=== PATIENT | female | born 1965 | race Caucasian/White ===

== ENCOUNTER 2017-06-01 04:39 | Inpatient (IN) | payer MEDICAID ==
[2017-06-01] MEDS ORDERED: XOPENEX 1.25 MG/3 ML NEBULE NEB ONE ×2 (04:50→04:53)
[2017-06-01 05:24] LABS: BASOPHILS % (AUTO) 0.4 % (0.2-1.0); EOSINOPHILS # (AUTO) 0.1 x10^3/uL (0.0-0.2); EOSINOPHILS % (AUTO) 0.6 % (0.9-2.9); HEMATOCRIT 38.7 % (36.0-47.0); LYMPHOCYTES # (AUTO) 1.4 X10^3/uL (1.3-2.9); LYMPHOCYTES % (AUTO) 13.6 % (21.0-51.0); MEAN CORPUSCULAR HEMOGLOBIN 28.6 pg (27.0-34.0); MEAN CORPUSCULAR HGB CONC 33.5 g/dL (33.0-35.0); MEAN CORPUSCULAR VOLUME 85.4 fL (80.0-100.0); MEAN PLATELET VOLUME 8.6 fL (7.4-11.0); MONOCYTES # (AUTO) 0.4 x10^3/uL (0.3-0.8); MONOCYTES % (AUTO) 4.1 % (0.0-13.0); NEUTROPHILS # (AUTO) 8.5 x10^3/uL (2.2-4.8); NEUTROPHILS % (AUTO) 81.3 % (42.0-75.0); PLATELET COUNT 68 X10^3/uL (150.0-450.0); RED BLOOD COUNT 4.53 X10^6/uL (3.5-5.4); RED CELL DISTRIBUTION WIDTH 19.7 % (11.6-16.5); WHITE BLOOD COUNT 10.5 X10^3/uL (3.6-10.0)
[2017-06-01 05:27] LABS: ABG ALLEN TEST POS; ABG HCO3 34.7 mmol/L (22-26); FRACTIONATED INSPIRED OXYGEN 28
--- NOTE | 2017-06-01 05:31 | DR.GENAD ---
HPI - PCP Primary Care Physician: nfd - Complaint/Symptoms Chief Complaint Doctors Comments: Patient admits to chest pain for a couple of years. She states that she was hospitalized one week ago in [place] for chest pain and COPD. She had a stress test, she reports that she past the test. She was put on cardiazem drip for three days due to heart rate of 200. She was discharged on Diltiazem 240 daily and Eliquis. Patient states that she has had chest pain for a couple of years. She states that she has been hospitalized for pneumonia seven times the past year. [facility] live with a friend so that she will not be alone. Patient states that she felt weak while walking; admits to chest pain on last night that got worse this morning she therefore called EMS. She admits to smoking four cigarettes per day. She is on oxygen daily at 3L for the past year. Chief Complaint:: pt c/o sob and chest pain for 2 days pt states" i just got out of the [facility] thursday was a week ago. I stay in the hospital more than i'm out. I think something is wrong with my kidneys they done test but it didn't show nothing cause they never said anything" - Source History Provided: Patient - Mode of Arrival Mode of Arrival: EMS - Timing Onset of Chief Complaint: 05/30/17 PMH - PMH Past Medical History: Yes Past Medical History: Angina, Asthma, COPD, Diabetes Past Medical History Comment: A-FIB Past Surgical History: Yes Surgical History: Cholecystectomy, Hysterectomy - Family History History of Family Medical Conditions: Yes Family Medical History: Diabetes Mellitus, Cancer, [place], Coronary Artery Disease, Heart Failure, Hypertension - Social History Does patient currently use any type of tobacco product: Yes Have you used tobacco products in the last 12 months: Yes Type of Tobacco Use: Cigarettes Does any household member use tobacco: Yes Alcohol Use: None Do you use any recreational Drugs:: No Lives With: Family Lives Where: Home - infectious screening In the last 2 months have you had wt loss of >10#?: NO Have you had fever, night sweats or hemotysis?: No Have you traveled outside the country in the last 6 months?: No Isolation: Standard ROS - Review of Systems Constitutional: See HPI Eyes: No Symptoms Reported ENTM: No Symptoms Reported Respiratoy: Hacking Cough, Short of Breath, Wheezing Cardiovascular: No Symptoms Reported Gastrointestinal/Abdominal: No Symptoms Reported Genitourinary: No Symptoms Reported Neurological: No Symptoms Reported Musculoskeletal: No Symptoms Reported Integumentary: No Symptoms Reported Hematologic/Lymphatic: No Symptoms Reported Endocrine: No Symptoms Reported Psychiatric: No Symptoms Reported All Other Systems: Reviewed and Negative PE - Vital Signs Vitals: Temperature 98.2 F Pulse Rate 97 Respiratory Rate 20 Blood Pressure 125/72 O2 Sat by Pulse Oximetry 93 - General Limitations: No Limitations General Appearance: Alert, In Distress - Head Head Exam: Normal Inspection, Atraumatic - Eyes Eye exam: Normal Appearance, PERRL, EOMI - ENT ENT Exam: Normal Exam External Ear Exam: Normal External Inspection TM/Canal Exam: Bilateral Normal Nose Exam: Normal Nose Exam Mouth Exam: Normal Inspection Throat Exam: Normal Inspection - Neck Neck Exam: Normal Inspection, Full ROM - Chest Chest Inspection: Normal Inspection, Tenderness (to palpation) - Respiratory Respiratory Exam: Chest Wall Tenderness Respiratory Exam: Bilateral Wheezing (decreased s/p neb) - Cardiovascular Cardiovascular Exam: Irregular Rhythm (fluctuating) - Abdominal Exam Abdominal Exam: Normal Inspection - Extremities Extremities Exam: Normal Inspection. negative: Edema - Back Back Exam: Normal Inspection - Neurologic Neurological Exam: Alert, Oriented X3, CN II-XII Intact - Psychiatric Psychiatric Exam: Normal Affect - Skin Skin Exam: Warm, Dry, Intact Course - Consultation Called: 06:05 (Dr Fairbanks agreed to admit for further treatment and evaluation) - Education/Counseling Educated On: Diagnosis, Prognosis ROR - Labs Reviewed Result Diagrams: 06/01/17 05:19 06/01/17 05:19 Laboratory: WBC 10.5 X10^3/uL (3.6-10.0) H 06/01/17 05:19 RBC 4.53 X10^6/uL (3.5-5.4) 06/01/17 05:19 Hgb 13.0 g/dL (12.0-16.0) 06/01/17 05:19 Hct 38.7 % (36.0-47.0) 06/01/17 05:19 MCV 85.4 fL (80.0-100.0) 06/01/17 05:19 MCH 28.6 pg (27.0-34.0) 06/01/17 05:19 MCHC 33.5 g/dL (33.0-35.0) 06/01/17 05:19 RDW 19.7 % (11.6-16.5) H 06/01/17 05:19 Plt Count 68 X10^3/uL (150.0-450.0) L 06/01/17 05:19 MPV 8.6 fL (7.4-11.0) 06/01/17 05:19 Neut % 81.3 % (42.0-75.0) H 06/01/17 05:19 Lymph % 13.6 % (21.0-51.0) L 06/01/17 05:19 [place] % 4.1 % (0.0-13.0) 06/01/17 05:19 Eos % 0.6 % (0.9-2.9) L 06/01/17 05:19 Baso % 0.4 % (0.2-1.0) 06/01/17 05:19 Neut # 8.5 x10^3/uL (2.2-4.8) H 06/01/17 05:19 Lymph # 1.4 X10^3/uL (1.3-2.9) 06/01/17 05:19 [place] # 0.4 x10^3/uL (0.3-0.8) 06/01/17 05:19 Eos # 0.1 x10^3/uL (0.0-0.2) 06/01/17 05:19 Baso # 0.0 X10^3/uL (0.0-0.1) 06/01/17 05:19 Absolute Nucleated RBC 0.0 /100WBC 06/01/17 05:19 INR Target Range - 06/01/17 05:19 INR 1.12 (0.8-1.3) 06/01/17 05:19 PTT 26.6 SECONDS (22.9-36.5) 06/01/17 05:19 PTT Comment - 06/01/17 05:19 Sample Site Rr 06/01/17 05:21 ABG pH 7.580 (7.35-7.45) H* 06/01/17 05:21 ABG pCO2 37.0 mmHg (35.0-45.0) 06/01/17 05:21 ABG pO2 81.0 mmHg (80.0-100.0) 06/01/17 05:21 ABG HCO3 34.7 mmol/L (22-26) H* 06/01/17 05:21 ABG O2 Saturation 97.0 % (90-100) 06/01/17 05:21 ABG Base Excess 12.0 mmol/L (-2.0-2.0) H 06/01/17 05:21 Josemanuel Test Pos 06/01/17 05:21 A-a Gradient 72.0 mmHg 06/01/17 05:21 FiO2 28 06/01/17 05:21 Blood Gas Comments Gerald well ae 06/01/17 05:21 Sodium 136 mmol/L (136-145) 06/01/17 05:19 Corrected Sodium 141 mmol/L (136-145) 06/01/17 05:19 Potassium 2.8 mmol/L (3.5-5.1) L* 06/01/17 05:19 Chloride 98 mmol/L (98-107) 06/01/17 05:19 Carbon Dioxide 30.0 mmol/L (21-32) 06/01/17 05:19 BUN 17 mg/dL (7-18) 06/01/17 05:19 Creatinine 0.63 mg/dL (0.55-1.02) 06/01/17 05:19 Est GFR (MDRD) Af Amer > 60 (>60) 06/01/17 05:19 Est GFR (MDRD) Non-Af > 60 (>60) 06/01/17 05:19 Glucose 309 mg/dL (65-99) H 06/01/17 05:19 Calcium 8.6 mg/dL (8.5-10.1) 06/01/17 05:19 Corrected Calcium 9.8 mg/dL (8.5-10.1) 06/01/17 05:19 Magnesium 1.5 mg/dL (1.7-2.9) L 06/01/17 05:19 Total Bilirubin 1.30 mg/dL (0.2-1.0) H 06/01/17 05:19 AST 57 Units/L (15-37) H 06/01/17 05:19 ALT 121 Units/L (12-78) H 06/01/17 05:19 Alkaline Phosphatase 262 Units/L (46-116) H 06/01/17 05:19 Total Protein 5.9 g/dL (6.4-8.2) L 06/01/17 05:19 Albumin 2.5 g/dL (3.4-5.0) L 06/01/17 05:19 Globulin 3.4 g/dL (2.5-4.5) 06/01/17 05:19 Albumin/Globulin Ratio 0.7 Ratio (1.1-2.1) L 06/01/17 05:19 Triglycerides 120 mg/dL (0-150) 06/01/17 05:19 Cholesterol 126 mg/dL (0-200) 06/01/17 05:19 LDL Cholesterol, Calc 77 mg/dL (0-100) 06/01/17 05:19 HDL Cholesterol 25 mg/dL (40-60) L 06/01/17 05:19 Cholesterol/HDL Ratio 5.0 (0.0-5.0) 06/01/17 05:19 - XRAY XRAY Interpreted by: Radiologist (Chest: ...Increased reticlar opacity within the left lower lobe suspicious for develolping infiltrate/pneumonia.) - Diagnosis Discharge Problem: Metabolic acidosis, Hypokalemia Pneumonia Qualifiers: Pneumonia type: due to unspecified organism Laterality: right Lung location: lower lobe of lung Qualified Code(s): J18.1 - Lobar pneumonia, unspecified organism A-fib Qualifiers: Atrial fibrillation type: unspecified Qualified Code(s): I48.91 - Unspecified atrial fibrillation Chest pain Qualifiers: Chest pain type: unspecified Qualified Code(s): R07.9 - Chest pain, unspecified COPD (chronic obstructive pulmonary disease) Qualifiers: COPD type: COPD with acute exacerbation Qualified Code(s): J44.1 - Chronic obstructive pulmonary disease with (acute) exacerbation - Discharge Plan Condition: Stable - Follow ups/Referrals Follow ups/Referrals: NFD,None [Primary Care Provider] - 3 days - Instructions
[2017-06-01 05:32] LABS: BLOOD UREA NITROGEN 17 mg/dL (7-18); CALCIUM 8.6 mg/dL (8.5-10.1); CHLORIDE 98 mmol/L (98-107); COR NA(FOR HYPERGLY) 141 mmol/L (136-145); CREATININE 0.63 mg/dL (0.55-1.02); SODIUM 136 mmol/L (136-145); eGFR BLACK RACES > 60 (>60); eGFR NON BLACK RACES > 60 (>60)
[2017-06-01 05:37] LABS: ALANINE AMINOTRANSFERASE 121 Units/L (12-78); ALBUMIN 2.5 g/dL (3.4-5.0); ALKALINE PHOSPHATASE 262 Units/L (46-116); ASPARTATE AMINO TRANSFERASE 57 Units/L (15-37); CHOLESTEROL 126 mg/dL (0-200); COR CA(FOR HYPOALB) 9.8 mg/dL (8.5-10.1); HDL CHOLESTEROL 25 mg/dL (40-60); MAGNESIUM 1.5 mg/dL (1.7-2.9); TOTAL PROTEIN 5.9 g/dL (6.4-8.2); TRIGLYCERIDES 120 mg/dL (0-150)
[2017-06-01] MEDS ORDERED: K-LYTE EFFERVESCENT ONE (05:41)
[2017-06-01] MEDS ORDERED: K-LYTE EFFERVESCENT PO ONE (05:43)
[2017-06-01] MEDS ORDERED: TYLENOL 325 MG TAB PO ONE ×2 (05:45→05:46)
--- NOTE | 2017-06-01 05:46 | RAD ---
Macro it AP chest Indication: Chest pain with shortness of breath Findings: The trachea is midline. Heart size is normal. Increased reticular opacity within the left l ower lobe suspicious for developing infiltrate/pneumonia. Right lung is clear. No pleural effusion or pneumothorax. No acute osseous abnormality. Impression: Reticular opacities within left lower lobe suspicious for developing infiltrate/pneumonia . Reported By:
[2017-06-01] MEDS ORDERED: SALINE 3% 15 ML NEB TX ONE (05:53)
[2017-06-01 05:54] LABS: CKMB % 6.7 % (<4); CREATINE KINASE 15 Units/L (26-192); CREATINE KINASE MB < 1.0 ng/mL (0-4.0); TROPONIN I 0.04 ng/mL (0-1.5)
[2017-06-01] MEDS ORDERED: SALINE 3% 15 ML NEB TX NEB ONE (05:59)
[2017-06-01] MEDS ORDERED: NS + KCL 20 MEQ/L 1,000 ML IV ONE (06:08)
[2017-06-01] MEDS: NS 1000 ML 1,000 ML with POTASSIUM CHLORIDE INJ 20 MEQ VIAL 20 MEQ IV SCH ×4 (06:12→15:54)
[2017-06-01] MEDS ORDERED: ROCEPHIN 1 GM IV PREMIX 1 GM/50 ML IV.SOLN. IV ONE (06:57)
[2017-06-01] MEDS ORDERED: NS 1/2 1000 ML IV 1,000 ML with POTASSIUM CHLORIDE INJ 20 MEQ VIAL 20 MEQ IV SCH ×2 (07:00)
[2017-06-01] MEDS ORDERED: NS + KCL 20 MEQ/L 1,000 ML IV SCH (08:00)
[2017-06-01 08:13] VITALS: BMI 24.2
[2017-06-01] MEDS ORDERED: FLUVIRIN IM ONE (08:13)
[2017-06-01] MEDS: XOPENEX 1.25 MG/3 ML NEBULE NEB SCH ×5 (08:53→20:57)
[2017-06-01] MEDS ORDERED: ROCEPHIN VIAL 1 GM 1 GM in NS 50 ML IV + SPIKE MINIBAG* 50 ML IV SCH (09:00)
[2017-06-01] MEDS ORDERED: DUONEB 0.5 MG/3 MG NEB SCH (09:00)
[2017-06-01] MEDS ORDERED: DILTIAZEM HCL 240 MG PO SCH (09:00)
[2017-06-01] MEDS: ELIQUIS PO SCH ×2 (09:40→20:35)
[2017-06-01] MEDS: CARDIZEM CD 240 MG PO SCH (09:40)
[2017-06-01] MEDS: ROCEPHIN VIAL 1 GM 1 GM in NS 50 ML IV 50 ML IV SCH ×2 (09:41→09:53)
[2017-06-01] MEDS: ROBITUSSIN DM PO SCH ×4 (09:41→20:34)
[2017-06-01] MEDS: HumuLIN R SUBCUT PRN ×4 (09:42→20:37)
[2017-06-01] MEDS ORDERED: REFLEX: PROVENTIL NEB & PulmiCORT NEB~ NEB SCH (09:45)
[2017-06-01] MEDS ORDERED: PULMICORT NEB TX 0.5 MG NEB NR (09:45)
[2017-06-01] MEDS ORDERED: PROVENTIL NEB TX 0.083% 2.5MG/ 3ML NEB NR (09:45)
[2017-06-01] MEDS: ZOFRAN INJ 4 MG VIAL IVP PRN (10:30)
[2017-06-01] MEDS: MOBIC TAB 15 MG PO SCH (11:02)
[2017-06-01] MEDS: VIBRAMYCIN IV SCH ×3 (11:02→20:36)
[2017-06-01] MEDS: ACTOS PO SCH (11:02)
[2017-06-01] MEDS: NS IV SCH ×3 (11:02→20:36)
[2017-06-01] MEDS: CELEXA PO SCH (11:02)
[2017-06-01] MEDS: ULTRAM PO PRN ×2 (11:53→20:34)
[2017-06-01 12:50] LABS: CKMB % 3.7 % (<4); CREATINE KINASE MB 0.7 ng/mL (0-4.0); TROPONIN I 0.03 ng/mL (0-1.5)
[2017-06-01] MEDS ORDERED: K-RIDER 10 MEQ/NS 100 ML 10 MEQ/100 ML BAG IV PRN (13:05)
[2017-06-01] MEDS ORDERED: K-LYTE EFFERVESCENT PO PRN (13:05)
[2017-06-01] MEDS ORDERED: MAG-OX TAB PO PRN (13:05)
[2017-06-01] MEDS: TUSSIONEX PENNKINETIC SUSP PO PRN ×2 (13:11→23:39)
[2017-06-01] MEDS ORDERED: K-DUR TAB 20 MEQ PO ONE (13:37)
[2017-06-01] MEDS: NS + KCL 20 MEQ/L 1,000 ML IV SCH ×2 (15:54→20:36)
[2017-06-01] MEDS: GLUCOPHAGE XR PO SCH ×2 (16:49→20:36)
[2017-06-01 17:27] LABS: CKMB % 3.2 % (<4); CREATINE KINASE MB 0.7 ng/mL (0-4.0); TROPONIN I 0.02 ng/mL (0-1.5)
[2017-06-01] MEDS: SNACK - Diabetic Appropriate PO SCH ×2 (20:33→20:34)
[2017-06-01] MEDS: AMBIEN PO SCH (20:35)
[2017-06-01] MEDS: PULMICORT NEB TX 0.5 MG NEB SCH (20:57)
[2017-06-01] MEDS: ATIVAN TAB 0.5 MG PO PRN (22:59)
[2017-06-02] MEDS: NS 1000 ML 1,000 ML with POTASSIUM CHLORIDE INJ 20 MEQ VIAL 20 MEQ IV SCH ×4 (00:29→07:39)
[2017-06-02] MEDS: ULTRAM PO PRN ×4 (02:35→21:53)
[2017-06-02] MEDS: NS + KCL 20 MEQ/L 1,000 ML IV SCH ×3 (03:04→15:52)
[2017-06-02] MEDS: ZOFRAN INJ 4 MG VIAL IVP PRN ×2 (03:56→22:31)
[2017-06-02 05:19] LABS: BASOPHILS % (AUTO) 0.4 % (0.2-1.0); EOSINOPHILS # (AUTO) 0.1 x10^3/uL (0.0-0.2); EOSINOPHILS % (AUTO) 1.2 % (0.9-2.9); HEMATOCRIT 33.9 % (36.0-47.0); HEMOGLOBIN 11.3 g/dL (12.0-16.0); LYMPHOCYTES # (AUTO) 1.2 X10^3/uL (1.3-2.9); LYMPHOCYTES % (AUTO) 19.9 % (21.0-51.0); MEAN CORPUSCULAR HEMOGLOBIN 29.3 pg (27.0-34.0); MEAN CORPUSCULAR HGB CONC 33.4 g/dL (33.0-35.0); MEAN CORPUSCULAR VOLUME 87.6 fL (80.0-100.0); MONOCYTES # (AUTO) 0.3 x10^3/uL (0.3-0.8); MONOCYTES % (AUTO) 4.3 % (0.0-13.0); NEUTROPHILS # (AUTO) 4.6 x10^3/uL (2.2-4.8); NEUTROPHILS % (AUTO) 74.2 % (42.0-75.0); PLATELET COUNT 51 X10^3/uL (150.0-450.0); RED BLOOD COUNT 3.86 X10^6/uL (3.5-5.4); RED CELL DISTRIBUTION WIDTH 19.6 % (11.6-16.5); WHITE BLOOD COUNT 6.2 X10^3/uL (3.6-10.0)
[2017-06-02 05:50] LABS: ALANINE AMINOTRANSFERASE 104 Units/L (12-78); ALBUMIN 2.2 g/dL (3.4-5.0); ALKALINE PHOSPHATASE 218 Units/L (46-116); ASPARTATE AMINO TRANSFERASE 51 Units/L (15-37); BLOOD UREA NITROGEN 16 mg/dL (7-18); CALCIUM 7.8 mg/dL (8.5-10.1); CARBON DIOXIDE 28.5 mmol/L (21-32); COR CA(FOR HYPOALB) 9.2 mg/dL (8.5-10.1); CREATININE 0.61 mg/dL (0.55-1.02); TOTAL PROTEIN 4.9 g/dL (6.4-8.2); eGFR BLACK RACES > 60 (>60); eGFR NON BLACK RACES > 60 (>60)
[2017-06-02 05:54] LABS: CHLORIDE 100 mmol/L (98-107); COR NA(FOR HYPERGLY) 136 mmol/L (136-145); SODIUM 135 mmol/L (136-145)
--- NOTE | 2017-06-02 06:38 | RAD ---
HISTORY: Chest pain, shortness of breath Study: Chest AP portable Comparison: 06/01/2017 Findings: The heart is within normal limits in size. The loren[place] are normal. The lungs are mildly hyperinflated bu t free of acute alveolar infiltrates. No pleural effusions are identified. The bony thorax is unremar kable. There is minimal perihilar subsegmental atelectasis on the right. IMPRESSION: No definite acute infiltrates Hyperinflation Reported By:
[2017-06-02] MEDS: PULMICORT NEB TX 0.5 MG NEB SCH ×2 (08:24→20:35)
[2017-06-02] MEDS: XOPENEX 1.25 MG/3 ML NEBULE NEB SCH ×4 (08:24→20:35)
[2017-06-02] MEDS: ACTOS PO SCH (08:46)
[2017-06-02] MEDS: MOBIC TAB 15 MG PO SCH (08:47)
[2017-06-02] MEDS: ELIQUIS PO SCH ×2 (08:47→20:20)
[2017-06-02] MEDS: CARDIZEM CD 240 MG PO SCH (08:47)
[2017-06-02] MEDS: GLUCOPHAGE XR PO SCH ×2 (08:47→20:17)
[2017-06-02] MEDS: CELEXA PO SCH (08:47)
[2017-06-02] MEDS: PREDNISONE TAB 10 MG PO SCH (08:47)
[2017-06-02] MEDS: ROCEPHIN VIAL 1 GM 1 GM in NS 50 ML IV 50 ML IV SCH (08:48)
[2017-06-02] MEDS: ROBITUSSIN DM PO SCH ×4 (08:48→20:17)
[2017-06-02] MEDS: NS IV SCH ×2 (08:50→20:17)
[2017-06-02] MEDS: VIBRAMYCIN IV SCH ×2 (08:50→20:17)
[2017-06-02] MEDS: MAGNESIUM SULFATE 1 GM/100 mL PREMIX 1 GM/100 ML BAG IV PRN ×4 (09:20→15:50)
[2017-06-02] MEDS: HumuLIN R SUBCUT PRN ×3 (10:58→20:17)
[2017-06-02] MEDS: TUSSIONEX PENNKINETIC SUSP PO PRN (12:27)
[2017-06-02] MEDS: ATIVAN TAB 0.5 MG PO PRN (20:17)
[2017-06-02] MEDS: AMBIEN PO SCH (20:17)
[2017-06-02] MEDS: SNACK - Diabetic Appropriate PO SCH ×2 (20:20)
[2017-06-03] MEDS: TUSSIONEX PENNKINETIC SUSP PO PRN ×2 (01:30→14:06)
[2017-06-03] MEDS: NS + KCL 20 MEQ/L 1,000 ML IV SCH ×2 (01:33→05:08)
[2017-06-03] MEDS: ULTRAM PO PRN ×2 (04:17→10:07)
[2017-06-03 05:30] LABS: BASOPHILS % (AUTO) 0.2 % (0.2-1.0); EOSINOPHILS # (AUTO) 0.1 x10^3/uL (0.0-0.2); EOSINOPHILS % (AUTO) 1.5 % (0.9-2.9); HEMATOCRIT 32.8 % (36.0-47.0); HEMOGLOBIN 10.8 g/dL (12.0-16.0); LYMPHOCYTES # (AUTO) 1.1 X10^3/uL (1.3-2.9); MEAN CORPUSCULAR VOLUME 87.9 fL (80.0-100.0); MEAN PLATELET VOLUME 8.6 fL (7.4-11.0); MONOCYTES # (AUTO) 0.3 x10^3/uL (0.3-0.8); MONOCYTES % (AUTO) 4.6 % (0.0-13.0); NEUTROPHILS # (AUTO) 4.1 x10^3/uL (2.2-4.8); NEUTROPHILS % (AUTO) 73.7 % (42.0-75.0); PLATELET COUNT 50 X10^3/uL (150.0-450.0); RED BLOOD COUNT 3.73 X10^6/uL (3.5-5.4); RED CELL DISTRIBUTION WIDTH 19.9 % (11.6-16.5); WHITE BLOOD COUNT 5.6 X10^3/uL (3.6-10.0)
[2017-06-03] MEDS: XOPENEX 1.25 MG/3 ML NEBULE NEB SCH ×2 (05:30→08:47)
[2017-06-03 05:35] LABS: ALANINE AMINOTRANSFERASE 79 Units/L (12-78); ALKALINE PHOSPHATASE 219 Units/L (46-116); ASPARTATE AMINO TRANSFERASE 34 Units/L (15-37); BLOOD UREA NITROGEN 9 mg/dL (7-18); CALCIUM 7.8 mg/dL (8.5-10.1); CHLORIDE 102 mmol/L (98-107); COR CA(FOR HYPOALB) 9.4 mg/dL (8.5-10.1); CREATININE 0.55 mg/dL (0.55-1.02); SODIUM 137 mmol/L (136-145); TOTAL PROTEIN 4.9 g/dL (6.4-8.2); eGFR BLACK RACES > 60 (>60); eGFR NON BLACK RACES > 60 (>60)
[2017-06-03 05:45] LABS: PLATELET MORPHOLOGY COMMENT NORMAL (NORMAL)
[2017-06-03] MEDS: ATIVAN TAB 0.5 MG PO PRN (08:20)
[2017-06-03] MEDS: CARDIZEM CD 240 MG PO SCH (08:21)
[2017-06-03] MEDS: ROBITUSSIN DM PO SCH ×2 (08:21→12:21)
[2017-06-03] MEDS: MOBIC TAB 15 MG PO SCH (08:21)
[2017-06-03] MEDS: CELEXA PO SCH (08:21)
[2017-06-03] MEDS: PREDNISONE TAB 10 MG PO SCH (08:21)
[2017-06-03] MEDS: ACTOS PO SCH (08:21)
[2017-06-03] MEDS: ELIQUIS PO SCH (08:21)
[2017-06-03] MEDS: GLUCOPHAGE XR PO SCH (08:21)
[2017-06-03] MEDS: NS IV SCH (08:22)
[2017-06-03] MEDS: VIBRAMYCIN IV SCH (08:22)
[2017-06-03] MEDS: ROCEPHIN VIAL 1 GM 1 GM in NS 50 ML IV 50 ML IV SCH (08:22)
[2017-06-03] MEDS: PULMICORT NEB TX 0.5 MG NEB SCH (08:47)
[2017-06-03 12:35] VITALS: BP 137/82
== END 2017-06-03 14:06 | disposition home or self-care (01) | DRG 194 ==
LOC: ER 04:39 → ICU 06:45
PROVIDERS: ADMIT Obstetrics & Gynecology Obstetrics; ATTEND Obstetrics & Gynecology Obstetrics
DX: J18.1 Lobar pneumonia, unspecified organism (principal); R07.89 Other chest pain; J44.1 Chronic obstructive pulmonary disease with (acute) exacerbation; E87.6 Hypokalemia; R06.02 Shortness of breath; I48.91 Unspecified atrial fibrillation; E87.2 Acidosis; R94.31 Abnormal electrocardiogram [ECG] [EKG]; I10 Essential (primary) hypertension; F41.8 Other specified anxiety disorders; E11.65 Type 2 diabetes mellitus with hyperglycemia
CPT/HCPCS: 36415; 36600; 71010; 80053; 80061; 82550; 82553; 82803; 83735; 84132; 84484; 85025; 85610; 85730; 87040; 87070; 87086; 87205; 90686; 93005; 93010; 94640; 94669; 96365; 96374; 99283; 99284; A4216; A4222; J0696; J1815; J2405; J3480; J3490; J7506; J7626

== ENCOUNTER 2017-06-15 07:51 | Inpatient (IN) | payer MEDICAID ==
--- NOTE | 2017-06-15 08:27 | DR.GENAD ---
HPI - PCP Primary Care Physician: SHAWANDA OSUNA - Complaint/Symptoms Chief Complaint Doctors Comments: Patient was discharged from the hospital s/p treatment for pneumonia on last week. She presents today with complaint spot of blood on toilet tissue this morning after she wiped. She is not sure if vaginally or rectally. Her last pap was three years ago . She is on eliquis. Patient also states that she has back pain for which she takes hydrocodone 10. Her room mate reports that patient had hematuria and rectal bleed. Chief Complaint:: EMS OUT TO PT WITH RECTAL BLEEDING AND UPON ARRIVAL PT C/O BACK PAIN AND BLOOD LIKE A PERIOD WHEN SHE VOIDED AND THAT IT WAS BRIGHT RED AND IT HAD CLOTS IN IT.. Self Treatment fo Chief Complaint: PT STATES SHE WAS JUST IN THE HOSPITAL LAST WEEK .. - Source History Provided: Patient - Mode of Arrival Mode of Arrival: EMS - Timing Onset of Chief Complaint: 06/15/17 PMH - PMH Past Medical History: Yes Past Medical History: Angina, Asthma, COPD, Diabetes Past Medical History Comment: AFIB Past Surgical History: Yes Surgical History: Cholecystectomy, Hysterectomy, Ortho Surgery - Family History History of Family Medical Conditions: Yes Family Medical History: Diabetes Mellitus - Social History Does patient currently use any type of tobacco product: No Have you used tobacco products in the last 12 months: No Type of Tobacco Use: None Does any household member use tobacco: No Alcohol Use: None Do you use any recreational Drugs:: No Lives With: Family Lives Where: Home - infectious screening In the last 2 months have you had wt loss of >10#?: NO Have you had fever, night sweats or hemotysis?: No Have you traveled outside the country in the last 6 months?: No Isolation: Standard ROS - Review of Systems Constitutional: negative: Chills Eyes: No Symptoms Reported ENTM: No Symptoms Reported Respiratoy: No Symptoms Reported Cardiovascular: No Symptoms Reported Gastrointestinal/Abdominal: No Symptoms Reported Genitourinary: No Symptoms Reported Neurological: No Symptoms Reported Musculoskeletal: No Symptoms Reported Integumentary: Change in Color Hematologic/Lymphatic: See HPI, Easy Bleeding Endocrine: No Symptoms Reported Psychiatric: No Symptoms Reported All Other Systems: Reviewed and Negative PE - Vital Signs Vitals: Temperature 99.0 F Pulse Rate 104 Respiratory Rate 22 Blood Pressure [Right Arm] 137/82 Blood Pressure 134/65 O2 Sat by Pulse Oximetry 100 - General Limitations: No Limitations General Appearance: Alert, In No Apparent Distress - Head Head Exam: Normal Inspection, Atraumatic - Eyes Eye exam: PERRL, EOMI, Conjunctival Injection (left medially) - ENT ENT Exam: Normal Exam External Ear Exam: Normal External Inspection TM/Canal Exam: Bilateral Normal Nose Exam: Normal Nose Exam Mouth Exam: Normal Inspection Throat Exam: Normal Inspection - Neck Neck Exam: Normal Inspection, Full ROM - Chest Chest Inspection: Normal Inspection, Symmetric Chest Wall Rise - Respiratory Respiratory Exam: Prolonged Expiratory Phase Respiratory Exam: Bilateral Rhonchi - Cardiovascular Cardiovascular Exam: Regular Rate, Normal Rhythm - Abdominal Exam Abdominal Exam: Normal Inspection Abdominal Tenderness: negative: RUQ, RLQ, LUQ, LLQ, Epigastrium, Suprapubic, Diffuse, Mild, Moderate, Severe, Other - Extremities Extremities Exam: Normal Inspection, Full ROM, Other (bruising left knee) - Back Back Exam: Normal Inspection, Full ROM, Other (ecchymosis of forearms) - Neurologic Neurological Exam: Alert, Oriented X3, CN II-XII Intact - Psychiatric Psychiatric Exam: Normal Affect, Normal Mood - Skin Skin Exam: Warm, Dry, Other (erythematous rash of left knee) Course - Consultation Called: 10:20 (Dr Mayberry agreed to admit for further treatment) ROR - Labs Reviewed Result Diagrams: 06/15/17 08:40 06/15/17 08:40 Laboratory: WBC 19.7 X10^3/uL (3.6-10.0) H 06/15/17 08:40 RBC 4.03 X10^6/uL (3.5-5.4) 06/15/17 08:40 Hgb 11.4 g/dL (12.0-16.0) L 06/15/17 08:40 Hct 33.8 % (36.0-47.0) L 06/15/17 08:40 MCV 83.8 fL (80.0-100.0) 06/15/17 08:40 MCH 28.2 pg (27.0-34.0) 06/15/17 08:40 MCHC 33.7 g/dL (33.0-35.0) 06/15/17 08:40 RDW 19.9 % (11.6-16.5) H 06/15/17 08:40 Plt Count 277 X10^3/uL (150.0-450.0) 06/15/17 08:40 Plt Count Comment Adequate (ADEQUATE) 06/15/17 08:40 MPV 8.2 fL (7.4-11.0) 06/15/17 08:40 Neut % 89.6 % (42.0-75.0) H 06/15/17 08:40 Lymph % 4.6 % (21.0-51.0) L 06/15/17 08:40 [place] % 5.4 % (0.0-13.0) 06/15/17 08:40 Eos % 0.1 % (0.9-2.9) L 06/15/17 08:40 Baso % 0.3 % (0.2-1.0) 06/15/17 08:40 Neut # 17.7 x10^3/uL (2.2-4.8) H 06/15/17 08:40 Lymph # 0.9 X10^3/uL (1.3-2.9) L 06/15/17 08:40 [place] # 1.1 x10^3/uL (0.3-0.8) H 06/15/17 08:40 Eos # 0.0 x10^3/uL (0.0-0.2) 06/15/17 08:40 Baso # 0.1 X10^3/uL (0.0-0.1) 06/15/17 08:40 Absolute Nucleated RBC 0.0 /100WBC 06/15/17 08:40 Total Counted 100 06/15/17 08:40 Neutrophils % (Manual) 87 % (39-76) H 06/15/17 08:40 Lymphocytes % (Manual) 7 % (13-43) L 06/15/17 08:40 Monocytes % (Manual) 6 % (4-9) 06/15/17 08:40 Plt Morphology Comment Normal (NORMAL) 06/15/17 08:40 RBC Morphology Normal (NORMAL) 06/15/17 08:40 INR Target Range - 06/15/17 08:40 INR 1.83 (0.8-1.3) H 06/15/17 08:40 PTT 35.9 SECONDS (22.9-36.5) 06/15/17 08:40 PTT Comment - 06/15/17 08:40 Sodium 130 mmol/L (136-145) L 06/15/17 08:40 Corrected Sodium 131 mmol/L (136-145) L 06/15/17 08:40 Potassium 3.2 mmol/L (3.5-5.1) L 06/15/17 08:40 Chloride 90 mmol/L (98-107) L 06/15/17 08:40 Carbon Dioxide 30.8 mmol/L (21-32) 06/15/17 08:40 BUN 18 mg/dL (7-18) 06/15/17 08:40 Creatinine 0.87 mg/dL (0.55-1.02) 06/15/17 08:40 Est GFR (MDRD) Af Amer > 60 (>60) 06/15/17 08:40 Est GFR (MDRD) Non-Af > 60 (>60) 06/15/17 08:40 Glucose 160 mg/dL (65-99) H 06/15/17 08:40 Calcium 8.8 mg/dL (8.5-10.1) 06/15/17 08:40 Corrected Calcium 10.1 mg/dL (8.5-10.1) 06/15/17 08:40 Total Bilirubin 1.80 mg/dL (0.2-1.0) H 06/15/17 08:40 AST 68 Units/L (15-37) H 06/15/17 08:40 ALT 65 Units/L (12-78) 06/15/17 08:40 Alkaline Phosphatase 503 Units/L (46-116) H 06/15/17 08:40 C-Reactive Protein 110.90 mg/L (0-3.0) H 06/15/17 08:40 Total Protein 5.8 g/dL (6.4-8.2) L 06/15/17 08:40 Albumin 2.4 g/dL (3.4-5.0) L 06/15/17 08:40 Globulin 3.4 g/dL (2.5-4.5) 06/15/17 08:40 Albumin/Globulin Ratio 0.7 Ratio (1.1-2.1) L 06/15/17 08:40 Specimen Type Clean catch urine 06/15/17 09:30 Urine Color Bloody (YELLOW) 06/15/17 09:30 Urine Appearance Hazy (CLEAR) 06/15/17 09:30 Urine pH 6.5 (5.0 - 8.0) 06/15/17 09:30 Ur Specific [place] 1.015 (1.000-1.030) 06/15/17 09:30 Urine Protein 3+ (NEGATIVE) 06/15/17 09:30 Urine Glucose (UA) Negative (NEGATIVE) 06/15/17 09:30 Urine Ketones 1+ (NEGATIVE) 06/15/17 09:30 Urine Occult Blood 5+ (NEGATIVE) 06/15/17 09:30 Urine Nitrite Negative (NEGATIVE) 06/15/17 09:30 Urine Bilirubin Negative (NEGATIVE) 06/15/17 09:30 Urine Urobilinogen 2+ (NORMAL) 06/15/17 09:30 Ur Leukocyte Esterase 3+ (NEGATIVE) 06/15/17 09:30 Urine RBC Tntc /HPF (NEGATIVE) 06/15/17 09:30 Urine WBC 0-3 /HPF (NEGATIVE) 06/15/17 09:30 Ur Squamous Epith Cells Few /HPF (NEGATIVE) 06/15/17 09:30 Urine Bacteria Trace /HPF (NEGATIVE) 06/15/17 09:30 Ur Culture Indicated? No/not indicated 06/15/17 09:30 Stool Description Fob tube 06/15/17 08:55 Stl Occult Blood (IFOB) Negative (NEGATIVE) 06/15/17 08:55 - Diagnosis Discharge Problem: Hyponatremia, Hypokalemia UTI (urinary tract infection) Qualifiers: Urinary tract infection type: acute cystitis Hematuria presence: with hematuria Qualified Code(s): N30.01 - Acute cystitis with hematuria - Discharge Plan Condition: Stable - Follow ups/Referrals Follow ups/Referrals: DUY MAYBERRY [Primary Care Provider] - 3 days - Instructions
[2017-06-15 08:49] LABS: BASOPHILS # (AUTO) 0.1 X10^3/uL (0.0-0.1); BASOPHILS % (AUTO) 0.3 % (0.2-1.0); EOSINOPHILS % (AUTO) 0.1 % (0.9-2.9); HEMATOCRIT 33.8 % (36.0-47.0); HEMOGLOBIN 11.4 g/dL (12.0-16.0); LYMPHOCYTES # (AUTO) 0.9 X10^3/uL (1.3-2.9); LYMPHOCYTES % (AUTO) 4.6 % (21.0-51.0); MEAN CORPUSCULAR HEMOGLOBIN 28.2 pg (27.0-34.0); MEAN CORPUSCULAR HGB CONC 33.7 g/dL (33.0-35.0); MEAN CORPUSCULAR VOLUME 83.8 fL (80.0-100.0); MEAN PLATELET VOLUME 8.2 fL (7.4-11.0); MONOCYTES # (AUTO) 1.1 x10^3/uL (0.3-0.8); MONOCYTES % (AUTO) 5.4 % (0.0-13.0); NEUTROPHILS # (AUTO) 17.7 x10^3/uL (2.2-4.8); NEUTROPHILS % (AUTO) 89.6 % (42.0-75.0); PLATELET COUNT 277 X10^3/uL (150.0-450.0); RED BLOOD COUNT 4.03 X10^6/uL (3.5-5.4); RED CELL DISTRIBUTION WIDTH 19.9 % (11.6-16.5); WHITE BLOOD COUNT 19.7 X10^3/uL (3.6-10.0)
[2017-06-15 09:03] LABS: ALANINE AMINOTRANSFERASE 65 Units/L (12-78); ALBUMIN 2.4 g/dL (3.4-5.0); ALKALINE PHOSPHATASE 503 Units/L (46-116); ASPARTATE AMINO TRANSFERASE 68 Units/L (15-37); BLOOD UREA NITROGEN 18 mg/dL (7-18); CALCIUM 8.8 mg/dL (8.5-10.1); CARBON DIOXIDE 30.8 mmol/L (21-32); CHLORIDE 90 mmol/L (98-107); COR CA(FOR HYPOALB) 10.1 mg/dL (8.5-10.1); COR NA(FOR HYPERGLY) 131 mmol/L (136-145); CREATININE 0.87 mg/dL (0.55-1.02); SODIUM 130 mmol/L (136-145); TOTAL PROTEIN 5.8 g/dL (6.4-8.2); eGFR BLACK RACES > 60 (>60); eGFR NON BLACK RACES > 60 (>60)
[2017-06-15 09:19] LABS: PLATELET MORPHOLOGY COMMENT NORMAL (NORMAL)
[2017-06-15] MEDS ORDERED: NS 1000 ML 1,000 ML IV ONE (09:25)
[2017-06-15] MEDS ORDERED: K-LYTE EFFERVESCENT PO ONE (09:26)
[2017-06-15] MEDS ORDERED: NS 1000 ML 1,000 ML ONE (09:35)
[2017-06-15 09:45] LABS: BILIRUBIN,URINE NEGATIVE (NEGATIVE); BLOOD/HEMOGLOBIN,URINE 5+ (NEGATIVE); GLUCOSE, URINE NEGATIVE (NEGATIVE); KETONES,URINE 1+ (NEGATIVE); LEUKOCYTE ESTERASE ,URINE 3+ (NEGATIVE); NITRITES,URINE NEGATIVE (NEGATIVE); PH,URINE 6.5 (5.0 - 8.0); PROTEIN,URINE 3+ (NEGATIVE); UROBILINOGEN,URINE 2+ (NORMAL)
[2017-06-15 09:58] LABS: APPEARANCE,URINE HAZY (CLEAR); BACTERIA,URINE TRACE /HPF (NEGATIVE); COLOR,URINE BLOODY (YELLOW); RBC,URINE TNTC /HPF (NEGATIVE); SQUAMOUS EPITHELIAL CELL,UR FEW /HPF (NEGATIVE)
[2017-06-15] MEDS ORDERED: LEVAQUIN PREMIX IV 750 MG 750 MG/150 ML BAG IV ONE ×2 (10:32→10:35)
[2017-06-15] MEDS ORDERED: NS + KCL 20 MEQ/L 1,000 ML IV ONE (10:35)
[2017-06-15] MEDS ORDERED: NS 1000 ML 1,000 ML with POTASSIUM CHLORIDE INJ 20 MEQ VIAL 20 MEQ IV SCH ×2 (11:00)
[2017-06-15] MEDS: NS + KCL 20 MEQ/L 1,000 ML IV SCH ×2 (11:35→19:45)
[2017-06-15] MEDS ORDERED: ZOFRAN INJ 4 MG VIAL IVP PRN (12:15)
[2017-06-15] MEDS ORDERED: PATIENT'S HOME MEDICATION (Albuterol Sulfate [Proventil Hfa Inhaler 6.7 Gm] 2 PUFF) INH PRN (14:16)
[2017-06-15] MEDS ORDERED: NORCO 5/325 MG TAB PO PRN (14:16)
[2017-06-15] MEDS ORDERED: ZOFRAN TAB 4 MG PO PRN (14:16)
[2017-06-15] MEDS: ATIVAN TAB 0.5 MG PO PRN (14:30)
[2017-06-15] MEDS: PROVENTIL NEB TX 0.083% 2.5MG/ 3ML NEB PRN ×3 (14:40→21:38)
[2017-06-15 16:53] VITALS: BMI 24.3
[2017-06-15] MEDS ORDERED: DIFLUCAN PO ONE (18:47)
[2017-06-15] MEDS ORDERED: TYGACIL 50 MG VIAL 100 MG in NS 100 ML IV 100 ML IV ONE (18:49)
[2017-06-15] MEDS: GLUCOPHAGE XR PO SCH (20:25)
[2017-06-15] MEDS: AMBIEN PO PRN (20:26)
[2017-06-15] MEDS: HumuLIN R SUBCUT PRN (20:54)
[2017-06-15] MEDS: NORCO 5/325 MG TAB PO PRN (20:55)
[2017-06-15] MEDS ORDERED: PATIENT'S HOME MEDICATION (Budesonide-Formoterol 2 PUFF) INH SCH (21:00)
[2017-06-15] MEDS: MILK OF MAGNESIA PO PRN (21:32)
[2017-06-15] MEDS: COLACE CAP 100 MG PO PRN (21:33)
[2017-06-15] MEDS: PULMICORT NEB TX 0.5 MG NEB SCH (21:36)
[2017-06-15] MEDS: ROBITUSSIN DM PO PRN (23:41)
[2017-06-16] MEDS: NORCO 5/325 MG TAB PO PRN ×4 (02:28→23:22)
[2017-06-16] MEDS: ATIVAN TAB 0.5 MG PO PRN ×2 (03:12→18:00)
[2017-06-16] MEDS: NS + KCL 20 MEQ/L 1,000 ML IV SCH ×2 (04:29→11:17)
[2017-06-16 06:25] LABS: BASOPHILS # (AUTO) 0.2 X10^3/uL (0.0-0.1); BASOPHILS % (AUTO) 0.7 % (0.2-1.0); HEMATOCRIT 32.5 % (36.0-47.0); HEMOGLOBIN 10.8 g/dL (12.0-16.0); LYMPHOCYTES # (AUTO) 1.9 X10^3/uL (1.3-2.9); MEAN CORPUSCULAR HGB CONC 33.3 g/dL (33.0-35.0); MEAN CORPUSCULAR VOLUME 84.1 fL (80.0-100.0); MEAN PLATELET VOLUME 8.5 fL (7.4-11.0); MONOCYTES # (AUTO) 1.5 x10^3/uL (0.3-0.8); MONOCYTES % (AUTO) 5.5 % (0.0-13.0); NEUTROPHILS # (AUTO) 23.9 x10^3/uL (2.2-4.8); NEUTROPHILS % (AUTO) 86.8 % (42.0-75.0); PLATELET COUNT 273 X10^3/uL (150.0-450.0); RED BLOOD COUNT 3.87 X10^6/uL (3.5-5.4); RED CELL DISTRIBUTION WIDTH 20.1 % (11.6-16.5); WHITE BLOOD COUNT 27.6 X10^3/uL (3.6-10.0)
[2017-06-16 06:32] LABS: ALANINE AMINOTRANSFERASE 62 Units/L (12-78); ALKALINE PHOSPHATASE 550 Units/L (46-116); ASPARTATE AMINO TRANSFERASE 78 Units/L (15-37); BLOOD UREA NITROGEN 17 mg/dL (7-18); CALCIUM 8.2 mg/dL (8.5-10.1); CARBON DIOXIDE 27.4 mmol/L (21-32); CHLORIDE 95 mmol/L (98-107); COR CA(FOR HYPOALB) 9.8 mg/dL (8.5-10.1); COR NA(FOR HYPERGLY) 131 mmol/L (136-145); CREATININE 0.93 mg/dL (0.55-1.02); SODIUM 130 mmol/L (136-145); TOTAL PROTEIN 5.5 g/dL (6.4-8.2); eGFR BLACK RACES > 60 (>60); eGFR NON BLACK RACES > 60 (>60)
[2017-06-16 06:50] LABS: ANISOCYTOSIS 1+; BAND NEUTROPHILS % 4 % (0-10); PLATELET MORPHOLOGY COMMENT NORMAL (NORMAL)
[2017-06-16] MEDS ORDERED: ZOLOFT PO ONE (08:31)
[2017-06-16] MEDS ORDERED: NS 100 ML IV + SPIKE MINIBAG* 100 ML IV ONE (08:36)
[2017-06-16] MEDS: TYGACIL 50 MG VIAL 50 MG in NS 100 ML IV 100 ML IV SCH ×2 (08:52→20:22)
[2017-06-16] MEDS: ROBITUSSIN DM PO PRN ×2 (08:52→20:22)
[2017-06-16] MEDS: GLUCOPHAGE XR PO SCH ×2 (08:52→20:22)
[2017-06-16] MEDS: PREDNISONE TAB 10 MG PO SCH (08:53)
[2017-06-16] MEDS: ACTOS PO SCH (08:53)
[2017-06-16] MEDS: MOBIC TAB 15 MG PO SCH (08:53)
[2017-06-16] MEDS: COLACE CAP 100 MG PO PRN ×2 (08:55→20:23)
[2017-06-16] MEDS: CARDIZEM CD 240 MG PO SCH (08:55)
[2017-06-16] MEDS: ZOLOFT PO SCH (08:56)
[2017-06-16] MEDS: MILK OF MAGNESIA PO PRN (08:57)
[2017-06-16] MEDS ORDERED: DILTIAZEM HCL 240 MG PO SCH (09:00)
[2017-06-16] MEDS: PROVENTIL NEB TX 0.083% 2.5MG/ 3ML NEB PRN ×2 (09:00→12:23)
[2017-06-16] MEDS ORDERED: ZOLOFT PO SCH (09:00)
[2017-06-16] MEDS ORDERED: LEVAQUIN PREMIX IV 500 MG 500 MG/100 ML BAG IV SCH (09:00)
[2017-06-16] MEDS: PULMICORT NEB TX 0.5 MG NEB SCH ×2 (09:00→21:04)
[2017-06-16] MEDS ORDERED: PHARMACY CONSULT - DOSE _____ XX SCH (10:00)
[2017-06-16] MEDS: FLORINEF PO SCH (10:47)
[2017-06-16] MEDS: REQUIP PO SCH ×2 (10:47→20:22)
[2017-06-16] MEDS: HumuLIN R SUBCUT PRN ×2 (10:57→20:35)
[2017-06-16] MEDS ORDERED: SODIUM CHL HYPERTONIC ** 3% ** 500 ML IV ONE (11:00)
[2017-06-16] MEDS ORDERED: ZOFRAN INJ 4 MG VIAL ONE (11:35)
[2017-06-16] MEDS: ZOFRAN INJ 4 MG VIAL IVP PRN ×2 (11:39→21:09)
--- NOTE | 2017-06-16 14:29 | RAD ---
Examination: PA chest History: Leukocytosis, COPD Comparison reference: Portable chest 06/02/2017 Findings: Continued normal heart size. There are now bilateral pulmonary infiltrates, primarily upper lobes but extending into the left lower lung as well. No mass or consolidation, pneumothorax or larg e pleural effusion is evident. Impression: Interval development of bilateral/asymmetric infiltrates compatible with multilobar pneum onia. Follow-up recommended. Reported By:
[2017-06-16] MEDS ORDERED: PROVENTIL NEB TX 0.083% 2.5MG/ 3ML ONE (15:35)
[2017-06-16] MEDS: PROVENTIL NEB TX 0.083% 2.5MG/ 3ML NEB SCH ×2 (16:23→21:04)
[2017-06-16] MEDS: SNACK - Diabetic Appropriate PO SCH (20:23)
[2017-06-16] MEDS: AMBIEN PO PRN (23:22)
[2017-06-17] MEDS: PROVENTIL NEB TX 0.083% 2.5MG/ 3ML NEB SCH ×6 (01:02→20:35)
[2017-06-17 02:55] LABS: BILIRUBIN,URINE NEGATIVE (NEGATIVE); BLOOD/HEMOGLOBIN,URINE 5+ (NEGATIVE); GLUCOSE, URINE NEGATIVE (NEGATIVE); KETONES,URINE NEGATIVE (NEGATIVE); LEUKOCYTE ESTERASE ,URINE 2+ (NEGATIVE); NITRITES,URINE NEGATIVE (NEGATIVE); PROTEIN,URINE 3+ (NEGATIVE); UROBILINOGEN,URINE NORMAL (NORMAL)
[2017-06-17 03:13] LABS: APPEARANCE,URINE SLIGHTLY HAZY (CLEAR); BACTERIA,URINE TRACE /HPF (NEGATIVE); COLOR,URINE BLOODY (YELLOW); RBC,URINE TNTC /HPF (NEGATIVE); SQUAMOUS EPITHELIAL CELL,UR RARE /HPF (NEGATIVE)
[2017-06-17 06:02] LABS: MAGNESIUM 1.6 mg/dL (1.7-2.9)
[2017-06-17 06:04] LABS: ALANINE AMINOTRANSFERASE 53 Units/L (12-78); ALBUMIN 1.9 g/dL (3.4-5.0); ALKALINE PHOSPHATASE 495 Units/L (46-116); ASPARTATE AMINO TRANSFERASE 65 Units/L (15-37); BLOOD UREA NITROGEN 20 mg/dL (7-18); CALCIUM 8.5 mg/dL (8.5-10.1); CARBON DIOXIDE 29.1 mmol/L (21-32); CHLORIDE 102 mmol/L (98-107); COR CA(FOR HYPOALB) 10.2 mg/dL (8.5-10.1); CREATININE 0.78 mg/dL (0.55-1.02); SODIUM 137 mmol/L (136-145); TOTAL PROTEIN 5.3 g/dL (6.4-8.2); eGFR BLACK RACES > 60 (>60); eGFR NON BLACK RACES > 60 (>60)
[2017-06-17 06:29] LABS: LACTIC ACID 1.3 mmol/L (0.4-2.0)
[2017-06-17 06:30] LABS: ABG BASE EXCESS 8.4 mmol/L (-2.0-2.0)
[2017-06-17 06:46] LABS: BASOPHILS % (AUTO) 0.1 % (0.2-1.0); HEMATOCRIT 30.3 % (36.0-47.0); HEMOGLOBIN 9.8 g/dL (12.0-16.0); LYMPHOCYTES # (AUTO) 1.7 X10^3/uL (1.3-2.9); LYMPHOCYTES % (AUTO) 6.3 % (21.0-51.0); MEAN CORPUSCULAR HEMOGLOBIN 27.9 pg (27.0-34.0); MEAN CORPUSCULAR HGB CONC 32.5 g/dL (33.0-35.0); MEAN PLATELET VOLUME 8.7 fL (7.4-11.0); MONOCYTES # (AUTO) 1.2 x10^3/uL (0.3-0.8); MONOCYTES % (AUTO) 4.5 % (0.0-13.0); NEUTROPHILS # (AUTO) 23.6 x10^3/uL (2.2-4.8); NEUTROPHILS % (AUTO) 89.1 % (42.0-75.0); PLATELET COUNT 210 X10^3/uL (150.0-450.0); RED BLOOD COUNT 3.52 X10^6/uL (3.5-5.4); RED CELL DISTRIBUTION WIDTH 19.5 % (11.6-16.5); WHITE BLOOD COUNT 26.5 X10^3/uL (3.6-10.0)
--- NOTE | 2017-06-17 07:07 | RAD ---
HISTORY: Follow-up lung infiltrates Study: Chest AP portable Comparison: 06/16/2017 Findings: The heart is within normal limits in size. The lorenza are normal. The lungs are mildly hyperinflated. A lveolar infiltrates are present in the upper lobes and left lower lobe unchanged from the prior exami nation. No definite pleural effusions are identified. The bony thorax is unremarkable. IMPRESSION: No change bilateral infiltrates when compared with the prior examination Reported By:
[2017-06-17 07:15] LABS: BAND NEUTROPHILS % 5 % (0-10); PLATELET MORPHOLOGY COMMENT NORMAL (NORMAL)
[2017-06-17] MEDS ORDERED: ZOLOFT PO ONE (08:08)
[2017-06-17] MEDS: ZOFRAN INJ 4 MG VIAL IVP PRN (08:43)
[2017-06-17] MEDS: MOBIC TAB 15 MG PO SCH (08:43)
[2017-06-17] MEDS: GLUCOPHAGE XR PO SCH ×2 (08:43→20:20)
[2017-06-17] MEDS: FLORINEF PO SCH (08:44)
[2017-06-17] MEDS: ZOLOFT PO SCH (08:44)
[2017-06-17] MEDS: COLACE CAP 100 MG PO PRN (08:44)
[2017-06-17] MEDS: MAG-OX TAB PO PRN (08:44)
[2017-06-17] MEDS: ACTOS PO SCH (08:44)
[2017-06-17] MEDS: REQUIP PO SCH ×2 (08:44→20:19)
[2017-06-17] MEDS: PREDNISONE TAB 10 MG PO SCH (08:44)
[2017-06-17] MEDS: CARDIZEM CD 240 MG PO SCH (08:45)
[2017-06-17] MEDS ORDERED: LOPRESSOR INJ 5 MG AMP IVP ONE (09:20)
[2017-06-17] MEDS: PULMICORT NEB TX 0.5 MG NEB SCH ×2 (09:29→20:35)
[2017-06-17] MEDS ORDERED: MERREM VIAL 500 MG in NS 100 ML IV + SPIKE MINIBAG* 100 ML IV SCH (10:00)
[2017-06-17] MEDS: TYGACIL 50 MG VIAL 50 MG in NS 100 ML IV 100 ML IV SCH ×2 (10:28→20:19)
[2017-06-17] MEDS: NORCO 5/325 MG TAB PO PRN ×2 (10:30→17:27)
[2017-06-17] MEDS ORDERED: NS 500 ML IV 500 ML IV ONE (11:15)
[2017-06-17] MEDS: MERREM PREMIX IV 500 MG 500 MG/50 ML BAG IV SCH ×3 (11:23→22:36)
[2017-06-17] MEDS: NS 500 ML IV 500 ML IV SCH (12:02)
[2017-06-17] MEDS ORDERED: NS 1000 ML 1,000 ML IV PRN (17:10)
[2017-06-17] MEDS: ATIVAN TAB 0.5 MG PO PRN (17:27)
[2017-06-17] MEDS: SNACK - Diabetic Appropriate PO SCH (20:20)
[2017-06-17] MEDS: AMBIEN PO PRN (20:20)
[2017-06-17] MEDS: ROBITUSSIN DM PO PRN (20:20)
[2017-06-17] MEDS: HumuLIN R SUBCUT PRN (20:21)
[2017-06-18] MEDS: PROVENTIL NEB TX 0.083% 2.5MG/ 3ML NEB SCH ×6 (00:46→20:25)
[2017-06-18] MEDS: MERREM PREMIX IV 500 MG 500 MG/50 ML BAG IV SCH ×3 (05:23→21:05)
[2017-06-18] MEDS: NORCO 5/325 MG TAB PO PRN ×4 (05:39→20:59)
[2017-06-18] MEDS: ATIVAN TAB 0.5 MG PO PRN ×3 (05:40→21:07)
[2017-06-18 05:58] LABS: ALANINE AMINOTRANSFERASE 48 Units/L (12-78); ALBUMIN 1.9 g/dL (3.4-5.0); ALKALINE PHOSPHATASE 496 Units/L (46-116); ASPARTATE AMINO TRANSFERASE 53 Units/L (15-37); BLOOD UREA NITROGEN 22 mg/dL (7-18); CALCIUM 8.2 mg/dL (8.5-10.1); CARBON DIOXIDE 27.8 mmol/L (21-32); CHLORIDE 103 mmol/L (98-107); COR CA(FOR HYPOALB) 9.9 mg/dL (8.5-10.1); COR NA(FOR HYPERGLY) 141 mmol/L (136-145); CREATININE 0.82 mg/dL (0.55-1.02); MAGNESIUM 1.6 mg/dL (1.7-2.9); SODIUM 140 mmol/L (136-145); TOTAL PROTEIN 5.5 g/dL (6.4-8.2); eGFR BLACK RACES > 60 (>60); eGFR NON BLACK RACES > 60 (>60)
[2017-06-18 06:07] LABS: BASOPHILS # (AUTO) 0.1 X10^3/uL (0.0-0.1); BASOPHILS % (AUTO) 0.2 % (0.2-1.0); HEMOGLOBIN 10.3 g/dL (12.0-16.0); RED BLOOD COUNT 3.72 X10^6/uL (3.5-5.4)
[2017-06-18 06:26] LABS: HEMATOCRIT 31.8 % (36.0-47.0); LYMPHOCYTES # (AUTO) 2.4 X10^3/uL (1.3-2.9); LYMPHOCYTES % (AUTO) 6.2 % (21.0-51.0); MEAN CORPUSCULAR HEMOGLOBIN 27.7 pg (27.0-34.0); MEAN CORPUSCULAR HGB CONC 32.4 g/dL (33.0-35.0); MEAN CORPUSCULAR VOLUME 85.6 fL (80.0-100.0); MEAN PLATELET VOLUME 9.1 fL (7.4-11.0); MONOCYTES # (AUTO) 1.6 x10^3/uL (0.3-0.8); NEUTROPHILS # (AUTO) 34.9 x10^3/uL (2.2-4.8); NEUTROPHILS % (AUTO) 89.6 % (42.0-75.0); PLATELET COUNT 222 X10^3/uL (150.0-450.0); RED CELL DISTRIBUTION WIDTH 20.1 % (11.6-16.5)
[2017-06-18 06:28] LABS: WHITE BLOOD COUNT 38.9 X10^3/uL (3.6-10.0)
[2017-06-18 06:57] LABS: ANISOCYTOSIS 1+; BAND NEUTROPHILS % 6 % (0-10); METAMYELOCYTES % 3; PLATELET MORPHOLOGY COMMENT NORMAL (NORMAL)
[2017-06-18] MEDS: ZOFRAN INJ 4 MG VIAL IVP PRN ×3 (07:45→19:17)
[2017-06-18] MEDS ORDERED: ZOLOFT PO ONE (09:06)
[2017-06-18] MEDS: CARDIZEM CD 240 MG PO SCH (09:21)
[2017-06-18] MEDS: ZOLOFT PO SCH (09:21)
[2017-06-18] MEDS: TYGACIL 50 MG VIAL 50 MG in NS 100 ML IV 100 ML IV SCH ×2 (09:21→21:03)
[2017-06-18] MEDS: PROTONIX INJ 40 MG VIAL IVP SCH ×2 (09:21→21:02)
[2017-06-18] MEDS: PREDNISONE TAB 10 MG PO SCH (09:21)
[2017-06-18] MEDS: MOBIC TAB 15 MG PO SCH (09:22)
[2017-06-18] MEDS: REQUIP PO SCH ×2 (09:22→21:02)
[2017-06-18] MEDS: ACTOS PO SCH (09:22)
[2017-06-18] MEDS: FLORINEF PO SCH (09:22)
[2017-06-18] MEDS: MAG-OX TAB PO PRN (09:22)
[2017-06-18] MEDS: GLUCOPHAGE XR PO SCH ×2 (09:22→21:01)
[2017-06-18] MEDS: PULMICORT NEB TX 0.5 MG NEB SCH ×2 (09:41→20:25)
[2017-06-18] MEDS: ZYVOX 600MG IV 600 MG/300 ML BAG IV SCH ×2 (10:20→21:04)
[2017-06-18] MEDS: NS 500 ML IV 500 ML IV SCH (12:09)
[2017-06-18] MEDS ORDERED: NS 250 ML IV 250 ML IV ONE (16:07)
--- NOTE | 2017-06-18 17:42 | CT ---
CT OF THE ABDOMEN AND PELVIS WITH CONTRAST HISTORY: Jaundice and elevated enzymes. Comparison: None Technique: Multiple axial images of the abdomen and pelvis were obtained from the lung bases to the pubic symphy sis follow the administration of IV contrast as well as oral contrast. Dose reduction techniques inc luding Automated Exposure Control (AEC) and adjustment of mA and kV were utlized. Findings: The heart is normal in size. There is no pericardial effusion. Small bilateral pleural effusions and ground-glass opacities involving the left lung base. Liver and spleen are normal in size, enhancement characteristics and contour. No focal lesions. The p ortal vein is patent. Common bile duct measures 1.5 cm. No obvious soft tissue mass or intraluminal f illing defect. Gallbladder appears to be absent. The pancreas is unremarkable. Adrenal glands are nor mal. Kidneys enhance symmetrically without hydronephrosis or nephrolithiasis. There is wall thickening and inflammation of the colon involving primarily the right colon and hepati c flexure. There is diffuse mesenteric edema and small volume ascites. No abnormal appearing mesenter ic or retroperitoneal lymph nodes. No free fluid or fluid collections. Infrarenal abdominal aortic an eurysm measuring 3.6 cm. The bladder is normal in appearance. Uterus appears to be absent. Free fluid can be seen in the pelvi s. No aggressive osseous lesions. Near complete compression deformity of T12. IMPRESSION: 1. Findings consistent with left lower lobe pneumonia and trace bilateral pleural effusions. 2. Dilated common bile duct which may be normal in a postcholecystectomy patient however in the setti ng of jaundice and elevated liver enzymes and obstructing lesion or mass cannot be excluded. Recommen d ERCP. 3. Findings consistent colitis involving the right and proximal transverse colon. Correlate with symp toms. 4. Infrarenal abdominal aortic aneurysm as above. Reported By:
[2017-06-18] MEDS: SNACK - Diabetic Appropriate PO SCH (21:00)
[2017-06-18] MEDS: AMBIEN PO PRN (21:06)
[2017-06-18] MEDS: HumuLIN R SUBCUT PRN (21:06)
[2017-06-19] MEDS: PROVENTIL NEB TX 0.083% 2.5MG/ 3ML NEB SCH ×6 (00:39→20:34)
[2017-06-19] MEDS: NORCO 5/325 MG TAB PO PRN ×3 (04:00→21:41)
[2017-06-19] MEDS: MERREM PREMIX IV 500 MG 500 MG/50 ML BAG IV SCH ×3 (05:52→21:39)
[2017-06-19 06:11] LABS: BASOPHILS % (AUTO) 0.1 % (0.2-1.0); EOSINOPHILS % (AUTO) 0.1 % (0.9-2.9); HEMATOCRIT 29.6 % (36.0-47.0); HEMOGLOBIN 9.8 g/dL (12.0-16.0); LYMPHOCYTES # (AUTO) 2.4 X10^3/uL (1.3-2.9); LYMPHOCYTES % (AUTO) 7.8 % (21.0-51.0); MEAN CORPUSCULAR HEMOGLOBIN 28.2 pg (27.0-34.0); MEAN CORPUSCULAR HGB CONC 33.2 g/dL (33.0-35.0); MEAN CORPUSCULAR VOLUME 84.9 fL (80.0-100.0); MEAN PLATELET VOLUME 8.8 fL (7.4-11.0); MONOCYTES # (AUTO) 1.1 x10^3/uL (0.3-0.8); MONOCYTES % (AUTO) 3.7 % (0.0-13.0); NEUTROPHILS # (AUTO) 27.4 x10^3/uL (2.2-4.8); NEUTROPHILS % (AUTO) 88.3 % (42.0-75.0); PLATELET COUNT 157 X10^3/uL (150.0-450.0); RED BLOOD COUNT 3.48 X10^6/uL (3.5-5.4); RED CELL DISTRIBUTION WIDTH 19.9 % (11.6-16.5)
[2017-06-19 06:43] LABS: ALANINE AMINOTRANSFERASE 40 Units/L (12-78); ALBUMIN 1.8 g/dL (3.4-5.0); ALKALINE PHOSPHATASE 434 Units/L (46-116); ASPARTATE AMINO TRANSFERASE 43 Units/L (15-37); BLOOD UREA NITROGEN 20 mg/dL (7-18); CALCIUM 8.1 mg/dL (8.5-10.1); CARBON DIOXIDE 27.8 mmol/L (21-32); CHLORIDE 102 mmol/L (98-107); COR CA(FOR HYPOALB) 9.9 mg/dL (8.5-10.1); CREATININE 0.84 mg/dL (0.55-1.02); MAGNESIUM 1.7 mg/dL (1.7-2.9); SODIUM 138 mmol/L (136-145); TOTAL PROTEIN 5.2 g/dL (6.4-8.2); eGFR BLACK RACES > 60 (>60); eGFR NON BLACK RACES > 60 (>60)
--- NOTE | 2017-06-19 06:46 | RAD ---
History: Pneumonia Study: Portable AP chest Comparison: June 17 Findings: There is diffuse airspace disease in the left lung and airspace disease in the right upper lobe, overall worse than on the prior exam. The heart size is normal. There is no pleural effusion ev ident. Impression: Left lung and right upper lobe pneumonia, progressive since prior exam Reported By:
[2017-06-19 06:59] LABS: BAND NEUTROPHILS % 1 % (0-10); PLATELET MORPHOLOGY COMMENT NORMAL (NORMAL)
[2017-06-19] MEDS ORDERED: ZOLOFT PO ONE (08:37)
[2017-06-19] MEDS: ZOLOFT PO SCH (08:40)
[2017-06-19] MEDS: CARDIZEM CD 240 MG PO SCH (08:40)
[2017-06-19] MEDS: REQUIP PO SCH ×2 (08:40→21:41)
[2017-06-19] MEDS: MOBIC TAB 15 MG PO SCH (08:40)
[2017-06-19] MEDS: PREDNISONE TAB 10 MG PO SCH (08:41)
[2017-06-19] MEDS: ZYVOX 600MG IV 600 MG/300 ML BAG IV SCH ×2 (08:42→21:39)
[2017-06-19] MEDS: GLUCOPHAGE XR PO SCH ×2 (08:42→21:40)
[2017-06-19] MEDS: ACTOS PO SCH (08:42)
[2017-06-19] MEDS: TYGACIL 50 MG VIAL 50 MG in NS 100 ML IV 100 ML IV SCH (08:42)
[2017-06-19] MEDS: PROTONIX INJ 40 MG VIAL IVP SCH ×2 (08:42→21:40)
[2017-06-19] MEDS: FLORINEF PO SCH (08:51)
[2017-06-19] MEDS: PULMICORT NEB TX 0.5 MG NEB SCH ×2 (09:00→20:34)
[2017-06-19] MEDS: LASIX IVP SCH ×2 (09:20→21:41)
[2017-06-19] MEDS: SOLU-Cortef INJ IVP SCH ×3 (10:12→21:42)
[2017-06-19] MEDS: LR 1000 ML IV 1,000 ML IV SCH ×2 (10:12→21:56)
[2017-06-19] MEDS: ATIVAN TAB 0.5 MG PO PRN (11:00)
[2017-06-19] MEDS ORDERED: TUSSIONEX PENNKINETIC SUSP ONE (16:19)
[2017-06-19] MEDS: ZOFRAN INJ 4 MG VIAL IVP PRN (16:22)
[2017-06-19] MEDS: LOPRESSOR INJ 5 MG AMP IVP PRN (16:23)
[2017-06-19] MEDS: TUSSIONEX PENNKINETIC SUSP PO PRN ×2 (16:24→21:40)
--- NOTE | 2017-06-19 17:29 | DR.CONSULT ---
Consult - Consultation for Day of: Date: 06/19/17 - Chief Complaint Chief Complaint: Patient referred for abnormal abdominal ct, patient with complaints of dysphagia, dyspepsia, nausea, vomiting, RUQ and lower abdominal pain, hematochezia. - Allergies Allergies/Adverse Reactions: Allergies Allergy/AdvReac Type Severity Reaction Status Date / Time No Known Drug Allergies Allergy Verified 06/15/17 07:59 - History of Present Illness History of Present Illness: Patient is a 52 yo female who was referred for abnormal abdominal ct, patient with complaints of dysphagia, dyspepsia, nausea, vomiting, RUQ and lower abdominal pain, hematochezia, and diarrhea. Patient denies constipation and melena. She states she has never had a colonoscopy or EGD. Abdomen pelvis CT shows dilation of the common bile duct and findings consistent with colitis including the right and transverse colon. Patient bilirubin initally elevated at 1.8 has cam down to 0.9, AST initially 78 down to 43, Alkaline phosphatase initially 550 down to 434. - Past Medical History Past Medical History: Angina, Asthma, COPD, Diabetes - Past Surgical History Surgical History: Appendectomy, Cholecystectomy, Hysterectomy, Ortho Surgery - Family History Family Medical History: Diabetes Mellitus, Cancer, [place], Sudden Cardiac , Hypertension - Social History Does patient currently use any type of tobacco product: No Have you used tobacco products in the last 12 months: No Type of Tobacco Use: Cigarettes How many years tobacco product used: 30 Does any household member use tobacco: No Alcohol Use: None Drug Use: None - Medications Home Medications: Albuterol Neb 2.5MG/ 3Ml [ALBUTEROL NEB 2.5MG/ 3ML *] 1 inh INH Q4H PRN [History Confirmed 06/15/17] Albuterol Sulfate [Proventil HFA Inhaler 6.7 gm] 2 puff INH QID PRN 06/15/17 [ History Confirmed 06/15/17] Budesonide-Formoterol [SYMBICORT INH 160-4.5 mcg (10.2 g) *] 2 puff INH BID [History Confirmed 06/15/17] Diltiazem HCl [Diltiazem ER] 240 mg PO DAILY 06/15/17 [History Confirmed ] Hydrocodone/Acetaminophen [Hydrocodon-Acetaminophen 5-325] 1 tab PO BID PRN [History Confirmed 06/15/17] Lorazepam [ATIVAN 0.5 MG TAB *] 0.5 mg PO BID PRN 06/15/17 [History Confirmed ] Meloxicam [MOBIC 15 MG *] 15 mg PO DAILY 06/15/17 [History Confirmed 06/15/17] Metformin-ER (Ext Rel) [GLUCOPHAGE XR 500 MG (24hr Ext Rel) *] 2 tabs PO BID [History Confirmed 06/15/17] Ondansetron HCl [ZOFRAN TAB 4 MG *] 4 mg PO Q8H PRN 06/15/17 [History Confirmed 06/15/17] Pioglitazone HCl [ACTOS 45 MG *] 45 mg PO DAILY 06/15/17 [History Confirmed ] Prednisone [PREDNISONE TAB 10 MG *] 10 mg PO DAILY 06/15/17 [History Confirmed 06/15/17] Sertraline HCl [ZOLOFT 100 MG *] 100 mg PO DAILY 06/15/17 [History Confirmed ] Zolpidem Tartrate [AMBIEN 10 MG *] 10 mg PO HS PRN 06/15/17 [History Confirmed 06/15/17] - Review of Systems Constitutional: No Symptoms Reported Eyes: No Symptoms Reported ENT: No Symptoms Reported Respiratory: Cough, Shortness of Breath Cardiovascular: No Symptoms Reported Gastrointestinal: Nausea, Vomiting, Abdominal Pain (RUQ and lower), Diarrhea, Hematochezia Genitourinary: No Symptoms Reported Musculoskeletal: No Symptoms Reported Skin: No Symptoms Reported Neurological: No Symptoms Reported - Physical Exam Vital Signs: Temperature 98.4 F Pulse Rate [Left Brachial] 106 Pulse Rate 120 Respiratory Rate 34 Blood Pressure [Left Arm] 135/68 Blood Pressure [Right Arm] 127/80 Blood Pressure 121/69 O2 Sat by Pulse Oximetry 90 Oriented: Normal Eyes: Normal Ear: Normal Nose: Normal Throat: Normal Cardiovascular: Normal Auscultation: Bowel Sounds: Normal Palpation: Normal, Other (no distention). negative: Spleen Enlarged, Liver Enlarged, Mass Pulsatile Tenderness: RUQ, RLQ, LLQ Skin: Normal Musculoskeletal: Normal Psychiatric: Normal Mood Description: Anxious Affect: Normal Speech Pattern: Clear - Plan Plan: Assessment. 1. Abnormal CT Colitis r/o infectious etiology. 2. Abnormal CT with CBD dilation, elevated LFTs r/o choledocholithiasis could be related to medication reaction or sepsis. Plan. 1. Cont IV antibiotics, stool studies, cont protonix IV. 2. Hepatitis profile, abnormal LFT panel, Liver US and MRCP. Plan reviewed with Dr. Becker
[2017-06-19 19:53] LABS: BILIRUBIN,DIRECT 0.6 mg/dL (0-0.2)
[2017-06-19 20:26] LABS: IRON 24 ug/dL (50-175); TRANSFERRIN 121 mg/dL (202-364)
[2017-06-19] MEDS: AMBIEN PO PRN (21:56)
[2017-06-20] MEDS: PROVENTIL NEB TX 0.083% 2.5MG/ 3ML NEB SCH ×6 (00:34→20:14)
[2017-06-20 03:34] LABS: ABG BASE EXCESS 9.9 mmol/L (-2.0-2.0)
[2017-06-20 03:35] LABS: ABG ALLEN TEST POS; ABG HCO3 36.3 mmol/L (22-26)
--- NOTE | 2017-06-20 04:33 | US ---
Limited abdominal ultrasound Indication: Dilated common duct. Abnormal liver enzymes Comparison: CT abdomen and pelvis 06/18/2017 Technique: Sonographic images of the abdomen were obtained per protocol. Findings: Game Programmer noted technical difficulty with the examination. The gallbladder is absent. No significant biliary dilation was observed; the common duct measured 6 mm in diameter. Small amount of perihepatic ascites was noted, similar to the CT. The right kidney was unremarkable. Impression: No significant biliary dilation was observed, although the examination was technically difficult. Non etheless, ERCP or MRCP is still recommended given the common ductal dilatation noted on recent CT. Small volume perihepatic ascites Reported By:
[2017-06-20] MEDS: MERREM PREMIX IV 500 MG 500 MG/50 ML BAG IV SCH (06:08)
[2017-06-20] MEDS: SOLU-Cortef INJ IVP SCH ×3 (06:08→21:30)
[2017-06-20 06:34] LABS: BASOPHILS % (AUTO) 0.2 % (0.2-1.0); HEMATOCRIT 29.4 % (36.0-47.0); HEMOGLOBIN 9.7 g/dL (12.0-16.0); LYMPHOCYTES # (AUTO) 1.5 X10^3/uL (1.3-2.9); MEAN CORPUSCULAR HEMOGLOBIN 28.1 pg (27.0-34.0); MEAN CORPUSCULAR HGB CONC 33.1 g/dL (33.0-35.0); MEAN CORPUSCULAR VOLUME 84.9 fL (80.0-100.0); MEAN PLATELET VOLUME 8.9 fL (7.4-11.0); MONOCYTES # (AUTO) 0.6 x10^3/uL (0.3-0.8); MONOCYTES % (AUTO) 2.8 % (0.0-13.0); NEUTROPHILS # (AUTO) 19.3 x10^3/uL (2.2-4.8); PLATELET COUNT 126 X10^3/uL (150.0-450.0); RED BLOOD COUNT 3.46 X10^6/uL (3.5-5.4); RED CELL DISTRIBUTION WIDTH 19.5 % (11.6-16.5); WHITE BLOOD COUNT 21.5 X10^3/uL (3.6-10.0)
[2017-06-20 07:06] LABS: PLATELET MORPHOLOGY COMMENT NORMAL (NORMAL)
[2017-06-20 07:12] LABS: ALANINE AMINOTRANSFERASE 40 Units/L (12-78); ALBUMIN 1.8 g/dL (3.4-5.0); ALKALINE PHOSPHATASE 414 Units/L (46-116); ASPARTATE AMINO TRANSFERASE 44 Units/L (15-37); BLOOD UREA NITROGEN 20 mg/dL (7-18); CALCIUM 7.9 mg/dL (8.5-10.1); CHLORIDE 100 mmol/L (98-107); COR CA(FOR HYPOALB) 9.7 mg/dL (8.5-10.1); COR NA(FOR HYPERGLY) 139 mmol/L (136-145); CREATININE 0.79 mg/dL (0.55-1.02); SODIUM 138 mmol/L (136-145); TOTAL PROTEIN 5.2 g/dL (6.4-8.2); eGFR BLACK RACES > 60 (>60); eGFR NON BLACK RACES > 60 (>60)
[2017-06-20] MEDS ORDERED: ZOLOFT PO ONE (08:13)
[2017-06-20] MEDS: ZYVOX 600MG IV 600 MG/300 ML BAG IV SCH ×2 (08:38→20:15)
[2017-06-20] MEDS: ZOLOFT PO SCH (08:38)
[2017-06-20] MEDS: FLORINEF PO SCH (08:39)
[2017-06-20] MEDS: GLUCOPHAGE XR PO SCH ×2 (08:39→21:18)
[2017-06-20] MEDS: REQUIP PO SCH ×2 (08:39→21:16)
[2017-06-20] MEDS: CARDIZEM CD 240 MG PO SCH (08:39)
[2017-06-20] MEDS: LASIX IVP SCH ×2 (08:39→21:18)
[2017-06-20] MEDS: ACTOS PO SCH (08:39)
[2017-06-20] MEDS: PROTONIX INJ 40 MG VIAL IVP SCH ×2 (08:39→21:17)
[2017-06-20] MEDS: PULMICORT NEB TX 0.5 MG NEB SCH ×2 (09:09→20:14)
[2017-06-20] MEDS: NORCO 5/325 MG TAB PO PRN ×3 (09:49→21:17)
[2017-06-20] MEDS: LOPRESSOR INJ 5 MG AMP IVP PRN ×2 (09:50→20:14)
[2017-06-20] MEDS: ATIVAN TAB 0.5 MG PO PRN ×2 (09:52→21:16)
[2017-06-20] MEDS: HumuLIN R SUBCUT PRN (11:31)
[2017-06-20] MEDS: MERREM VIAL 500 MG in D5W 100 ML IV 100 ML IV SCH ×2 (14:05→21:16)
[2017-06-20] MEDS: LR 1000 ML IV 1,000 ML IV SCH ×2 (20:02→20:03)
[2017-06-20] MEDS: AMBIEN PO PRN (21:17)
[2017-06-20] MEDS: TUSSIONEX PENNKINETIC SUSP PO PRN (21:31)
[2017-06-21] MEDS: LR 1000 ML IV 1,000 ML IV SCH ×2 (00:32→13:00)
[2017-06-21] MEDS: PROVENTIL NEB TX 0.083% 2.5MG/ 3ML NEB SCH ×6 (01:01→20:48)
[2017-06-21 05:40] LABS: BASOPHILS # (AUTO) 0.1 X10^3/uL (0.0-0.1); BASOPHILS % (AUTO) 0.1 % (0.2-1.0); HEMOGLOBIN 9.5 g/dL (12.0-16.0); LYMPHOCYTES # (AUTO) 0.9 X10^3/uL (1.3-2.9); LYMPHOCYTES % (AUTO) 2.4 % (21.0-51.0); MEAN CORPUSCULAR HEMOGLOBIN 27.9 pg (27.0-34.0); MEAN CORPUSCULAR HGB CONC 32.8 g/dL (33.0-35.0); MEAN PLATELET VOLUME 8.8 fL (7.4-11.0); MONOCYTES # (AUTO) 1.1 x10^3/uL (0.3-0.8); MONOCYTES % (AUTO) 2.9 % (0.0-13.0); NEUTROPHILS # (AUTO) 36.1 x10^3/uL (2.2-4.8); NEUTROPHILS % (AUTO) 94.6 % (42.0-75.0); PLATELET COUNT 109 X10^3/uL (150.0-450.0); RED BLOOD COUNT 3.41 X10^6/uL (3.5-5.4); RED CELL DISTRIBUTION WIDTH 19.7 % (11.6-16.5)
[2017-06-21] MEDS: MERREM VIAL 500 MG in D5W 100 ML IV 100 ML IV SCH ×3 (05:40→21:51)
[2017-06-21] MEDS: SOLU-Cortef INJ IVP SCH ×3 (05:41→21:51)
[2017-06-21 05:58] LABS: WHITE BLOOD COUNT 38.2 X10^3/uL (3.6-10.0)
[2017-06-21 06:30] LABS: PLATELET MORPHOLOGY COMMENT NORMAL (NORMAL)
[2017-06-21 06:44] LABS: ALANINE AMINOTRANSFERASE 32 Units/L (12-78); ALBUMIN 1.6 g/dL (3.4-5.0); ALKALINE PHOSPHATASE 345 Units/L (46-116); ASPARTATE AMINO TRANSFERASE 36 Units/L (15-37); BLOOD UREA NITROGEN 20 mg/dL (7-18); CALCIUM 7.6 mg/dL (8.5-10.1); CARBON DIOXIDE 33.2 mmol/L (21-32); CHLORIDE 100 mmol/L (98-107); COR CA(FOR HYPOALB) 9.5 mg/dL (8.5-10.1); COR NA(FOR HYPERGLY) 140 mmol/L (136-145); CREATININE 0.78 mg/dL (0.55-1.02); SODIUM 139 mmol/L (136-145); TOTAL PROTEIN 4.9 g/dL (6.4-8.2); eGFR BLACK RACES > 60 (>60); eGFR NON BLACK RACES > 60 (>60)
[2017-06-21] MEDS ORDERED: ZOLOFT PO ONE (07:57)
[2017-06-21] MEDS: ZYVOX 600MG IV 600 MG/300 ML BAG IV SCH ×2 (08:00→21:50)
[2017-06-21] MEDS: PULMICORT NEB TX 0.5 MG NEB SCH ×2 (08:06→20:49)
[2017-06-21] MEDS: ZOLOFT PO SCH (09:00)
[2017-06-21] MEDS: PROTONIX INJ 40 MG VIAL IVP SCH ×2 (09:00→21:49)
[2017-06-21] MEDS: LASIX IVP SCH ×3 (09:00→21:50)
[2017-06-21] MEDS: CARDIZEM CD 240 MG PO SCH (09:00)
[2017-06-21] MEDS: REQUIP PO SCH ×2 (09:00→21:49)
[2017-06-21] MEDS: FLORINEF PO SCH (09:00)
[2017-06-21] MEDS: TUSSIONEX PENNKINETIC SUSP PO PRN (10:07)
[2017-06-21] MEDS: LEVAQUIN PREMIX IV 750 MG 750 MG/150 ML BAG IV SCH (10:09)
[2017-06-21] MEDS: GLUCOPHAGE XR PO SCH ×2 (10:11→21:48)
[2017-06-21] MEDS: ACTOS PO SCH (10:12)
--- NOTE | 2017-06-21 10:12 | RAD ---
HISTORY: 52-year-old female with pneumonia. Study: Frontal view of the chest. Comparison: Chest radiograph 06/19/2017 Findings: The trachea is midline. The cardiac silhouette is stable. Mild improvement better variation within the left lung with continued patchy reticulated airspace opacities in the right upper lobe and throug hout the left lung with trace left effusion. No pneumothorax. Soft tissues are unremarkable. Osseous structures are unremarkable. IMPRESSION: 1. Mild improvement pattern of aeration within the left lung with persistent airspace opacities othe rwise. Reported By:
[2017-06-21] MEDS: LOPRESSOR INJ 5 MG AMP IVP PRN ×2 (11:00→15:22)
[2017-06-21] MEDS ORDERED: CARDIZEM INJ 50 MG VIAL ONE (12:13)
[2017-06-21] MEDS ORDERED: ATIVAN INJ 2 MG VIAL IVP ONE (12:19)
[2017-06-21] MEDS ORDERED: ATIVAN INJ 2 MG VIAL ONE (12:26)
[2017-06-21] MEDS: CARDIZEM INJ 50 MG VIAL IVP PRN (12:31)
--- NOTE | 2017-06-21 12:54 | OR.GENERIC ---
Post-Op Note Generic - Post-Op Note Operative Report: Procedure Note June 21, 2017 Pre-Operative Diagnosis: Phlebosclerosis. Post-Operative Diagnosis: Phlebosclerosis. Procedure: Placement of right internal jugular central venous line (ultrasound guided). Surgeon: Anjel Harry MD. Diplomatic Officer: None. Specimens: None. Estimated blood loss: Minimal. Complications: None. Summary: The patient is a 52 year old female admitted to the ICU who developed phlebosclerosis. Surgery was consulted for central venous line placement. The risk and benefits of the procedure including difficulty with anesthesia, bleeding, infection, cava thrombosis, DVT, PE, as well as pneumothorax were discussed with the paient. The patient understood these risks and requested the procedure. On June 21, 2017, the patients right neck was prepped with Chloraprep and draped in the usual sterile fashion. The skin and subcutaneous tissue overlying the right internal jugular vein was anesthetized using local anesthetic. The right internal jugular vein was then cannulated under ultrasound guidance. A wire was placed into the superior vena cava. A skin nelson was made at the cannulation site. The subcutaneous tissue was dilated using the Seldinger technique. Next, a central venous catheter was advanced into the right internal jugular vein using the Seldinger technique. All ports ellen and flushed easily. The catheter was sewn to the skin with 2-0 Silk suture. A sterile dressing was placed. The patient tolerated the procedure well. There were no complications.
--- NOTE | 2017-06-21 13:20 | RAD ---
HISTORY: Line placement. Study: Single view of the chest. Comparison: 06/21/2017 at 6:51 a.m. Findings: Cardiomegaly and pulmonary edema which has worsened since prior . Bilateral patchy airspace consolida tions . Right A SVC central catheter terminates over the expected area of the . IMPRESSION: 1. Worsening of edema and patchy bilateral airspace opacities. 2. A right central catheter terminating over the expected area of the SVC . Reported By:
[2017-06-21] MEDS ORDERED: LASIX ONE (14:16)
[2017-06-21] MEDS ORDERED: LASIX IVP SCH ×2 (14:21→22:00)
[2017-06-21] MEDS ORDERED: NS 500 ML IV 500 ML IV ONE (14:42)
[2017-06-21] MEDS: VSL#3 PO SCH (15:30)
[2017-06-21] MEDS: NORCO 5/325 MG TAB PO PRN ×2 (15:40→21:00)
[2017-06-21 16:29] LABS: ABG BASE EXCESS 15.7 mmol/L (-2.0-2.0)
[2017-06-21 16:30] LABS: ABG ALLEN TEST POS; ABG HCO3 41.3 mmol/L (22-26)
[2017-06-21] MEDS ORDERED: MAGNESIUM SULFATE 1 GM/100 mL PREMIX 1 GM/100 ML BAG IV PRN (18:26)
[2017-06-21] MEDS ORDERED: POTASSIUM CHLORIDE LIQ 20 MEQ UDC PO PRN (18:26)
[2017-06-21] MEDS ORDERED: K-LYTE EFFERVESCENT PO PRN (18:26)
[2017-06-21] MEDS ORDERED: MAG-OX TAB PO PRN (18:26)
[2017-06-21] MEDS: K-RIDER 10 MEQ/NS 100 ML 10 MEQ/100 ML BAG IV PRN ×4 (18:32→20:50)
[2017-06-21] MEDS: MAG-OX TAB PO PRN (21:49)
[2017-06-21] MEDS: AMBIEN PO PRN (21:49)
[2017-06-22] MEDS: PROVENTIL NEB TX 0.083% 2.5MG/ 3ML NEB SCH ×6 (01:00→21:18)
[2017-06-22] MEDS: LASIX IVP SCH ×3 (05:38→21:00)
[2017-06-22] MEDS: MERREM VIAL 500 MG in D5W 100 ML IV 100 ML IV SCH ×3 (05:38→21:00)
[2017-06-22] MEDS: SOLU-Cortef INJ IVP SCH ×3 (05:39→21:00)
[2017-06-22 05:59] LABS: BASOPHILS % (AUTO) 0.1 % (0.2-1.0); HEMATOCRIT 26.2 % (36.0-47.0); HEMOGLOBIN 8.6 g/dL (12.0-16.0); LYMPHOCYTES # (AUTO) 0.7 X10^3/uL (1.3-2.9); LYMPHOCYTES % (AUTO) 2.8 % (21.0-51.0); MEAN CORPUSCULAR HEMOGLOBIN 28.4 pg (27.0-34.0); MEAN CORPUSCULAR HGB CONC 32.8 g/dL (33.0-35.0); MEAN CORPUSCULAR VOLUME 86.6 fL (80.0-100.0); MONOCYTES # (AUTO) 0.4 x10^3/uL (0.3-0.8); MONOCYTES % (AUTO) 1.6 % (0.0-13.0); NEUTROPHILS # (AUTO) 24.8 x10^3/uL (2.2-4.8); NEUTROPHILS % (AUTO) 95.5 % (42.0-75.0); PLATELET COUNT 79 X10^3/uL (150.0-450.0); RED BLOOD COUNT 3.02 X10^6/uL (3.5-5.4); RED CELL DISTRIBUTION WIDTH 19.3 % (11.6-16.5); WHITE BLOOD COUNT 25.9 X10^3/uL (3.6-10.0)
[2017-06-22] MEDS: LR 1000 ML IV 1,000 ML IV SCH ×2 (06:10→23:01)
[2017-06-22 06:34] LABS: PLATELET MORPHOLOGY COMMENT NORMAL (NORMAL)
[2017-06-22 06:58] LABS: ALANINE AMINOTRANSFERASE 20 Units/L (12-78); ALBUMIN 1.3 g/dL (3.4-5.0); ALKALINE PHOSPHATASE 250 Units/L (46-116); ASPARTATE AMINO TRANSFERASE 31 Units/L (15-37); BLOOD UREA NITROGEN 20 mg/dL (7-18); CALCIUM 7.5 mg/dL (8.5-10.1); CHLORIDE 103 mmol/L (98-107); COR CA(FOR HYPOALB) 9.7 mg/dL (8.5-10.1); COR NA(FOR HYPERGLY) 145 mmol/L (136-145); CREATININE 0.76 mg/dL (0.55-1.02); SODIUM 143 mmol/L (136-145); TOTAL PROTEIN 4.4 g/dL (6.4-8.2); eGFR BLACK RACES > 60 (>60); eGFR NON BLACK RACES > 60 (>60)
[2017-06-22 07:27] LABS: ABG BASE EXCESS 15.9 mmol/L (-2.0-2.0)
[2017-06-22 07:28] LABS: ABG HCO3 42.2 mmol/L (22-26)
--- NOTE | 2017-06-22 07:28 | RAD ---
Examination: Portable AP chest History: SOB, cough and pneumonia Comparison reference 06/21/2017 Findings: Continued normal heart size. Stable position of right jugular line. Persistent bilateral ai rspace disease with minimal improvement in aeration. The process involves the left lung to a slightly greater degree. No large pleural effusion or pneumothorax seen. Impression: Persistent bilateral pneumonia or pulmonary edema with minimal improvement. Reported By:
[2017-06-22] MEDS: SNACK - Diabetic Appropriate PO SCH ×2 (08:30→21:14)
[2017-06-22] MEDS ORDERED: ZOLOFT PO ONE (08:35)
[2017-06-22] MEDS ORDERED: NS 1000 ML 1,000 ML ONE (08:37)
[2017-06-22] MEDS: PULMICORT NEB TX 0.5 MG NEB SCH ×2 (08:37→21:18)
[2017-06-22] MEDS ORDERED: CARDIZEM CD 240 MG PO SCH (08:52)
[2017-06-22] MEDS ORDERED: LASIX IVP SCH (08:52)
[2017-06-22] MEDS ORDERED: CARDIZEM SR 120 MG PO ONE ×2 (08:54→09:16)
[2017-06-22] MEDS ORDERED: ALBUMIN HUMAN 25%- 100ML 100 ML IV ONE (08:55)
[2017-06-22] MEDS ORDERED: PROCRIT or EPOGEN SC ONE (09:00)
[2017-06-22] MEDS ORDERED: ALBUMIN HUMAN 25%- 100ML 100 ML IV SCH (09:00)
[2017-06-22] MEDS: POTASSIUM CHL 40 MEQ/NS 0.45% 500 ML IV PRN (09:10)
[2017-06-22] MEDS: ALBUMIN HUMAN 25%- 100ML 100 ML IV SCH ×2 (09:14→21:00)
[2017-06-22] MEDS: NORCO 5/325 MG TAB PO PRN ×2 (09:15→21:00)
[2017-06-22] MEDS: MAGNESIUM SULFATE 1 GM/100 mL PREMIX 1 GM/100 ML BAG IV PRN ×2 (09:15→10:10)
[2017-06-22] MEDS: ZOLOFT PO SCH (09:17)
[2017-06-22] MEDS: FLORINEF PO SCH (09:18)
[2017-06-22] MEDS: CARDIZEM CD 240 MG PO SCH (09:18)
[2017-06-22] MEDS: REQUIP PO SCH ×2 (09:18→21:00)
[2017-06-22] MEDS: ZYVOX 600MG IV 600 MG/300 ML BAG IV SCH ×2 (09:18→21:00)
[2017-06-22] MEDS: PROTONIX INJ 40 MG VIAL IVP SCH ×2 (09:18→21:00)
[2017-06-22] MEDS: MAG-OX TAB PO PRN (09:19)
[2017-06-22] MEDS: GLUCOPHAGE XR PO SCH ×2 (09:19→22:58)
[2017-06-22] MEDS: ACTOS PO SCH (09:19)
[2017-06-22] MEDS: LEVAQUIN PREMIX IV 750 MG 750 MG/150 ML BAG IV SCH (09:19)
[2017-06-22] MEDS: VSL#3 PO SCH (09:37)
[2017-06-22] MEDS: HumuLIN R SUBCUT PRN (12:22)
[2017-06-22] MEDS: CARDIZEM CD 360 MG PO SCH (14:54)
[2017-06-22] MEDS: ATIVAN INJ 2 MG VIAL IVP PRN (15:16)
[2017-06-22 18:20] LABS: BLOOD UREA NITROGEN 16 mg/dL (7-18); CALCIUM 7.5 mg/dL (8.5-10.1); CARBON DIOXIDE 38.6 mmol/L (21-32); CHLORIDE 102 mmol/L (98-107); COR NA(FOR HYPERGLY) 144 mmol/L (136-145); CREATININE 0.75 mg/dL (0.55-1.02); MAGNESIUM 1.7 mg/dL (1.7-2.9); SODIUM 143 mmol/L (136-145); eGFR BLACK RACES > 60 (>60); eGFR NON BLACK RACES > 60 (>60)
[2017-06-22] MEDS: POTASSIUM CHL 60 MEQ/NS 0.45% 500 ML IV PRN (18:39)
[2017-06-22] MEDS: AMBIEN PO PRN (23:02)
[2017-06-23] MEDS: POTASSIUM CHL 40 MEQ/NS 0.45% 500 ML IV PRN (00:25)
[2017-06-23] MEDS: PROVENTIL NEB TX 0.083% 2.5MG/ 3ML NEB SCH ×6 (00:38→20:50)
[2017-06-23] MEDS: LR 1000 ML IV 1,000 ML IV SCH ×2 (05:41→06:20)
[2017-06-23] MEDS ORDERED: MERREM VIAL ONE (06:09)
[2017-06-23] MEDS: MERREM VIAL 500 MG in D5W 100 ML IV 100 ML IV SCH ×2 (06:19→14:21)
[2017-06-23] MEDS: SOLU-Cortef INJ IVP SCH ×3 (06:19→22:42)
[2017-06-23] MEDS: HumuLIN R SUBCUT PRN ×2 (06:20→11:59)
[2017-06-23] MEDS: ATIVAN INJ 2 MG VIAL IVP PRN (06:22)
[2017-06-23] MEDS ORDERED: D5W 250 ML IV 250 ML IV ONE (06:31)
[2017-06-23 07:58] LABS: BASOPHILS # (AUTO) 0.1 X10^3/uL (0.0-0.1); BASOPHILS % (AUTO) 0.3 % (0.2-1.0); HEMATOCRIT 23.4 % (36.0-47.0); HEMOGLOBIN 7.7 g/dL (12.0-16.0); LYMPHOCYTES # (AUTO) 0.6 X10^3/uL (1.3-2.9); LYMPHOCYTES % (AUTO) 2.8 % (21.0-51.0); MEAN CORPUSCULAR HEMOGLOBIN 28.3 pg (27.0-34.0); MEAN CORPUSCULAR VOLUME 85.9 fL (80.0-100.0); MEAN PLATELET VOLUME 9.1 fL (7.4-11.0); MONOCYTES # (AUTO) 0.2 x10^3/uL (0.3-0.8); MONOCYTES % (AUTO) 1.1 % (0.0-13.0); NEUTROPHILS # (AUTO) 20.8 x10^3/uL (2.2-4.8); NEUTROPHILS % (AUTO) 95.8 % (42.0-75.0); PLATELET COUNT 70 X10^3/uL (150.0-450.0); RED BLOOD COUNT 2.72 X10^6/uL (3.5-5.4); RED CELL DISTRIBUTION WIDTH 19.7 % (11.6-16.5); WHITE BLOOD COUNT 21.7 X10^3/uL (3.6-10.0)
[2017-06-23 08:06] LABS: ALANINE AMINOTRANSFERASE 23 Units/L (12-78); ALBUMIN 2.1 g/dL (3.4-5.0); ALKALINE PHOSPHATASE 236 Units/L (46-116); ASPARTATE AMINO TRANSFERASE 34 Units/L (15-37); BLOOD UREA NITROGEN 14 mg/dL (7-18); CALCIUM 7.7 mg/dL (8.5-10.1); CARBON DIOXIDE 37.6 mmol/L (21-32); CHLORIDE 102 mmol/L (98-107); COR CA(FOR HYPOALB) 9.2 mg/dL (8.5-10.1); COR NA(FOR HYPERGLY) 145 mmol/L (136-145); CREATININE 0.65 mg/dL (0.55-1.02); MAGNESIUM 1.6 mg/dL (1.7-2.9); SODIUM 143 mmol/L (136-145); TOTAL PROTEIN 4.9 g/dL (6.4-8.2); eGFR BLACK RACES > 60 (>60); eGFR NON BLACK RACES > 60 (>60)
[2017-06-23 08:27] LABS: PLATELET MORPHOLOGY COMMENT NORMAL (NORMAL)
[2017-06-23 08:28] LABS: HYPOCHROMASIA 1+
[2017-06-23] MEDS: PULMICORT NEB TX 0.5 MG NEB SCH ×2 (08:37→20:50)
[2017-06-23] MEDS ORDERED: ZOLOFT PO ONE (08:44)
[2017-06-23] MEDS: CARDIZEM CD 360 MG PO SCH (08:51)
[2017-06-23] MEDS: GLUCOPHAGE XR PO SCH ×2 (08:51→22:40)
[2017-06-23] MEDS: ALBUMIN HUMAN 25%- 100ML 100 ML IV SCH ×2 (08:51→21:00)
[2017-06-23] MEDS: ZOLOFT PO SCH (08:52)
[2017-06-23] MEDS: ACTOS PO SCH (08:52)
[2017-06-23] MEDS: ZYVOX 600MG IV 600 MG/300 ML BAG IV SCH (08:52)
[2017-06-23] MEDS: REQUIP PO SCH ×2 (08:52→22:40)
[2017-06-23] MEDS: VSL#3 PO SCH (08:52)
[2017-06-23] MEDS: FLORINEF PO SCH (08:53)
[2017-06-23] MEDS: LASIX IVP SCH ×2 (08:53→21:41)
[2017-06-23] MEDS: PROTONIX INJ 40 MG VIAL IVP SCH ×2 (08:53→21:00)
[2017-06-23] MEDS: LEVAQUIN PREMIX IV 750 MG 750 MG/150 ML BAG IV SCH (08:53)
[2017-06-23] MEDS: NORCO 5/325 MG TAB PO PRN ×2 (08:54→21:00)
[2017-06-23] MEDS: ATIVAN TAB 0.5 MG PO PRN (08:57)
[2017-06-23] MEDS ORDERED: PROCRIT or EPOGEN SC ONE (09:21)
[2017-06-23] MEDS: LR 1000 ML IV 1,000 ML with POTASSIUM CHLORIDE INJ 20 MEQ VIAL 20 MEQ IV SCH ×2 (13:28)
[2017-06-23] MEDS: AMBIEN PO PRN (21:00)
[2017-06-23] MEDS: K-DUR TAB 20 MEQ PO SCH ×2 (22:20→22:30)
[2017-06-23] MEDS: SNACK - Diabetic Appropriate PO SCH (22:21)
[2017-06-23] MEDS: LOPRESSOR INJ 5 MG AMP IVP PRN (22:30)
[2017-06-24 00:33] LABS: HEPATITIS A ANTIBODY IGM Negative (Negative)
[2017-06-24] MEDS: PROVENTIL NEB TX 0.083% 2.5MG/ 3ML NEB SCH ×6 (00:58→20:33)
[2017-06-24] MEDS: LR 1000 ML IV 1,000 ML with POTASSIUM CHLORIDE INJ 20 MEQ VIAL 20 MEQ IV SCH ×6 (04:57→23:28)
[2017-06-24] MEDS: NORCO 5/325 MG TAB PO PRN ×3 (04:58→18:00)
[2017-06-24] MEDS: ATIVAN TAB 0.5 MG PO PRN (04:58)
[2017-06-24 05:31] LABS: ALANINE AMINOTRANSFERASE 26 Units/L (12-78); ALBUMIN 2.6 g/dL (3.4-5.0); ALKALINE PHOSPHATASE 266 Units/L (46-116); ASPARTATE AMINO TRANSFERASE 36 Units/L (15-37); BLOOD UREA NITROGEN 14 mg/dL (7-18); CALCIUM 7.9 mg/dL (8.5-10.1); CARBON DIOXIDE 39.8 mmol/L (21-32); CHLORIDE 101 mmol/L (98-107); COR NA(FOR HYPERGLY) 151 mmol/L (136-145); CREATININE 0.64 mg/dL (0.55-1.02); SODIUM 149 mmol/L (136-145); TOTAL PROTEIN 5.2 g/dL (6.4-8.2); eGFR BLACK RACES > 60 (>60); eGFR NON BLACK RACES > 60 (>60)
[2017-06-24 05:36] LABS: BASOPHILS % (AUTO) 0 % (0.2-1.0); HEMATOCRIT 22.1 % (36.0-47.0); HEMOGLOBIN 7.3 g/dL (12.0-16.0); LYMPHOCYTES # (AUTO) 0.6 X10^3/uL (1.3-2.9); MEAN CORPUSCULAR HEMOGLOBIN 28.5 pg (27.0-34.0); MEAN CORPUSCULAR VOLUME 86.2 fL (80.0-100.0); MEAN PLATELET VOLUME 9.1 fL (7.4-11.0); MONOCYTES # (AUTO) 0.3 x10^3/uL (0.3-0.8); MONOCYTES % (AUTO) 1.4 % (0.0-13.0); NEUTROPHILS # (AUTO) 18.5 x10^3/uL (2.2-4.8); NEUTROPHILS % (AUTO) 95.6 % (42.0-75.0); PLATELET COUNT 69 X10^3/uL (150.0-450.0); RED BLOOD COUNT 2.57 X10^6/uL (3.5-5.4); RED CELL DISTRIBUTION WIDTH 19.6 % (11.6-16.5); WHITE BLOOD COUNT 19.4 X10^3/uL (3.6-10.0)
[2017-06-24] MEDS: SOLU-Cortef INJ IVP SCH ×3 (05:52→23:27)
--- NOTE | 2017-06-24 05:59 | RAD ---
Chest, AP portable Indication: Pneumonia Comparison: 06/22/2017 Findings: There is stable positioning of the right jugular CVL. Stable cardiac size. Diffuse intersti tial and airspace opacities are not significantly changed. No evidence for significant pleural effusi on or pneumothorax. Impression: No significant change from prior. Reported By:
[2017-06-24] MEDS: MAG-OX TAB PO PRN ×2 (06:22→11:43)
[2017-06-24] MEDS: POTASSIUM CHL 60 MEQ/NS 0.45% 500 ML IV PRN (06:25)
[2017-06-24 06:33] LABS: HEPATITIS B CORE IGM Negative (Negative); HEPATITIS B SURFACE ANTIGEN Negative (Negative)
[2017-06-24 06:59] LABS: BAND NEUTROPHILS % 2 % (0-10); HYPOCHROMASIA 2+; PLATELET MORPHOLOGY COMMENT NORMAL (NORMAL)
[2017-06-24 07:00] LABS: ANISOCYTOSIS 2+; POIKILOCYTOSIS 1+
[2017-06-24] MEDS ORDERED: NS 1000 ML 1,000 ML IV SCH (09:00)
[2017-06-24] MEDS ORDERED: PHARMACY CONSULT - DOSE _____ XX SCH (09:00)
[2017-06-24] MEDS ORDERED: ZOLOFT PO ONE (09:11)
[2017-06-24] MEDS: ACTOS PO SCH ×2 (09:19→09:21)
[2017-06-24] MEDS: ALBUMIN HUMAN 25%- 100ML 100 ML IV SCH ×2 (09:22→20:11)
[2017-06-24] MEDS: CARDIZEM CD 360 MG PO SCH (09:23)
[2017-06-24] MEDS: GLUCOPHAGE XR PO SCH ×2 (09:24→20:10)
[2017-06-24] MEDS: FLORINEF PO SCH (09:24)
[2017-06-24] MEDS: LEVAQUIN PREMIX IV 750 MG 750 MG/150 ML BAG IV SCH (09:25)
[2017-06-24] MEDS: REQUIP PO SCH ×2 (09:25→20:10)
[2017-06-24] MEDS: LASIX IVP SCH ×2 (09:25→20:09)
[2017-06-24] MEDS: PROTONIX INJ 40 MG VIAL IVP SCH ×2 (09:25→20:09)
[2017-06-24] MEDS: VSL#3 PO SCH (09:26)
[2017-06-24] MEDS: ZOLOFT PO SCH (09:26)
[2017-06-24 09:52] LABS: ANTI-NUCLEAR ANTIBODY TEST None Detected (None Detected)
[2017-06-24] MEDS: PULMICORT NEB TX 0.5 MG NEB SCH ×2 (10:06→20:34)
[2017-06-24] MEDS: HumuLIN R SUBCUT PRN ×2 (11:26→21:13)
[2017-06-24] MEDS: ZOFRAN INJ 4 MG VIAL IVP PRN (11:28)
[2017-06-24] MEDS: K-DUR TAB 20 MEQ PO SCH ×2 (15:27→21:16)
[2017-06-24] MEDS: MAGNESIUM SULFATE 1 GM/100 mL PREMIX 2 GM/200 ML BAG IV SCH ×2 (15:28→16:26)
[2017-06-24] MEDS: ATIVAN INJ 2 MG VIAL IVP PRN ×2 (15:30→21:16)
[2017-06-24] MEDS: SNACK - Diabetic Appropriate PO SCH (20:11)
[2017-06-24] MEDS: LOPRESSOR INJ 5 MG AMP IVP PRN (21:15)
[2017-06-25] MEDS: PROVENTIL NEB TX 0.083% 2.5MG/ 3ML NEB SCH ×6 (01:25→21:06)
[2017-06-25] MEDS: NORCO 5/325 MG TAB PO PRN ×3 (01:35→16:37)
[2017-06-25] MEDS: ATIVAN TAB 0.5 MG PO PRN ×2 (01:35→20:54)
[2017-06-25] MEDS: ATIVAN INJ 2 MG VIAL IVP PRN ×2 (03:46→16:36)
[2017-06-25 05:23] LABS: BASOPHILS % (AUTO) 0 % (0.2-1.0); HEMATOCRIT 20.7 % (36.0-47.0); LYMPHOCYTES # (AUTO) 0.4 X10^3/uL (1.3-2.9); LYMPHOCYTES % (AUTO) 2.5 % (21.0-51.0); MEAN CORPUSCULAR HEMOGLOBIN 28.4 pg (27.0-34.0); MEAN CORPUSCULAR HGB CONC 32.2 g/dL (33.0-35.0); MEAN CORPUSCULAR VOLUME 88.2 fL (80.0-100.0); MEAN PLATELET VOLUME 9.1 fL (7.4-11.0); MONOCYTES # (AUTO) 0.2 x10^3/uL (0.3-0.8); MONOCYTES % (AUTO) 1.4 % (0.0-13.0); NEUTROPHILS # (AUTO) 16.1 x10^3/uL (2.2-4.8); NEUTROPHILS % (AUTO) 96.1 % (42.0-75.0); PLATELET COUNT 61 X10^3/uL (150.0-450.0); RED BLOOD COUNT 2.35 X10^6/uL (3.5-5.4); RED CELL DISTRIBUTION WIDTH 19.4 % (11.6-16.5); WHITE BLOOD COUNT 16.8 X10^3/uL (3.6-10.0)
[2017-06-25 05:37] LABS: ALANINE AMINOTRANSFERASE 22 Units/L (12-78); ALKALINE PHOSPHATASE 201 Units/L (46-116); ASPARTATE AMINO TRANSFERASE 24 Units/L (15-37); BLOOD UREA NITROGEN 16 mg/dL (7-18); CHLORIDE 103 mmol/L (98-107); COR CA(FOR HYPOALB) 8.8 mg/dL (8.5-10.1); COR NA(FOR HYPERGLY) 151 mmol/L (136-145); CREATININE 0.61 mg/dL (0.55-1.02); TOTAL PROTEIN 5.1 g/dL (6.4-8.2); eGFR BLACK RACES > 60 (>60); eGFR NON BLACK RACES > 60 (>60)
[2017-06-25 05:41] LABS: CARBON DIOXIDE 41.7 mmol/L (21-32); SODIUM 150 mmol/L (136-145)
[2017-06-25 05:42] LABS: HEMOGLOBIN 6.7 g/dL (12.0-16.0)
[2017-06-25] MEDS: SOLU-Cortef INJ IVP SCH ×3 (05:47→21:32)
[2017-06-25] MEDS: K-DUR TAB 20 MEQ PO SCH ×3 (05:47→21:32)
[2017-06-25 06:46] LABS: BAND NEUTROPHILS % 2 % (0-10); PLATELET MORPHOLOGY COMMENT NORMAL (NORMAL)
[2017-06-25] MEDS ORDERED: ZOLOFT PO ONE (09:01)
[2017-06-25] MEDS: PULMICORT NEB TX 0.5 MG NEB SCH ×2 (09:05→21:06)
[2017-06-25] MEDS: ACTOS PO SCH (09:13)
[2017-06-25] MEDS: ALBUMIN HUMAN 25%- 100ML 100 ML IV SCH ×2 (09:14→20:52)
[2017-06-25] MEDS: FLORINEF PO SCH (09:15)
[2017-06-25] MEDS: CARDIZEM CD 360 MG PO SCH (09:15)
[2017-06-25] MEDS: LASIX IVP SCH ×2 (09:16→20:53)
[2017-06-25] MEDS: GLUCOPHAGE XR PO SCH ×2 (09:16→21:30)
[2017-06-25] MEDS: REQUIP PO SCH ×2 (09:18→20:54)
[2017-06-25] MEDS: LEVAQUIN PREMIX IV 750 MG 750 MG/150 ML BAG IV SCH (09:18)
[2017-06-25] MEDS: PROTONIX INJ 40 MG VIAL IVP SCH ×2 (09:18→20:53)
[2017-06-25] MEDS: VSL#3 PO SCH (09:19)
[2017-06-25] MEDS: ZOLOFT PO SCH (09:19)
[2017-06-25] MEDS ORDERED: NS 500 ML IV 500 ML IV ONE (10:15)
[2017-06-25] MEDS ORDERED: K-DUR TAB 20 MEQ PO ONE ×2 (10:40→15:05)
[2017-06-25 11:00] LABS: COPPER LEVEL 63 ug/dL (80-155)
[2017-06-25] MEDS: MAGNESIUM SULFATE 1 GM/100 mL PREMIX 1 GM/100 ML BAG IV PRN ×2 (11:26→12:53)
[2017-06-25] MEDS: LR 1000 ML IV 1,000 ML with POTASSIUM CHLORIDE INJ 20 MEQ VIAL 20 MEQ IV SCH ×2 (11:39)
[2017-06-25] MEDS: HumuLIN R SUBCUT PRN (16:55)
[2017-06-25 19:44] LABS: HEMATOCRIT 28.2 % (36.0-47.0); HEMOGLOBIN 9.6 g/dL (12.0-16.0)
[2017-06-25] MEDS: SNACK - Diabetic Appropriate PO SCH (20:55)
[2017-06-26] MEDS: ATIVAN INJ 2 MG VIAL IVP PRN ×2 (00:27→20:59)
[2017-06-26] MEDS: PROVENTIL NEB TX 0.083% 2.5MG/ 3ML NEB SCH ×6 (00:52→21:20)
[2017-06-26] MEDS: LR 1000 ML IV 1,000 ML with POTASSIUM CHLORIDE INJ 20 MEQ VIAL 20 MEQ IV SCH ×4 (01:54→16:21)
[2017-06-26] MEDS: ATIVAN TAB 0.5 MG PO PRN ×3 (02:43→23:51)
[2017-06-26] MEDS: NORCO 5/325 MG TAB PO PRN ×4 (02:43→21:01)
[2017-06-26 05:18] LABS: ALANINE AMINOTRANSFERASE 22 Units/L (12-78); ALBUMIN 3.4 g/dL (3.4-5.0); ALKALINE PHOSPHATASE 226 Units/L (46-116); ASPARTATE AMINO TRANSFERASE 28 Units/L (15-37); BLOOD UREA NITROGEN 13 mg/dL (7-18); CALCIUM 8.1 mg/dL (8.5-10.1); CHLORIDE 105 mmol/L (98-107); COR NA(FOR HYPERGLY) 152 mmol/L (136-145); CREATININE 0.69 mg/dL (0.55-1.02); MAGNESIUM 1.8 mg/dL (1.7-2.9); SODIUM 149 mmol/L (136-145); TOTAL PROTEIN 5.3 g/dL (6.4-8.2); eGFR BLACK RACES > 60 (>60); eGFR NON BLACK RACES > 60 (>60)
[2017-06-26 05:21] LABS: BASOPHILS % (AUTO) 0.2 % (0.2-1.0); HEMATOCRIT 27.9 % (36.0-47.0); HEMOGLOBIN 9.5 g/dL (12.0-16.0); LYMPHOCYTES # (AUTO) 0.6 X10^3/uL (1.3-2.9); LYMPHOCYTES % (AUTO) 2.8 % (21.0-51.0); MEAN CORPUSCULAR VOLUME 85.3 fL (80.0-100.0); MEAN PLATELET VOLUME 9.4 fL (7.4-11.0); MONOCYTES # (AUTO) 0.4 x10^3/uL (0.3-0.8); MONOCYTES % (AUTO) 2.1 % (0.0-13.0); NEUTROPHILS # (AUTO) 18.5 x10^3/uL (2.2-4.8); NEUTROPHILS % (AUTO) 94.9 % (42.0-75.0); PLATELET COUNT 53 X10^3/uL (150.0-450.0); RED BLOOD COUNT 3.28 X10^6/uL (3.5-5.4); RED CELL DISTRIBUTION WIDTH 17.4 % (11.6-16.5); WHITE BLOOD COUNT 19.6 X10^3/uL (3.6-10.0)
[2017-06-26 05:50] LABS: ANISOCYTOSIS 1+; HYPOCHROMASIA 1+; PLATELET MORPHOLOGY COMMENT NORMAL (NORMAL)
[2017-06-26 05:51] LABS: STOMATOCYTES PRESENT; TARGET CELLS PRESENT
--- NOTE | 2017-06-26 06:06 | RAD ---
Examination: Portable AP chest History: Pneumonia Comparison reference 06/24/2017 Findings: Persistent is normal heart size. Diffuse airspace infiltrates bilaterally, stable in the le ft lung and increasing on the right. No pneumothorax seen. Right jugular line in the superior vena ca va. Impression: Progression of right-sided infiltrates or pulmonary edema, no change otherwise. Reported By:
[2017-06-26] MEDS: SOLU-Cortef INJ IVP SCH ×3 (06:12→21:02)
[2017-06-26] MEDS: K-DUR TAB 20 MEQ PO SCH ×3 (06:18→21:01)
[2017-06-26] MEDS: HumuLIN R SUBCUT PRN ×2 (06:19→16:43)
[2017-06-26] MEDS ORDERED: ZOLOFT PO ONE (07:18)
[2017-06-26] MEDS: ALBUMIN HUMAN 25%- 100ML 100 ML IV SCH ×2 (07:27→20:58)
[2017-06-26] MEDS ORDERED: NS 500 ML IV 500 ML IV ONE (08:09)
[2017-06-26] MEDS: LOPRESSOR INJ 5 MG AMP IVP PRN ×3 (08:45→23:52)
[2017-06-26] MEDS: VSL#3 PO SCH (08:48)
[2017-06-26] MEDS: ACTOS PO SCH (08:48)
[2017-06-26] MEDS: CARDIZEM CD 360 MG PO SCH (08:48)
[2017-06-26] MEDS: GLUCOPHAGE XR PO SCH ×2 (08:48→21:00)
[2017-06-26] MEDS: LEVAQUIN PREMIX IV 750 MG 750 MG/150 ML BAG IV SCH (08:48)
[2017-06-26] MEDS: LASIX IVP SCH ×2 (08:48→21:00)
[2017-06-26] MEDS: REQUIP PO SCH ×2 (08:49→21:02)
[2017-06-26] MEDS: PROTONIX INJ 40 MG VIAL IVP SCH ×2 (08:49→21:00)
[2017-06-26] MEDS: PULMICORT NEB TX 0.5 MG NEB SCH ×2 (09:18→21:21)
[2017-06-26] MEDS ORDERED: LASIX IVP ONE (09:36)
[2017-06-26] MEDS: ZOLOFT PO SCH (11:34)
[2017-06-26] MEDS: ZOFRAN INJ 4 MG VIAL IVP PRN (14:46)
[2017-06-26] MEDS: TUSSIONEX PENNKINETIC SUSP PO PRN ×2 (16:12→21:02)
[2017-06-26] MEDS: SNACK - Diabetic Appropriate PO SCH (21:01)
[2017-06-27] MEDS: PROVENTIL NEB TX 0.083% 2.5MG/ 3ML NEB SCH ×6 (00:55→21:54)
[2017-06-27] MEDS: ATIVAN INJ 2 MG VIAL IVP PRN ×2 (03:59→15:26)
[2017-06-27] MEDS: LR 1000 ML IV 1,000 ML with POTASSIUM CHLORIDE INJ 20 MEQ VIAL 20 MEQ IV SCH ×4 (05:12→22:19)
[2017-06-27] MEDS: NORCO 5/325 MG TAB PO PRN ×4 (05:40→23:32)
[2017-06-27] MEDS: K-DUR TAB 20 MEQ PO SCH ×3 (05:40→21:14)
[2017-06-27] MEDS: LOPRESSOR INJ 5 MG AMP IVP PRN (05:41)
[2017-06-27] MEDS: SOLU-Cortef INJ IVP SCH ×3 (05:41→21:15)
[2017-06-27 05:56] LABS: ALANINE AMINOTRANSFERASE 21 Units/L (12-78); ALBUMIN 3.3 g/dL (3.4-5.0); ALKALINE PHOSPHATASE 209 Units/L (46-116); ASPARTATE AMINO TRANSFERASE 28 Units/L (15-37); BLOOD UREA NITROGEN 13 mg/dL (7-18); CALCIUM 7.9 mg/dL (8.5-10.1); CHLORIDE 100 mmol/L (98-107); COR CA(FOR HYPOALB) 8.5 mg/dL (8.5-10.1); COR NA(FOR HYPERGLY) 150 mmol/L (136-145); CREATININE 0.62 mg/dL (0.55-1.02); SODIUM 148 mmol/L (136-145); TOTAL PROTEIN 5.3 g/dL (6.4-8.2); eGFR BLACK RACES > 60 (>60); eGFR NON BLACK RACES > 60 (>60)
[2017-06-27 06:07] LABS: ABG BASE EXCESS 27.4 mmol/L (-2.0-2.0)
[2017-06-27 06:09] LABS: BASOPHILS % (AUTO) 0.1 % (0.2-1.0); EOSINOPHILS % (AUTO) 0.1 % (0.9-2.9); HEMATOCRIT 28.8 % (36.0-47.0); HEMOGLOBIN 9.8 g/dL (12.0-16.0); LYMPHOCYTES # (AUTO) 0.9 X10^3/uL (1.3-2.9); LYMPHOCYTES % (AUTO) 4.5 % (21.0-51.0); MEAN CORPUSCULAR HGB CONC 33.8 g/dL (33.0-35.0); MEAN CORPUSCULAR VOLUME 85.7 fL (80.0-100.0); MEAN PLATELET VOLUME 10.1 fL (7.4-11.0); MONOCYTES # (AUTO) 0.7 x10^3/uL (0.3-0.8); MONOCYTES % (AUTO) 3.6 % (0.0-13.0); NEUTROPHILS # (AUTO) 18.8 x10^3/uL (2.2-4.8); NEUTROPHILS % (AUTO) 91.7 % (42.0-75.0); PLATELET COUNT 53 X10^3/uL (150.0-450.0); RED BLOOD COUNT 3.37 X10^6/uL (3.5-5.4); RED CELL DISTRIBUTION WIDTH 16.9 % (11.6-16.5); WHITE BLOOD COUNT 20.5 X10^3/uL (3.6-10.0)
[2017-06-27 06:11] LABS: CARBON DIOXIDE > 45.0 mmol/L (21-32)
[2017-06-27 06:12] LABS: ABG ALLEN TEST pos; ABG HCO3 55.9 mmol/L (22-26)
[2017-06-27] MEDS ORDERED: K-DUR TAB 20 MEQ PO ONE (06:30)
[2017-06-27 07:02] LABS: BAND NEUTROPHILS % 6 % (0-10)
[2017-06-27 07:03] LABS: PLATELET MORPHOLOGY COMMENT NORMAL (NORMAL)
[2017-06-27] MEDS ORDERED: ZOLOFT PO ONE (08:38)
--- NOTE | 2017-06-27 08:40 | RAD ---
Examination: Portable AP chest History: CHF Comparison reference: 06/26/2017 Findings: Stable heart size with no change in the extensive bilateral pulmonary infiltrates/edema. No pneumothorax is seen. Right jugular line is unchanged in position. Impression: No change. Persistent bilateral pulmonary edema. Reported By:
[2017-06-27] MEDS: ACTOS PO SCH (09:02)
[2017-06-27] MEDS: GLUCOPHAGE XR PO SCH ×2 (09:03→20:41)
[2017-06-27] MEDS: LEVAQUIN PREMIX IV 750 MG 750 MG/150 ML BAG IV SCH (09:03)
[2017-06-27] MEDS: VSL#3 PO SCH (09:03)
[2017-06-27] MEDS: CARDIZEM CD 360 MG PO SCH (09:03)
[2017-06-27] MEDS: LASIX IVP SCH ×2 (09:03→20:42)
[2017-06-27] MEDS: ALBUMIN HUMAN 25%- 100ML 100 ML IV SCH ×2 (09:03→20:40)
[2017-06-27] MEDS: PROTONIX INJ 40 MG VIAL IVP SCH ×2 (09:03→20:42)
[2017-06-27] MEDS: REQUIP PO SCH ×2 (09:03→20:40)
[2017-06-27] MEDS: ZOLOFT PO SCH (09:03)
[2017-06-27] MEDS: ATIVAN TAB 0.5 MG PO PRN ×2 (09:04→23:32)
[2017-06-27] MEDS: PULMICORT NEB TX 0.5 MG NEB SCH ×2 (09:13→21:54)
[2017-06-27 14:36] LABS: HEMATOCRIT 31.9 % (36.0-47.0); HEMOGLOBIN 10.6 g/dL (12.0-16.0)
[2017-06-27 18:34] LABS: HEMATOCRIT 29.8 % (36.0-47.0); HEMOGLOBIN 9.8 g/dL (12.0-16.0)
[2017-06-27] MEDS: SNACK - Diabetic Appropriate PO SCH (20:42)
[2017-06-27] MEDS: ROBITUSSIN DM PO PRN (20:45)
--- NOTE | 2017-06-27 23:05 | PCM.PROG ---
Progress Note - Progress Note for Day of Date: 06/27/17 - Subjective Subjective: WAS ADMITTED FOR HYPONATREMIA, HYPOKALEMIA, AND UTI. TODAY, SHE WAS ALERT AND ORIENTED, LYING IN BED ON MORNING ROUNDS. TODAY, SHE IS NOTED WITH COMPLAINTS OF GENERALIZED WEAKNESS AND SHORNTESS OF BREATH, BUT REPORTS IMPROVEMENT SINCE YESTERDAY. SHE IS NOTED TO BE UTILIZING HER TRILOGY. ON EXAMINATION, HEARTRATE IS NOTED TO BE SLIGHTLY TACHYCARDIAC. SINUS TACHYCARDIA NOTED ON POPPED CORN OVEN ATTENDANT. LUNG SOUNDS ARE DIMINISHED THROUGHOUT. SHE IS NOTED TO BE UTILIZING OXYGEN THAT IS BEING DELIVERED VIA TRILOGY. ABDOMEN IS ROUND, SOFT, AND NON-TENDER WITH NORMAL BOWEL SOUNDS NOTED IN ALL QUADRANTS. HER VITAL SIGNS THIS MORNING ARE 98.7-108-18-92%-141/73. WBC IS ELEVATED THIS MORNING AT 20.5 COMPARED TO 19.6 YESTERDAY. HGB IS HOLDING AT 9.8. AN ABG WAS OBTAINED THIS MORNING AND REPORTED PH 7.480, PC02 75, P02 71, HC03 55.9, BASE EXCESS 27.4. SODIUM 148, POTASSIUM 2.2, CARBON DIOXIDE >45, GLUCOSE 186, CALCIUM 7.9, TOTAL BILI 1.20, ALK PHOS 2.9, TOTAL PROTEIN 5.3, ALBUMIN 3.3, MAGNESIUM 1.2. A CHEST XRAY WAS OBTAINED THIS MORNING AND REPORTS PERSISTENT BILATERAL PULMONARY EDEMA. HER SPUTUM CULTURE REPORTS GROWTH OF STENOTROPHOMONAS MALTOPHILIA. IT IS SENSITIVE TO THE LEVAQUIN THAT SHE IS PRESENTLY ON. TODAY, WE WILL OBTAIN H&H EVERY 6 HOURS AND REPLEAT MAGNESIUM AND POTASSIUM. OTHERWISE, WE WILL CONTINUE WITH CURRENT PLAN OF CARE TODAY. WE PLAN TO FOLLOW UP WITH AM LABS AND CONTINUE TO MONITOR PATIENT. - Past Medical Family Social History Past Med/Fam/Surg Hx: No changes since H&P Allergies: Allergies No Known Drug Allergies Allergy (Verified 06/15/17 07:59) - Review of Systems ROS: No change since H&P - Vital Signs and I&O's Vital Signs: Temperature 98.6 F Pulse Rate [Left Brachial] 105 Pulse Rate 128 Respiratory Rate 22 Blood Pressure [Left Arm] 127/72 Blood Pressure [Right Arm] 122/80 Blood Pressure 134/74 O2 Sat by Pulse Oximetry 90 Intake and Output: Intake & Output 06/25/17 06/26/17 06/27/17 06/28/17 11:59 11:59 11:59 11:59 Intake Total 9145 8392 5116 650 Output Total 8340 2656 7560 7322 Balance -555 890 -3743 -100 - Physical Exam Oriented: Normal Eyes: Normal Ear: Normal Nose: Normal Throat: Normal Respiratory: Generalized, Diminished Cardiovascular: Tachycardia Auscultation: Bowel Sounds: Normal Palpation: Normal Tenderness: RUQ, RLQ, LLQ Skin: Normal Musculoskeletal: Normal Psychiatric: Normal Mood Description: Anxious Affect: Normal Speech Pattern: Clear, Appropriate - Laboratory and Diagnostics Result Diagrams: 06/27/17 18:20 06/27/17 18:20 Labs: 06/20/17 06:19 Stool Stool Culture - Final 06/20/17 06:19 Stool - Final 06/16/17 21:11 Sputum - Expectorated Sputum Sputum Culture - Final Stenotrophomonas Maltophilia 06/16/17 21:11 Sputum - Expectorated Sputum - Final 06/17/17 02:33 Urine,Catheterized Urine Culture - Final 06/15/17 09:30 Urine,Clean Catch Urine Culture - Final Laboratory WBC 20.5 X10^3/uL (3.6-10.0) H 06/27/17 04:50 RBC 3.37 X10^6/uL (3.5-5.4) L 06/27/17 04:50 Hgb 9.8 g/dL (12.0-16.0) L 06/27/17 18:20 Hct 29.8 % (36.0-47.0) L 06/27/17 18:20 MCV 85.7 fL (80.0-100.0) 06/27/17 04:50 MCH 29.0 pg (27.0-34.0) 06/27/17 04:50 MCHC 33.8 g/dL (33.0-35.0) 06/27/17 04:50 RDW 16.9 % (11.6-16.5) H 06/27/17 04:50 Plt Count 53 X10^3/uL (150.0-450.0) L 06/27/17 04:50 Plt Count Comment Decreased (ADEQUATE) A 06/27/17 04:50 MPV 10.1 fL (7.4-11.0) 06/27/17 04:50 Neut % 91.7 % (42.0-75.0) H 06/27/17 04:50 Lymph % 4.5 % (21.0-51.0) L 06/27/17 04:50 [place] % 3.6 % (0.0-13.0) 06/27/17 04:50 Eos % 0.1 % (0.9-2.9) L 06/27/17 04:50 Baso % 0.1 % (0.2-1.0) L 06/27/17 04:50 Neut # 18.8 x10^3/uL (2.2-4.8) H 06/27/17 04:50 Lymph # 0.9 X10^3/uL (1.3-2.9) L 06/27/17 04:50 [place] # 0.7 x10^3/uL (0.3-0.8) 06/27/17 04:50 Eos # 0.0 x10^3/uL (0.0-0.2) 06/27/17 04:50 Baso # 0.0 X10^3/uL (0.0-0.1) 06/27/17 04:50 Absolute Nucleated RBC 0.1 /100WBC 06/27/17 04:50 Total Counted 100 06/27/17 04:50 Neutrophils % (Manual) 86 % (39-76) H 06/27/17 04:50 Band Neutrophils % 6 % (0-10) 06/27/17 04:50 Lymphocytes % (Manual) 5 % (13-43) L 06/27/17 04:50 Monocytes % (Manual) 3 % (4-9) L 06/27/17 04:50 Metamyelocytes % 3 06/18/17 05:25 Plt Morphology Comment Normal (NORMAL) 06/27/17 04:50 RBC Morphology Normal (NORMAL) 06/27/17 04:50 Hypochromasia 1+ A 06/26/17 04:45 Poikilocytosis 1+ A 06/24/17 04:50 Anisocytosis 1+ A 06/26/17 04:45 Target Cells Present 06/26/17 04:45 Stomatocytes Present 06/26/17 04:45 INR Target Range - 06/15/17 08:40 INR 1.83 (0.8-1.3) H 06/15/17 08:40 PTT 35.9 SECONDS (22.9-36.5) 06/15/17 08:40 PTT Comment - 06/15/17 08:40 Sample Site right radial 06/27/17 05:53 ABG pH 7.480 (7.35-7.45) H 06/27/17 05:53 ABG pCO2 75.0 mmHg (35.0-45.0) H* 06/27/17 05:53 ABG pO2 71.0 mmHg (80.0-100.0) L 06/27/17 05:53 ABG HCO3 55.9 mmol/L (22-26) H* 06/27/17 05:53 ABG O2 Saturation 95.0 % (90-100) 06/27/17 05:53 ABG Base Excess 27.4 mmol/L (-2.0-2.0) H 06/27/17 05:53 Josemanuel Test pos 06/27/17 05:53 A-a Gradient 548.0 mmHg 06/27/17 05:53 FiO2 100.000 06/27/17 05:53 Blood Gas Comments osiel well jts 06/27/17 05:53 Sodium 148 mmol/L (136-145) H 06/27/17 04:50 Corrected Sodium 150 mmol/L (136-145) H 06/27/17 04:50 Potassium 3.3 mmol/L (3.5-5.1) L 06/27/17 18:20 Chloride 100 mmol/L (98-107) 06/27/17 04:50 Carbon Dioxide > 45.0 mmol/L (21-32) H* 06/27/17 04:50 BUN 13 mg/dL (7-18) 06/27/17 04:50 Creatinine 0.62 mg/dL (0.55-1.02) 06/27/17 04:50 Est GFR (MDRD) Af Amer > 60 (>60) 06/27/17 04:50 Est GFR (MDRD) Non-Af > 60 (>60) 06/27/17 04:50 Glucose 186 mg/dL (65-99) H 06/27/17 04:50 POC Glucose (mg/dL) 161 mg/dL (65-99) H 06/27/17 20:56 Lactic Acid 1.3 mmol/L (0.4-2.0) 06/17/17 05:30 Calcium 7.9 mg/dL (8.5-10.1) L 06/27/17 04:50 Corrected Calcium 8.5 mg/dL (8.5-10.1) 06/27/17 04:50 Magnesium 1.2 mg/dL (1.7-2.9) L 06/27/17 14:05 Iron 24 ug/dL (50-175) L 06/19/17 19:25 Transferrin 121 mg/dL (202-364) L 06/19/17 19:25 Ferritin 444 ng/mL (8-252) H 06/19/17 19:25 Total Bilirubin 1.20 mg/dL (0.2-1.0) H 06/27/17 04:50 Direct Bilirubin 0.60 mg/dL (0-0.2) H 06/19/17 19:25 Indirect Bilirubin 0.20 mg/dL (0.2-0.8) 06/19/17 19:25 AST 28 Units/L (15-37) 06/27/17 04:50 ALT 21 Units/L (12-78) 06/27/17 04:50 Alkaline Phosphatase 209 Units/L (46-116) H 06/27/17 04:50 Ammonia < 10 umol/L (11-32) L 06/22/17 09:10 C-Reactive Protein 110.90 mg/L (0-3.0) H 06/15/17 08:40 Total Protein 5.3 g/dL (6.4-8.2) L 06/27/17 04:50 Albumin 3.3 g/dL (3.4-5.0) L 06/27/17 04:50 Globulin 2.0 g/dL (2.5-4.5) L 06/27/17 04:50 Albumin/Globulin Ratio 1.7 Ratio (1.1-2.1) 06/27/17 04:50 Tdnux-3-Xzwizwjljrx 235 mg/dL (90-200) H 06/19/17 19:25 Ceruloplasmin 18 mg/dL (17-54) 06/19/17 19:25 Specimen Type Catherized urine 06/17/17 02:33 Urine Color Bloody (YELLOW) 06/17/17 02:33 Urine Appearance Slightly hazy (CLEAR) 06/17/17 02:33 Urine pH 5.0 (5.0 - 8.0) 06/17/17 02:33 Ur Specific [place] 1.010 (1.000-1.030) 06/17/17 02:33 Urine Protein 3+ (NEGATIVE) 06/17/17 02:33 Urine Glucose (UA) Negative (NEGATIVE) 06/17/17 02:33 Urine Ketones Negative (NEGATIVE) 06/17/17 02:33 Urine Occult Blood 5+ (NEGATIVE) 06/17/17 02:33 Urine Nitrite Negative (NEGATIVE) 06/17/17 02:33 Urine Bilirubin Negative (NEGATIVE) 06/17/17 02:33 Urine Urobilinogen Normal (NORMAL) 06/17/17 02:33 Ur Leukocyte Esterase 2+ (NEGATIVE) 06/17/17 02:33 Urine RBC Tntc /HPF (NEGATIVE) 06/17/17 02:33 Urine WBC 4-10 /HPF (NEGATIVE) 06/17/17 02:33 Ur Squamous Epith Cells Rare /HPF (NEGATIVE) 06/17/17 02:33 Urine Bacteria Trace /HPF (NEGATIVE) 06/17/17 02:33 Ur Culture Indicated? Yes/culture set up 06/17/17 02:33 Stool Description 30g dk brown unform 06/18/17 06:14 Stl Occult Blood (IFOB) Positive (NEGATIVE) A 06/18/17 06:14 Stl C. diff Tox B Gene Negative (NEGATIVE) 06/20/17 06:19 Stl C. diff [id number] Negative (NEGATIVE) 06/20/17 06:19 Copper 63 ug/dL (80-155) L 06/19/17 19:25 CA Screen None detected (None Detected) 06/19/17 19:25 CA Titer TNP 06/19/17 19:25 CA Pattern TNP 06/19/17 19:25 Anti-Mitochondrial Ab 13.0 Units (0.0-20.0) 06/19/17 19:25 Hepatitis A IgM Ab Negative (Negative) 06/19/17 19:25 Hep Bs Antigen Negative (Negative) 06/19/17 19:25 Hep Bs Ag Confirmation TNP 06/19/17 19:25 Hep B Core IgM Ab Negative (Negative) 06/19/17 19:25 Hepatitis C Ab Index >11.00 IV 06/19/17 19:25 Hepatitis C Interp High pos (Negative) H 06/19/17 19:25 Hepatitis Interpret See note 06/19/17 19:25 Blood Type AB POSITIVE 06/25/17 10:40 Antibody Screen Negative 06/25/17 10:40 Crossmatch See Detail 06/25/17 10:40 - Plan (1) Hypokalemia Status: Acute Plan: POTASSIUM PROTOCOL, CONTINUE TO MONITOR (2) Hypomagnesemia Status: Acute Plan: MAGNESIUM PROTOCOL, CONTINUE TO MONITOR
[2017-06-28] MEDS: ZOFRAN INJ 4 MG VIAL IVP PRN (00:52)
[2017-06-28] MEDS: PROVENTIL NEB TX 0.083% 2.5MG/ 3ML NEB SCH ×6 (01:41→20:42)
[2017-06-28] MEDS: LOPRESSOR INJ 5 MG AMP IVP PRN ×3 (02:34→23:25)
[2017-06-28] MEDS: LR 1000 ML IV 1,000 ML with POTASSIUM CHLORIDE INJ 20 MEQ VIAL 20 MEQ IV SCH ×4 (05:09→20:45)
[2017-06-28] MEDS: SOLU-Cortef INJ IVP SCH (05:10)
[2017-06-28] MEDS: K-DUR TAB 20 MEQ PO SCH ×3 (05:23→20:59)
[2017-06-28 06:10] LABS: BASOPHILS % (AUTO) 0.2 % (0.2-1.0); EOSINOPHILS # (AUTO) 0.2 x10^3/uL (0.0-0.2); EOSINOPHILS % (AUTO) 0.9 % (0.9-2.9); HEMATOCRIT 30.8 % (36.0-47.0); HEMOGLOBIN 10.3 g/dL (12.0-16.0); LYMPHOCYTES # (AUTO) 1.1 X10^3/uL (1.3-2.9); LYMPHOCYTES % (AUTO) 6.1 % (21.0-51.0); MEAN CORPUSCULAR HEMOGLOBIN 28.9 pg (27.0-34.0); MEAN CORPUSCULAR HGB CONC 33.6 g/dL (33.0-35.0); MEAN CORPUSCULAR VOLUME 86.1 fL (80.0-100.0); MEAN PLATELET VOLUME 10.5 fL (7.4-11.0); MONOCYTES # (AUTO) 0.7 x10^3/uL (0.3-0.8); MONOCYTES % (AUTO) 3.6 % (0.0-13.0); NEUTROPHILS % (AUTO) 89.2 % (42.0-75.0); PLATELET COUNT 53 X10^3/uL (150.0-450.0); RED BLOOD COUNT 3.58 X10^6/uL (3.5-5.4); RED CELL DISTRIBUTION WIDTH 17.4 % (11.6-16.5)
[2017-06-28 06:19] LABS: ALANINE AMINOTRANSFERASE 24 Units/L (12-78); ALBUMIN 3.6 g/dL (3.4-5.0); ALKALINE PHOSPHATASE 229 Units/L (46-116); ASPARTATE AMINO TRANSFERASE 37 Units/L (15-37); BLOOD UREA NITROGEN 12 mg/dL (7-18); CALCIUM 8.4 mg/dL (8.5-10.1); CHLORIDE 99 mmol/L (98-107); COR NA(FOR HYPERGLY) 147 mmol/L (136-145); CREATININE 0.67 mg/dL (0.55-1.02); SODIUM 145 mmol/L (136-145); TOTAL PROTEIN 5.5 g/dL (6.4-8.2); eGFR BLACK RACES > 60 (>60); eGFR NON BLACK RACES > 60 (>60)
[2017-06-28 06:21] LABS: CARBON DIOXIDE 43.8 mmol/L (21-32)
[2017-06-28] MEDS: ATIVAN INJ 2 MG VIAL IVP PRN (07:08)
[2017-06-28 08:02] LABS: PLATELET MORPHOLOGY COMMENT NORMAL (NORMAL)
[2017-06-28 08:03] LABS: ANISOCYTOSIS SLIGHT
[2017-06-28] MEDS: PULMICORT NEB TX 0.5 MG NEB SCH ×2 (08:15→20:42)
[2017-06-28] MEDS ORDERED: ZOLOFT PO ONE (08:28)
[2017-06-28] MEDS: GLUCOPHAGE XR PO SCH ×2 (08:58→20:44)
[2017-06-28] MEDS: CARDIZEM CD 360 MG PO SCH (08:58)
[2017-06-28] MEDS: ALBUMIN HUMAN 25%- 100ML 100 ML IV SCH ×2 (08:58→20:45)
[2017-06-28] MEDS: ACTOS PO SCH (08:58)
[2017-06-28] MEDS: PROTONIX INJ 40 MG VIAL IVP SCH ×2 (08:59→20:44)
[2017-06-28] MEDS: LASIX IVP SCH ×2 (08:59→20:44)
[2017-06-28] MEDS: ZOLOFT PO SCH (08:59)
[2017-06-28] MEDS: ATIVAN TAB 0.5 MG PO PRN (08:59)
[2017-06-28] MEDS: LEVAQUIN PREMIX IV 750 MG 750 MG/150 ML BAG IV SCH (08:59)
[2017-06-28] MEDS: REQUIP PO SCH ×2 (08:59→20:45)
[2017-06-28] MEDS: NORCO 5/325 MG TAB PO PRN ×3 (09:00→23:25)
[2017-06-28] MEDS: MORPHINE SULFATE INJ 2 MG INJ IVP PRN ×2 (11:15→20:51)
[2017-06-28] MEDS: VSL#3 PO SCH (11:21)
[2017-06-28] MEDS: SOLU-Medrol 40 MG VIAL IVP SCH ×2 (13:57→21:00)
[2017-06-28] MEDS ORDERED: MORPHINE SULFATE INJ 4 MG ONE (14:40)
[2017-06-28] MEDS: SNACK - Diabetic Appropriate PO SCH (20:46)
[2017-06-29] MEDS ORDERED: MORPHINE SULFATE INJ 4 MG ONE (01:20)
[2017-06-29] MEDS: MORPHINE SULFATE INJ 2 MG INJ IVP PRN (01:24)
[2017-06-29] MEDS: PROVENTIL NEB TX 0.083% 2.5MG/ 3ML NEB SCH ×6 (01:26→20:35)
[2017-06-29] MEDS: K-DUR TAB 20 MEQ PO SCH ×3 (05:37→21:01)
[2017-06-29] MEDS: SOLU-Medrol 40 MG VIAL IVP SCH ×3 (05:38→21:02)
[2017-06-29] MEDS: HumuLIN R SUBCUT PRN ×4 (06:07→21:01)
[2017-06-29 06:09] LABS: BASOPHILS % (AUTO) 0.1 % (0.2-1.0); HEMATOCRIT 28.8 % (36.0-47.0); HEMOGLOBIN 9.6 g/dL (12.0-16.0); LYMPHOCYTES # (AUTO) 0.4 X10^3/uL (1.3-2.9); MEAN CORPUSCULAR HEMOGLOBIN 29.1 pg (27.0-34.0); MEAN CORPUSCULAR HGB CONC 33.5 g/dL (33.0-35.0); MEAN CORPUSCULAR VOLUME 86.8 fL (80.0-100.0); MEAN PLATELET VOLUME 10.1 fL (7.4-11.0); MONOCYTES # (AUTO) 0.2 x10^3/uL (0.3-0.8); MONOCYTES % (AUTO) 1.4 % (0.0-13.0); NEUTROPHILS # (AUTO) 11.4 x10^3/uL (2.2-4.8); NEUTROPHILS % (AUTO) 95.5 % (42.0-75.0); PLATELET COUNT 50 X10^3/uL (150.0-450.0); RED BLOOD COUNT 3.31 X10^6/uL (3.5-5.4); RED CELL DISTRIBUTION WIDTH 17.4 % (11.6-16.5)
[2017-06-29 06:29] LABS: ALANINE AMINOTRANSFERASE 22 Units/L (12-78); ALKALINE PHOSPHATASE 209 Units/L (46-116); ASPARTATE AMINO TRANSFERASE 28 Units/L (15-37); BLOOD UREA NITROGEN 11 mg/dL (7-18); CALCIUM 8.6 mg/dL (8.5-10.1); CHLORIDE 96 mmol/L (98-107); COR NA(FOR HYPERGLY) 149 mmol/L (136-145); CREATININE 0.64 mg/dL (0.55-1.02); SODIUM 144 mmol/L (136-145); TOTAL PROTEIN 5.9 g/dL (6.4-8.2); eGFR BLACK RACES > 60 (>60); eGFR NON BLACK RACES > 60 (>60)
[2017-06-29 06:47] LABS: CARBON DIOXIDE 44.4 mmol/L (21-32)
[2017-06-29 06:50] LABS: BAND NEUTROPHILS % 2 % (0-10); PLATELET MORPHOLOGY COMMENT NORMAL (NORMAL)
[2017-06-29] MEDS: MORPHINE SULFATE INJ 4 MG IVP PRN ×4 (07:00→23:22)
--- NOTE | 2017-06-29 07:20 | RAD ---
Examination: Portable AP chest History: SOB Comparison reference 06/27/2017 Findings: Stable cardiac size and contour. Diffuse confluent airspace disease is essentially unchange d bilaterally. Stable position of right IJ catheter in the superior vena cava. No evidence for compli cating pneumothorax. Impression: Persistent pulmonary edema, no change. Reported By:
[2017-06-29 07:39] LABS: HCV VIRAL LOG 7.1 log IU
[2017-06-29] MEDS: PULMICORT NEB TX 0.5 MG NEB SCH ×2 (08:59→20:35)
[2017-06-29] MEDS ORDERED: ZOLOFT PO ONE (09:10)
[2017-06-29] MEDS ORDERED: ACTOS PO ONE ×2 (09:22→09:23)
[2017-06-29] MEDS: PROTONIX INJ 40 MG VIAL IVP SCH ×2 (09:30→21:00)
[2017-06-29] MEDS: REQUIP PO SCH ×2 (09:31→21:03)
[2017-06-29] MEDS: CARDIZEM CD 360 MG PO SCH (09:31)
[2017-06-29] MEDS: LASIX IVP SCH ×2 (09:31→21:03)
[2017-06-29] MEDS: GLUCOPHAGE XR PO SCH ×2 (09:31→21:02)
[2017-06-29] MEDS: ACTOS PO SCH (09:31)
[2017-06-29] MEDS: ZOLOFT PO SCH (09:32)
[2017-06-29] MEDS: NORCO 5/325 MG TAB PO PRN ×3 (09:33→19:36)
[2017-06-29] MEDS: ALBUMIN HUMAN 25%- 100ML 100 ML IV SCH (09:34)
[2017-06-29] MEDS: LR 1000 ML IV 1,000 ML with POTASSIUM CHLORIDE INJ 20 MEQ VIAL 20 MEQ IV SCH ×2 (09:37)
[2017-06-29] MEDS: LEVAQUIN PREMIX IV 750 MG 750 MG/150 ML BAG IV SCH (09:41)
[2017-06-29] MEDS: VSL#3 PO SCH (10:30)
[2017-06-29] MEDS: LOPRESSOR INJ 5 MG AMP IVP PRN ×2 (10:37→16:21)
[2017-06-29] MEDS: CARDIZEM INJ 50 MG VIAL IVP PRN ×2 (13:10→21:59)
[2017-06-29] MEDS: ATIVAN TAB 0.5 MG PO PRN (13:55)
[2017-06-29] MEDS: PROCALAMINE 3 % 1,000 ML IV SCH (15:44)
[2017-06-29] MEDS: ZOFRAN INJ 4 MG VIAL IVP PRN (16:21)
--- NOTE | 2017-06-29 19:42 | PCM.PROG ---
Progress Note - Progress Note for Day of Date: 06/28/17 - Subjective Subjective: WAS ADMITTED FOR HYPONATREMIA, HYPOKALEMIA, AND UTI. TODAY, SHE WAS ALERT AND ORIENTED, LYING IN BED ON MORNING ROUNDS. TODAY, SHE REPORTS INCREASED SHORTNESS OF BREATH SINCE YESTERDAY AND GENERALIZED ACHING. SHE IS NOTED TO BE UTILIZING HER TRILOGY. ON EXAMINATION, HEARTRATE IS NOTED TO BE SLIGHTLY TACHYCARDIAC. SINUS TACHYCARDIA NOTED ON PROGRAM REP. LUNG SOUNDS ARE NOTED WITH SCATTERED WHEEZING THROUGHOUT. SHE IS NOTED TO BE UTILIZING OXYGEN THAT IS BEING DELIVERED VIA TRILOGY. ABDOMEN IS ROUND, SOFT, AND NON- TENDER WITH NORMAL BOWEL SOUNDS NOTED IN ALL QUADRANTS. HER VITAL SIGNS THIS MORNING ARE 97.8-114-27-92%-152/89. WBC HAS DECRASED TO 18.0 THIS MORNING FROM 20.5 YESTERDAY. HGB INCREASED TO 10.3. POTASSIUM 3.2, CARBON DIOXIDE 43.8, GLUCOSE 177, CALCIUM 8.4, TOTAL BILI 1.50, ALK PHOS 229, TOTAL PROTEIN 5.5, MAGNESIUM 1.1. TODAY, WE WILL REPLEAT HER POTASSIUM AND MAGNESIUM. WE WILL ORDER MORPHINE 2MG IV Q4H PRN FOR PAIN. OTHERWISE, WE WILL CONTINUE WITH CURRENT PLAN OF CARE TODAY. WE PLAN TO FOLLOW UP WITH AM LAB[facility] AND CONTINUE TO MONITOR PATIENT. - Past Medical Family Social History Past Med/Fam/Surg Hx: No changes since H&P Allergies: Allergies No Known Drug Allergies Allergy (Verified 06/15/17 07:59) - Review of Systems ROS: No change since H&P - Vital Signs and I&O's Vital Signs: Temperature 97.4 F Pulse Rate [Left Brachial] 84 Pulse Rate 96 Respiratory Rate 24 Blood Pressure [Left Arm] 116/68 Blood Pressure [Right Arm] 122/80 Blood Pressure 119/70 O2 Sat by Pulse Oximetry 98 Intake and Output: Intake & Output 06/27/17 06/28/17 06/29/17 06/30/17 11:59 11:59 11:59 11:59 Intake Total 3542 2100 2325 1318 Output Total 5044 2800 2325 1500 Balance -1502 -700 0 -182 - Physical Exam Oriented: Normal Eyes: Normal Ear: Normal Nose: Normal Throat: Normal Respiratory: Right, Left, Generalized, Wheezes Cardiovascular: Tachycardia Auscultation: Bowel Sounds: Normal Palpation: Normal Tenderness: RUQ, RLQ, LLQ Skin: Normal Musculoskeletal: Normal Psychiatric: Normal Mood Description: Anxious Affect: Normal Speech Pattern: Clear, Appropriate - Laboratory and Diagnostics Result Diagrams: 06/29/17 04:35 06/29/17 04:35 Labs: 06/20/17 06:19 Stool Stool Culture - Final 06/20/17 06:19 Stool - Final 06/16/17 21:11 Sputum - Expectorated Sputum Sputum Culture - Final Stenotrophomonas Maltophilia 06/16/17 21:11 Sputum - Expectorated Sputum - Final 06/17/17 02:33 Urine,Catheterized Urine Culture - Final 06/15/17 09:30 Urine,Clean Catch Urine Culture - Final Laboratory WBC 12.0 X10^3/uL (3.6-10.0) H 06/29/17 04:35 RBC 3.31 X10^6/uL (3.5-5.4) L 06/29/17 04:35 Hgb 9.6 g/dL (12.0-16.0) L 06/29/17 04:35 Hct 28.8 % (36.0-47.0) L 06/29/17 04:35 MCV 86.8 fL (80.0-100.0) 06/29/17 04:35 MCH 29.1 pg (27.0-34.0) 06/29/17 04:35 MCHC 33.5 g/dL (33.0-35.0) 06/29/17 04:35 RDW 17.4 % (11.6-16.5) H 06/29/17 04:35 Plt Count 50 X10^3/uL (150.0-450.0) L 06/29/17 04:35 Plt Count Comment Adequate (ADEQUATE) 06/29/17 04:35 MPV 10.1 fL (7.4-11.0) 06/29/17 04:35 Neut % 95.5 % (42.0-75.0) H 06/29/17 04:35 Lymph % 3.0 % (21.0-51.0) L 06/29/17 04:35 [place] % 1.4 % (0.0-13.0) 06/29/17 04:35 Eos % 0.0 % (0.9-2.9) L 06/29/17 04:35 Baso % 0.1 % (0.2-1.0) L 06/29/17 04:35 Neut # 11.4 x10^3/uL (2.2-4.8) H 06/29/17 04:35 Lymph # 0.4 X10^3/uL (1.3-2.9) L 06/29/17 04:35 [place] # 0.2 x10^3/uL (0.3-0.8) L 06/29/17 04:35 Eos # 0.0 x10^3/uL (0.0-0.2) 06/29/17 04:35 Baso # 0.0 X10^3/uL (0.0-0.1) 06/29/17 04:35 Absolute Nucleated RBC 0.1 /100WBC 06/29/17 04:35 Total Counted 100 06/29/17 04:35 Neutrophils % (Manual) 96 % (39-76) H 06/29/17 04:35 Band Neutrophils % 2 % (0-10) 06/29/17 04:35 Lymphocytes % (Manual) 1 % (13-43) L 06/29/17 04:35 Monocytes % (Manual) 1 % (4-9) L 06/29/17 04:35 Metamyelocytes % 3 06/18/17 05:25 Plt Morphology Comment Normal (NORMAL) 06/29/17 04:35 RBC Morphology Normal (NORMAL) 06/29/17 04:35 Hypochromasia 1+ A 06/26/17 04:45 Poikilocytosis 1+ A 06/24/17 04:50 Anisocytosis Slight A 06/28/17 05:00 Target Cells Present 06/26/17 04:45 Stomatocytes Present 06/26/17 04:45 INR Target Range - 06/15/17 08:40 INR 1.83 (0.8-1.3) H 06/15/17 08:40 PTT 35.9 SECONDS (22.9-36.5) 06/15/17 08:40 PTT Comment - 06/15/17 08:40 Sample Site right radial 06/27/17 05:53 ABG pH 7.480 (7.35-7.45) H 06/27/17 05:53 ABG pCO2 75.0 mmHg (35.0-45.0) H* 06/27/17 05:53 ABG pO2 71.0 mmHg (80.0-100.0) L 06/27/17 05:53 ABG HCO3 55.9 mmol/L (22-26) H* 06/27/17 05:53 ABG O2 Saturation 95.0 % (90-100) 06/27/17 05:53 ABG Base Excess 27.4 mmol/L (-2.0-2.0) H 06/27/17 05:53 Josemanuel Test pos 06/27/17 05:53 A-a Gradient 548.0 mmHg 06/27/17 05:53 FiO2 100.000 06/27/17 05:53 Blood Gas Comments osiel well jts 06/27/17 05:53 Sodium 144 mmol/L (136-145) 06/29/17 04:35 Corrected Sodium 149 mmol/L (136-145) H 06/29/17 04:35 Potassium 3.8 mmol/L (3.5-5.1) 06/29/17 04:35 Chloride 96 mmol/L (98-107) L 06/29/17 04:35 Carbon Dioxide 44.4 mmol/L (21-32) H* 06/29/17 04:35 BUN 11 mg/dL (7-18) 06/29/17 04:35 Creatinine 0.64 mg/dL (0.55-1.02) 06/29/17 04:35 Est GFR (MDRD) Af Amer > 60 (>60) 06/29/17 04:35 Est GFR (MDRD) Non-Af > 60 (>60) 06/29/17 04:35 Glucose 288 mg/dL (65-99) H 06/29/17 04:35 POC Glucose (mg/dL) 210 mg/dL (65-99) H 06/29/17 15:51 Lactic Acid 1.3 mmol/L (0.4-2.0) 06/17/17 05:30 Calcium 8.6 mg/dL (8.5-10.1) 06/29/17 04:35 Corrected Calcium TNP 06/29/17 04:35 Magnesium 1.1 mg/dL (1.7-2.9) L 06/28/17 05:00 Iron 24 ug/dL (50-175) L 06/19/17 19:25 Transferrin 121 mg/dL (202-364) L 06/19/17 19:25 Ferritin 444 ng/mL (8-252) H 06/19/17 19:25 Total Bilirubin 1.30 mg/dL (0.2-1.0) H 06/29/17 04:35 Direct Bilirubin 0.60 mg/dL (0-0.2) H 06/19/17 19:25 Indirect Bilirubin 0.20 mg/dL (0.2-0.8) 06/19/17 19:25 AST 28 Units/L (15-37) 06/29/17 04:35 ALT 22 Units/L (12-78) 06/29/17 04:35 Alkaline Phosphatase 209 Units/L (46-116) H 06/29/17 04:35 Ammonia < 10 umol/L (11-32) L 06/22/17 09:10 C-Reactive Protein 110.90 mg/L (0-3.0) H 06/15/17 08:40 Total Protein 5.9 g/dL (6.4-8.2) L 06/29/17 04:35 Albumin 4.0 g/dL (3.4-5.0) 06/29/17 04:35 Globulin 1.9 g/dL (2.5-4.5) L 06/29/17 04:35 Albumin/Globulin Ratio 2.1 Ratio (1.1-2.1) 06/29/17 04:35 [id number] 235 mg/dL (90-200) H 06/19/17 19:25 Ceruloplasmin 18 mg/dL (17-54) 06/19/17 19:25 Specimen Type Catherized urine 06/17/17 02:33 Urine Color Bloody (YELLOW) 06/17/17 02:33 Urine Appearance Slightly hazy (CLEAR) 06/17/17 02:33 Urine pH 5.0 (5.0 - 8.0) 06/17/17 02:33 Ur Specific [place] 1.010 (1.000-1.030) 06/17/17 02:33 Urine Protein 3+ (NEGATIVE) 06/17/17 02:33 Urine Glucose (UA) Negative (NEGATIVE) 06/17/17 02:33 Urine Ketones Negative (NEGATIVE) 06/17/17 02:33 Urine Occult Blood 5+ (NEGATIVE) 06/17/17 02:33 Urine Nitrite Negative (NEGATIVE) 06/17/17 02:33 Urine Bilirubin Negative (NEGATIVE) 06/17/17 02:33 Urine Urobilinogen Normal (NORMAL) 06/17/17 02:33 Ur Leukocyte Esterase 2+ (NEGATIVE) 06/17/17 02:33 Urine RBC Tntc /HPF (NEGATIVE) 06/17/17 02:33 Urine WBC 4-10 /HPF (NEGATIVE) 06/17/17 02:33 Ur Squamous Epith Cells Rare /HPF (NEGATIVE) 06/17/17 02:33 Urine Bacteria Trace /HPF (NEGATIVE) 06/17/17 02:33 Ur Culture Indicated? Yes/culture set up 06/17/17 02:33 Stool Description 30g dk brown unform 06/18/17 06:14 Stl Occult Blood (IFOB) Positive (NEGATIVE) A 06/18/17 06:14 Stl C. diff Tox B Gene Negative (NEGATIVE) 06/20/17 06:19 Stl C. diff [id number] Negative (NEGATIVE) 06/20/17 06:19 Copper 63 ug/dL (80-155) L 06/19/17 19:25 CA Screen None detected (None Detected) 06/19/17 19:25 CA Titer TNP 06/19/17 19:25 CA Pattern TNP 06/19/17 19:25 Sm ([place]) Antibody 0 06/19/17 19:25 Anti-Mitochondrial Ab 13.0 Units (0.0-20.0) 06/19/17 19:25 Hepatitis A IgM Ab Negative (Negative) 06/19/17 19:25 Hep Bs Antigen Negative (Negative) 06/19/17 19:25 Hep Bs Ag Confirmation TNP 06/19/17 19:25 Hep B Core IgM Ab Negative (Negative) 06/19/17 19:25 Hepatitis C Ab Index >11.00 IV 06/19/17 19:25 HCV RNA (DNA PCR) 13,000,000 IU/mL 06/24/17 04:50 HCV RNA PCR log buffer copper/ml 7.1 log/IU 06/24/17 04:50 HCV RNA (PCR) EER See note 06/24/17 04:50 Hepatitis C RNA Interp Detected (Not Detected) H 06/24/17 04:50 Hepatitis C Interp High pos (Negative) H 06/19/17 19:25 Hepatitis Interpret See note 06/19/17 19:25 Blood Type AB POSITIVE 06/25/17 10:40 Antibody Screen Negative 06/25/17 10:40 Crossmatch See Detail 06/25/17 10:40 - Plan (1) COPD with acute exacerbation Status: Acute Plan: CONTINUE RESPIRATORY TREATMENTS AND INHALERS, CONTINUE SOLU-MEDROL, CONTINUE SUPPLEMENTAL OXYGEN AND TRILOGY, CONTINUE TO MONITOR (2) Hypokalemia Status: Acute Plan: POTASSIUM PROTOCOL, CONTINUE TO MONITOR (3) Hypomagnesemia Status: Acute Plan: MAGNESIUM PROTOCOL, CONTINUE TO MONITOR
[2017-06-29] MEDS: SNACK - Diabetic Appropriate PO SCH (21:03)
[2017-06-29] MEDS: ATIVAN INJ 2 MG VIAL IVP PRN (21:06)
[2017-06-29] MEDS: AMBIEN PO PRN (23:24)
[2017-06-30] MEDS: PROVENTIL NEB TX 0.083% 2.5MG/ 3ML NEB SCH ×6 (01:14→22:09)
[2017-06-30] MEDS: ACTOS PO SCH ×2 (04:33→09:25)
[2017-06-30] MEDS: HumuLIN R SUBCUT PRN ×3 (04:57→15:56)
[2017-06-30 05:40] LABS: BASOPHILS % (AUTO) 0.1 % (0.2-1.0); HEMATOCRIT 26.1 % (36.0-47.0); HEMOGLOBIN 8.8 g/dL (12.0-16.0); LYMPHOCYTES # (AUTO) 0.3 X10^3/uL (1.3-2.9); LYMPHOCYTES % (AUTO) 2.7 % (21.0-51.0); MEAN CORPUSCULAR HEMOGLOBIN 29.1 pg (27.0-34.0); MEAN CORPUSCULAR HGB CONC 33.7 g/dL (33.0-35.0); MEAN CORPUSCULAR VOLUME 86.4 fL (80.0-100.0); MEAN PLATELET VOLUME 9.9 fL (7.4-11.0); MONOCYTES # (AUTO) 0.5 x10^3/uL (0.3-0.8); MONOCYTES % (AUTO) 3.7 % (0.0-13.0); NEUTROPHILS # (AUTO) 11.3 x10^3/uL (2.2-4.8); NEUTROPHILS % (AUTO) 93.5 % (42.0-75.0); PLATELET COUNT 55 X10^3/uL (150.0-450.0); RED BLOOD COUNT 3.02 X10^6/uL (3.5-5.4); RED CELL DISTRIBUTION WIDTH 17.6 % (11.6-16.5); WHITE BLOOD COUNT 12.1 X10^3/uL (3.6-10.0)
[2017-06-30 05:51] LABS: ALANINE AMINOTRANSFERASE 21 Units/L (12-78); ALBUMIN 3.6 g/dL (3.4-5.0); ALKALINE PHOSPHATASE 170 Units/L (46-116); ASPARTATE AMINO TRANSFERASE 21 Units/L (15-37); CALCIUM 8.2 mg/dL (8.5-10.1); CHLORIDE 94 mmol/L (98-107); COR NA(FOR HYPERGLY) 146 mmol/L (136-145); CREATININE 0.65 mg/dL (0.55-1.02); SODIUM 142 mmol/L (136-145); TOTAL PROTEIN 5.7 g/dL (6.4-8.2); eGFR BLACK RACES > 60 (>60); eGFR NON BLACK RACES > 60 (>60)
[2017-06-30 06:09] LABS: BLOOD UREA NITROGEN 18 mg/dL (7-18)
[2017-06-30 06:23] LABS: BAND NEUTROPHILS % 1 % (0-10); CARBON DIOXIDE 44.7 mmol/L (21-32); PLATELET MORPHOLOGY COMMENT NORMAL (NORMAL)
[2017-06-30] MEDS: MAG-OX TAB PO PRN (06:39)
[2017-06-30] MEDS: MAGNESIUM SULFATE 1 GM/100 mL PREMIX 1 GM/100 ML BAG IV PRN ×3 (06:39→07:33)
[2017-06-30] MEDS: K-DUR TAB 20 MEQ PO SCH ×3 (06:40→21:06)
[2017-06-30] MEDS ORDERED: NS 500 ML IV 500 ML IV ONE (06:44)
[2017-06-30] MEDS ORDERED: NS 500 ML IV 500 ML IV PRN (06:51)
--- NOTE | 2017-06-30 07:07 | RAD ---
Examination: Portable AP chest History: SOB Comparison reference 06/29/2017 Findings: Continued normal heart size. Interval improvement in bilateral pulmonary edema. The lungs a re not yet clear, however. No evidence for complicating pneumothorax. Stable position of right carol line. Impression: Interval improvement in appearance of the lungs. Reported By:
[2017-06-30] MEDS: PULMICORT NEB TX 0.5 MG NEB SCH ×2 (08:39→22:09)
[2017-06-30] MEDS ORDERED: ZOLOFT PO ONE (09:00)
[2017-06-30] MEDS: PROTONIX INJ 40 MG VIAL IVP SCH ×2 (09:23→21:06)
[2017-06-30] MEDS: GLUCOPHAGE XR PO SCH ×2 (09:24→21:05)
[2017-06-30] MEDS: VSL#3 PO SCH (09:24)
[2017-06-30] MEDS: CARDIZEM CD 360 MG PO SCH (09:25)
[2017-06-30] MEDS: ZOLOFT PO SCH (09:25)
[2017-06-30] MEDS: REQUIP PO SCH ×2 (09:25→21:06)
[2017-06-30] MEDS: LASIX IVP SCH ×2 (09:26→21:06)
[2017-06-30] MEDS: MORPHINE SULFATE INJ 4 MG IVP PRN ×3 (09:36→21:07)
[2017-06-30] MEDS: PROCALAMINE 3 % 1,000 ML IV SCH ×2 (09:36→12:11)
[2017-06-30] MEDS: PREDNISONE TAB 20 MG PO SCH (09:36)
[2017-06-30] MEDS: LOPRESSOR INJ 5 MG AMP IVP PRN (09:38)
[2017-06-30] MEDS: NORCO 5/325 MG TAB PO PRN ×2 (12:13→18:16)
[2017-06-30] MEDS: ATIVAN TAB 0.5 MG PO PRN (12:13)
[2017-06-30] MEDS: TUSSIONEX PENNKINETIC SUSP PO PRN (13:56)
[2017-06-30] MEDS: SNACK - Diabetic Appropriate PO SCH (20:00)
[2017-06-30] MEDS: AMBIEN PO PRN (21:05)
[2017-07-01] MEDS: NORCO 5/325 MG TAB PO PRN ×4 (00:09→20:54)
[2017-07-01] MEDS: PROVENTIL NEB TX 0.083% 2.5MG/ 3ML NEB SCH ×6 (01:22→22:00)
[2017-07-01] MEDS: MORPHINE SULFATE INJ 4 MG IVP PRN ×5 (04:41→22:34)
[2017-07-01 04:49] LABS: BASOPHILS % (AUTO) 0.2 % (0.2-1.0); HEMATOCRIT 26.4 % (36.0-47.0); HEMOGLOBIN 8.9 g/dL (12.0-16.0); LYMPHOCYTES # (AUTO) 0.5 X10^3/uL (1.3-2.9); LYMPHOCYTES % (AUTO) 4.5 % (21.0-51.0); MEAN CORPUSCULAR HEMOGLOBIN 28.9 pg (27.0-34.0); MEAN CORPUSCULAR HGB CONC 33.7 g/dL (33.0-35.0); MEAN CORPUSCULAR VOLUME 85.8 fL (80.0-100.0); MEAN PLATELET VOLUME 9.5 fL (7.4-11.0); MONOCYTES # (AUTO) 0.7 x10^3/uL (0.3-0.8); MONOCYTES % (AUTO) 5.7 % (0.0-13.0); NEUTROPHILS % (AUTO) 89.6 % (42.0-75.0); PLATELET COUNT 68 X10^3/uL (150.0-450.0); RED BLOOD COUNT 3.08 X10^6/uL (3.5-5.4); WHITE BLOOD COUNT 12.2 X10^3/uL (3.6-10.0)
[2017-07-01 05:00] LABS: ALANINE AMINOTRANSFERASE 28 Units/L (12-78); ALBUMIN 3.4 g/dL (3.4-5.0); ALKALINE PHOSPHATASE 206 Units/L (46-116); ASPARTATE AMINO TRANSFERASE 35 Units/L (15-37); BLOOD UREA NITROGEN 24 mg/dL (7-18); CALCIUM 8.4 mg/dL (8.5-10.1); CHLORIDE 94 mmol/L (98-107); COR NA(FOR HYPERGLY) 141 mmol/L (136-145); CREATININE 0.74 mg/dL (0.55-1.02); MAGNESIUM 1.8 mg/dL (1.7-2.9); SODIUM 138 mmol/L (136-145); TOTAL PROTEIN 5.6 g/dL (6.4-8.2); eGFR BLACK RACES > 60 (>60); eGFR NON BLACK RACES > 60 (>60)
[2017-07-01 05:09] LABS: CARBON DIOXIDE 42.7 mmol/L (21-32)
[2017-07-01] MEDS: K-DUR TAB 20 MEQ PO SCH ×3 (06:04→21:40)
[2017-07-01] MEDS: MAG-OX TAB PO PRN (06:04)
[2017-07-01] MEDS: HumuLIN R SUBCUT PRN ×3 (06:30→20:32)
[2017-07-01] MEDS: ATIVAN TAB 0.5 MG PO PRN ×2 (06:32→20:32)
[2017-07-01] MEDS: PROCALAMINE 3 % 1,000 ML IV SCH (07:30)
[2017-07-01] MEDS ORDERED: ZOLOFT PO ONE (08:12)
[2017-07-01] MEDS: PULMICORT NEB TX 0.5 MG NEB SCH ×2 (09:08→22:00)
[2017-07-01] MEDS: ACTOS PO SCH (09:15)
[2017-07-01] MEDS: PROTONIX INJ 40 MG VIAL IVP SCH ×2 (09:15→20:32)
[2017-07-01] MEDS: REQUIP PO SCH ×2 (09:15→20:39)
[2017-07-01] MEDS: GLUCOPHAGE XR PO SCH ×2 (09:16→20:31)
[2017-07-01] MEDS: ZOLOFT PO SCH (09:17)
[2017-07-01] MEDS: CARDIZEM CD 360 MG PO SCH (09:17)
[2017-07-01] MEDS: VSL#3 PO SCH (09:19)
[2017-07-01] MEDS: PREDNISONE TAB 20 MG PO SCH (09:26)
[2017-07-01] MEDS: LASIX IVP SCH ×2 (09:26→20:32)
[2017-07-01] MEDS: ATIVAN INJ 2 MG VIAL IVP PRN (14:12)
[2017-07-01] MEDS: SNACK - Diabetic Appropriate PO SCH (20:31)
[2017-07-01] MEDS: AMBIEN PO PRN (20:32)
[2017-07-01] MEDS: TUSSIONEX PENNKINETIC SUSP PO PRN (20:53)
[2017-07-01] MEDS ORDERED: BUTT CREAM (COMPOUND) ONE (21:27)
[2017-07-01] MEDS: BUTT CREAM (COMPOUND) TOP PRN (21:43)
[2017-07-02] MEDS: PROVENTIL NEB TX 0.083% 2.5MG/ 3ML NEB SCH ×6 (01:29→20:34)
[2017-07-02] MEDS: MORPHINE SULFATE INJ 4 MG IVP PRN ×4 (02:37→19:01)
[2017-07-02] MEDS: PROCALAMINE 3 % 1,000 ML IV SCH ×2 (03:40→23:11)
[2017-07-02 05:00] LABS: BASOPHILS % (AUTO) 0.1 % (0.2-1.0); EOSINOPHILS % (AUTO) 0.3 % (0.9-2.9); HEMATOCRIT 28.1 % (36.0-47.0); HEMOGLOBIN 9.5 g/dL (12.0-16.0); LYMPHOCYTES # (AUTO) 0.5 X10^3/uL (1.3-2.9); LYMPHOCYTES % (AUTO) 4.7 % (21.0-51.0); MEAN CORPUSCULAR HEMOGLOBIN 28.9 pg (27.0-34.0); MEAN CORPUSCULAR HGB CONC 33.7 g/dL (33.0-35.0); MEAN CORPUSCULAR VOLUME 85.7 fL (80.0-100.0); MEAN PLATELET VOLUME 9.7 fL (7.4-11.0); MONOCYTES # (AUTO) 0.5 x10^3/uL (0.3-0.8); MONOCYTES % (AUTO) 4.8 % (0.0-13.0); NEUTROPHILS # (AUTO) 10.3 x10^3/uL (2.2-4.8); NEUTROPHILS % (AUTO) 90.1 % (42.0-75.0); PLATELET COUNT 70 X10^3/uL (150.0-450.0); RED BLOOD COUNT 3.28 X10^6/uL (3.5-5.4); RED CELL DISTRIBUTION WIDTH 17.6 % (11.6-16.5); WHITE BLOOD COUNT 11.5 X10^3/uL (3.6-10.0)
[2017-07-02 05:14] LABS: ALANINE AMINOTRANSFERASE 38 Units/L (12-78); ALBUMIN 3.4 g/dL (3.4-5.0); ALKALINE PHOSPHATASE 268 Units/L (46-116); ASPARTATE AMINO TRANSFERASE 50 Units/L (15-37); BLOOD UREA NITROGEN 20 mg/dL (7-18); CALCIUM 8.6 mg/dL (8.5-10.1); CARBON DIOXIDE 39.2 mmol/L (21-32); CHLORIDE 95 mmol/L (98-107); COR NA(FOR HYPERGLY) 139 mmol/L (136-145); CREATININE 0.56 mg/dL (0.55-1.02); MAGNESIUM 1.6 mg/dL (1.7-2.9); SODIUM 137 mmol/L (136-145); TOTAL PROTEIN 5.7 g/dL (6.4-8.2); eGFR BLACK RACES > 60 (>60); eGFR NON BLACK RACES > 60 (>60)
[2017-07-02] MEDS: NORCO 5/325 MG TAB PO PRN ×3 (05:22→22:14)
[2017-07-02] MEDS: K-DUR TAB 20 MEQ PO SCH ×3 (05:22→21:38)
[2017-07-02 06:20] LABS: HYPOCHROMASIA SLIGHT; PLATELET MORPHOLOGY COMMENT NORMAL (NORMAL)
[2017-07-02] MEDS: MAG-OX TAB PO PRN (06:39)
[2017-07-02] MEDS ORDERED: ZOLOFT PO ONE (08:04)
[2017-07-02] MEDS: GLUCOPHAGE XR PO SCH ×2 (08:20→21:35)
[2017-07-02] MEDS: REQUIP PO SCH ×2 (08:20→21:38)
[2017-07-02] MEDS: ZOLOFT PO SCH (08:20)
[2017-07-02] MEDS: VSL#3 PO SCH (08:21)
[2017-07-02] MEDS: LASIX IVP SCH ×2 (08:21→10:26)
[2017-07-02] MEDS: CARDIZEM CD 360 MG PO SCH (08:21)
[2017-07-02] MEDS: PREDNISONE TAB 20 MG PO SCH (08:21)
[2017-07-02] MEDS: ACTOS PO SCH (08:21)
[2017-07-02] MEDS: PROTONIX INJ 40 MG VIAL IVP SCH ×2 (08:22→21:36)
[2017-07-02] MEDS: PULMICORT NEB TX 0.5 MG NEB SCH ×2 (09:00→20:34)
[2017-07-02] MEDS: HumuLIN R SUBCUT PRN ×3 (11:40→22:15)
[2017-07-02] MEDS: AMBIEN PO PRN (20:11)
[2017-07-02] MEDS: ATIVAN TAB 0.5 MG PO PRN (20:11)
[2017-07-02] MEDS: SNACK - Diabetic Appropriate PO SCH (20:13)
[2017-07-03] MEDS: PROVENTIL NEB TX 0.083% 2.5MG/ 3ML NEB SCH ×5 (00:30→21:17)
[2017-07-03] MEDS: MORPHINE SULFATE INJ 4 MG IVP PRN ×5 (00:50→19:44)
[2017-07-03] MEDS: TUSSIONEX PENNKINETIC SUSP PO PRN (03:26)
[2017-07-03] MEDS: ATIVAN INJ 2 MG VIAL IVP PRN ×2 (03:56→12:12)
[2017-07-03] MEDS: NORCO 5/325 MG TAB PO PRN ×3 (04:35→17:11)
[2017-07-03] MEDS: LOPRESSOR INJ 5 MG AMP IVP PRN (05:11)
[2017-07-03 05:23] LABS: BASOPHILS % (AUTO) 0.2 % (0.2-1.0); EOSINOPHILS # (AUTO) 0.1 x10^3/uL (0.0-0.2); EOSINOPHILS % (AUTO) 0.5 % (0.9-2.9); HEMATOCRIT 30.7 % (36.0-47.0); HEMOGLOBIN 10.1 g/dL (12.0-16.0); LYMPHOCYTES % (AUTO) 6.5 % (21.0-51.0); MEAN CORPUSCULAR HEMOGLOBIN 28.3 pg (27.0-34.0); MEAN CORPUSCULAR HGB CONC 32.9 g/dL (33.0-35.0); MEAN CORPUSCULAR VOLUME 86.2 fL (80.0-100.0); MEAN PLATELET VOLUME 9.5 fL (7.4-11.0); MONOCYTES # (AUTO) 0.8 x10^3/uL (0.3-0.8); MONOCYTES % (AUTO) 5.1 % (0.0-13.0); NEUTROPHILS # (AUTO) 13.7 x10^3/uL (2.2-4.8); NEUTROPHILS % (AUTO) 87.7 % (42.0-75.0); PLATELET COUNT 78 X10^3/uL (150.0-450.0); RED BLOOD COUNT 3.56 X10^6/uL (3.5-5.4); RED CELL DISTRIBUTION WIDTH 17.9 % (11.6-16.5); WHITE BLOOD COUNT 15.6 X10^3/uL (3.6-10.0)
[2017-07-03 05:37] LABS: ALANINE AMINOTRANSFERASE 34 Units/L (12-78); ALBUMIN 3.5 g/dL (3.4-5.0); ALKALINE PHOSPHATASE 293 Units/L (46-116); ASPARTATE AMINO TRANSFERASE 31 Units/L (15-37); BLOOD UREA NITROGEN 16 mg/dL (7-18); CALCIUM 8.8 mg/dL (8.5-10.1); CARBON DIOXIDE 32.3 mmol/L (21-32); CHLORIDE 94 mmol/L (98-107); COR NA(FOR HYPERGLY) 133 mmol/L (136-145); MAGNESIUM 1.6 mg/dL (1.7-2.9); SODIUM 133 mmol/L (136-145); TOTAL PROTEIN 6.1 g/dL (6.4-8.2); eGFR BLACK RACES > 60 (>60); eGFR NON BLACK RACES > 60 (>60)
[2017-07-03] MEDS: K-DUR TAB 20 MEQ PO SCH ×3 (05:59→20:59)
--- NOTE | 2017-07-03 07:11 | RAD ---
History: Shortness of breath Study: Portable AP chest Comparison: June 30, 2017 Findings: The heart size is normal. There is a right jugular catheter in the upper SVC. There is a fo radhika infiltrate at the right lung base slightly more prominent than June 30. There is improved v ascular congestion. There is no obvious effusion. Impression: 1. Subsegmental right lower lobe pneumonia that appears worse than on June 30 2. Persistent but slightly improved vascular congestion Reported By:
[2017-07-03] MEDS: ATIVAN TAB 0.5 MG PO PRN ×2 (07:43→21:00)
[2017-07-03] MEDS: ZOFRAN INJ 4 MG VIAL IVP PRN (08:38)
[2017-07-03] MEDS ORDERED: ZOLOFT PO ONE (09:28)
[2017-07-03] MEDS: GLUCOPHAGE XR PO SCH ×2 (09:39→21:21)
[2017-07-03] MEDS: CARDIZEM CD 360 MG PO SCH (09:39)
[2017-07-03] MEDS: PROTONIX INJ 40 MG VIAL IVP SCH ×2 (09:39→20:58)
[2017-07-03] MEDS: REQUIP PO SCH ×2 (09:40→20:58)
[2017-07-03] MEDS: LASIX IVP SCH (09:40)
[2017-07-03] MEDS: PREDNISONE TAB 20 MG PO SCH (09:40)
[2017-07-03] MEDS: ACTOS PO SCH (09:40)
[2017-07-03] MEDS: VSL#3 PO SCH (09:41)
[2017-07-03] MEDS: ZOLOFT PO SCH (09:41)
[2017-07-03] MEDS: FLORINEF PO SCH ×2 (10:26→20:58)
[2017-07-03] MEDS: PULMICORT NEB TX 0.5 MG NEB SCH ×2 (10:58→21:18)
[2017-07-03] MEDS: HumuLIN R SUBCUT PRN ×2 (11:58→17:12)
[2017-07-03] MEDS: SNACK - Diabetic Appropriate PO SCH (20:15)
[2017-07-03] MEDS: PROCALAMINE 3 % 1,000 ML IV SCH (20:57)
[2017-07-03] MEDS: AMBIEN PO PRN (20:59)
[2017-07-04] MEDS: PROVENTIL NEB TX 0.083% 2.5MG/ 3ML NEB SCH ×6 (01:07→21:12)
[2017-07-04] MEDS: MORPHINE SULFATE INJ 4 MG IVP PRN ×5 (04:43→21:45)
[2017-07-04 05:23] LABS: BASOPHILS % (AUTO) 0.2 % (0.2-1.0); EOSINOPHILS # (AUTO) 0.1 x10^3/uL (0.0-0.2); EOSINOPHILS % (AUTO) 0.7 % (0.9-2.9); HEMATOCRIT 30.4 % (36.0-47.0); LYMPHOCYTES # (AUTO) 1.1 X10^3/uL (1.3-2.9); LYMPHOCYTES % (AUTO) 6.5 % (21.0-51.0); MEAN CORPUSCULAR HGB CONC 32.9 g/dL (33.0-35.0); MEAN CORPUSCULAR VOLUME 85.2 fL (80.0-100.0); MEAN PLATELET VOLUME 9.5 fL (7.4-11.0); MONOCYTES # (AUTO) 0.8 x10^3/uL (0.3-0.8); MONOCYTES % (AUTO) 4.9 % (0.0-13.0); NEUTROPHILS # (AUTO) 14.5 x10^3/uL (2.2-4.8); NEUTROPHILS % (AUTO) 87.7 % (42.0-75.0); PLATELET COUNT 93 X10^3/uL (150.0-450.0); RED BLOOD COUNT 3.57 X10^6/uL (3.5-5.4); RED CELL DISTRIBUTION WIDTH 17.9 % (11.6-16.5); WHITE BLOOD COUNT 16.5 X10^3/uL (3.6-10.0)
[2017-07-04 05:30] LABS: ALANINE AMINOTRANSFERASE 31 Units/L (12-78); ALBUMIN 3.2 g/dL (3.4-5.0); ALKALINE PHOSPHATASE 313 Units/L (46-116); ASPARTATE AMINO TRANSFERASE 26 Units/L (15-37); BLOOD UREA NITROGEN 18 mg/dL (7-18); CALCIUM 8.8 mg/dL (8.5-10.1); CARBON DIOXIDE 33.8 mmol/L (21-32); CHLORIDE 96 mmol/L (98-107); COR CA(FOR HYPOALB) 9.4 mg/dL (8.5-10.1); COR NA(FOR HYPERGLY) 137 mmol/L (136-145); CREATININE 0.53 mg/dL (0.55-1.02); SODIUM 136 mmol/L (136-145); TOTAL PROTEIN 6.1 g/dL (6.4-8.2); eGFR BLACK RACES > 60 (>60); eGFR NON BLACK RACES > 60 (>60)
[2017-07-04] MEDS: ATIVAN INJ 2 MG VIAL IVP PRN ×2 (06:00→11:39)
[2017-07-04] MEDS: LOPRESSOR INJ 5 MG AMP IVP PRN ×2 (06:03→12:03)
[2017-07-04] MEDS: K-DUR TAB 20 MEQ PO SCH ×3 (07:07→21:45)
[2017-07-04] MEDS: NORCO 5/325 MG TAB PO PRN ×3 (07:20→20:37)
[2017-07-04] MEDS: ROBITUSSIN DM PO PRN (07:41)
[2017-07-04] MEDS: LASIX IVP SCH (08:09)
[2017-07-04] MEDS ORDERED: ZOLOFT PO ONE (09:12)
[2017-07-04] MEDS: CARDIZEM CD 360 MG PO SCH (09:18)
[2017-07-04] MEDS: PROTONIX INJ 40 MG VIAL IVP SCH ×2 (09:19→20:34)
[2017-07-04] MEDS: GLUCOPHAGE XR PO SCH ×2 (09:19→20:35)
[2017-07-04] MEDS: ACTOS PO SCH (09:19)
[2017-07-04] MEDS: FLORINEF PO SCH ×2 (09:19→20:36)
[2017-07-04] MEDS: REQUIP PO SCH ×2 (09:19→20:36)
[2017-07-04] MEDS: ZOLOFT PO SCH (09:20)
[2017-07-04] MEDS: PREDNISONE TAB 20 MG PO SCH (09:20)
[2017-07-04] MEDS: VSL#3 PO SCH (09:30)
[2017-07-04] MEDS: PULMICORT NEB TX 0.5 MG NEB SCH ×2 (09:45→21:12)
[2017-07-04] MEDS: COREG TAB 12.5 MG PO SCH ×2 (10:27→20:36)
[2017-07-04] MEDS: ZOFRAN INJ 4 MG VIAL IVP PRN (10:32)
[2017-07-04] MEDS: MAG-OX TAB PO PRN (12:04)
[2017-07-04] MEDS: HumuLIN R SUBCUT PRN ×2 (12:55→17:03)
[2017-07-04] MEDS: PROCALAMINE 3 % 1,000 ML IV SCH (16:58)
[2017-07-04] MEDS: SNACK - Diabetic Appropriate PO SCH (20:00)
[2017-07-04] MEDS: TUSSIONEX PENNKINETIC SUSP PO PRN (20:35)
[2017-07-04] MEDS: AMBIEN PO PRN (20:36)
[2017-07-05] MEDS: PROVENTIL NEB TX 0.083% 2.5MG/ 3ML NEB SCH ×6 (00:48→22:21)
[2017-07-05] MEDS: MORPHINE SULFATE INJ 4 MG IVP PRN ×4 (02:56→17:43)
[2017-07-05] MEDS: ATIVAN TAB 0.5 MG PO PRN ×2 (03:09→21:54)
[2017-07-05] MEDS: NORCO 5/325 MG TAB PO PRN ×3 (05:08→19:06)
[2017-07-05] MEDS: K-DUR TAB 20 MEQ PO SCH ×3 (05:09→21:13)
[2017-07-05 06:01] LABS: BASOPHILS % (AUTO) 0.2 % (0.2-1.0); EOSINOPHILS # (AUTO) 0.2 x10^3/uL (0.0-0.2); EOSINOPHILS % (AUTO) 0.9 % (0.9-2.9); HEMATOCRIT 29.6 % (36.0-47.0); HEMOGLOBIN 9.9 g/dL (12.0-16.0); LYMPHOCYTES # (AUTO) 1.1 X10^3/uL (1.3-2.9); LYMPHOCYTES % (AUTO) 5.9 % (21.0-51.0); MEAN CORPUSCULAR HEMOGLOBIN 28.5 pg (27.0-34.0); MEAN CORPUSCULAR HGB CONC 33.3 g/dL (33.0-35.0); MEAN CORPUSCULAR VOLUME 85.6 fL (80.0-100.0); MEAN PLATELET VOLUME 10.4 fL (7.4-11.0); MONOCYTES # (AUTO) 0.8 x10^3/uL (0.3-0.8); MONOCYTES % (AUTO) 4.1 % (0.0-13.0); NEUTROPHILS # (AUTO) 16.6 x10^3/uL (2.2-4.8); NEUTROPHILS % (AUTO) 88.9 % (42.0-75.0); PLATELET COUNT 131 X10^3/uL (150.0-450.0); RED BLOOD COUNT 3.46 X10^6/uL (3.5-5.4); RED CELL DISTRIBUTION WIDTH 18.5 % (11.6-16.5); WHITE BLOOD COUNT 18.7 X10^3/uL (3.6-10.0)
[2017-07-05 06:14] LABS: ALANINE AMINOTRANSFERASE 32 Units/L (12-78); ALBUMIN 2.8 g/dL (3.4-5.0); ALKALINE PHOSPHATASE 288 Units/L (46-116); ASPARTATE AMINO TRANSFERASE 39 Units/L (15-37); BLOOD UREA NITROGEN 24 mg/dL (7-18); CALCIUM 8.7 mg/dL (8.5-10.1); CARBON DIOXIDE 33.1 mmol/L (21-32); CHLORIDE 96 mmol/L (98-107); COR CA(FOR HYPOALB) 9.7 mg/dL (8.5-10.1); MAGNESIUM 1.7 mg/dL (1.7-2.9); SODIUM 133 mmol/L (136-145); TOTAL PROTEIN 5.9 g/dL (6.4-8.2); eGFR BLACK RACES > 60 (>60); eGFR NON BLACK RACES > 60 (>60)
[2017-07-05] MEDS: ROBITUSSIN DM PO PRN (06:20)
[2017-07-05] MEDS: MAG-OX TAB PO PRN (06:33)
[2017-07-05 06:49] LABS: BILIRUBIN,URINE NEGATIVE (NEGATIVE); BLOOD/HEMOGLOBIN,URINE 4+ (NEGATIVE); GLUCOSE, URINE NEGATIVE (NEGATIVE); KETONES,URINE NEGATIVE (NEGATIVE); LEUKOCYTE ESTERASE ,URINE 2+ (NEGATIVE); NITRITES,URINE NEGATIVE (NEGATIVE); PH,URINE 6.5 (5.0 - 8.0); PROTEIN,URINE 2+ (NEGATIVE); UROBILINOGEN,URINE NORMAL (NORMAL)
[2017-07-05] MEDS ORDERED: LASIX ONE (07:01)
[2017-07-05 07:03] LABS: APPEARANCE,URINE SLIGHTLY HAZY (CLEAR); COLOR,URINE YELLOW (YELLOW)
[2017-07-05 07:13] LABS: AMORPHOUS SEDIMENT,UR 2+ /HPF (NEGATIVE); BACTERIA,URINE TRACE /HPF (NEGATIVE); SQUAMOUS EPITHELIAL CELL,UR FEW /HPF (NEGATIVE)
[2017-07-05 07:14] LABS: YEAST,URINE MODERATE /HPF (NEGATIVE)
[2017-07-05] MEDS: TUSSIONEX PENNKINETIC SUSP PO PRN ×2 (07:58→20:47)
[2017-07-05] MEDS: ATIVAN INJ 2 MG VIAL IVP PRN (08:06)
[2017-07-05] MEDS: PULMICORT NEB TX 0.5 MG NEB SCH ×2 (08:47→22:22)
[2017-07-05] MEDS ORDERED: ZOLOFT PO ONE (09:12)
[2017-07-05] MEDS: GLUCOPHAGE XR PO SCH ×2 (09:19→20:47)
[2017-07-05] MEDS: REQUIP PO SCH ×2 (09:20→20:47)
[2017-07-05] MEDS: ACTOS PO SCH (09:20)
[2017-07-05] MEDS: COREG TAB 12.5 MG PO SCH ×2 (09:20→20:47)
[2017-07-05] MEDS: PREDNISONE TAB 20 MG PO SCH (09:20)
[2017-07-05] MEDS: CARDIZEM CD 360 MG PO SCH (09:21)
[2017-07-05] MEDS: ZOLOFT PO SCH (09:21)
[2017-07-05] MEDS: FLORINEF PO SCH ×2 (09:22→20:47)
[2017-07-05] MEDS: LASIX PO SCH (09:22)
[2017-07-05] MEDS: PROTONIX INJ 40 MG VIAL IVP SCH ×2 (09:22→20:46)
--- NOTE | 2017-07-05 09:32 | RAD ---
Examination: Portable AP chest History: CHF, COPD Comparison reference 07/03/2017 Findings:Continued normal heart size with stable position of right IJ catheter. Diffuse vascular reggie estion and suspect perivascular edema. Interval improvement in aeration of the right lower lobe infil trate. No evidence for large pleural effusion or complicating pneumothorax. Impression: Persistent bilateral pneumonia/edema. Slight interval improvement in appearance of the ri ght lower lobe pneumonia. Reported By:
[2017-07-05] MEDS: MACROBID CAP 100 MG EXT REL PO SCH ×2 (11:07→20:47)
[2017-07-05] MEDS: PROCALAMINE 3 % 1,000 ML IV SCH (11:10)
[2017-07-05] MEDS: MILK OF MAGNESIA PO PRN (11:43)
[2017-07-05] MEDS: VSL#3 PO SCH (12:27)
[2017-07-05] MEDS: HumuLIN R SUBCUT PRN (17:01)
[2017-07-05] MEDS: SNACK - Diabetic Appropriate PO SCH (19:05)
[2017-07-05] MEDS: AMBIEN PO PRN (20:47)
[2017-07-06] MEDS: PROVENTIL NEB TX 0.083% 2.5MG/ 3ML NEB SCH ×6 (00:20→21:15)
[2017-07-06] MEDS: ROBITUSSIN DM PO PRN ×2 (00:29→08:08)
[2017-07-06] MEDS: NORCO 5/325 MG TAB PO PRN ×4 (00:29→20:44)
[2017-07-06] MEDS: K-DUR TAB 20 MEQ PO SCH ×3 (05:23→22:15)
[2017-07-06 06:19] LABS: BASOPHILS % (AUTO) 0.3 % (0.2-1.0); EOSINOPHILS # (AUTO) 0.1 x10^3/uL (0.0-0.2); EOSINOPHILS % (AUTO) 0.4 % (0.9-2.9); HEMATOCRIT 27.2 % (36.0-47.0); LYMPHOCYTES # (AUTO) 0.8 X10^3/uL (1.3-2.9); LYMPHOCYTES % (AUTO) 4.5 % (21.0-51.0); MEAN CORPUSCULAR HEMOGLOBIN 28.4 pg (27.0-34.0); MEAN PLATELET VOLUME 9.5 fL (7.4-11.0); MONOCYTES # (AUTO) 0.7 x10^3/uL (0.3-0.8); MONOCYTES % (AUTO) 4.2 % (0.0-13.0); NEUTROPHILS # (AUTO) 15.6 x10^3/uL (2.2-4.8); NEUTROPHILS % (AUTO) 90.6 % (42.0-75.0); PLATELET COUNT 117 X10^3/uL (150.0-450.0); RED BLOOD COUNT 3.16 X10^6/uL (3.5-5.4); RED CELL DISTRIBUTION WIDTH 18.7 % (11.6-16.5); WHITE BLOOD COUNT 17.2 X10^3/uL (3.6-10.0)
[2017-07-06 06:21] LABS: ALANINE AMINOTRANSFERASE 50 Units/L (12-78); ALBUMIN 2.6 g/dL (3.4-5.0); ALKALINE PHOSPHATASE 325 Units/L (46-116); ASPARTATE AMINO TRANSFERASE 87 Units/L (15-37); BLOOD UREA NITROGEN 23 mg/dL (7-18); CALCIUM 8.6 mg/dL (8.5-10.1); CARBON DIOXIDE 29.3 mmol/L (21-32); CHLORIDE 97 mmol/L (98-107); COR CA(FOR HYPOALB) 9.7 mg/dL (8.5-10.1); COR NA(FOR HYPERGLY) 134 mmol/L (136-145); CREATININE 0.48 mg/dL (0.55-1.02); MAGNESIUM 1.7 mg/dL (1.7-2.9); SODIUM 134 mmol/L (136-145); TOTAL PROTEIN 5.7 g/dL (6.4-8.2); eGFR BLACK RACES > 60 (>60); eGFR NON BLACK RACES > 60 (>60)
[2017-07-06 07:11] LABS: PLATELET MORPHOLOGY COMMENT NORMAL (NORMAL)
[2017-07-06] MEDS ORDERED: ZOLOFT PO ONE (07:53)
[2017-07-06] MEDS: PROCALAMINE 3 % 1,000 ML IV SCH (07:59)
[2017-07-06] MEDS: PROTONIX INJ 40 MG VIAL IVP SCH ×2 (08:00→20:42)
[2017-07-06] MEDS: VSL#3 PO SCH (08:00)
[2017-07-06] MEDS: ACTOS PO SCH (08:01)
[2017-07-06] MEDS: REQUIP PO SCH ×2 (08:02→20:42)
[2017-07-06] MEDS: ZOLOFT PO SCH (08:03)
[2017-07-06] MEDS: MACROBID CAP 100 MG EXT REL PO SCH ×2 (08:03→20:42)
[2017-07-06] MEDS: FLORINEF PO SCH ×2 (08:04→20:44)
[2017-07-06] MEDS: GLUCOPHAGE XR PO SCH ×2 (08:04→20:41)
[2017-07-06] MEDS: LASIX PO SCH (08:04)
[2017-07-06] MEDS: PREDNISONE TAB 20 MG PO SCH (08:05)
[2017-07-06] MEDS: ATIVAN TAB 0.5 MG PO PRN ×2 (08:09→15:09)
[2017-07-06] MEDS: COREG TAB 12.5 MG PO SCH ×2 (08:09→20:41)
[2017-07-06] MEDS: PULMICORT NEB TX 0.5 MG NEB SCH ×2 (09:00→21:15)
[2017-07-06] MEDS: CARDIZEM CD 360 MG PO SCH (10:05)
[2017-07-06] MEDS: ZOFRAN INJ 4 MG VIAL IVP PRN ×2 (11:48→20:42)
[2017-07-06] MEDS: SNACK - Diabetic Appropriate PO SCH (20:00)
[2017-07-06] MEDS: AMBIEN PO PRN (20:50)
[2017-07-06] MEDS: ATIVAN INJ 2 MG VIAL IVP PRN (20:50)
[2017-07-07] MEDS: PROVENTIL NEB TX 0.083% 2.5MG/ 3ML NEB SCH ×6 (01:01→21:19)
[2017-07-07] MEDS: ATIVAN INJ 2 MG VIAL IVP PRN (02:42)
[2017-07-07] MEDS: NORCO 5/325 MG TAB PO PRN ×4 (02:42→20:13)
[2017-07-07] MEDS: BUTT CREAM (COMPOUND) TOP PRN (05:50)
[2017-07-07] MEDS: PROCALAMINE 3 % 1,000 ML IV SCH (06:00)
[2017-07-07] MEDS: K-DUR TAB 20 MEQ PO SCH ×3 (06:00→22:12)
[2017-07-07] MEDS: ZOFRAN INJ 4 MG VIAL IVP PRN ×2 (06:10→11:06)
[2017-07-07 06:18] LABS: BASOPHILS % (AUTO) 0.2 % (0.2-1.0); EOSINOPHILS # (AUTO) 0.2 x10^3/uL (0.0-0.2); EOSINOPHILS % (AUTO) 1.3 % (0.9-2.9); HEMATOCRIT 29.1 % (36.0-47.0); HEMOGLOBIN 9.8 g/dL (12.0-16.0); LYMPHOCYTES # (AUTO) 1.1 X10^3/uL (1.3-2.9); LYMPHOCYTES % (AUTO) 7.2 % (21.0-51.0); MEAN CORPUSCULAR HEMOGLOBIN 28.5 pg (27.0-34.0); MEAN CORPUSCULAR HGB CONC 33.6 g/dL (33.0-35.0); MEAN CORPUSCULAR VOLUME 84.8 fL (80.0-100.0); MEAN PLATELET VOLUME 9.2 fL (7.4-11.0); MONOCYTES # (AUTO) 0.7 x10^3/uL (0.3-0.8); MONOCYTES % (AUTO) 4.7 % (0.0-13.0); NEUTROPHILS # (AUTO) 13.4 x10^3/uL (2.2-4.8); NEUTROPHILS % (AUTO) 86.6 % (42.0-75.0); PLATELET COUNT 125 X10^3/uL (150.0-450.0); RED BLOOD COUNT 3.43 X10^6/uL (3.5-5.4); RED CELL DISTRIBUTION WIDTH 17.9 % (11.6-16.5); WHITE BLOOD COUNT 15.5 X10^3/uL (3.6-10.0)
[2017-07-07 06:37] LABS: ALANINE AMINOTRANSFERASE 40 Units/L (12-78); ALBUMIN 2.6 g/dL (3.4-5.0); ALKALINE PHOSPHATASE 301 Units/L (46-116); ASPARTATE AMINO TRANSFERASE 33 Units/L (15-37); BLOOD UREA NITROGEN 19 mg/dL (7-18); CALCIUM 8.5 mg/dL (8.5-10.1); CARBON DIOXIDE 31.1 mmol/L (21-32); CHLORIDE 97 mmol/L (98-107); COR CA(FOR HYPOALB) 9.6 mg/dL (8.5-10.1); COR NA(FOR HYPERGLY) 136 mmol/L (136-145); CREATININE 0.54 mg/dL (0.55-1.02); SODIUM 135 mmol/L (136-145); TOTAL PROTEIN 5.7 g/dL (6.4-8.2); eGFR BLACK RACES > 60 (>60); eGFR NON BLACK RACES > 60 (>60)
[2017-07-07] MEDS ORDERED: ZOLOFT PO ONE (08:17)
[2017-07-07] MEDS: CARDIZEM CD 360 MG PO SCH (08:36)
[2017-07-07] MEDS: PREDNISONE TAB 20 MG PO SCH (08:36)
[2017-07-07] MEDS: MACROBID CAP 100 MG EXT REL PO SCH (08:37)
[2017-07-07] MEDS: LASIX PO SCH (08:38)
[2017-07-07] MEDS: ACTOS PO SCH (08:38)
[2017-07-07] MEDS: COREG TAB 12.5 MG PO SCH ×2 (08:38→20:13)
[2017-07-07] MEDS: REQUIP PO SCH ×2 (08:38→20:13)
[2017-07-07] MEDS: GLUCOPHAGE XR PO SCH ×2 (08:38→20:13)
[2017-07-07] MEDS: FLORINEF PO SCH ×2 (08:38→20:13)
[2017-07-07] MEDS: ZOLOFT PO SCH (08:39)
[2017-07-07] MEDS: PROTONIX INJ 40 MG VIAL IVP SCH (08:39)
[2017-07-07] MEDS: VSL#3 PO SCH (08:39)
[2017-07-07] MEDS: ATIVAN TAB 0.5 MG PO PRN ×2 (08:39→14:00)
[2017-07-07] MEDS: DIFLUCAN PO SCH (09:46)
[2017-07-07] MEDS: PULMICORT NEB TX 0.5 MG NEB SCH ×2 (09:50→21:19)
[2017-07-07] MEDS: TUSSIONEX PENNKINETIC SUSP PO PRN (16:33)
[2017-07-07] MEDS: HumuLIN R SUBCUT PRN (16:33)
[2017-07-07] MEDS: AMBIEN PO PRN (20:14)
[2017-07-07] MEDS: SNACK - Diabetic Appropriate PO SCH (20:14)
[2017-07-08] MEDS: PROVENTIL NEB TX 0.083% 2.5MG/ 3ML NEB SCH ×6 (01:13→20:13)
[2017-07-08] MEDS: PROCALAMINE 3 % 1,000 ML IV SCH (02:11)
[2017-07-08] MEDS: NORCO 5/325 MG TAB PO PRN ×3 (02:14→19:54)
[2017-07-08] MEDS: K-DUR TAB 20 MEQ PO SCH ×3 (06:40→21:14)
[2017-07-08] MEDS ORDERED: ZOLOFT PO ONE (07:49)
[2017-07-08] MEDS: ACTOS PO SCH (08:13)
[2017-07-08] MEDS: GLUCOPHAGE XR PO SCH ×2 (08:14→20:47)
[2017-07-08] MEDS: REQUIP PO SCH ×2 (08:14→20:46)
[2017-07-08] MEDS: COREG TAB 12.5 MG PO SCH ×2 (08:14→20:47)
[2017-07-08] MEDS: CARDIZEM CD 360 MG PO SCH (08:14)
[2017-07-08] MEDS: PREDNISONE TAB 20 MG PO SCH (08:14)
[2017-07-08] MEDS: DIFLUCAN PO SCH (08:14)
[2017-07-08] MEDS: LASIX PO SCH (08:14)
[2017-07-08] MEDS: FLORINEF PO SCH ×2 (08:14→20:47)
[2017-07-08] MEDS: ZOLOFT PO SCH (08:14)
[2017-07-08] MEDS: VSL#3 PO SCH (08:14)
[2017-07-08] MEDS: ATIVAN TAB 0.5 MG PO PRN (08:15)
[2017-07-08] MEDS: PULMICORT NEB TX 0.5 MG NEB SCH ×2 (08:42→20:13)
[2017-07-08] MEDS: ZOFRAN INJ 4 MG VIAL IVP PRN ×2 (09:42→13:51)
[2017-07-08] MEDS: HumuLIN R SUBCUT PRN (16:34)
[2017-07-08] MEDS: SNACK - Diabetic Appropriate PO SCH (20:00)
[2017-07-09] MEDS: PROCALAMINE 3 % 1,000 ML IV SCH ×3 (00:22→16:42)
[2017-07-09] MEDS: PROVENTIL NEB TX 0.083% 2.5MG/ 3ML NEB SCH ×6 (01:02→21:15)
[2017-07-09] MEDS: NORCO 5/325 MG TAB PO PRN (03:59)
[2017-07-09] MEDS: K-DUR TAB 20 MEQ PO SCH ×3 (05:46→22:05)
[2017-07-09 06:17] LABS: BASOPHILS % (AUTO) 0.2 % (0.2-1.0); EOSINOPHILS # (AUTO) 0.2 x10^3/uL (0.0-0.2); EOSINOPHILS % (AUTO) 1.1 % (0.9-2.9); HEMATOCRIT 26.8 % (36.0-47.0); LYMPHOCYTES # (AUTO) 1.1 X10^3/uL (1.3-2.9); LYMPHOCYTES % (AUTO) 7.3 % (21.0-51.0); MEAN CORPUSCULAR HEMOGLOBIN 28.5 pg (27.0-34.0); MEAN CORPUSCULAR HGB CONC 33.6 g/dL (33.0-35.0); MEAN CORPUSCULAR VOLUME 84.9 fL (80.0-100.0); MEAN PLATELET VOLUME 9.4 fL (7.4-11.0); MONOCYTES # (AUTO) 0.6 x10^3/uL (0.3-0.8); MONOCYTES % (AUTO) 4.1 % (0.0-13.0); NEUTROPHILS # (AUTO) 13.6 x10^3/uL (2.2-4.8); NEUTROPHILS % (AUTO) 87.3 % (42.0-75.0); PLATELET COUNT 137 X10^3/uL (150.0-450.0); RED BLOOD COUNT 3.15 X10^6/uL (3.5-5.4); RED CELL DISTRIBUTION WIDTH 18.6 % (11.6-16.5); WHITE BLOOD COUNT 15.6 X10^3/uL (3.6-10.0)
[2017-07-09 06:44] LABS: ALANINE AMINOTRANSFERASE 42 Units/L (12-78); ALBUMIN 2.4 g/dL (3.4-5.0); ALKALINE PHOSPHATASE 244 Units/L (46-116); ASPARTATE AMINO TRANSFERASE 49 Units/L (15-37); BLOOD UREA NITROGEN 19 mg/dL (7-18); CALCIUM 8.5 mg/dL (8.5-10.1); CARBON DIOXIDE 31.5 mmol/L (21-32); CHLORIDE 96 mmol/L (98-107); COR CA(FOR HYPOALB) 9.8 mg/dL (8.5-10.1); COR NA(FOR HYPERGLY) 136 mmol/L (136-145); CREATININE 0.57 mg/dL (0.55-1.02); SODIUM 135 mmol/L (136-145); TOTAL PROTEIN 5.5 g/dL (6.4-8.2); eGFR BLACK RACES > 60 (>60); eGFR NON BLACK RACES > 60 (>60)
--- NOTE | 2017-07-09 06:50 | RAD ---
Examination: Portable AP chest History: Follow-up CHF Comparison reference 07/05/2017 Findings: Continued normal heart size. Significant vascular congestion and patchy bilateral infiltrat es are stable. There is no change in position of the central line. No developing pleural effusion or pneumothorax is identified. Impression: No significant change. Pulmonary findings consistent with CHF/pneumonia. Reported By:
[2017-07-09 06:56] LABS: BAND NEUTROPHILS % 2 % (0-10); PLATELET MORPHOLOGY COMMENT NORMAL (NORMAL)
[2017-07-09 06:57] LABS: ANISOCYTOSIS SLIGHT
[2017-07-09] MEDS ORDERED: ZOLOFT PO ONE (08:21)
[2017-07-09] MEDS: GLUCOPHAGE XR PO SCH ×2 (08:33→20:08)
[2017-07-09] MEDS: VSL#3 PO SCH (08:33)
[2017-07-09] MEDS: DIFLUCAN PO SCH (08:33)
[2017-07-09] MEDS: FLORINEF PO SCH ×2 (08:34→20:08)
[2017-07-09] MEDS: LASIX PO SCH (08:34)
[2017-07-09] MEDS: ACTOS PO SCH (08:34)
[2017-07-09] MEDS: COREG TAB 12.5 MG PO SCH ×2 (08:34→20:08)
[2017-07-09] MEDS: ZOLOFT PO SCH (08:34)
[2017-07-09] MEDS: REQUIP PO SCH ×2 (08:34→20:08)
[2017-07-09] MEDS: PREDNISONE TAB 20 MG PO SCH (08:34)
[2017-07-09] MEDS: CARDIZEM CD 360 MG PO SCH (08:34)
[2017-07-09] MEDS: ATIVAN TAB 0.5 MG PO PRN ×2 (08:39→20:09)
[2017-07-09] MEDS: PULMICORT NEB TX 0.5 MG NEB SCH ×2 (08:52→21:15)
[2017-07-09] MEDS ORDERED: PREDNISONE TAB 20 MG PO SCH (09:34)
[2017-07-09] MEDS: PREDNISONE TAB 5 MG PO SCH (09:46)
[2017-07-09] MEDS: NORCO 7.5/325 MG TAB PO PRN ×2 (10:32→20:08)
[2017-07-09] MEDS: HumuLIN R SUBCUT PRN (16:04)
[2017-07-09] MEDS: ZOFRAN INJ 4 MG VIAL IVP PRN (16:42)
[2017-07-09] MEDS ORDERED: QUESTRAN PO PRN (19:05)
[2017-07-09] MEDS: AMBIEN PO PRN (20:08)
[2017-07-09] MEDS: SNACK - Diabetic Appropriate PO SCH (20:09)
[2017-07-09] MEDS: TUSSIONEX PENNKINETIC SUSP PO PRN (20:09)
[2017-07-09] MEDS: ROBITUSSIN DM PO PRN (20:09)
[2017-07-10] MEDS: PROVENTIL NEB TX 0.083% 2.5MG/ 3ML NEB SCH ×4 (00:55→12:21)
[2017-07-10] MEDS: NORCO 7.5/325 MG TAB PO PRN ×3 (03:07→14:58)
[2017-07-10] MEDS: K-DUR TAB 20 MEQ PO SCH ×2 (05:23→14:59)
[2017-07-10 06:13] LABS: BASOPHILS # (AUTO) 0.1 X10^3/uL (0.0-0.1); BASOPHILS % (AUTO) 0.4 % (0.2-1.0); EOSINOPHILS # (AUTO) 0.1 x10^3/uL (0.0-0.2); HEMATOCRIT 27.3 % (36.0-47.0); HEMOGLOBIN 9.1 g/dL (12.0-16.0); LYMPHOCYTES # (AUTO) 1.3 X10^3/uL (1.3-2.9); MEAN CORPUSCULAR HEMOGLOBIN 28.2 pg (27.0-34.0); MEAN CORPUSCULAR HGB CONC 33.4 g/dL (33.0-35.0); MEAN CORPUSCULAR VOLUME 84.6 fL (80.0-100.0); MEAN PLATELET VOLUME 8.8 fL (7.4-11.0); MONOCYTES # (AUTO) 0.6 x10^3/uL (0.3-0.8); NEUTROPHILS # (AUTO) 12.1 x10^3/uL (2.2-4.8); NEUTROPHILS % (AUTO) 85.6 % (42.0-75.0); PLATELET COUNT 140 X10^3/uL (150.0-450.0); RED BLOOD COUNT 3.23 X10^6/uL (3.5-5.4); RED CELL DISTRIBUTION WIDTH 18.5 % (11.6-16.5); WHITE BLOOD COUNT 14.1 X10^3/uL (3.6-10.0)
[2017-07-10 06:16] LABS: ALANINE AMINOTRANSFERASE 49 Units/L (12-78); ALBUMIN 2.4 g/dL (3.4-5.0); ALKALINE PHOSPHATASE 238 Units/L (46-116); ASPARTATE AMINO TRANSFERASE 53 Units/L (15-37); BLOOD UREA NITROGEN 18 mg/dL (7-18); CALCIUM 8.3 mg/dL (8.5-10.1); CARBON DIOXIDE 30.9 mmol/L (21-32); CHLORIDE 98 mmol/L (98-107); COR CA(FOR HYPOALB) 9.6 mg/dL (8.5-10.1); COR NA(FOR HYPERGLY) 137 mmol/L (136-145); CREATININE 0.49 mg/dL (0.55-1.02); MAGNESIUM 1.5 mg/dL (1.7-2.9); SODIUM 136 mmol/L (136-145); TOTAL PROTEIN 5.4 g/dL (6.4-8.2); eGFR BLACK RACES > 60 (>60); eGFR NON BLACK RACES > 60 (>60)
[2017-07-10 06:59] LABS: BAND NEUTROPHILS % 2 % (0-10); PLATELET MORPHOLOGY COMMENT NORMAL (NORMAL)
[2017-07-10] MEDS ORDERED: MAG-OX TAB ONE (07:13)
[2017-07-10] MEDS ORDERED: ZOLOFT PO ONE (07:16)
[2017-07-10] MEDS: POTASSIUM CHL 40 MEQ/NS 0.45% 500 ML IV PRN (07:26)
[2017-07-10] MEDS: TUSSIONEX PENNKINETIC SUSP PO PRN (08:27)
[2017-07-10] MEDS: ATIVAN TAB 0.5 MG PO PRN (08:28)
[2017-07-10] MEDS: VSL#3 PO SCH (08:28)
[2017-07-10] MEDS: GLUCOPHAGE XR PO SCH (08:28)
[2017-07-10] MEDS: DIFLUCAN PO SCH (08:29)
[2017-07-10] MEDS ORDERED: MAG-OX TAB PO PRN (08:29)
[2017-07-10] MEDS: ZOLOFT PO SCH (08:31)
[2017-07-10] MEDS: ACTOS PO SCH (08:31)
[2017-07-10] MEDS: LASIX PO SCH (08:31)
[2017-07-10] MEDS: FLORINEF PO SCH (08:31)
[2017-07-10] MEDS: PREDNISONE TAB 5 MG PO SCH (08:31)
[2017-07-10] MEDS: REQUIP PO SCH (08:31)
[2017-07-10] MEDS: COREG TAB 12.5 MG PO SCH (08:31)
[2017-07-10] MEDS: CARDIZEM CD 360 MG PO SCH (08:35)
[2017-07-10] MEDS: PULMICORT NEB TX 0.5 MG NEB SCH (09:40)
[2017-07-10] MEDS: PROCALAMINE 3 % 1,000 ML IV SCH (13:51)
[2017-07-10 15:31] VITALS: BP 96/68
== END 2017-07-10 15:30 | disposition home or self-care (01) | DRG 689 ==
LOC: ER 07:59 → ICU 10:45 → OBSVTOIN 06-16 08:30 → ICU 06-21 15:00
PROVIDERS: ADMIT Obstetrics & Gynecology Obstetrics; ATTEND Obstetrics & Gynecology Obstetrics
PROC: 05HM33Z Insertion of Infusion Device into Right Internal Jugular Vein, Percutaneous Approach (ICD-10-PCS; principal; 2017-06-21)
PROC: B543ZZA Ultrasonography of Right Jugular Veins, Guidance (ICD-10-PCS; 2017-06-21)
PROC: 30233N1 Transfusion of Nonautologous Red Blood Cells into Peripheral Vein, Percutaneous Approach (ICD-10-PCS; 2017-06-25)
PROC: 30233N1 Transfusion of Nonautologous Red Blood Cells into Peripheral Vein, Percutaneous Approach (ICD-10-PCS; 2017-06-25)
DX: N30.01 Acute cystitis with hematuria (principal); J16.8 Pneumonia due to other specified infectious organisms; E87.1 Hypo-osmolality and hyponatremia; E87.6 Hypokalemia; J44.1 Chronic obstructive pulmonary disease with (acute) exacerbation; I48.91 Unspecified atrial fibrillation; Z79.01 Long term (current) use of anticoagulants; R19.5 Other fecal abnormalities; E11.65 Type 2 diabetes mellitus with hyperglycemia; R93.2 Abnormal findings on diagnostic imaging of liver and biliary tract; I87.8 Other specified disorders of veins; R06.02 Shortness of breath; B96.5 Pseudomonas (aeruginosa) (mallei) (pseudomallei) as the cause of diseases classified elsewhere; B37.41 Candidal cystitis and urethritis; R26.89 Other abnormalities of gait and mobility; Z78.1 Physical restraint status
CPT/HCPCS: 36415; 36430; 36556; 36600; 71010; 74177; 76705; 80048; 80053; 80074; 81001; 82103; 82140; 82248; 82270; 82390; 82525; 82728; 82803; 83540; 83605; 83735; 84132; 84466; 85014; 85018; 85025; 85610; 85730; 86140; 86235; 86256; 86308; 86850; 86900; 86901; 86922; 87045; 87070; 87077; 87086; 87186; 87205; 87427; 87493; 87522; 87899; 87902; 93005; 93010; 94640; 94660; 94669; 96365; 96367; 96374; 97535; 99283; 99284; A4222; A4618; A7030; B5200; C9113; P9016; P9047; G0378; J0885; J1720; J1815; J1940; J1956; J2020; J2060; J2185; J2270; J2405; J2920; J3480; J3490; J7120; J7506; J7613; J7626

== ENCOUNTER 2017-07-13 19:06 | Inpatient (IN) | payer MEDICAID ==
--- NOTE | 2017-07-13 19:39 | DR.GENAD ---
HPI - PCP Primary Care Physician: mayberry - Complaint/Symptoms Chief Complaint:: pt c/o blood in urine and abd and back pain pt released from hospital on thursday - Source History Provided: Patient - Mode of Arrival Mode of Arrival: EMS - Timing Onset of Chief Complaint: 07/12/17 PMH - PMH Past Medical History: Yes Past Medical History: Angina, Asthma, COPD, Diabetes Past Surgical History: Yes Surgical History: Appendectomy, Cholecystectomy, Hysterectomy, Ortho Surgery - Family History History of Family Medical Conditions: Yes Family Medical History: Diabetes Mellitus, Cancer, [place], Sudden Cardiac , Hypertension - Social History Does any household member use tobacco: Yes Alcohol Use: None Do you use any recreational Drugs:: No Lives With: Family Lives Where: Home - infectious screening In the last 2 months have you had wt loss of >10#?: NO Have you had fever, night sweats or hemotysis?: No Have you traveled outside the country in the last 6 months?: No Isolation: Standard PE - Vital Signs Vitals: Temperature 97.2 F Pulse Rate [Apical] 170 Pulse Rate 167 Respiratory Rate 16 Blood Pressure [Left Arm] 109/74 Blood Pressure [Right Arm] 122/80 Blood Pressure 127/91 O2 Sat by Pulse Oximetry 81 ROR - Labs Reviewed Result Diagrams: 07/13/17 19:43 07/13/17 19:43 Laboratory: WBC 11.9 X10^3/uL (3.6-10.0) H 07/13/17 19:43 RBC 4.20 X10^6/uL (3.5-5.4) 07/13/17 19:43 Hgb 11.6 g/dL (12.0-16.0) L 07/13/17 19:43 Hct 35.6 % (36.0-47.0) L 07/13/17 19:43 MCV 84.7 fL (80.0-100.0) 07/13/17 19:43 MCH 27.7 pg (27.0-34.0) 07/13/17 19:43 MCHC 32.7 g/dL (33.0-35.0) L 07/13/17 19:43 RDW 18.9 % (11.6-16.5) H 07/13/17 19:43 Plt Count 125 X10^3/uL (150.0-450.0) L 07/13/17 19:43 MPV 8.3 fL (7.4-11.0) 07/13/17 19:43 Neut % 78.6 % (42.0-75.0) H 07/13/17 19:43 Lymph % 13.6 % (21.0-51.0) L 07/13/17 19:43 [place] % 4.6 % (0.0-13.0) 07/13/17 19:43 Eos % 1.8 % (0.9-2.9) 07/13/17 19:43 Baso % 1.4 % (0.2-1.0) H 07/13/17 19:43 Neut # 9.4 x10^3/uL (2.2-4.8) H 07/13/17 19:43 Lymph # 1.6 X10^3/uL (1.3-2.9) 07/13/17 19:43 [place] # 0.6 x10^3/uL (0.3-0.8) 07/13/17 19:43 Eos # 0.2 x10^3/uL (0.0-0.2) 07/13/17 19:43 Baso # 0.2 X10^3/uL (0.0-0.1) H 07/13/17 19:43 Absolute Nucleated RBC 0.3 /100WBC 07/13/17 19:43 INR Target Range - 07/13/17 19:43 INR 1.17 (0.8-1.3) 07/13/17 19:43 PTT 35.3 SECONDS (22.9-36.5) 07/13/17 19:43 PTT Comment - 07/13/17 19:43 Sodium 139 mmol/L (136-145) 07/13/17 19:43 Corrected Sodium 140 mmol/L (136-145) 07/13/17 19:43 Potassium 2.9 mmol/L (3.5-5.1) L* 07/13/17 19:43 Chloride 99 mmol/L (98-107) 07/13/17 19:43 Carbon Dioxide 32.7 mmol/L (21-32) H 07/13/17 19:43 BUN 6 mg/dL (7-18) L 07/13/17 19:43 Creatinine 0.50 mg/dL (0.55-1.02) L 07/13/17 19:43 Est GFR (MDRD) Af Amer > 60 (>60) 07/13/17 19:43 Est GFR (MDRD) Non-Af > 60 (>60) 07/13/17 19:43 Glucose 148 mg/dL (65-99) H 07/13/17 19:43 Calcium 8.8 mg/dL (8.5-10.1) 07/13/17 19:43 Corrected Calcium 10.0 mg/dL (8.5-10.1) 07/13/17 19:43 Magnesium 1.5 mg/dL (1.7-2.9) L 07/13/17 19:43 Total Bilirubin 1.60 mg/dL (0.2-1.0) H 07/13/17 19:43 AST 51 Units/L (15-37) H 07/13/17 19:43 ALT 57 Units/L (12-78) 07/13/17 19:43 Alkaline Phosphatase 347 Units/L (46-116) H 07/13/17 19:43 Creatine Kinase 11 Units/L (26-192) L 07/13/17 19:43 CK-MB (CK-2) 1.2 ng/mL (0-4.0) 07/13/17 19:43 CK/CKMB % Calc 10.9 % (<4) 07/13/17 19:43 Troponin I 0.07 ng/mL (0-1.5) 07/13/17 19:43 B-Natriuretic Peptide 243 pg/mL (0-79) H 07/13/17 19:43 Total Protein 6.1 g/dL (6.4-8.2) L 07/13/17 19:43 Albumin 2.5 g/dL (3.4-5.0) L 07/13/17 19:43 Globulin 3.6 g/dL (2.5-4.5) 07/13/17 19:43 Albumin/Globulin Ratio 0.7 Ratio (1.1-2.1) L 07/13/17 19:43 Specimen Type Clean catch urine 07/13/17 21:15 Urine Color Yellow (YELLOW) 07/13/17 21:15 Urine Appearance Clear (CLEAR) 07/13/17 21:15 Urine pH 7.0 (5.0 - 8.0) 07/13/17 21:15 Ur Specific [place] 1.010 (1.000-1.030) 07/13/17 21:15 Urine Protein 2+ (NEGATIVE) 07/13/17 21:15 Urine Glucose (UA) 1+ (NEGATIVE) 07/13/17 21:15 Urine Ketones Negative (NEGATIVE) 07/13/17 21:15 Urine Occult Blood 3+ (NEGATIVE) 07/13/17 21:15 Urine Nitrite Positive (NEGATIVE) 07/13/17 21:15 Urine Bilirubin Negative (NEGATIVE) 07/13/17 21:15 Urine Urobilinogen 1+ (NORMAL) 07/13/17 21:15 Ur Leukocyte Esterase 3+ (NEGATIVE) 07/13/17 21:15 Urine RBC 0-2 /HPF (NEGATIVE) 07/13/17 21:15 Urine WBC 5-10 /HPF (NEGATIVE) 07/13/17 21:15 Ur Squamous Epith Cells Rare /HPF (NEGATIVE) 07/13/17 21:15 Ur Renal Epithelial Cell Rare /HPF (NEGATIVE) 07/13/17 21:15 Urine Bacteria 2+ /HPF (NEGATIVE) 07/13/17 21:15 Ur Culture Indicated? Yes/culture set up 07/13/17 21:15 - Discharge Plan Condition: Stable - Follow ups/Referrals Follow ups/Referrals: DUY MAYBERRY [Primary Care Provider] - 3 days - Instructions
[2017-07-13 19:54] LABS: BASOPHILS # (AUTO) 0.2 X10^3/uL (0.0-0.1); BASOPHILS % (AUTO) 1.4 % (0.2-1.0); EOSINOPHILS # (AUTO) 0.2 x10^3/uL (0.0-0.2); EOSINOPHILS % (AUTO) 1.8 % (0.9-2.9); HEMATOCRIT 35.6 % (36.0-47.0); HEMOGLOBIN 11.6 g/dL (12.0-16.0); LYMPHOCYTES # (AUTO) 1.6 X10^3/uL (1.3-2.9); LYMPHOCYTES % (AUTO) 13.6 % (21.0-51.0); MEAN CORPUSCULAR HEMOGLOBIN 27.7 pg (27.0-34.0); MEAN CORPUSCULAR HGB CONC 32.7 g/dL (33.0-35.0); MEAN CORPUSCULAR VOLUME 84.7 fL (80.0-100.0); MEAN PLATELET VOLUME 8.3 fL (7.4-11.0); MONOCYTES # (AUTO) 0.6 x10^3/uL (0.3-0.8); MONOCYTES % (AUTO) 4.6 % (0.0-13.0); NEUTROPHILS # (AUTO) 9.4 x10^3/uL (2.2-4.8); NEUTROPHILS % (AUTO) 78.6 % (42.0-75.0); PLATELET COUNT 125 X10^3/uL (150.0-450.0); RED CELL DISTRIBUTION WIDTH 18.9 % (11.6-16.5); WHITE BLOOD COUNT 11.9 X10^3/uL (3.6-10.0)
[2017-07-13] MEDS ORDERED: NS 1000 ML 1,000 ML IV ONE (19:59)
[2017-07-13] MEDS ORDERED: ZOFRAN INJ 4 MG VIAL IVP ONE (20:00)
[2017-07-13] MEDS ORDERED: NS 1000 ML 1,000 ML ONE ×2 (20:01→23:06)
[2017-07-13] MEDS ORDERED: ZOFRAN INJ 4 MG VIAL ONE (20:01)
--- NOTE | 2017-07-13 20:02 | RAD ---
HISTORY: Tachycardia. Study: Portable chest. Comparison: Chest x-ray dated July 09, 2017. Findings: The trachea is midline. The cardiac silhouette is unchanged. Interval removal of a right IJ central venous catheter. Overall lung aeration appears unchanged. No obvious pneumothorax. The bony thorax i s unremarkable. IMPRESSION: No significant change. Reported By:
[2017-07-13 20:09] LABS: B-TYPE NATRIURETIC PEPTIDE 243 pg/mL (0-79)
[2017-07-13 20:13] LABS: ALANINE AMINOTRANSFERASE 57 Units/L (12-78); ALBUMIN 2.5 g/dL (3.4-5.0); ALKALINE PHOSPHATASE 347 Units/L (46-116); ASPARTATE AMINO TRANSFERASE 51 Units/L (15-37); BLOOD UREA NITROGEN 6 mg/dL (7-18); CALCIUM 8.8 mg/dL (8.5-10.1); CARBON DIOXIDE 32.7 mmol/L (21-32); CHLORIDE 99 mmol/L (98-107); CKMB % 10.9 % (<4); COR NA(FOR HYPERGLY) 140 mmol/L (136-145); CREATINE KINASE 11 Units/L (26-192); CREATINE KINASE MB 1.2 ng/mL (0-4.0); MAGNESIUM 1.5 mg/dL (1.7-2.9); SODIUM 139 mmol/L (136-145); TOTAL PROTEIN 6.1 g/dL (6.4-8.2); TROPONIN I 0.07 ng/mL (0-1.5); eGFR BLACK RACES > 60 (>60); eGFR NON BLACK RACES > 60 (>60)
[2017-07-13] MEDS ORDERED: CARDIZEM INJ 50 MG VIAL IVP ONE ×2 (20:57→22:01)
[2017-07-13] MEDS ORDERED: CARDIZEM INJ 125 MG VIAL 125 MG in NS 100 ML IV 100 ML IV PRN (20:57)
[2017-07-13] MEDS ORDERED: CARDIZEM INJ 50 MG VIAL ONE ×2 (21:00→22:05)
[2017-07-13] MEDS ORDERED: CARDIZEM INJ 125 MG VIAL ONE (21:00)
[2017-07-13] MEDS ORDERED: NS 100 ML IV 100 ML IV ONE (21:01)
[2017-07-13 21:23] LABS: BILIRUBIN,URINE NEGATIVE (NEGATIVE); BLOOD/HEMOGLOBIN,URINE 3+ (NEGATIVE); GLUCOSE, URINE 1+ (NEGATIVE); KETONES,URINE NEGATIVE (NEGATIVE); LEUKOCYTE ESTERASE ,URINE 3+ (NEGATIVE); NITRITES,URINE POSITIVE (NEGATIVE); PROTEIN,URINE 2+ (NEGATIVE); UROBILINOGEN,URINE 1+ (NORMAL)
[2017-07-13 21:31] LABS: APPEARANCE,URINE CLEAR (CLEAR); BACTERIA,URINE 2+ /HPF (NEGATIVE); COLOR,URINE YELLOW (YELLOW); RBC,URINE 0-2 /HPF (NEGATIVE); SQUAMOUS EPITHELIAL CELL,UR RARE /HPF (NEGATIVE)
[2017-07-13 21:32] LABS: RENAL EPITHELIAL CELLS,URINE RARE /HPF (NEGATIVE)
[2017-07-13] MEDS ORDERED: MORPHINE SULFATE INJ 4 MG IVP ONE (23:17)
[2017-07-13] MEDS ORDERED: MORPHINE SULFATE INJ 4 MG ONE (23:32)
[2017-07-14] MEDS: NS + KCL 20 MEQ/L 1,000 ML IV SCH ×3 (01:11→18:00)
[2017-07-14 03:20] VITALS: BMI 21.8
[2017-07-14] MEDS ORDERED: NS 100 ML IV 100 ML IV ONE (04:52)
[2017-07-14] MEDS ORDERED: CARDIZEM INJ 125 MG VIAL ONE (04:53)
[2017-07-14 06:04] LABS: BASOPHILS # (AUTO) 0.1 X10^3/uL (0.0-0.1); BASOPHILS % (AUTO) 1.1 % (0.2-1.0); EOSINOPHILS # (AUTO) 0.2 x10^3/uL (0.0-0.2); EOSINOPHILS % (AUTO) 2.2 % (0.9-2.9); HEMATOCRIT 33.1 % (36.0-47.0); HEMOGLOBIN 10.9 g/dL (12.0-16.0); LYMPHOCYTES # (AUTO) 1.5 X10^3/uL (1.3-2.9); MEAN PLATELET VOLUME 8.7 fL (7.4-11.0); MONOCYTES # (AUTO) 0.7 x10^3/uL (0.3-0.8); MONOCYTES % (AUTO) 6.8 % (0.0-13.0); NEUTROPHILS # (AUTO) 7.4 x10^3/uL (2.2-4.8); NEUTROPHILS % (AUTO) 74.9 % (42.0-75.0); PLATELET COUNT 123 X10^3/uL (150.0-450.0); RED BLOOD COUNT 3.89 X10^6/uL (3.5-5.4); RED CELL DISTRIBUTION WIDTH 19.2 % (11.6-16.5); WHITE BLOOD COUNT 9.9 X10^3/uL (3.6-10.0)
[2017-07-14 06:09] LABS: ALANINE AMINOTRANSFERASE 48 Units/L (12-78); ALBUMIN 2.4 g/dL (3.4-5.0); ALKALINE PHOSPHATASE 322 Units/L (46-116); ASPARTATE AMINO TRANSFERASE 45 Units/L (15-37); BLOOD UREA NITROGEN 6 mg/dL (7-18); CALCIUM 8.1 mg/dL (8.5-10.1); CHLORIDE 100 mmol/L (98-107); COR CA(FOR HYPOALB) 9.4 mg/dL (8.5-10.1); COR NA(FOR HYPERGLY) 142 mmol/L (136-145); CREATININE 0.55 mg/dL (0.55-1.02); MAGNESIUM 1.4 mg/dL (1.7-2.9); SODIUM 141 mmol/L (136-145); TOTAL PROTEIN 5.8 g/dL (6.4-8.2); eGFR BLACK RACES > 60 (>60); eGFR NON BLACK RACES > 60 (>60)
[2017-07-14 06:25] LABS: CKMB % 8.6 % (<4); CREATINE KINASE MB 1.2 ng/mL (0-4.0); TROPONIN I 0.06 ng/mL (0-1.5)
[2017-07-14] MEDS: PROVENTIL NEB TX 0.083% 2.5MG/ 3ML NEB SCH ×2 (08:33→22:05)
[2017-07-14] MEDS ORDERED: ZOLOFT PO ONE (08:58)
[2017-07-14] MEDS ORDERED: PATIENT'S HOME MEDICATION (Budesonide-Formoterol 2 PUFF) INH SCH (09:00)
[2017-07-14] MEDS ORDERED: DILTIAZEM HCL 240 MG PO SCH (09:00)
[2017-07-14] MEDS: GLUCOPHAGE XR PO SCH ×2 (09:31→20:48)
[2017-07-14] MEDS: ATIVAN TAB 0.5 MG PO PRN ×2 (09:32→18:41)
[2017-07-14] MEDS: ZOLOFT PO SCH (09:32)
[2017-07-14] MEDS: MOBIC TAB 15 MG PO SCH (09:32)
[2017-07-14] MEDS: PREDNISONE TAB 10 MG PO SCH (09:33)
[2017-07-14] MEDS: COREG TAB 12.5 MG PO SCH ×2 (09:33→20:47)
[2017-07-14] MEDS: ACTOS PO SCH (09:33)
[2017-07-14] MEDS ORDERED: SALINE 3% 15 ML NEB TX ONE (10:48)
[2017-07-14 11:18] LABS: CKMB % 9.1 % (<4); TROPONIN I 0.04 ng/mL (0-1.5)
[2017-07-14] MEDS ORDERED: LANTISEPTIC ONE (16:19)
[2017-07-14] MEDS ORDERED: BUTT CREAM (COMPOUND) TOP PRN (16:30)
[2017-07-14] MEDS: LANTISEPTIC TOP PRN (16:50)
[2017-07-14] MEDS: AMBIEN PO PRN (20:48)
[2017-07-14] MEDS: CARDIZEM TAB 30 MG PLAIN PO SCH (21:04)
[2017-07-14] MEDS: NORCO 5/325 MG TAB PO PRN (21:45)
[2017-07-14] MEDS: PULMICORT NEB TX 0.5 MG NEB SCH ×2 (22:05→22:15)
[2017-07-15] MEDS: NORCO 5/325 MG TAB PO PRN ×3 (04:15→17:44)
[2017-07-15] MEDS: NS + KCL 20 MEQ/L 1,000 ML IV SCH ×2 (05:07→09:15)
[2017-07-15 05:49] LABS: ALANINE AMINOTRANSFERASE 40 Units/L (12-78); ALKALINE PHOSPHATASE 262 Units/L (46-116); ASPARTATE AMINO TRANSFERASE 37 Units/L (15-37); BLOOD UREA NITROGEN 13 mg/dL (7-18); CALCIUM 8.1 mg/dL (8.5-10.1); CARBON DIOXIDE 28.2 mmol/L (21-32); CHLORIDE 104 mmol/L (98-107); COR CA(FOR HYPOALB) 9.7 mg/dL (8.5-10.1); COR NA(FOR HYPERGLY) 139 mmol/L (136-145); CREATININE 0.55 mg/dL (0.55-1.02); SODIUM 139 mmol/L (136-145); TOTAL PROTEIN 5.1 g/dL (6.4-8.2); eGFR BLACK RACES > 60 (>60); eGFR NON BLACK RACES > 60 (>60)
[2017-07-15 05:57] LABS: BASOPHILS % (AUTO) 0.6 % (0.2-1.0); EOSINOPHILS # (AUTO) 0.2 x10^3/uL (0.0-0.2); EOSINOPHILS % (AUTO) 2.2 % (0.9-2.9); HEMATOCRIT 27.7 % (36.0-47.0); LYMPHOCYTES # (AUTO) 1.1 X10^3/uL (1.3-2.9); LYMPHOCYTES % (AUTO) 13.9 % (21.0-51.0); MEAN CORPUSCULAR HGB CONC 32.6 g/dL (33.0-35.0); MEAN PLATELET VOLUME 9.2 fL (7.4-11.0); MONOCYTES # (AUTO) 0.6 x10^3/uL (0.3-0.8); MONOCYTES % (AUTO) 7.6 % (0.0-13.0); NEUTROPHILS # (AUTO) 6.2 x10^3/uL (2.2-4.8); NEUTROPHILS % (AUTO) 75.7 % (42.0-75.0); PLATELET COUNT 100 X10^3/uL (150.0-450.0); RED BLOOD COUNT 3.22 X10^6/uL (3.5-5.4); RED CELL DISTRIBUTION WIDTH 19.9 % (11.6-16.5); WHITE BLOOD COUNT 8.2 X10^3/uL (3.6-10.0)
[2017-07-15] MEDS: CARDIZEM TAB 30 MG PLAIN PO SCH ×3 (06:16→21:20)
[2017-07-15] MEDS: ATIVAN TAB 0.5 MG PO PRN (07:10)
[2017-07-15 07:28] LABS: BILIRUBIN,URINE NEGATIVE (NEGATIVE); BLOOD/HEMOGLOBIN,URINE 2+ (NEGATIVE); GLUCOSE, URINE NEGATIVE (NEGATIVE); KETONES,URINE NEGATIVE (NEGATIVE); LEUKOCYTE ESTERASE ,URINE 2+ (NEGATIVE); NITRITES,URINE NEGATIVE (NEGATIVE); PROTEIN,URINE 2+ (NEGATIVE); UROBILINOGEN,URINE 2+ (NORMAL)
[2017-07-15] MEDS ORDERED: ZOFRAN INJ 4 MG VIAL IVP PRN (07:44)
[2017-07-15 08:18] LABS: APPEARANCE,URINE HAZY (CLEAR); BACTERIA,URINE NEGATIVE /HPF (NEGATIVE); COLOR,URINE YELLOW (YELLOW); SQUAMOUS EPITHELIAL CELL,UR RARE /HPF (NEGATIVE)
[2017-07-15 08:19] LABS: AMORPHOUS SEDIMENT,UR 2+ /HPF (NEGATIVE); MUCUS,URINE FEW /HPF (NEGATIVE)
[2017-07-15] MEDS: PULMICORT NEB TX 0.5 MG NEB SCH ×2 (08:41→20:35)
[2017-07-15] MEDS: PROVENTIL NEB TX 0.083% 2.5MG/ 3ML NEB SCH ×2 (08:42→20:34)
[2017-07-15] MEDS ORDERED: ZOLOFT PO ONE (08:59)
[2017-07-15] MEDS: MOBIC TAB 15 MG PO SCH (09:16)
[2017-07-15] MEDS: ACTOS PO SCH (09:16)
[2017-07-15] MEDS: ZOLOFT PO SCH (09:16)
[2017-07-15] MEDS: COREG TAB 12.5 MG PO SCH ×2 (09:16→21:19)
[2017-07-15] MEDS: GLUCOPHAGE XR PO SCH ×2 (09:16→21:20)
[2017-07-15] MEDS: PREDNISONE TAB 10 MG PO SCH (09:16)
[2017-07-15] MEDS ORDERED: TUSSIONEX PENNKINETIC SUSP PO ONE (09:24)
[2017-07-15] MEDS: DIFLUCAN PO SCH (11:57)
[2017-07-15] MEDS: AMBIEN PO PRN (21:20)
[2017-07-16] MEDS: NORCO 5/325 MG TAB PO PRN ×4 (02:48→23:00)
[2017-07-16 05:31] LABS: BASOPHILS # (AUTO) 0.1 X10^3/uL (0.0-0.1); BASOPHILS % (AUTO) 1.1 % (0.2-1.0); EOSINOPHILS # (AUTO) 0.2 x10^3/uL (0.0-0.2); EOSINOPHILS % (AUTO) 2.1 % (0.9-2.9); HEMATOCRIT 26.8 % (36.0-47.0); HEMOGLOBIN 8.8 g/dL (12.0-16.0); LYMPHOCYTES # (AUTO) 1.1 X10^3/uL (1.3-2.9); LYMPHOCYTES % (AUTO) 13.9 % (21.0-51.0); MEAN CORPUSCULAR HEMOGLOBIN 28.2 pg (27.0-34.0); MEAN CORPUSCULAR HGB CONC 32.7 g/dL (33.0-35.0); MEAN CORPUSCULAR VOLUME 86.1 fL (80.0-100.0); MEAN PLATELET VOLUME 8.7 fL (7.4-11.0); MONOCYTES # (AUTO) 0.6 x10^3/uL (0.3-0.8); MONOCYTES % (AUTO) 8.1 % (0.0-13.0); NEUTROPHILS # (AUTO) 5.9 x10^3/uL (2.2-4.8); NEUTROPHILS % (AUTO) 74.8 % (42.0-75.0); PLATELET COUNT 102 X10^3/uL (150.0-450.0); RED BLOOD COUNT 3.12 X10^6/uL (3.5-5.4); RED CELL DISTRIBUTION WIDTH 19.2 % (11.6-16.5); WHITE BLOOD COUNT 7.9 X10^3/uL (3.6-10.0)
[2017-07-16 05:48] LABS: ALANINE AMINOTRANSFERASE 42 Units/L (12-78); ALKALINE PHOSPHATASE 268 Units/L (46-116); ASPARTATE AMINO TRANSFERASE 44 Units/L (15-37); BLOOD UREA NITROGEN 11 mg/dL (7-18); CALCIUM 8.3 mg/dL (8.5-10.1); CARBON DIOXIDE 28.8 mmol/L (21-32); CHLORIDE 104 mmol/L (98-107); COR CA(FOR HYPOALB) 9.9 mg/dL (8.5-10.1); CREATININE 0.45 mg/dL (0.55-1.02); SODIUM 138 mmol/L (136-145); eGFR BLACK RACES > 60 (>60); eGFR NON BLACK RACES > 60 (>60)
[2017-07-16] MEDS: CARDIZEM TAB 30 MG PLAIN PO SCH ×3 (06:50→21:12)
[2017-07-16] MEDS: ZOFRAN TAB 4 MG PO PRN ×2 (06:50→17:15)
[2017-07-16] MEDS: ATIVAN TAB 0.5 MG PO PRN ×2 (07:11→21:14)
--- NOTE | 2017-07-16 07:19 | RAD ---
HISTORY: Shortness of breath Study: Chest AP portable Comparison: 07/13/2017, 07/09/2017 Findings: The heart is enlarged. Pulmonary venous congestion is present. Diffuse bilateral interstitial and pat fred alveolar filling is identified. This could be on the basis of cardiogenic or noncardiogenic edema , bilateral pneumonia, or both. The findings are stable when compared with the prior examination. No pleural effusions are identified. The bony thorax is unremarkable. IMPRESSION: No change cardiomegaly with diffuse bilateral interstitial and patchy alveolar infiltrates which coul d be on the basis of cardiogenic or noncardiogenic edema or bilateral pneumonia. Reported By:
[2017-07-16] MEDS ORDERED: ZOLOFT PO ONE (08:54)
[2017-07-16] MEDS ORDERED: LASIX IVP ONE (09:02)
[2017-07-16] MEDS: COREG TAB 12.5 MG PO SCH ×2 (09:07→21:12)
[2017-07-16] MEDS: ZOLOFT PO SCH (09:07)
[2017-07-16] MEDS: ACTOS PO SCH (09:07)
[2017-07-16] MEDS: GLUCOPHAGE XR PO SCH ×2 (09:07→21:12)
[2017-07-16] MEDS: PREDNISONE TAB 10 MG PO SCH (09:07)
[2017-07-16] MEDS: DIFLUCAN PO SCH (09:07)
[2017-07-16] MEDS: LANTISEPTIC TOP PRN ×2 (09:08→21:15)
[2017-07-16] MEDS: MOBIC TAB 15 MG PO SCH (09:08)
[2017-07-16] MEDS: PULMICORT NEB TX 0.5 MG NEB SCH ×2 (10:03→21:38)
[2017-07-16] MEDS: PROVENTIL NEB TX 0.083% 2.5MG/ 3ML NEB SCH ×2 (10:04→21:38)
[2017-07-16 15:10] LABS: STOOL FOR WBC POSITIVE (NEGATIVE)
[2017-07-16 16:17] LABS: CRYPTOSPORIDIUM PARVUM ANTIGEN NEGATIVE (NEGATIVE)
[2017-07-16] MEDS ORDERED: NYSTATIN CREAM ONE (16:50)
[2017-07-16] MEDS ORDERED: NYSTATIN CREAM TOP PRN (16:50)
[2017-07-16] MEDS: AMBIEN PO PRN (21:13)
[2017-07-16] MEDS: IMODIUM CAP 2 MG PO PRN (21:14)
[2017-07-17] MEDS: NORCO 5/325 MG TAB PO PRN ×3 (05:15→17:33)
[2017-07-17] MEDS: CARDIZEM TAB 30 MG PLAIN PO SCH ×4 (06:15→21:09)
[2017-07-17 06:30] LABS: BASOPHILS # (AUTO) 0.1 X10^3/uL (0.0-0.1); BASOPHILS % (AUTO) 0.7 % (0.2-1.0); EOSINOPHILS # (AUTO) 0.2 x10^3/uL (0.0-0.2); EOSINOPHILS % (AUTO) 2.6 % (0.9-2.9); HEMATOCRIT 27.8 % (36.0-47.0); HEMOGLOBIN 9.2 g/dL (12.0-16.0); LYMPHOCYTES # (AUTO) 1.5 X10^3/uL (1.3-2.9); LYMPHOCYTES % (AUTO) 20.2 % (21.0-51.0); MEAN CORPUSCULAR HEMOGLOBIN 28.1 pg (27.0-34.0); MEAN CORPUSCULAR HGB CONC 33.2 g/dL (33.0-35.0); MEAN CORPUSCULAR VOLUME 84.6 fL (80.0-100.0); MEAN PLATELET VOLUME 9.1 fL (7.4-11.0); MONOCYTES # (AUTO) 0.7 x10^3/uL (0.3-0.8); MONOCYTES % (AUTO) 10.1 % (0.0-13.0); NEUTROPHILS # (AUTO) 4.8 x10^3/uL (2.2-4.8); NEUTROPHILS % (AUTO) 66.4 % (42.0-75.0); PLATELET COUNT 130 X10^3/uL (150.0-450.0); RED BLOOD COUNT 3.29 X10^6/uL (3.5-5.4); RED CELL DISTRIBUTION WIDTH 19.8 % (11.6-16.5); WHITE BLOOD COUNT 7.3 X10^3/uL (3.6-10.0)
[2017-07-17] MEDS: LANTISEPTIC TOP PRN (06:32)
[2017-07-17 06:38] LABS: ALANINE AMINOTRANSFERASE 38 Units/L (12-78); ALBUMIN 2.1 g/dL (3.4-5.0); ALKALINE PHOSPHATASE 265 Units/L (46-116); ASPARTATE AMINO TRANSFERASE 32 Units/L (15-37); BLOOD UREA NITROGEN 13 mg/dL (7-18); CALCIUM 8.4 mg/dL (8.5-10.1); CARBON DIOXIDE 32.7 mmol/L (21-32); CHLORIDE 100 mmol/L (98-107); COR CA(FOR HYPOALB) 9.9 mg/dL (8.5-10.1); CREATININE 0.58 mg/dL (0.55-1.02); SODIUM 138 mmol/L (136-145); TOTAL PROTEIN 5.3 g/dL (6.4-8.2); eGFR BLACK RACES > 60 (>60); eGFR NON BLACK RACES > 60 (>60)
--- NOTE | 2017-07-17 07:11 | RAD ---
Examination: Portable AP chest History: COPD Comparison reference 07/16/2017 Findings: Continued normal heart size with diffuse airspace disease bilaterally. No discrete mass, la rge pleural effusion or pneumothorax. Impression: Little change since prior study; persistent bilateral pulmonary infiltrates consistent wi th pneumonia and/or pulmonary edema. Reported By:
[2017-07-17] MEDS: ATIVAN TAB 0.5 MG PO PRN ×2 (07:34→21:09)
[2017-07-17] MEDS ORDERED: POTASSIUM CHL 60 MEQ/NS 0.45% 500 ML IV PRN (08:01)
[2017-07-17] MEDS ORDERED: POTASSIUM CHL 40 MEQ/NS 0.45% 500 ML IV PRN (08:01)
[2017-07-17] MEDS ORDERED: POTASSIUM CHLORIDE LIQ 20 MEQ UDC PO PRN (08:01)
[2017-07-17] MEDS ORDERED: ZOLOFT PO ONE (08:38)
[2017-07-17] MEDS ORDERED: NS 100 ML IV 100 ML IV ONE (08:38)
[2017-07-17] MEDS: MAGNESIUM SULFATE 1 GM/100 mL PREMIX 1 GM/100 ML BAG IV PRN ×6 (08:47→23:20)
[2017-07-17] MEDS: PREDNISONE TAB 10 MG PO SCH (08:48)
[2017-07-17] MEDS: ZOLOFT PO SCH (08:48)
[2017-07-17] MEDS: ACTOS PO SCH (08:48)
[2017-07-17] MEDS: K-LYTE EFFERVESCENT PO PRN (08:48)
[2017-07-17] MEDS: MOBIC TAB 15 MG PO SCH (08:49)
[2017-07-17] MEDS: COREG TAB 12.5 MG PO SCH ×2 (08:49→21:08)
[2017-07-17] MEDS: DIFLUCAN PO SCH (08:49)
[2017-07-17] MEDS: GLUCOPHAGE XR PO SCH ×2 (08:49→21:07)
[2017-07-17] MEDS: NS 100 ML IV 100 ML IV SCH ×2 (08:52→14:42)
[2017-07-17] MEDS: PROVENTIL NEB TX 0.083% 2.5MG/ 3ML NEB SCH ×2 (09:21→21:50)
[2017-07-17] MEDS: PROVENTIL NEB TX 0.083% 2.5MG/ 3ML NEB PRN (09:21)
[2017-07-17] MEDS: PULMICORT NEB TX 0.5 MG NEB SCH ×2 (09:22→21:50)
[2017-07-17] MEDS: FLAGYL IV PREMIX 500 MG BAG 500 MG/100 ML BAG IV SCH ×3 (10:39→21:05)
[2017-07-17] MEDS ORDERED: CIPRO IV 400 MG PREMIX* 400 MG/200 ML IV.SOLN. IV SCH (11:00)
[2017-07-17 11:09] LABS: GIARDIA LAMBLIA ANTIGEN POSITIVE (NEGATIVE)
[2017-07-17] MEDS: ROBITUSSIN DM PO PRN (11:33)
[2017-07-17] MEDS: MAXIPIME 2 GM in NS 100 ML IV 100 ML IV SCH ×2 (11:33→21:02)
[2017-07-17] MEDS: ZOFRAN TAB 4 MG PO PRN (14:24)
[2017-07-17] MEDS ORDERED: NS 100 ML IV 100 ML IV PRN (14:43)
[2017-07-17] MEDS ORDERED: NS 250 ML IV 250 ML IV ONE (20:55)
[2017-07-17] MEDS: AMBIEN PO PRN (21:09)
[2017-07-18] MEDS: K-RIDER 10 MEQ/NS 100 ML 10 MEQ/100 ML BAG IV PRN ×2 (00:20→01:25)
[2017-07-18] MEDS: FLAGYL IV PREMIX 500 MG BAG 500 MG/100 ML BAG IV SCH ×4 (03:20→21:26)
[2017-07-18] MEDS: NORCO 5/325 MG TAB PO PRN ×2 (04:10→09:29)
[2017-07-18] MEDS: CARDIZEM TAB 30 MG PLAIN PO SCH ×3 (05:49→21:27)
[2017-07-18] MEDS: LANTISEPTIC TOP PRN ×2 (06:01→15:10)
[2017-07-18 06:05] LABS: BASOPHILS % (AUTO) 0.7 % (0.2-1.0); EOSINOPHILS # (AUTO) 0.1 x10^3/uL (0.0-0.2); EOSINOPHILS % (AUTO) 1.9 % (0.9-2.9); HEMATOCRIT 27.2 % (36.0-47.0); HEMOGLOBIN 9.1 g/dL (12.0-16.0); LYMPHOCYTES # (AUTO) 1.3 X10^3/uL (1.3-2.9); LYMPHOCYTES % (AUTO) 20.5 % (21.0-51.0); MEAN CORPUSCULAR HEMOGLOBIN 28.3 pg (27.0-34.0); MEAN CORPUSCULAR HGB CONC 33.6 g/dL (33.0-35.0); MEAN CORPUSCULAR VOLUME 84.2 fL (80.0-100.0); MEAN PLATELET VOLUME 9.1 fL (7.4-11.0); MONOCYTES # (AUTO) 0.7 x10^3/uL (0.3-0.8); MONOCYTES % (AUTO) 10.6 % (0.0-13.0); NEUTROPHILS # (AUTO) 4.2 x10^3/uL (2.2-4.8); NEUTROPHILS % (AUTO) 66.3 % (42.0-75.0); PLATELET COUNT 137 X10^3/uL (150.0-450.0); RED BLOOD COUNT 3.23 X10^6/uL (3.5-5.4); RED CELL DISTRIBUTION WIDTH 19.6 % (11.6-16.5); WHITE BLOOD COUNT 6.3 X10^3/uL (3.6-10.0)
[2017-07-18 08:23] LABS: ALANINE AMINOTRANSFERASE 30 Units/L (12-78); ALBUMIN 2.4 g/dL (3.4-5.0); ALKALINE PHOSPHATASE 248 Units/L (46-116); BLOOD UREA NITROGEN 11 mg/dL (7-18); CALCIUM 8.1 mg/dL (8.5-10.1); CARBON DIOXIDE 26.3 mmol/L (21-32); CHLORIDE 99 mmol/L (98-107); COR CA(FOR HYPOALB) 9.4 mg/dL (8.5-10.1); CREATININE 0.54 mg/dL (0.55-1.02); SODIUM 135 mmol/L (136-145); TOTAL PROTEIN 5.3 g/dL (6.4-8.2); eGFR BLACK RACES > 60 (>60); eGFR NON BLACK RACES > 60 (>60)
[2017-07-18 08:26] LABS: ASPARTATE AMINO TRANSFERASE 31 Units/L (15-37)
[2017-07-18] MEDS: ATIVAN TAB 0.5 MG PO PRN ×2 (08:38→15:14)
[2017-07-18] MEDS: ZOFRAN TAB 4 MG PO PRN ×2 (08:40→21:35)
[2017-07-18] MEDS ORDERED: ZOLOFT PO ONE (09:16)
[2017-07-18] MEDS: DIFLUCAN PO SCH (09:28)
[2017-07-18] MEDS: ACTOS PO SCH (09:28)
[2017-07-18] MEDS: MOBIC TAB 15 MG PO SCH (09:28)
[2017-07-18] MEDS: ZOLOFT PO SCH (09:29)
[2017-07-18] MEDS: PREDNISONE TAB 10 MG PO SCH (09:30)
[2017-07-18] MEDS: COREG TAB 12.5 MG PO SCH ×2 (09:31→21:26)
[2017-07-18] MEDS: GLUCOPHAGE XR PO SCH ×2 (09:31→21:26)
[2017-07-18] MEDS: PROVENTIL NEB TX 0.083% 2.5MG/ 3ML NEB SCH ×2 (09:50→21:36)
[2017-07-18] MEDS: PULMICORT NEB TX 0.5 MG NEB SCH ×2 (09:50→21:36)
[2017-07-18] MEDS: MAXIPIME 2 GM in NS 100 ML IV 100 ML IV SCH ×2 (11:00→21:50)
--- NOTE | 2017-07-18 11:18 | RAD ---
Examination: Portable AP chest History: Chest pain, pneumonia Comparison reference 07/17/2017 Findings: Stable heart size. Increasing confluent airspace disease in left lung and right upper lobe. No evidence for developing large pleural effusion or pneumothorax. Impression: Increasing bilateral pulmonary densities consistent with progressive bilateral pneumonia and/or pulmonary edema. Reported By:
[2017-07-18] MEDS: NORCO 10/325 TAB PO PRN ×3 (12:04→23:00)
[2017-07-18] MEDS: ROBITUSSIN DM PO PRN (21:35)
[2017-07-18] MEDS: IMODIUM CAP 2 MG PO PRN (22:17)
[2017-07-19] MEDS: FLAGYL IV PREMIX 500 MG BAG 500 MG/100 ML BAG IV SCH ×4 (03:17→20:37)
[2017-07-19 06:06] LABS: BASOPHILS # (AUTO) 0.1 X10^3/uL (0.0-0.1); BASOPHILS % (AUTO) 0.8 % (0.2-1.0); EOSINOPHILS # (AUTO) 0.1 x10^3/uL (0.0-0.2); HEMATOCRIT 29.1 % (36.0-47.0); HEMOGLOBIN 9.5 g/dL (12.0-16.0); LYMPHOCYTES # (AUTO) 1.5 X10^3/uL (1.3-2.9); LYMPHOCYTES % (AUTO) 20.6 % (21.0-51.0); MEAN CORPUSCULAR HEMOGLOBIN 27.8 pg (27.0-34.0); MEAN CORPUSCULAR HGB CONC 32.6 g/dL (33.0-35.0); MEAN CORPUSCULAR VOLUME 85.3 fL (80.0-100.0); MEAN PLATELET VOLUME 8.3 fL (7.4-11.0); MONOCYTES # (AUTO) 0.7 x10^3/uL (0.3-0.8); MONOCYTES % (AUTO) 9.4 % (0.0-13.0); NEUTROPHILS # (AUTO) 4.8 x10^3/uL (2.2-4.8); NEUTROPHILS % (AUTO) 67.2 % (42.0-75.0); PLATELET COUNT 149 X10^3/uL (150.0-450.0); RED BLOOD COUNT 3.42 X10^6/uL (3.5-5.4); RED CELL DISTRIBUTION WIDTH 19.7 % (11.6-16.5); WHITE BLOOD COUNT 7.2 X10^3/uL (3.6-10.0)
[2017-07-19] MEDS: NORCO 10/325 TAB PO PRN ×4 (06:18→23:15)
[2017-07-19] MEDS: CARDIZEM TAB 30 MG PLAIN PO SCH ×3 (06:18→22:05)
[2017-07-19 06:24] LABS: ALANINE AMINOTRANSFERASE 30 Units/L (12-78); ALBUMIN 2.2 g/dL (3.4-5.0); ALKALINE PHOSPHATASE 242 Units/L (46-116); ASPARTATE AMINO TRANSFERASE 29 Units/L (15-37); BLOOD UREA NITROGEN 13 mg/dL (7-18); CALCIUM 8.3 mg/dL (8.5-10.1); CARBON DIOXIDE 30.8 mmol/L (21-32); CHLORIDE 100 mmol/L (98-107); COR CA(FOR HYPOALB) 9.7 mg/dL (8.5-10.1); CREATININE 0.55 mg/dL (0.55-1.02); SODIUM 138 mmol/L (136-145); TOTAL PROTEIN 5.6 g/dL (6.4-8.2); eGFR BLACK RACES > 60 (>60); eGFR NON BLACK RACES > 60 (>60)
--- NOTE | 2017-07-19 07:47 | RAD ---
Examination: Portable AP chest History: Follow-up, infiltrates and chest pain Comparison reference 07/18/2017 Findings: Stable cardiac size and position with no definite change in degree or distribution of exten sive bilateral confluent airspace disease. No complicating pneumothorax is seen. Impression: No significant interval change since 1 day earlier. Reported By:
[2017-07-19] MEDS ORDERED: ZOLOFT PO ONE (09:18)
[2017-07-19] MEDS: PROVENTIL NEB TX 0.083% 2.5MG/ 3ML NEB SCH ×2 (09:28→22:44)
[2017-07-19] MEDS: PULMICORT NEB TX 0.5 MG NEB SCH ×2 (09:28→22:45)
[2017-07-19] MEDS: DIFLUCAN PO SCH (09:38)
[2017-07-19] MEDS: MAXIPIME 2 GM in NS 100 ML IV 100 ML IV SCH ×2 (09:38→20:37)
[2017-07-19] MEDS: K-LYTE EFFERVESCENT PO PRN (09:41)
[2017-07-19] MEDS: PREDNISONE TAB 10 MG PO SCH (09:41)
[2017-07-19] MEDS: MOBIC TAB 15 MG PO SCH (09:41)
[2017-07-19] MEDS: ACTOS PO SCH (09:41)
[2017-07-19] MEDS: COREG TAB 12.5 MG PO SCH ×2 (09:42→20:38)
[2017-07-19] MEDS: GLUCOPHAGE XR PO SCH ×2 (09:42→20:38)
[2017-07-19] MEDS: ZOLOFT PO SCH (09:42)
[2017-07-19] MEDS ORDERED: NS 250 ML IV 250 ML IV ONE (09:45)
[2017-07-19] MEDS ORDERED: ATIVAN INJ 2 MG VIAL IVP ONE (11:10)
[2017-07-19] MEDS: IMODIUM CAP 2 MG PO PRN (12:28)
[2017-07-19] MEDS: ATIVAN TAB 0.5 MG PO PRN ×2 (13:53→17:57)
[2017-07-19] MEDS: PROVENTIL NEB TX 0.083% 2.5MG/ 3ML NEB PRN ×2 (14:05→18:24)
[2017-07-19] MEDS ORDERED: MAXIPIME VIAL 1 GM ONE (20:13)
[2017-07-19] MEDS: AMBIEN PO PRN (20:37)
[2017-07-20] MEDS: FLAGYL IV PREMIX 500 MG BAG 500 MG/100 ML BAG IV SCH ×4 (03:02→20:16)
[2017-07-20] MEDS: ATIVAN TAB 0.5 MG PO PRN ×3 (03:08→20:17)
[2017-07-20] MEDS: NORCO 10/325 TAB PO PRN ×4 (04:20→22:57)
[2017-07-20] MEDS: CARDIZEM TAB 30 MG PLAIN PO SCH ×3 (05:50→21:01)
[2017-07-20 06:26] LABS: BASOPHILS # (AUTO) 0.1 X10^3/uL (0.0-0.1); EOSINOPHILS # (AUTO) 0.2 x10^3/uL (0.0-0.2); EOSINOPHILS % (AUTO) 2.4 % (0.9-2.9); HEMATOCRIT 29.7 % (36.0-47.0); HEMOGLOBIN 9.7 g/dL (12.0-16.0); LYMPHOCYTES # (AUTO) 1.8 X10^3/uL (1.3-2.9); LYMPHOCYTES % (AUTO) 23.1 % (21.0-51.0); MEAN CORPUSCULAR HEMOGLOBIN 27.9 pg (27.0-34.0); MEAN CORPUSCULAR HGB CONC 32.6 g/dL (33.0-35.0); MEAN CORPUSCULAR VOLUME 85.5 fL (80.0-100.0); MEAN PLATELET VOLUME 8.5 fL (7.4-11.0); MONOCYTES # (AUTO) 0.7 x10^3/uL (0.3-0.8); MONOCYTES % (AUTO) 8.6 % (0.0-13.0); NEUTROPHILS # (AUTO) 5.1 x10^3/uL (2.2-4.8); NEUTROPHILS % (AUTO) 64.9 % (42.0-75.0); PLATELET COUNT 169 X10^3/uL (150.0-450.0); RED BLOOD COUNT 3.48 X10^6/uL (3.5-5.4); WHITE BLOOD COUNT 7.9 X10^3/uL (3.6-10.0)
[2017-07-20 06:50] LABS: ALANINE AMINOTRANSFERASE 33 Units/L (12-78); ALBUMIN 2.3 g/dL (3.4-5.0); ALKALINE PHOSPHATASE 299 Units/L (46-116); ASPARTATE AMINO TRANSFERASE 42 Units/L (15-37); BLOOD UREA NITROGEN 11 mg/dL (7-18); CALCIUM 8.5 mg/dL (8.5-10.1); CARBON DIOXIDE 31.6 mmol/L (21-32); CHLORIDE 100 mmol/L (98-107); COR CA(FOR HYPOALB) 9.9 mg/dL (8.5-10.1); CREATININE 0.62 mg/dL (0.55-1.02); SODIUM 137 mmol/L (136-145); TOTAL PROTEIN 5.7 g/dL (6.4-8.2); eGFR BLACK RACES > 60 (>60); eGFR NON BLACK RACES > 60 (>60)
--- NOTE | 2017-07-20 07:58 | RAD ---
Examination: Portable KUB History: Pain, cervical cancer Comparison reference: None Findings: The mobile images technically limited; the left abdomen and flank are not included. There i s moderate gaseous dilatation of small and large bowel. No evidence for ascites, pathologic calcifica tion or visceral enlargement. Impression: Nonobstructive intestinal distention. Incomplete visualization of the left lateral abdome n and left flank. Reported By:
[2017-07-20] MEDS ORDERED: ZOLOFT PO ONE (08:05)
[2017-07-20] MEDS: ROBITUSSIN DM PO PRN ×3 (08:18→20:16)
[2017-07-20] MEDS: MAG-OX TAB PO PRN ×2 (08:19→12:27)
[2017-07-20] MEDS: PREDNISONE TAB 10 MG PO SCH (08:19)
[2017-07-20] MEDS: GLUCOPHAGE XR PO SCH ×2 (08:19→20:16)
[2017-07-20] MEDS: COREG TAB 12.5 MG PO SCH ×2 (08:19→20:17)
[2017-07-20] MEDS: MOBIC TAB 15 MG PO SCH (08:19)
[2017-07-20] MEDS: ACTOS PO SCH (08:19)
[2017-07-20] MEDS: ZOLOFT PO SCH (08:19)
[2017-07-20] MEDS: PROVENTIL NEB TX 0.083% 2.5MG/ 3ML NEB SCH ×2 (09:10→22:25)
[2017-07-20] MEDS: PULMICORT NEB TX 0.5 MG NEB SCH ×2 (09:10→22:25)
[2017-07-20] MEDS: PROVENTIL NEB TX 0.083% 2.5MG/ 3ML NEB PRN (09:10)
[2017-07-20] MEDS: MAXIPIME 2 GM in NS 100 ML IV 100 ML IV SCH ×2 (09:11→21:01)
[2017-07-20] MEDS: K-RIDER 10 MEQ/NS 100 ML 10 MEQ/100 ML BAG IV PRN ×2 (10:52→12:00)
[2017-07-20] MEDS: ZOFRAN TAB 4 MG PO PRN (13:39)
[2017-07-20] MEDS: AMBIEN PO PRN (20:17)
[2017-07-21] MEDS: FLAGYL IV PREMIX 500 MG BAG 500 MG/100 ML BAG IV SCH ×2 (02:46→08:23)
[2017-07-21] MEDS: NORCO 10/325 TAB PO PRN ×2 (05:06→11:11)
[2017-07-21] MEDS: CARDIZEM TAB 30 MG PLAIN PO SCH ×2 (05:06→13:13)
[2017-07-21 06:57] LABS: ALANINE AMINOTRANSFERASE 29 Units/L (12-78); ALBUMIN 2.2 g/dL (3.4-5.0); ALKALINE PHOSPHATASE 280 Units/L (46-116); ASPARTATE AMINO TRANSFERASE 27 Units/L (15-37); BLOOD UREA NITROGEN 12 mg/dL (7-18); CALCIUM 8.9 mg/dL (8.5-10.1); CARBON DIOXIDE 33.2 mmol/L (21-32); CHLORIDE 100 mmol/L (98-107); COR CA(FOR HYPOALB) 10.3 mg/dL (8.5-10.1); COR NA(FOR HYPERGLY) 138 mmol/L (136-145); CREATININE 0.57 mg/dL (0.55-1.02); MAGNESIUM 1.5 mg/dL (1.7-2.9); SODIUM 137 mmol/L (136-145); TOTAL PROTEIN 5.5 g/dL (6.4-8.2); eGFR BLACK RACES > 60 (>60); eGFR NON BLACK RACES > 60 (>60)
[2017-07-21 06:58] LABS: BASOPHILS # (AUTO) 0.1 X10^3/uL (0.0-0.1); BASOPHILS % (AUTO) 1.2 % (0.2-1.0); EOSINOPHILS # (AUTO) 0.2 x10^3/uL (0.0-0.2); EOSINOPHILS % (AUTO) 2.8 % (0.9-2.9); HEMATOCRIT 29.3 % (36.0-47.0); HEMOGLOBIN 9.4 g/dL (12.0-16.0); LYMPHOCYTES # (AUTO) 1.8 X10^3/uL (1.3-2.9); LYMPHOCYTES % (AUTO) 29.9 % (21.0-51.0); MEAN CORPUSCULAR HEMOGLOBIN 27.7 pg (27.0-34.0); MEAN CORPUSCULAR VOLUME 86.5 fL (80.0-100.0); MEAN PLATELET VOLUME 8.6 fL (7.4-11.0); MONOCYTES # (AUTO) 0.6 x10^3/uL (0.3-0.8); NEUTROPHILS # (AUTO) 3.4 x10^3/uL (2.2-4.8); NEUTROPHILS % (AUTO) 56.1 % (42.0-75.0); PLATELET COUNT 164 X10^3/uL (150.0-450.0); RED BLOOD COUNT 3.38 X10^6/uL (3.5-5.4); RED CELL DISTRIBUTION WIDTH 20.1 % (11.6-16.5); WHITE BLOOD COUNT 6.1 X10^3/uL (3.6-10.0)
[2017-07-21 07:23] LABS: ANISOCYTOSIS 1+; PLATELET MORPHOLOGY COMMENT NORMAL (NORMAL)
[2017-07-21] MEDS ORDERED: ZOLOFT PO ONE (08:07)
[2017-07-21] MEDS: GLUCOPHAGE XR PO SCH (08:24)
[2017-07-21] MEDS: PREDNISONE TAB 10 MG PO SCH (08:24)
[2017-07-21] MEDS: ZOLOFT PO SCH (08:24)
[2017-07-21] MEDS: ACTOS PO SCH (08:25)
[2017-07-21] MEDS: MAG-OX TAB PO PRN (08:25)
[2017-07-21] MEDS: COREG TAB 12.5 MG PO SCH (08:25)
[2017-07-21] MEDS: MOBIC TAB 15 MG PO SCH (08:25)
[2017-07-21] MEDS: ATIVAN TAB 0.5 MG PO PRN (08:31)
[2017-07-21] MEDS: PROVENTIL NEB TX 0.083% 2.5MG/ 3ML NEB SCH (09:17)
[2017-07-21] MEDS: PULMICORT NEB TX 0.5 MG NEB SCH (09:18)
[2017-07-21] MEDS: MAXIPIME 2 GM in NS 100 ML IV 100 ML IV SCH (09:36)
[2017-07-21] MEDS ORDERED: NS 250 ML IV 250 ML IV SCH (10:00)
[2017-07-21] MEDS: ROBITUSSIN DM PO PRN (10:23)
[2017-07-21] MEDS: IMODIUM CAP 2 MG PO PRN (11:17)
[2017-07-21 13:06] VITALS: BP 104/64
[2017-07-21] MEDS ORDERED: AMBIEN ONE (22:45)
[2017-07-22] MEDS ORDERED: AMBIEN ONE (19:52)
== END 2017-07-21 14:00 | DRG 309 ==
LOC: ER 19:14 → ICU 07-14 01:01
PROVIDERS: ADMIT Internal Medicine; ATTEND Obstetrics & Gynecology Obstetrics
DX: I48.91 Unspecified atrial fibrillation (principal); E87.6 Hypokalemia; R07.89 Other chest pain; N39.0 Urinary tract infection, site not specified; R11.2 Nausea with vomiting, unspecified; J44.9 Chronic obstructive pulmonary disease, unspecified; R74.8 Abnormal levels of other serum enzymes; B96.89 Other specified bacterial agents as the cause of diseases classified elsewhere; B96.5 Pseudomonas (aeruginosa) (mallei) (pseudomallei) as the cause of diseases classified elsewhere; L89.151 Pressure ulcer of sacral region, stage 1; Z99.81 Dependence on supplemental oxygen
CPT/HCPCS: 36415; 71010; 74018; 80053; 81001; 82270; 82550; 82553; 83630; 83735; 83880; 84484; 85025; 85610; 85730; 87045; 87070; 87077; 87086; 87088; 87186; 87205; 87328; 87329; 87336; 87427; 87493; 87899; 93005; 93010; 93041; 94640; 96365; 96374; 96375; 99231; 99284; 99285; A4222; S0030; S0181; J0692; J1940; J2060; J2270; J2405; J3480; J3490; J7506; J7613; J7626

== ENCOUNTER → 2017-08-10 | Outpatient (CLI) | payer MEDICAID ==
[2017-07-21 13:06] VITALS: BP 104/64
--- NOTE | 2017-08-10 15:32 | RAD ---
Examination: Chest, PA and lateral views History: Cough and congestion Comparison 07/19/2017 Findings: The heart is enlarged. The pulmonary vascularity is distended and indistinct with a diffuse interstitial increase throughout both lungs. No consolidation, pneumothorax or pleural fluid identif ied. Impression: Cardiomegaly with pulmonary vascular and interstitial changes consistent with CHF. Reported By:
== END | disposition home or self-care (01) | DRG 204 ==
LOC: RAD 14:44
PROVIDERS: ATTEND Obstetrics & Gynecology Obstetrics
DX: R05 Cough (principal); R09.89 Other specified symptoms and signs involving the circulatory and respiratory systems; I51.7 Cardiomegaly
CPT/HCPCS: 71046

== ENCOUNTER → 2017-08-31 | Outpatient (CLI) | payer MEDICAID ==
--- NOTE | 2017-09-01 09:06 | RAD ---
History: Upper abdominal pain Study: Abdomen/KUB Findings: Supine view the abdomen is correlated with a previous study 07/20/[address] of the abdomen of 06/18/2017. Bowel gas pattern is unremarkable. Distal abdominal aortic aneurysm which on plain film measures about 4.3 cm has been demonstrated previously and by CT measured 3.6 cm. Exte nsive calcification of the common iliac artery's is demonstrated. No renal calculi are seen. Impression: Distal abdominal aortic aneurysm. Reported By:
== END | disposition home or self-care (01) | DRG 392 ==
LOC: RAD 20:27
PROVIDERS: ATTEND Internal Medicine
DX: R10.11 Right upper quadrant pain (principal); R10.12 Left upper quadrant pain; I71.4 Abdominal aortic aneurysm, without rupture
CPT/HCPCS: 74018

== ENCOUNTER → 2017-09-02 | Outpatient (CLI) | payer MEDICAID ==
--- NOTE | 2017-09-02 11:58 | CT ---
HISTORY: Epigastric pain, history abdominal aortic aneurysm Study: CT abdomen with contrast Comparison: 06/18/2017 Technique: Axial noncontrast images with coronal and sagittal reformats. Dose reduction procedures we re used with mA/kv adjusted for body size. Findings: The right lung base is clear. In the left lung base best visualized on series 4 axial image 8 there i s a 5 mm noncalcified pulmonary nodule. This area was obscured by infiltrate on the prior CT. Follow- up examination in 6 months is recommended to assess for stability. The liver, spleen, adrenal glands, and pancreas are within normal limits once again noted is dilatation of the common bile duct measuri ng 1.76 cm which is slightly more prominent than on the prior examination. This could be due to post cholecystectomy state. However evaluation for biliary obstruction is recommended in order to determin e if ERCP is indicated. The kidneys are unobstructed and without stones or masses. Calcific atheroscl erotic changes present in the abdominal aorta. There is a partially calcified, partially thrombosed i nfrarenal abdominal aortic aneurysm demonstrating a maximum diameter of 3.84 cm not significantly miki nged in size from the prior examination. It is saccular and extends to just above the bifurcation. No intraperitoneal or retroperitoneal lymphadenopathy is identified. Those portions of the large and sm all bowel visualized were within normal limits. There is a marked compression fracture of T12 unchang ed from the prior examination. IMPRESSION: No acute intra-abdominal abnormality No significant change in the size of the patient's saccular infrarenal abdominal aortic aneurysm when compared with the prior examination Slight increase in the size of the patient's dilated common bile duct which could be on the basis of post cholecystectomy state however clinical correlation is recommended to exclude an obstructive pict ure that would require ERCP T12 compression fracture, old Reported By:
== END ==
LOC: RAD 10:59
PROVIDERS: ATTEND Obstetrics & Gynecology Obstetrics
DX: R10.84 Generalized abdominal pain (principal); Z86.79 Personal history of other diseases of the circulatory system
CPT/HCPCS: 74160; A4222

== ENCOUNTER 2017-09-07 08:33 | Inpatient (IN) | payer MEDICAID ==
[2017-09-07 08:42] VITALS: BMI 21.9
--- NOTE | 2017-09-07 08:58 | ED.ABDFE ---
HPI - Time seen Time seen: 08:55 - PCP Primary Care Physician: NITA - Complaint Chief Complaint Doctors Comments: ABDOMINAL PAIN TIMES 4 DAYS. Chief Complaint:: TOCC STAFF STATES PT HAS BEEN COMPLAINING OF ABD PAIN FOR SEVERAL DAYS AND THEY HAVE GIVEN ALL OF THE MEDICATIONS THAT SHE CAN HAVE AT THIS TIME. PT HAD A ABD CT ON 09/02/17. - Nurses notes reviewed Nurses Notes Review: Yes - Source History Provided: Patient - Mode of arrival Mode of Arrival: Stretcher - Timing Onset of Chief Complaint: 09/03/17 Came on: Suddenly - Duration Duration: Constant Duration: Days - Location Location: RUQ, LUQ - Severity Severity: Moderate - Quality Quality: Sharp - Context Onset: Suddenly - Modifying Worsening Factors: Nothing Improving Factors: Nothing - Associated signs and symptoms Associated Signs and Symptoms: Nausea, Vomiting PMH - PMH Past Medical History: Yes Past Medical History: Angina, Asthma, COPD, Diabetes Past Surgical History: Yes Surgical History: Appendectomy, Cholecystectomy, Hysterectomy, Ortho Surgery - Family History History of Family Medical Conditions: Yes Family Medical History: Diabetes Mellitus, Cancer, [place], Sudden Cardiac , Hypertension - Social History Do you use any recreational Drugs:: No - infectious screening In the last 2 months have you had wt loss of >10#?: NO Have you had fever, night sweats or hemotysis?: No Have you traveled outside the country in the last 6 months?: No Isolation: Standard ROS - Review of Systems Constitutional: Weakness, Fatigue, Loss of Appetite. negative: Chills, Fever Eyes: No Symptoms Reported. negative: Eye Pain, Discharge ENTM: negative: Ear Pain, Nose Discharge, Nose Congestion, Throat Pain Respiratoy: Productive Cough (YELLOW SPUTUM.), Short of Breath. negative: Wheezing, Hemoptysis Cardiovascular: Chest Pain Gastrointestinal/Abdominal: Abdominal Pain, Nausea, Vomiting Genitourinary: No Symptoms Reported Neurological: Weakness Musculoskeletal: Back Pain Integumentary: No Symptoms Reported Hematologic/Lymphatic: Easy Bruising Endocrine: No Symptoms Reported All Other Systems: Reviewed and Negative PE - Vital Signs Vitals: Temperature 98.2 F Pulse Rate [Left Radial] 90 Pulse Rate 93 Respiratory Rate 20 Blood Pressure [Left Arm] 133/78 Blood Pressure [Right Arm] 122/80 Blood Pressure 140/82 O2 Sat by Pulse Oximetry 97 - General Limitations: No Limitations General Appearance: Alert - Head Head Exam: Normal Inspection - Eyes Eye exam: Normal Appearance - ENT ENT Exam: Normal External Ear Exam - Neck Neck Exam: Trachea Midline - Chest Chest Inspection: Symmetric Chest Wall Rise - Respiratory Respiratory Exam: Bilateral Rhonchi, Lower Rhonchi - Cardiovascular Cardiovascular Exam: Regular Rate, Normal Rhythm, Normal Heart Sounds - Abdominal Exam Abdominal Exam: Normal Bowel Sounds, Tenderness Abdominal Tenderness: Diffuse, Moderate - Rectal Rectal Exam: Deferred - Back Back Exam: Normal Inspection - Extremeties Extremities Exam: Normal Inspection - External Exam: Female: Deferred : Speculum Exam (Female): Deferred : Bimanual Exam (female): Deferred - Neurologic Neurological Exam: Alert, Oriented X3 - Psychiatric Psychiatric Exam: Anxious - Skin Skin Exam: Normal Color MDM - Differential Diagnosis Differential Diagnosis- Considerations may include:: Bowel Obstruction, Cholcystitis, Cholelethiasis, Diverticular disease, Esophagitis, Gastritus/PUD, Pancreatitis, Urinary tract infection, Urolithiasis Other differential diagnosis: MT Course - Treatment Treatment: SEE ORDERS. IN MED FOR NAUSEA AND PAIN IN ED. IV NS ALSO. - Reevaluation 1st: Improved - Education/Counseling Education/Counseling: Patient, Education Educated On: Diagnosis ROR - Labs Reviewed Laboratory Results Reviewed?: Yes Result Diagrams: 09/07/17 09:11 09/07/17 09:11 Laboratory: WBC 9.8 X10^3/uL (3.6-10.0) 09/07/17 09:11 RBC 3.51 X10^6/uL (3.5-5.4) 09/07/17 09:11 Hgb 9.6 g/dL (12.0-16.0) L 09/07/17 09:11 Hct 29.0 % (36.0-47.0) L 09/07/17 09:11 MCV 82.7 fL (80.0-100.0) 09/07/17 09:11 MCH 27.5 pg (27.0-34.0) 09/07/17 09:11 MCHC 33.2 g/dL (33.0-35.0) 09/07/17 09:11 RDW 18.0 % (11.6-16.5) H 09/07/17 09:11 Plt Count 290 X10^3/uL (150.0-450.0) 09/07/17 09:11 MPV 7.8 fL (7.4-11.0) 09/07/17 09:11 Neut % 76.5 % (42.0-75.0) H 09/07/17 09:11 Lymph % 13.1 % (21.0-51.0) L 09/07/17 09:11 [place] % 7.4 % (0.0-13.0) 09/07/17 09:11 Eos % 2.2 % (0.9-2.9) 09/07/17 09:11 Baso % 0.8 % (0.2-1.0) 09/07/17 09:11 Neut # 7.5 x10^3/uL (2.2-4.8) H 09/07/17 09:11 Lymph # 1.3 X10^3/uL (1.3-2.9) 09/07/17 09:11 [place] # 0.7 x10^3/uL (0.3-0.8) 09/07/17 09:11 Eos # 0.2 x10^3/uL (0.0-0.2) 09/07/17 09:11 Baso # 0.1 X10^3/uL (0.0-0.1) 09/07/17 09:11 Absolute Nucleated RBC 0.1 /100WBC 09/07/17 09:11 Sodium 137 mmol/L (136-145) 09/07/17 09:11 Corrected Sodium 138 mmol/L (136-145) 09/07/17 09:11 Potassium 3.5 mmol/L (3.5-5.1) 09/07/17 09:11 Chloride 97 mmol/L (98-107) L 09/07/17 09:11 Carbon Dioxide 35.0 mmol/L (21-32) H 09/07/17 09:11 BUN 9 mg/dL (7-18) 09/07/17 09:11 Creatinine 0.67 mg/dL (0.55-1.02) 09/07/17 09:11 Est GFR (MDRD) Af Amer > 60 (>60) 09/07/17 09:11 Est GFR (MDRD) Non-Af > 60 (>60) 09/07/17 09:11 Glucose 148 mg/dL (65-99) H 09/07/17 09:11 POC Glucose (mg/dL) 158 mg/dL (65-99) H 09/07/17 12:03 Calcium 9.1 mg/dL (8.5-10.1) 09/07/17 09:11 Corrected Calcium 10.3 mg/dL (8.5-10.1) H 09/07/17 09:11 Total Bilirubin 0.20 mg/dL (0.2-1.0) 09/07/17 09:11 AST 24 Units/L (15-37) 09/07/17 09:11 ALT 17 Units/L (12-78) 09/07/17 09:11 Alkaline Phosphatase 159 Units/L (46-116) H 09/07/17 09:11 Creatine Kinase 13 Units/L (26-192) L 09/07/17 09:11 CK-MB (CK-2) < 1.0 ng/mL (0-4.0) 09/07/17 09:11 CK/CKMB % Calc 7.7 % (<4) 09/07/17 09:11 Troponin I < 0.02 ng/mL (0-1.5) 09/07/17 09:11 Total Protein 7.7 g/dL (6.4-8.2) 09/07/17 09:11 Albumin 2.5 g/dL (3.4-5.0) L 09/07/17 09:11 Globulin 5.2 g/dL (2.5-4.5) H 09/07/17 09:11 Albumin/Globulin Ratio 0.5 Ratio (1.1-2.1) L 09/07/17 09:11 Amylase 46 Units/L (25-115) 09/07/17 09:11 Lipase 330 Units/L (73-393) 09/07/17 09:11 Specimen Type Clean catch urine 09/07/17 09:00 Urine Color Yellow (YELLOW) 09/07/17 09:00 Urine Appearance Clear (CLEAR) 09/07/17 09:00 Urine pH 6.5 (5.0 - 8.0) 09/07/17 09:00 Ur Specific [place] 1.010 (1.000-1.030) 09/07/17 09:00 Urine Protein Negative (NEGATIVE) 09/07/17 09:00 Urine Glucose (UA) Negative (NEGATIVE) 09/07/17 09:00 Urine Ketones Negative (NEGATIVE) 09/07/17 09:00 Urine Occult Blood 4+ (NEGATIVE) 09/07/17 09:00 Urine Nitrite Negative (NEGATIVE) 09/07/17 09:00 Urine Bilirubin Negative (NEGATIVE) 09/07/17 09:00 Urine Urobilinogen Normal (NORMAL) 09/07/17 09:00 Ur Leukocyte Esterase 1+ (NEGATIVE) 09/07/17 09:00 Urine RBC 10-15 /HPF (NEGATIVE) 09/07/17 09:00 Urine WBC 2-5 /HPF (NEGATIVE) 09/07/17 09:00 Ur Squamous Epith Cells Rare /HPF (NEGATIVE) 09/07/17 09:00 Urine Bacteria Negative /HPF (NEGATIVE) 09/07/17 09:00 Ur Culture Indicated? No/not indicated 09/07/17 09:00 - XRAY XRAY Interpreted by: Radiologist XRAY Findings: REPORT DISCUSS WITH PATIENT. - EKG Rhythm: NSR (EKG NOTED) - Diagnosis Discharge Problem: Abdominal pain Qualifiers: Abdominal location: upper abdomen, unspecified Qualified Code(s): R10.10 - Upper abdominal pain, unspecified Chest pain Qualifiers: Chest pain type: intercostal pain Qualified Code(s): R07.82 - Intercostal pain - Discharge Plan Disposition: ADMITTED INPATIENT Condition: Stable - Follow ups/Referrals - Instructions
[2017-09-07] MEDS ORDERED: ZOFRAN INJ 4 MG VIAL IVP ONE (08:59)
[2017-09-07] MEDS ORDERED: DEMEROL INJ IVP ONE ×2 (08:59→09:02)
[2017-09-07] MEDS ORDERED: ZOFRAN INJ 4 MG VIAL ONE (09:03)
[2017-09-07] MEDS ORDERED: DEMEROL INJ ONE (09:04)
[2017-09-07 09:24] LABS: BASOPHILS # (AUTO) 0.1 X10^3/uL (0.0-0.1); BASOPHILS % (AUTO) 0.8 % (0.2-1.0); EOSINOPHILS # (AUTO) 0.2 x10^3/uL (0.0-0.2); EOSINOPHILS % (AUTO) 2.2 % (0.9-2.9); HEMOGLOBIN 9.6 g/dL (12.0-16.0); LYMPHOCYTES # (AUTO) 1.3 X10^3/uL (1.3-2.9); LYMPHOCYTES % (AUTO) 13.1 % (21.0-51.0); MEAN CORPUSCULAR HEMOGLOBIN 27.5 pg (27.0-34.0); MEAN CORPUSCULAR HGB CONC 33.2 g/dL (33.0-35.0); MEAN CORPUSCULAR VOLUME 82.7 fL (80.0-100.0); MEAN PLATELET VOLUME 7.8 fL (7.4-11.0); MONOCYTES # (AUTO) 0.7 x10^3/uL (0.3-0.8); MONOCYTES % (AUTO) 7.4 % (0.0-13.0); NEUTROPHILS # (AUTO) 7.5 x10^3/uL (2.2-4.8); NEUTROPHILS % (AUTO) 76.5 % (42.0-75.0); PLATELET COUNT 290 X10^3/uL (150.0-450.0); RED BLOOD COUNT 3.51 X10^6/uL (3.5-5.4); WHITE BLOOD COUNT 9.8 X10^3/uL (3.6-10.0)
[2017-09-07 09:25] LABS: BILIRUBIN,URINE NEGATIVE (NEGATIVE); BLOOD/HEMOGLOBIN,URINE 4+ (NEGATIVE); GLUCOSE, URINE NEGATIVE (NEGATIVE); KETONES,URINE NEGATIVE (NEGATIVE); LEUKOCYTE ESTERASE ,URINE 1+ (NEGATIVE); NITRITES,URINE NEGATIVE (NEGATIVE); PH,URINE 6.5 (5.0 - 8.0); PROTEIN,URINE NEGATIVE (NEGATIVE); UROBILINOGEN,URINE NORMAL (NORMAL)
[2017-09-07] MEDS: NS 1000 ML 1,000 ML IV SCH ×2 (09:32→18:41)
[2017-09-07 09:37] LABS: ALANINE AMINOTRANSFERASE 17 Units/L (12-78); ALBUMIN 2.5 g/dL (3.4-5.0); ALKALINE PHOSPHATASE 159 Units/L (46-116); AMYLASE 46 Units/L (25-115); ASPARTATE AMINO TRANSFERASE 24 Units/L (15-37); BLOOD UREA NITROGEN 9 mg/dL (7-18); CALCIUM 9.1 mg/dL (8.5-10.1); CHLORIDE 97 mmol/L (98-107); COR CA(FOR HYPOALB) 10.3 mg/dL (8.5-10.1); COR NA(FOR HYPERGLY) 138 mmol/L (136-145); CREATININE 0.67 mg/dL (0.55-1.02); LIPASE 330 Units/L (73-393); SODIUM 137 mmol/L (136-145); TOTAL PROTEIN 7.7 g/dL (6.4-8.2); eGFR BLACK RACES > 60 (>60); eGFR NON BLACK RACES > 60 (>60)
[2017-09-07 09:59] LABS: APPEARANCE,URINE CLEAR (CLEAR); BACTERIA,URINE NEGATIVE /HPF (NEGATIVE); COLOR,URINE YELLOW (YELLOW); SQUAMOUS EPITHELIAL CELL,UR RARE /HPF (NEGATIVE)
--- NOTE | 2017-09-07 10:07 | RAD ---
History: Abdominal pain Study: Abdominal series Comparison: CT abdomen dated September 02 Findings: The lungs are grossly clear and the heart size is normal. There is no pleural effusion or p neumothorax. The bowel gas pattern is within normal limits. There is atherosclerotic calcification demonstrating a saccular aneurysm of the distal abdominal aorta which measures 4.24 cm transverse diameter. There is no free air. Impression: Unchanged distal abdominal aortic aneurysm. No acute disease is suggested. Reported By:
[2017-09-07 11:03] LABS: CKMB % 7.7 % (<4); CREATINE KINASE 13 Units/L (26-192); CREATINE KINASE MB < 1.0 ng/mL (0-4.0); TROPONIN I < 0.02 ng/mL (0-1.5)
[2017-09-07] MEDS ORDERED: ATIVAN TAB 1 MG ONE (11:36)
[2017-09-07] MEDS: PEPCID 20 MG IV PREMIX* 20 MG/50 ML BAG IV SCH ×2 (11:40→20:26)
[2017-09-07] MEDS: ATIVAN TAB 0.5 MG PO PRN ×2 (11:40→20:26)
[2017-09-07] MEDS: ROBITUSSIN (PLAIN) PO PRN ×3 (11:40→20:27)
[2017-09-07] MEDS: MORPHINE SULFATE INJ 2 MG INJ IVP PRN ×3 (11:51→23:38)
[2017-09-07] MEDS: DUONEB 0.5 MG/3 MG NEB SCH ×3 (12:00→20:24)
[2017-09-07 16:08] LABS: CKMB % 9.1 % (<4); CREATINE KINASE 11 Units/L (26-192); CREATINE KINASE MB < 1.0 ng/mL (0-4.0); TROPONIN I < 0.02 ng/mL (0-1.5)
[2017-09-07] MEDS: GLUCOPHAGE XR PO SCH (20:27)
[2017-09-07] MEDS: COREG TAB 12.5 MG PO SCH (20:27)
[2017-09-07] MEDS: AMBIEN PO PRN (20:27)
[2017-09-07] MEDS: ZOFRAN INJ 4 MG VIAL IVP PRN (21:27)
[2017-09-07] MEDS: NORCO 5/325 MG TAB PO PRN (22:22)
[2017-09-07 23:16] LABS: CKMB % 7.7 % (<4); CREATINE KINASE 13 Units/L (26-192); CREATINE KINASE MB < 1.0 ng/mL (0-4.0); TROPONIN I < 0.02 ng/mL (0-1.5)
[2017-09-08] MEDS: DUONEB 0.5 MG/3 MG NEB SCH ×6 (01:39→20:31)
[2017-09-08] MEDS: NS 1000 ML 1,000 ML IV SCH ×2 (01:50→17:36)
[2017-09-08] MEDS: ZOFRAN INJ 4 MG VIAL IVP PRN ×2 (01:58→10:03)
[2017-09-08] MEDS: ROBITUSSIN (PLAIN) PO PRN ×4 (03:21→20:08)
[2017-09-08] MEDS: NORCO 5/325 MG TAB PO PRN ×4 (04:13→21:52)
[2017-09-08] MEDS: MORPHINE SULFATE INJ 2 MG INJ IVP PRN ×3 (05:28→17:37)
[2017-09-08 05:29] LABS: BASOPHILS # (AUTO) 0.1 X10^3/uL (0.0-0.1); BASOPHILS % (AUTO) 0.7 % (0.2-1.0); EOSINOPHILS # (AUTO) 0.2 x10^3/uL (0.0-0.2); EOSINOPHILS % (AUTO) 1.6 % (0.9-2.9); HEMATOCRIT 27.8 % (36.0-47.0); HEMOGLOBIN 9.4 g/dL (12.0-16.0); LYMPHOCYTES % (AUTO) 18.1 % (21.0-51.0); MEAN CORPUSCULAR HEMOGLOBIN 27.8 pg (27.0-34.0); MEAN CORPUSCULAR HGB CONC 33.7 g/dL (33.0-35.0); MEAN CORPUSCULAR VOLUME 82.6 fL (80.0-100.0); MEAN PLATELET VOLUME 8.2 fL (7.4-11.0); MONOCYTES # (AUTO) 0.9 x10^3/uL (0.3-0.8); MONOCYTES % (AUTO) 8.6 % (0.0-13.0); NEUTROPHILS # (AUTO) 7.7 x10^3/uL (2.2-4.8); PLATELET COUNT 296 X10^3/uL (150.0-450.0); RED BLOOD COUNT 3.36 X10^6/uL (3.5-5.4); RED CELL DISTRIBUTION WIDTH 17.7 % (11.6-16.5); WHITE BLOOD COUNT 10.9 X10^3/uL (3.6-10.0)
[2017-09-08 05:52] LABS: ALANINE AMINOTRANSFERASE 19 Units/L (12-78); ALBUMIN 2.5 g/dL (3.4-5.0); ALKALINE PHOSPHATASE 157 Units/L (46-116); ASPARTATE AMINO TRANSFERASE 26 Units/L (15-37); BLOOD UREA NITROGEN 8 mg/dL (7-18); CALCIUM 9.1 mg/dL (8.5-10.1); CARBON DIOXIDE 33.1 mmol/L (21-32); CHLORIDE 96 mmol/L (98-107); COR CA(FOR HYPOALB) 10.3 mg/dL (8.5-10.1); COR NA(FOR HYPERGLY) 136 mmol/L (136-145); MAGNESIUM 1.4 mg/dL (1.7-2.9); SODIUM 135 mmol/L (136-145); TOTAL PROTEIN 7.5 g/dL (6.4-8.2); eGFR BLACK RACES > 60 (>60); eGFR NON BLACK RACES > 60 (>60)
[2017-09-08] MEDS ORDERED: K-DUR TAB 20 MEQ PO ONE (06:13)
[2017-09-08] MEDS ORDERED: MAG-OX TAB PO ONE (06:13)
[2017-09-08] MEDS ORDERED: POTASSIUM CHLORIDE LIQ 20 MEQ UDC PO PRN (07:07)
[2017-09-08] MEDS ORDERED: K-RIDER 10 MEQ/NS 100 ML 10 MEQ/100 ML BAG IV PRN (07:07)
[2017-09-08] MEDS ORDERED: POTASSIUM CHL 60 MEQ/NS 0.45% 500 ML IV PRN (07:07)
[2017-09-08] MEDS ORDERED: K-LYTE EFFERVESCENT PO PRN (07:07)
[2017-09-08] MEDS: PHENERGAN INJ 25 MG IV PRN ×2 (07:24→17:58)
[2017-09-08] MEDS ORDERED: ZOLOFT PO ONE (08:08)
--- NOTE | 2017-09-08 08:13 | DR.H&P ---
H&P - History & Physical for Day of: H&P Date: 09/07/17 - Chief Complaint Chief Complaint: ABDOMINAL PAIN - Allergies Allergies/Adverse Reactions: Allergies Allergy/AdvReac Type Severity Reaction Status Date / Time No Known Drug Allergies Allergy Verified 07/13/17 20:08 - History of Present Illness History of Present Illness: IS A 52 YEAR OLD PATIENT OF OURS WHO IS A RESIDENT OF [facility]. SHE REPORTED TO THE EMERGENCY ROOM WITH COMPLAINTS OF ABDOMINAL PAIN FOR THE PAST FOUR DAYS. PATIENT REPORTS THAT THE PAIN IS DIFFUSE, AND MODERATE IN SEVERITY. ASSOCIATED SYMPTOMS ARE WEAKNESS, FATIGUE, LOSS OF APPETITE, PRODUCTIVE COUGH, SHORTNESS OF BREATH, NAUSEA, AND VOMITING. ON EXAMINATION, HEART IS REGULAR IN RATE AND RHYTHM. BILATERAL LUNGS ARE NOTED WITH RHONCHI THROGHOUT. ABDOMEN IS ROUND, SOFT, AND NOTED WITH MODERATE, DIFFUSE ABDOMINAL PAIN ON PALPATION. BOWEL SOUNDS ARE NORMAL IN ALL QUADRANTS. THERE IS NORMAL RANGE OFMOTION NOTED TO ALL EXTREMTIES. ON ARRIVAL, HER VITAL SIGNS WERE 98.2-93-20-96%-140/82. LABS WERE OBTAINED. ABNORMAL LAB VALUES INCLUDE THE FOLLOWING: HGB 9.6, HCT 29.0, CHLORIDE 97, CARBON DIOXIDE 35.0, GLUCOSE 148, ALK PHOS 159, ALBUMIN 2.5, GLOBULIN 5.2. A URINALYSIS WAS OBTAINED AND REVEALED WBC 2-5, RBC 10-15, LEUKOCYTES 1+, OCCULT BLOOD 4+. AN ABDOMEN XRAY WAS OBTAINED AND REPORTED UNCHANGED DISTAL ABDOMINAL AORTIC ANEURYSM. NO ACUTE DISEASE SUGGESTED. ABDOMINAL CT WAS OBTAINED OUTPATIENT ON . IT REPORTED SLIGHT INCREASE IN THE SIZE OF THE PATIENTS DILATED COMMON BILE DUCT WHICH COULD BE ON THE BASIS OF POST CHOLECYSTECTOMY STATE HOWEVER CLINICAL CORRELATION IS RECOMMENDED TO EXCLUDE AN OBSTRUCTIVE PICTURE THAT WOULD REQUIRE ERCP. NO SIGNIFICANT CHANGE IN THE SIZE OF THE PATIENTS SACCULAR INFRARENAL ABDOMINAL AORTIC ANEURYSM WHEN COMPARED WITH THE PRIOR EXAMINATION. SHE WAS GIVEN ZOFRAN 4MG IV X 1 DOSE AND DEMEROL 12.5MG IV X 1 DOSE IN THE ER WITH ONLY MILD IMPROVEMENT IN SYMPTOMS. GAIL WAS ADMITTED TO THE HOSPITAL FOR FURTHER EVALUATION AND TREATMENT. SHE WAS STARTED ON NORMAL SALINE AT 125ML/ HR AND PEPCID 20MG IV Q12H. SHE WAS ALSO STARTED ON DUONEBS FOR SHORTNESS OF BREATH AND COUGH. WE PLAN TO FOLLOW UP WITH AM LABS AND CONTINUE TO MONITOR PATIENT. - Past Medical History Past Medical History: Anemia, Angina, Anxiety, Arthritis, Asthma, COPD, Diabetes , Sleep Apnea - Past Surgical History Surgical History: Appendectomy, Cholecystectomy, Hysterectomy, Ortho Surgery - Family History Family Medical History: Diabetes Mellitus, Cancer, [place], Sudden Cardiac , Hypertension - Social History Does patient currently use any type of tobacco product: No Have you used tobacco products in the last 12 months: No Type of Tobacco Use: Cigarettes How many years tobacco product used: 30 Alcohol Use: None Drug Use: None - Medications Home Medications: Albuterol Sulfate [Proventil HFA Inhaler 6.7 gm] 2 inh INH Q6H PRN 09/07/17 [ History Confirmed 09/07/17] Ascorbic Acid [Vitamin C] 1 tab PO BID 09/07/17 [History Confirmed 09/07/17] Guaifenesin [ROBITUSSIN (PLAIN) SYRUP *] 10 ml PO PRN PRN 09/07/17 [History Confirmed 09/07/17] Ibuprofen [MOTRIN TAB 400 MG *] 1 tab PO BID PRN 09/07/17 [History Confirmed ] Multivit with Calcium,Iron,Min [Multiple Vitamins For Women] 1 tab PO DAILY [History Confirmed 09/07/17] Ondansetron HCl [ZOFRAN TAB 4 MG *] 4 mg PO Q8H 09/07/17 [History Confirmed ] Potassium Chloride [K-DUR TAB 20 mEq *] 1 tab PO DAILY 09/07/17 [History Confirmed 09/07/17] Ranitidine HCl [ZANTAC TAB 150 MG *] 1 tab PO BID PRN 09/07/17 [History Confirmed 09/07/17] - Review of Systems Constitutional: Weakness, Malaise, Other (LOSS OF APPETITE) Eyes: No Symptoms Reported. denies: See HPI, Pain, Vision Change, Conjunctivae Inflammation, Eyelid Inflammation, Redness, Other ENT: No Symptoms Reported. denies: See HPI, Ear Pain, Ear Discharge, Nose Pain , Nose Discharge, Nose Congestion, Mouth Pain, Mouth Swelling, Throat Pain, Throat Swelling, Other Respiratory: Cough, Shortness of Breath, Sputum Cardiovascular: Chest Pain Gastrointestinal: Nausea, Vomiting, Abdominal Pain Genitourinary: No Symptoms Reported Musculoskeletal: No Symptoms Reported Skin: No Symptoms Reported Neurological: Weakness - Physical Exam Vital Signs: Temperature 97.3 F Pulse Rate [Left Radial] 89 Pulse Rate 79 Respiratory Rate 22 Blood Pressure [Left Arm] 143/78 Blood Pressure [Right Arm] 122/80 Blood Pressure 140/82 O2 Sat by Pulse Oximetry 92 Oriented: Normal Eyes: Normal. negative: Blurred Vision, Diplopia, Discharge, Pain, Redness, Photophobia, Other Ear: Normal. negative: Right, Left, Swelling, Ecchymosis, Hemotypanum, Abrasion , Laceration Nose: Normal. negative: Injected, Discharge, Blood, Other Throat: Normal. negative: Tonsillar Hypertrophy, Red, Exudate, Dry, Other Respiratory: Rhonchi Throughout Cardiovascular: Normal. negative: S3, S4, Murmur : Normal. negative: Dysuria, Hematuria, Frequency, Discharge, Testicular Pain , Bleeding, , Other Auscultation: Bowel Sounds: Normal. negative: Bruit, Absent, Increased, Decreased, High Pitched, Other Palpation: Normal Tenderness: Normal Skin: Normal Musculoskeletal: Normal Psychiatric: Normal Mood Description: Calm Affect: Normal Speech Pattern: Clear - Assessment/Plan (1) Abdominal pain Qualifiers: Abdominal location: upper abdomen, unspecified Qualified Code(s): R10.10 - Upper abdominal pain, unspecified Status: Acute Plan: ABDOMEN/PELVIS CT WITHOUT CONTRAST, NORMAL SALINE AT 125ML/HR, CONTINUE TO MONITOR (2) Hematuria Qualifiers: Hematuria type: unspecified type Qualified Code(s): R31.9 - Hematuria, unspecified Status: Acute Plan: ABDOMEN CT WITHOUT CONTRAST, NORMAL SALINE AT 125ML/HR, CONTINUE TO MONITOR
[2017-09-08] MEDS: ATIVAN TAB 0.5 MG PO PRN (08:17)
[2017-09-08] MEDS: ZOLOFT PO SCH (08:18)
[2017-09-08] MEDS: PEPCID 20 MG IV PREMIX* 20 MG/50 ML BAG IV SCH ×2 (08:18→20:05)
[2017-09-08] MEDS: COREG TAB 12.5 MG PO SCH ×2 (08:18→20:04)
[2017-09-08] MEDS: POTASSIUM CHL 40 MEQ/NS 0.45% 500 ML IV PRN (08:18)
[2017-09-08] MEDS: CARDIZEM CD 240 MG PO SCH (08:18)
[2017-09-08] MEDS: PREDNISONE TAB 10 MG PO SCH (08:18)
[2017-09-08] MEDS: LASIX PO SCH (08:18)
[2017-09-08] MEDS: ACTOS PO SCH (08:18)
[2017-09-08] MEDS: K-DUR TAB 20 MEQ PO SCH (08:18)
[2017-09-08] MEDS: MOBIC TAB 15 MG PO SCH (08:20)
[2017-09-08] MEDS: GLUCOPHAGE XR PO SCH ×2 (08:21→20:02)
[2017-09-08] MEDS ORDERED: DILTIAZEM HCL 240 MG PO SCH (09:00)
--- NOTE | 2017-09-08 09:18 | RAD ---
Examination: AP chest History: SOB Comparison 08/10/2017 Findings: Upper normal heart size, accentuated by significant pulmonary hypo inflation. Diffuse inter stitial process in the lower half of the left lung. No pneumothorax or large pleural effusion. Impression: Left lower lung infiltrate or asymmetric pulmonary edema, accentuated by pulmonary hypo i nflation. Reported By:
[2017-09-08] MEDS: MAGNESIUM SULFATE 1 GM/100 mL PREMIX 1 GM/100 ML BAG IV PRN ×2 (09:42→11:30)
[2017-09-08] MEDS: LEVSIN/MAALOX/LIDOC VISC PO SCH ×4 (10:07→20:03)
[2017-09-08] MEDS: FORTAZ or TAZICEF INJ 1 GM in NS 100 ML IV + SPIKE MINIBAG* 100 ML IV SCH ×3 (10:09→21:07)
[2017-09-08] MEDS: PROTONIX INJ 40 MG VIAL IVP SCH ×2 (10:09→20:04)
[2017-09-08] MEDS: LEVAQUIN PREMIX IV 750 MG 750 MG/150 ML BAG IV SCH (10:10)
[2017-09-08] MEDS: ATIVAN TAB 0.5 MG PO SCH ×2 (13:37→21:06)
--- NOTE | 2017-09-08 15:57 | CT ---
History: Bilateral flank pain Study: CT abdomen and pelvis without contrast. Sagittal and coronal reformations were provided. Comparison: September 02 2017 and June 18, 2017 Findings: The gallbladder surgically absent. The common hepatic duct is markedly dilated over 2 cm, u nchanged. No comm duct stone is demonstrated. The liver and pancreas and adrenal glands are unremark able. There is a tiny punctate calculus in the lower pole of the right kidney. There is no hydronephr osis. The spleen measures 15 cm sagittal length without focal mass. There is an unchanged abdominal aortic aneurysm measuring up to 3.9 cm maximum AP diameter. There is an old T12 burst fracture unchanged with posterior encroachment into the spinal canal. The uterus is absent and there is no adnexal mass. There is mild sigmoid diverticulosis. Impression: 1. No significant change and no acute disease. 2. Splenomegaly and punctate right renal lower pole calculi in stable abdominal aortic aneurysm. 3. Unchanged severe T12 burst fracture with posterior encroachment into the vertebral canal 4. Unchanged dilatation of the bile duct status post cholecystectomy that may be physiologic. Reported By:
[2017-09-08] MEDS: AMBIEN PO PRN (20:08)
[2017-09-09] MEDS: MORPHINE SULFATE INJ 2 MG INJ IVP PRN ×4 (00:40→18:37)
[2017-09-09] MEDS: DUONEB 0.5 MG/3 MG NEB SCH ×6 (01:16→20:43)
[2017-09-09] MEDS: NS 1000 ML 1,000 ML IV SCH ×3 (04:17→22:11)
[2017-09-09] MEDS: NORCO 5/325 MG TAB PO PRN ×4 (04:17→22:08)
[2017-09-09] MEDS: ROBITUSSIN (PLAIN) PO PRN ×3 (04:49→22:05)
[2017-09-09] MEDS: ATIVAN TAB 0.5 MG PO SCH ×3 (05:22→22:11)
[2017-09-09] MEDS: PHENERGAN INJ 25 MG IV PRN ×3 (05:22→18:37)
[2017-09-09] MEDS: FORTAZ or TAZICEF INJ 1 GM in NS 100 ML IV + SPIKE MINIBAG* 100 ML IV SCH ×3 (05:22→22:07)
[2017-09-09 05:41] LABS: ALANINE AMINOTRANSFERASE 19 Units/L (12-78); ALBUMIN 2.3 g/dL (3.4-5.0); ALKALINE PHOSPHATASE 156 Units/L (46-116); ASPARTATE AMINO TRANSFERASE 28 Units/L (15-37); BLOOD UREA NITROGEN 4 mg/dL (7-18); CARBON DIOXIDE 30.5 mmol/L (21-32); CHLORIDE 96 mmol/L (98-107); COR CA(FOR HYPOALB) 10.4 mg/dL (8.5-10.1); COR NA(FOR HYPERGLY) 134 mmol/L (136-145); CREATININE 0.63 mg/dL (0.55-1.02); MAGNESIUM 1.8 mg/dL (1.7-2.9); SODIUM 133 mmol/L (136-145); TOTAL PROTEIN 7.2 g/dL (6.4-8.2); eGFR BLACK RACES > 60 (>60); eGFR NON BLACK RACES > 60 (>60)
[2017-09-09] MEDS ORDERED: ZOLOFT PO ONE (08:06)
[2017-09-09 08:14] LABS: BASOPHILS # (AUTO) 0.1 X10^3/uL (0.0-0.1); BASOPHILS % (AUTO) 0.7 % (0.2-1.0); EOSINOPHILS % (AUTO) 0.2 % (0.9-2.9); HEMATOCRIT 28.3 % (36.0-47.0); HEMOGLOBIN 9.4 g/dL (12.0-16.0); LYMPHOCYTES # (AUTO) 1.7 X10^3/uL (1.3-2.9); LYMPHOCYTES % (AUTO) 8.6 % (21.0-51.0); MEAN CORPUSCULAR HEMOGLOBIN 27.4 pg (27.0-34.0); MEAN CORPUSCULAR HGB CONC 33.1 g/dL (33.0-35.0); MEAN CORPUSCULAR VOLUME 82.9 fL (80.0-100.0); MEAN PLATELET VOLUME 8.3 fL (7.4-11.0); MONOCYTES # (AUTO) 1.2 x10^3/uL (0.3-0.8); MONOCYTES % (AUTO) 6.4 % (0.0-13.0); NEUTROPHILS # (AUTO) 16.4 x10^3/uL (2.2-4.8); NEUTROPHILS % (AUTO) 84.1 % (42.0-75.0); PLATELET COUNT 299 X10^3/uL (150.0-450.0); RED BLOOD COUNT 3.42 X10^6/uL (3.5-5.4); RED CELL DISTRIBUTION WIDTH 18.2 % (11.6-16.5); WHITE BLOOD COUNT 19.5 X10^3/uL (3.6-10.0)
[2017-09-09] MEDS: ACTOS PO SCH (08:40)
[2017-09-09] MEDS: CARDIZEM CD 240 MG PO SCH (08:40)
[2017-09-09] MEDS: LASIX PO SCH (08:40)
[2017-09-09] MEDS: COREG TAB 12.5 MG PO SCH ×2 (08:40→22:08)
[2017-09-09] MEDS: PREDNISONE TAB 10 MG PO SCH (08:40)
[2017-09-09] MEDS: LEVAQUIN PREMIX IV 750 MG 750 MG/150 ML BAG IV SCH (08:41)
[2017-09-09] MEDS: PROTONIX INJ 40 MG VIAL IVP SCH ×2 (08:41→22:04)
[2017-09-09] MEDS: GLUCOPHAGE XR PO SCH ×2 (08:41→22:08)
[2017-09-09] MEDS: MAG-OX TAB PO PRN (08:41)
[2017-09-09] MEDS: K-DUR TAB 20 MEQ PO SCH (08:42)
[2017-09-09] MEDS: MOBIC TAB 15 MG PO SCH (08:42)
[2017-09-09] MEDS: PEPCID 20 MG IV PREMIX* 20 MG/50 ML BAG IV SCH ×2 (08:42→22:05)
[2017-09-09] MEDS: ZOLOFT PO SCH (08:42)
[2017-09-09] MEDS: LEVSIN/MAALOX/LIDOC VISC PO SCH ×4 (08:42→22:04)
--- NOTE | 2017-09-09 09:44 | RAD ---
HISTORY: Pain Study: Single-view of the chest Comparison: September 08, 2017 Findings: The patient is slightly rotated. The cardiac silhouette is enlarged with increased interstitial eyal ngs seen throughout both lungs left greater than right suggesting infiltrate and/or asymmetric edema. There is slightly improved aeration of the left lower lobe compared to prior exam recommend clinical correlation and continued follow-up is indicated for further evaluation. IMPRESSION: Cardiomegaly. Interstitial changes with slightly improved aeration of the left lower lobe since prior exam as noted above. Reported By:
[2017-09-09] MEDS: ZOFRAN INJ 4 MG VIAL IVP PRN ×3 (10:25→22:07)
--- NOTE | 2017-09-09 12:03 | PCM.PROG ---
Progress Note - Progress Note for Day of Date: 09/08/17 - Subjective Subjective: WAS ADMITTED FOR ABDOMINAL PAIN. TODAY, SHE IS ALERT AND ORIENTED, LYING IN BED ON MORNING ROUNDS. SHE IS NOTED WITH COMPLAINTS OF SEVERE ABDOMINAL PAIN, LOWER BACK PAIN, PRODUCTIVE COUGH, AND SHORTNESS OF BREATH. ON EXAMINATION, HEART IS REGULAR IN RATE AND RHYTHM. BILATERAL LUNGS ARE NOTED WITH WHEEZING AND RHONCHI THROUGHOUT. ABDOMEN IS ROUND, SOFT, AND NOTED WITH MODERATE TENDERNESS TO PALPATION. THERE ARE NORMAL BOWEL SOUNDS NOTED TO ALL QUADRANTS. TENDERNESS NOTED TO T12 AREA. THERE IS NORMAL RANGE OF MOTION NOTED TO ALL EXTREMITIES. HER VITALS THIS MORNING WERE 97.9-91-22-95%-160 /90. LABS WERE OBTAINED THIS MORNING. ABNORMAL LAB VALUES INCLUDE THE FOLLOWING : WBC 10.9, RBC 3.36, HGB 9.4, HCT 27.8, SODIUM 135, POTASSIUM 3.2, CHLORIDE 96 , CARBON DIOXIDE 33.1, GLUCOSE 124, MAGNESIUM 1.4, ALK PHOS 157, ALBUMIN 2.5, GLOBULIN 5.0. WE OBTAINED A CHEST XRAY THIS MORNING. IT REPORTED LEFT LOWER LUNG INFILTRATE OR ASYMMETRIC PULMONRY EDEMA, ACCENTUATED BY PULMONARY HYPOINFLATION. WE ALSO OBTAINED AN ABD/PELVIS CT WITHOUT CONTRAST. IT REPORTED NO SIGNIFICANT CHANGE AND NO ACUTE DISEASE. SPLENOMEGALY AND PUNCTATE RIGHT RENAL LOWER PLE CALCULI IN STABLE ABDOMINAL AORTIC ANEURYSM. UNCHANGED SEVERE T12 BURST FRACTURE WITH POSTERIOR ENCROACHMENT INTO THE VERTEBRAL CANAL. UNCHANGED DILATION OF THE BILE DUCT STATUS POST CHOLECYSTECTOMY THAT MAY BE PHYSIOLOGIC. WE WILL INCREASE HER ATIVAN TO 1MG PO TID FOR COMPALAINTS OF INCREASED ANXIETY RELATED TO PAIN AND BEING HOSPITALIZED. WE WILL ALSO START PROTONIX 40MG IV BID AND GI COCKTAIL 15ML PO QID. WE WILL START LEVAQUIN 750MG IV DAILY AND FORTAZ 1GM IV Q8H FOR LEFT LOWER LUNG INFILTRATE. WE PLAN TO CONTINUE WITH RESPIRATORY TREATMENTS WELL. WE WILL FOLLOW UP WITH AM LABS ND CHEST XRAY AND CONTINUE TO MONITOR PATIENT. - Past Medical Family Social History Past Med/Fam/Surg Hx: No changes since H&P Allergies: Allergies No Known Drug Allergies Allergy (Verified 07/13/17 20:08) - Review of Systems ROS: No change since H&P - Vital Signs and I&O's Vital Signs: Temperature 98.4 F Pulse Rate [Left Radial] 97 Pulse Rate 110 Respiratory Rate 20 Blood Pressure [Left Arm] 147/69 Blood Pressure [Right Arm] 122/80 Blood Pressure 140/82 O2 Sat by Pulse Oximetry 88 Intake and Output: Intake & Output 09/06/17 09/07/17 09/08/17 09/09/17 11:59 11:59 11:59 11:59 Intake Total 2551 3087 Balance 2551 3087 - Physical Exam Oriented: Normal Eyes: Normal. negative: Blurred Vision, Diplopia, Discharge, Pain, Redness, Photophobia, Other Ear: Normal. negative: Right, Left, Swelling, Ecchymosis, Hemotypanum, Abrasion , Laceration Nose: Normal. negative: Injected, Discharge, Blood, Other Throat: Normal. negative: Tonsillar Hypertrophy, Red, Exudate, Dry, Other Respiratory: Generalized, Wheezes, Rhonchi Cardiovascular: Normal. negative: S3, S4, Murmur : Normal. negative: Dysuria, Hematuria, Frequency, Discharge, Testicular Pain , Bleeding, , Other Auscultation: Bowel Sounds: Normal. negative: Bruit, Absent, Increased, Decreased, High Pitched, Other Palpation: Normal Tenderness: Normal Skin: Normal Musculoskeletal: Normal, Back:Thoracic, Back:Paraspinous Psychiatric: Normal Mood Description: Calm Affect: Normal Speech Pattern: Clear, Appropriate - Laboratory and Diagnostics Result Diagrams: 09/09/17 04:45 09/09/17 04:45 Labs: Laboratory WBC 19.5 X10^3/uL (3.6-10.0) H D 09/09/17 04:45 RBC 3.42 X10^6/uL (3.5-5.4) L 09/09/17 04:45 Hgb 9.4 g/dL (12.0-16.0) L 09/09/17 04:45 Hct 28.3 % (36.0-47.0) L 09/09/17 04:45 MCV 82.9 fL (80.0-100.0) 09/09/17 04:45 MCH 27.4 pg (27.0-34.0) 09/09/17 04:45 MCHC 33.1 g/dL (33.0-35.0) 09/09/17 04:45 RDW 18.2 % (11.6-16.5) H 09/09/17 04:45 Plt Count 299 X10^3/uL (150.0-450.0) 09/09/17 04:45 MPV 8.3 fL (7.4-11.0) 09/09/17 04:45 Neut % 84.1 % (42.0-75.0) H 09/09/17 04:45 Lymph % 8.6 % (21.0-51.0) L 09/09/17 04:45 [place] % 6.4 % (0.0-13.0) 09/09/17 04:45 Eos % 0.2 % (0.9-2.9) L 09/09/17 04:45 Baso % 0.7 % (0.2-1.0) 09/09/17 04:45 Neut # 16.4 x10^3/uL (2.2-4.8) H 09/09/17 04:45 Lymph # 1.7 X10^3/uL (1.3-2.9) 09/09/17 04:45 [place] # 1.2 x10^3/uL (0.3-0.8) H 09/09/17 04:45 Eos # 0.0 x10^3/uL (0.0-0.2) 09/09/17 04:45 Baso # 0.1 X10^3/uL (0.0-0.1) 09/09/17 04:45 Absolute Nucleated RBC 0.0 /100WBC 09/09/17 04:45 ESR 62 MM/HOUR (0-20) H 09/09/17 04:45 INR Target Range - 09/08/17 04:15 INR 1.02 (0.8-1.3) 09/08/17 04:15 PTT 33.1 SECONDS (22.9-36.5) 09/08/17 04:15 PTT Comment - 09/08/17 04:15 Sodium 133 mmol/L (136-145) L 09/09/17 04:45 Corrected Sodium 134 mmol/L (136-145) L 09/09/17 04:45 Potassium 3.6 mmol/L (3.5-5.1) 09/09/17 04:45 Chloride 96 mmol/L (98-107) L 09/09/17 04:45 Carbon Dioxide 30.5 mmol/L (21-32) 09/09/17 04:45 BUN 4 mg/dL (7-18) L 09/09/17 04:45 Creatinine 0.63 mg/dL (0.55-1.02) 09/09/17 04:45 Est GFR (MDRD) Af Amer > 60 (>60) 09/09/17 04:45 Est GFR (MDRD) Non-Af > 60 (>60) 09/09/17 04:45 Glucose 148 mg/dL (65-99) H 09/09/17 04:45 POC Glucose (mg/dL) 180 mg/dL (65-99) H 09/09/17 11:18 Calcium 9.0 mg/dL (8.5-10.1) 09/09/17 04:45 Corrected Calcium 10.4 mg/dL (8.5-10.1) H 09/09/17 04:45 Magnesium 1.8 mg/dL (1.7-2.9) 09/09/17 04:45 Total Bilirubin 0.30 mg/dL (0.2-1.0) 09/09/17 04:45 AST 28 Units/L (15-37) 09/09/17 04:45 ALT 19 Units/L (12-78) 09/09/17 04:45 Alkaline Phosphatase 156 Units/L (46-116) H 09/09/17 04:45 Creatine Kinase 13 Units/L (26-192) L 09/07/17 22:00 CK-MB (CK-2) < 1.0 ng/mL (0-4.0) 09/07/17 22:00 CK/CKMB % Calc 7.7 % (<4) 09/07/17 22:00 Troponin I < 0.02 ng/mL (0-1.5) 09/07/17 22:00 Total Protein 7.2 g/dL (6.4-8.2) 09/09/17 04:45 Albumin 2.3 g/dL (3.4-5.0) L 09/09/17 04:45 Globulin 4.9 g/dL (2.5-4.5) H 09/09/17 04:45 Albumin/Globulin Ratio 0.5 Ratio (1.1-2.1) L 09/09/17 04:45 Amylase 46 Units/L (25-115) 09/07/17 09:11 Lipase 330 Units/L (73-393) 09/07/17 09:11 Specimen Type Clean catch urine 09/07/17 09:00 Urine Color Yellow (YELLOW) 09/07/17 09:00 Urine Appearance Clear (CLEAR) 09/07/17 09:00 Urine pH 6.5 (5.0 - 8.0) 09/07/17 09:00 Ur Specific [place] 1.010 (1.000-1.030) 09/07/17 09:00 Urine Protein Negative (NEGATIVE) 09/07/17 09:00 Urine Glucose (UA) Negative (NEGATIVE) 09/07/17 09:00 Urine Ketones Negative (NEGATIVE) 09/07/17 09:00 Urine Occult Blood 4+ (NEGATIVE) 09/07/17 09:00 Urine Nitrite Negative (NEGATIVE) 09/07/17 09:00 Urine Bilirubin Negative (NEGATIVE) 09/07/17 09:00 Urine Urobilinogen Normal (NORMAL) 09/07/17 09:00 Ur Leukocyte Esterase 1+ (NEGATIVE) 09/07/17 09:00 Urine RBC 10-15 /HPF (NEGATIVE) 09/07/17 09:00 Urine WBC 2-5 /HPF (NEGATIVE) 09/07/17 09:00 Ur Squamous Epith Cells Rare /HPF (NEGATIVE) 09/07/17 09:00 Urine Bacteria Negative /HPF (NEGATIVE) 09/07/17 09:00 Ur Culture Indicated? No/not indicated 09/07/17 09:00 - Plan (1) Bronchopneumonia Status: Acute Plan: PNEUMONIA PROTOCOL, FORTAZ 1GM IV FQ8H, LEVAQUIN 750MG IV DAILY, RESPIRATORY TREATMENTS, CONTINUE TO MONITOR (2) Abdominal pain Status: Acute Qualifiers: Abdominal location: upper abdomen, unspecified Qualified Code(s): R10.10 - Upper abdominal pain, unspecified Plan: NORMAL SALINE AT 125ML/HR, CONTINUE TO MONITOR (3) Hematuria Status: Acute Qualifiers: Hematuria type: unspecified type Qualified Code(s): R31.9 - Hematuria, unspecified Plan: NORMAL SALINE AT 125ML/HR, CONTINUE TO MONITOR (4) T12 burst fracture Status: Acute Plan: PAIN MEDICATIONS, CONTINUE TO MONITOR
[2017-09-09] MEDS: TUSSIONEX PENNKINETIC SUSP PO PRN (13:52)
[2017-09-09] MEDS: TESSALON PERLES PO SCH ×2 (13:55→22:07)
[2017-09-09] MEDS: AMBIEN PO PRN (22:08)
[2017-09-10] MEDS: PHENERGAN INJ 25 MG IV PRN ×3 (00:48→23:00)
[2017-09-10] MEDS: MORPHINE SULFATE INJ 2 MG INJ IVP PRN ×4 (00:49→20:05)
[2017-09-10] MEDS: DUONEB 0.5 MG/3 MG NEB SCH ×6 (01:24→20:38)
[2017-09-10] MEDS: NS 1000 ML 1,000 ML IV SCH ×3 (02:52→17:29)
[2017-09-10] MEDS: TUSSIONEX PENNKINETIC SUSP PO PRN ×2 (02:53→18:06)
[2017-09-10] MEDS: NORCO 5/325 MG TAB PO PRN ×3 (04:25→18:02)
[2017-09-10] MEDS: ZOFRAN INJ 4 MG VIAL IVP PRN (04:25)
[2017-09-10 05:36] LABS: BASOPHILS % (AUTO) 0.4 % (0.2-1.0); EOSINOPHILS # (AUTO) 0.1 x10^3/uL (0.0-0.2); HEMATOCRIT 26.8 % (36.0-47.0); LYMPHOCYTES # (AUTO) 1.6 X10^3/uL (1.3-2.9); LYMPHOCYTES % (AUTO) 15.8 % (21.0-51.0); MEAN CORPUSCULAR HEMOGLOBIN 27.7 pg (27.0-34.0); MEAN CORPUSCULAR HGB CONC 33.6 g/dL (33.0-35.0); MEAN CORPUSCULAR VOLUME 82.4 fL (80.0-100.0); MEAN PLATELET VOLUME 7.9 fL (7.4-11.0); MONOCYTES # (AUTO) 0.9 x10^3/uL (0.3-0.8); MONOCYTES % (AUTO) 8.9 % (0.0-13.0); NEUTROPHILS # (AUTO) 7.7 x10^3/uL (2.2-4.8); NEUTROPHILS % (AUTO) 73.9 % (42.0-75.0); PLATELET COUNT 254 X10^3/uL (150.0-450.0); RED BLOOD COUNT 3.25 X10^6/uL (3.5-5.4); RED CELL DISTRIBUTION WIDTH 17.8 % (11.6-16.5); WHITE BLOOD COUNT 10.4 X10^3/uL (3.6-10.0)
[2017-09-10] MEDS: TESSALON PERLES PO SCH ×3 (05:51→22:21)
[2017-09-10] MEDS: FORTAZ or TAZICEF INJ 1 GM in NS 100 ML IV + SPIKE MINIBAG* 100 ML IV SCH ×3 (05:51→21:15)
[2017-09-10] MEDS: ATIVAN TAB 0.5 MG PO SCH ×3 (05:52→21:14)
[2017-09-10 05:55] LABS: ALANINE AMINOTRANSFERASE 22 Units/L (12-78); ALBUMIN 2.2 g/dL (3.4-5.0); ALKALINE PHOSPHATASE 145 Units/L (46-116); ASPARTATE AMINO TRANSFERASE 29 Units/L (15-37); BLOOD UREA NITROGEN 4 mg/dL (7-18); CALCIUM 9.3 mg/dL (8.5-10.1); CARBON DIOXIDE 32.3 mmol/L (21-32); CHLORIDE 97 mmol/L (98-107); COR CA(FOR HYPOALB) 10.7 mg/dL (8.5-10.1); COR NA(FOR HYPERGLY) 135 mmol/L (136-145); CREATININE 0.61 mg/dL (0.55-1.02); SODIUM 134 mmol/L (136-145); TOTAL PROTEIN 6.9 g/dL (6.4-8.2); eGFR BLACK RACES > 60 (>60); eGFR NON BLACK RACES > 60 (>60)
--- NOTE | 2017-09-10 06:27 | RAD ---
HISTORY: Abdominal pain Study: Chest AP portable Comparison: 09/09/2017 Findings: The heart is within normal limits in size. No congestive heart failure is noted. The lorenza are normal. The right lung is clear. There are some perihilar interstitial changes on the left not significantly different from the prior examination. No pleural effusions are identified. The bony thorax is unrema rkable. IMPRESSION: No change is left-sided perihilar interstitial lung changes Reported By:
[2017-09-10] MEDS: MAG-OX TAB PO PRN (07:22)
[2017-09-10] MEDS ORDERED: ZOLOFT PO ONE (08:44)
[2017-09-10] MEDS: LEVSIN/MAALOX/LIDOC VISC PO SCH ×4 (08:54→20:05)
[2017-09-10] MEDS: K-DUR TAB 20 MEQ PO SCH (08:55)
[2017-09-10] MEDS: COREG TAB 12.5 MG PO SCH ×2 (08:55→20:06)
[2017-09-10] MEDS: PREDNISONE TAB 10 MG PO SCH (08:55)
[2017-09-10] MEDS: GLUCOPHAGE XR PO SCH ×2 (08:55→20:06)
[2017-09-10] MEDS: LASIX PO SCH (08:56)
[2017-09-10] MEDS: ACTOS PO SCH (08:56)
[2017-09-10] MEDS: LEVAQUIN PREMIX IV 750 MG 750 MG/150 ML BAG IV SCH (08:57)
[2017-09-10] MEDS: ZOLOFT PO SCH (08:57)
[2017-09-10] MEDS: PEPCID 20 MG IV PREMIX* 20 MG/50 ML BAG IV SCH ×2 (08:57→20:05)
[2017-09-10] MEDS: MOBIC TAB 15 MG PO SCH (08:57)
[2017-09-10] MEDS: CARDIZEM CD 240 MG PO SCH (08:57)
[2017-09-10] MEDS: PROTONIX INJ 40 MG VIAL IVP SCH ×2 (09:00→20:07)
--- NOTE | 2017-09-10 09:46 | PCM.PROG ---
Progress Note - Progress Note for Day of Date: 09/09/17 - Subjective Subjective: WAS ADMITTED FOR ABDOMINAL PAIN. TODAY, SHE IS ALERT AND ORIENTED, LYING IN BED ON MORNING ROUNDS. SHE CONTINUES WITH COMPLAINTS OF SHORTNESS OF BREATH, COUGH, AND LOWER BACK PAIN. SHE REPORTS THAT ABDOMINAL PAIN HAS SLIGHTLY IMPROVED SINCE YESTERDAY. ON EXAMINATION, HEART IS REGULAR IN RATE AND RHYTHM. BILATERAL LUNGS ARE NOTED WITH WHEEZING AND RHONCHI THROUGHOUT. ABDOMEN IS ROUND, SOFT, AND NOTED WITH MILD, DIFFUSE TENDERNESS TO PALPATION. THERE ARE NORMAL BOWEL SOUNDS NOTED TO ALL QUADRANTS. TENDERNESS NOTED TO T12 AREA. THERE IS NORMAL RANGE OF MOTION NOTED TO ALL EXTREMITIES. HER VITALS THIS MORNING WERE 98.4-97-20-93%-147/69. LABS WERE OBTAINED THIS MORNING. ABNORMAL LAB VALUES INCLUDE THE FOLLOWING: WBC 19.5, RBC 3.42, HGB 9.4 , HCT 28.3, SODIUM 134, POTASSIUM 3.0, CHLORIDE 97, CARBON DIOXIDE 32.3, BUN 4, GLUCOSE 132, MAGNESIUM 1.6, ALK PHOS 145, ALBUMIN 2.2, GLOBULIN 4.7. WE OBTAINED A CHEST XRAY THIS MORNING. IT CARDIOMEGALY, INTERSTITIAL CHANGES WITH SLIGHTLY IMPROVED AERATION OF THE LEFT LOWER LOBE SINCE PRIOR EXAM. SHE CONTINUES ON IV ANTIBIOTICS AND NEB TX FOR INFILTRATE. WE WILL ALSO START TUSSIONEX AND TESSALON PERLES FOR COMPLAINTS OF COUGH. WE CONSULTED WITH AND HE RECOMMENDS TURTLE SHELL BRACE. WE WILL HAVE PHYSICAL THERAPY MEASURE AND ORDER. OTHERWISE, WE WILL CONTINUE WITH CURRENT PLAN OF CARE. WE WILL FOLLOW UP WITH AM LABS ND CHEST XRAY AND CONTINUE TO MONITOR PATIENT. - Past Medical Family Social History Past Med/Fam/Surg Hx: No changes since H&P Allergies: Allergies No Known Drug Allergies Allergy (Verified 07/13/17 20:08) - Review of Systems ROS: No change since H&P - Vital Signs and I&O's Vital Signs: Temperature 98.6 F Pulse Rate [Right Brachial] 87 Pulse Rate [Left Radial] 24 Pulse Rate 99 Respiratory Rate 24 Blood Pressure [Left Arm] 129/75 Blood Pressure [Right Arm] 122/80 Blood Pressure 140/82 O2 Sat by Pulse Oximetry 95 Intake and Output: Intake & Output 09/07/17 09/08/17 09/09/17 09/10/17 11:59 11:59 11:59 11:59 Intake Total 2551 3087 2461 Output Total 2400 Balance 2551 3087 61 - Physical Exam Oriented: Normal Eyes: Normal. negative: Blurred Vision, Diplopia, Discharge, Pain, Redness, Photophobia, Other Ear: Normal. negative: Right, Left, Swelling, Ecchymosis, Hemotypanum, Abrasion , Laceration Nose: Normal. negative: Injected, Discharge, Blood, Other Throat: Normal. negative: Tonsillar Hypertrophy, Red, Exudate, Dry, Other Respiratory: Generalized, Wheezes, Rhonchi Cardiovascular: Normal. negative: S3, S4, Murmur : Normal. negative: Dysuria, Hematuria, Frequency, Discharge, Testicular Pain , Bleeding, , Other Auscultation: Bowel Sounds: Normal. negative: Bruit, Absent, Increased, Decreased, High Pitched, Other Tenderness: Normal Skin: Normal Musculoskeletal: Normal, Back:Thoracic, Back:Paraspinous Psychiatric: Normal Mood Description: Calm Affect: Normal Speech Pattern: Clear, Appropriate - Laboratory and Diagnostics Result Diagrams: 09/10/17 05:05 09/10/17 05:05 Labs: Laboratory WBC 10.4 X10^3/uL (3.6-10.0) H D 09/10/17 05:05 RBC 3.25 X10^6/uL (3.5-5.4) L 09/10/17 05:05 Hgb 9.0 g/dL (12.0-16.0) L 09/10/17 05:05 Hct 26.8 % (36.0-47.0) L 09/10/17 05:05 MCV 82.4 fL (80.0-100.0) 09/10/17 05:05 MCH 27.7 pg (27.0-34.0) 09/10/17 05:05 MCHC 33.6 g/dL (33.0-35.0) 09/10/17 05:05 RDW 17.8 % (11.6-16.5) H 09/10/17 05:05 Plt Count 254 X10^3/uL (150.0-450.0) 09/10/17 05:05 MPV 7.9 fL (7.4-11.0) 09/10/17 05:05 Neut % 73.9 % (42.0-75.0) 09/10/17 05:05 Lymph % 15.8 % (21.0-51.0) L 09/10/17 05:05 [place] % 8.9 % (0.0-13.0) 09/10/17 05:05 Eos % 1.0 % (0.9-2.9) 09/10/17 05:05 Baso % 0.4 % (0.2-1.0) 09/10/17 05:05 Neut # 7.7 x10^3/uL (2.2-4.8) H 09/10/17 05:05 Lymph # 1.6 X10^3/uL (1.3-2.9) 09/10/17 05:05 [place] # 0.9 x10^3/uL (0.3-0.8) H 09/10/17 05:05 Eos # 0.1 x10^3/uL (0.0-0.2) 09/10/17 05:05 Baso # 0.0 X10^3/uL (0.0-0.1) 09/10/17 05:05 Absolute Nucleated RBC 0.1 /100WBC 09/10/17 05:05 ESR 62 MM/HOUR (0-20) H 09/09/17 04:45 INR Target Range - 09/08/17 04:15 INR 1.02 (0.8-1.3) 09/08/17 04:15 PTT 33.1 SECONDS (22.9-36.5) 09/08/17 04:15 PTT Comment - 09/08/17 04:15 Sodium 134 mmol/L (136-145) L 09/10/17 05:05 Corrected Sodium 135 mmol/L (136-145) L 09/10/17 05:05 Potassium 3.0 mmol/L (3.5-5.1) L* 09/10/17 05:05 Chloride 97 mmol/L (98-107) L 09/10/17 05:05 Carbon Dioxide 32.3 mmol/L (21-32) H 09/10/17 05:05 BUN 4 mg/dL (7-18) L 09/10/17 05:05 Creatinine 0.61 mg/dL (0.55-1.02) 09/10/17 05:05 Est GFR (MDRD) Af Amer > 60 (>60) 09/10/17 05:05 Est GFR (MDRD) Non-Af > 60 (>60) 09/10/17 05:05 Glucose 132 mg/dL (65-99) H 09/10/17 05:05 POC Glucose (mg/dL) 128 mg/dL (65-99) H 09/10/17 05:44 Calcium 9.3 mg/dL (8.5-10.1) 09/10/17 05:05 Corrected Calcium 10.7 mg/dL (8.5-10.1) H 09/10/17 05:05 Magnesium 1.6 mg/dL (1.7-2.9) L 09/10/17 05:05 Total Bilirubin 0.40 mg/dL (0.2-1.0) 09/10/17 05:05 AST 29 Units/L (15-37) 09/10/17 05:05 ALT 22 Units/L (12-78) 09/10/17 05:05 Alkaline Phosphatase 145 Units/L (46-116) H 09/10/17 05:05 Creatine Kinase 13 Units/L (26-192) L 09/07/17 22:00 CK-MB (CK-2) < 1.0 ng/mL (0-4.0) 09/07/17 22:00 CK/CKMB % Calc 7.7 % (<4) 09/07/17 22:00 Troponin I < 0.02 ng/mL (0-1.5) 09/07/17 22:00 Total Protein 6.9 g/dL (6.4-8.2) 09/10/17 05:05 Albumin 2.2 g/dL (3.4-5.0) L 09/10/17 05:05 Globulin 4.7 g/dL (2.5-4.5) H 09/10/17 05:05 Albumin/Globulin Ratio 0.5 Ratio (1.1-2.1) L 09/10/17 05:05 Amylase 46 Units/L (25-115) 09/07/17 09:11 Lipase 330 Units/L (73-393) 09/07/17 09:11 Specimen Type Clean catch urine 09/07/17 09:00 Urine Color Yellow (YELLOW) 09/07/17 09:00 Urine Appearance Clear (CLEAR) 09/07/17 09:00 Urine pH 6.5 (5.0 - 8.0) 09/07/17 09:00 Ur Specific [place] 1.010 (1.000-1.030) 09/07/17 09:00 Urine Protein Negative (NEGATIVE) 09/07/17 09:00 Urine Glucose (UA) Negative (NEGATIVE) 09/07/17 09:00 Urine Ketones Negative (NEGATIVE) 09/07/17 09:00 Urine Occult Blood 4+ (NEGATIVE) 09/07/17 09:00 Urine Nitrite Negative (NEGATIVE) 09/07/17 09:00 Urine Bilirubin Negative (NEGATIVE) 09/07/17 09:00 Urine Urobilinogen Normal (NORMAL) 09/07/17 09:00 Ur Leukocyte Esterase 1+ (NEGATIVE) 09/07/17 09:00 Urine RBC 10-15 /HPF (NEGATIVE) 09/07/17 09:00 Urine WBC 2-5 /HPF (NEGATIVE) 09/07/17 09:00 Ur Squamous Epith Cells Rare /HPF (NEGATIVE) 09/07/17 09:00 Urine Bacteria Negative /HPF (NEGATIVE) 09/07/17 09:00 Ur Culture Indicated? No/not indicated 09/07/17 09:00 - Plan (1) Bronchopneumonia Status: Acute Plan: PNEUMONIA PROTOCOL, FORTAZ 1GM IV FQ8H, LEVAQUIN 750MG IV DAILY, TUSSIONEX , TESSALON PERLES, RESPIRATORY TREATMENTS, CONTINUE TO MONITOR (2) Abdominal pain Status: Acute Qualifiers: Abdominal location: upper abdomen, unspecified Qualified Code(s): R10.10 - Upper abdominal pain, unspecified Plan: NORMAL SALINE AT 125ML/HR, CONTINUE TO MONITOR (3) Hematuria Status: Acute Qualifiers: Hematuria type: unspecified type Qualified Code(s): R31.9 - Hematuria, unspecified Plan: NORMAL SALINE AT 125ML/HR, CONTINUE TO MONITOR (4) T12 burst fracture Status: Acute Plan: ORDER BRACE, PAIN MEDICATIONS, CONTINUE TO MONITOR
[2017-09-10] MEDS ORDERED: BENTYL CAP 10 MG PO PRN (10:33)
[2017-09-10] MEDS ORDERED: PATIENT'S HOME MEDICATION (Albuterol Sulfate [Proventil Hfa Inhaler 6.7 Gm] 2 PUFF) INH PRN (10:33)
[2017-09-10] MEDS: ZOFRAN TAB 4 MG PO SCH ×2 (13:19→18:02)
[2017-09-10] MEDS: AMBIEN PO PRN (21:15)
[2017-09-11] MEDS: DUONEB 0.5 MG/3 MG NEB SCH ×6 (00:24→20:53)
[2017-09-11] MEDS: NS 1000 ML 1,000 ML IV SCH ×3 (01:40→16:43)
[2017-09-11] MEDS: MORPHINE SULFATE INJ 2 MG INJ IVP PRN ×4 (03:54→22:18)
[2017-09-11] MEDS: FORTAZ or TAZICEF INJ 1 GM in NS 100 ML IV + SPIKE MINIBAG* 100 ML IV SCH ×3 (05:18→21:04)
[2017-09-11] MEDS: ATIVAN TAB 0.5 MG PO SCH ×3 (05:18→21:07)
[2017-09-11] MEDS: TESSALON PERLES PO SCH ×3 (05:18→21:08)
[2017-09-11] MEDS: ZOFRAN TAB 4 MG PO SCH ×3 (05:18→18:03)
[2017-09-11 06:03] LABS: BASOPHILS % (AUTO) 0.3 % (0.2-1.0); EOSINOPHILS # (AUTO) 0.1 x10^3/uL (0.0-0.2); HEMATOCRIT 26.6 % (36.0-47.0); HEMOGLOBIN 8.9 g/dL (12.0-16.0); LYMPHOCYTES # (AUTO) 1.7 X10^3/uL (1.3-2.9); LYMPHOCYTES % (AUTO) 13.9 % (21.0-51.0); MEAN CORPUSCULAR HEMOGLOBIN 27.9 pg (27.0-34.0); MEAN CORPUSCULAR HGB CONC 33.4 g/dL (33.0-35.0); MEAN CORPUSCULAR VOLUME 83.5 fL (80.0-100.0); MEAN PLATELET VOLUME 7.9 fL (7.4-11.0); MONOCYTES # (AUTO) 1.2 x10^3/uL (0.3-0.8); NEUTROPHILS # (AUTO) 9.3 x10^3/uL (2.2-4.8); NEUTROPHILS % (AUTO) 74.8 % (42.0-75.0); PLATELET COUNT 257 X10^3/uL (150.0-450.0); RED BLOOD COUNT 3.19 X10^6/uL (3.5-5.4); RED CELL DISTRIBUTION WIDTH 18.4 % (11.6-16.5); WHITE BLOOD COUNT 12.4 X10^3/uL (3.6-10.0)
[2017-09-11 06:20] LABS: ALANINE AMINOTRANSFERASE 24 Units/L (12-78); ALBUMIN 2.3 g/dL (3.4-5.0); ALKALINE PHOSPHATASE 149 Units/L (46-116); ASPARTATE AMINO TRANSFERASE 38 Units/L (15-37); BLOOD UREA NITROGEN 3 mg/dL (7-18); CALCIUM 9.2 mg/dL (8.5-10.1); CARBON DIOXIDE 32.6 mmol/L (21-32); CHLORIDE 96 mmol/L (98-107); COR CA(FOR HYPOALB) 10.6 mg/dL (8.5-10.1); COR NA(FOR HYPERGLY) 137 mmol/L (136-145); CREATININE 0.65 mg/dL (0.55-1.02); MAGNESIUM 1.5 mg/dL (1.7-2.9); SODIUM 136 mmol/L (136-145); TOTAL PROTEIN 7.1 g/dL (6.4-8.2); eGFR BLACK RACES > 60 (>60); eGFR NON BLACK RACES > 60 (>60)
[2017-09-11] MEDS: MAG-OX TAB PO PRN (06:48)
--- NOTE | 2017-09-11 07:15 | RAD ---
HISTORY: Abdominal pain Study: Chest AP portable Comparison: 09/10/2017 Findings: The heart is within normal limits in size. The lorenza are normal. The right lung remains clear. Perihil ar interstitial change is present on the left, stable. No alveolar infiltrates are present. No pleura l effusions are identified. The bony thorax is unremarkable. IMPRESSION: Stable perihilar interstitial changes on the left Reported By:
[2017-09-11] MEDS ORDERED: ZOLOFT PO ONE (08:36)
[2017-09-11] MEDS: PEPCID 20 MG IV PREMIX* 20 MG/50 ML BAG IV SCH ×2 (09:09→21:06)
[2017-09-11] MEDS: POTASSIUM CHL 40 MEQ/NS 0.45% 500 ML IV PRN (09:09)
[2017-09-11] MEDS: LEVAQUIN PREMIX IV 750 MG 750 MG/150 ML BAG IV SCH (09:09)
[2017-09-11] MEDS: LEVSIN/MAALOX/LIDOC VISC PO SCH ×4 (09:10→21:14)
[2017-09-11] MEDS: PROTONIX INJ 40 MG VIAL IVP SCH ×2 (09:10→21:07)
[2017-09-11] MEDS: LOVENOX INJ 40 MG SYR SC SCH (09:35)
[2017-09-11] MEDS: PHENERGAN INJ 25 MG IV PRN ×3 (09:39→22:17)
[2017-09-11] MEDS: TUSSIONEX PENNKINETIC SUSP PO PRN (09:40)
[2017-09-11] MEDS: ACTOS PO SCH (09:40)
[2017-09-11] MEDS: PREDNISONE TAB 10 MG PO SCH (09:40)
[2017-09-11] MEDS: GLUCOPHAGE XR PO SCH ×2 (09:40→21:07)
[2017-09-11] MEDS: VITAMIN C PO SCH (09:41)
[2017-09-11] MEDS: TAB-A-VITE PO SCH (09:41)
[2017-09-11] MEDS: MOBIC TAB 15 MG PO SCH (09:41)
[2017-09-11] MEDS: K-DUR TAB 20 MEQ PO SCH (09:41)
[2017-09-11] MEDS: ZOLOFT PO SCH (09:41)
[2017-09-11] MEDS: LASIX PO SCH (09:41)
[2017-09-11] MEDS: COREG TAB 12.5 MG PO SCH ×2 (09:41→21:07)
[2017-09-11] MEDS: CARDIZEM CD 240 MG PO SCH (09:41)
[2017-09-11] MEDS: MUCINEX DM PO SCH ×2 (11:08→21:08)
--- NOTE | 2017-09-11 11:28 | PCM.PROG ---
Progress Note - Progress Note for Day of Date: 09/10/17 - Subjective Subjective: WAS ADMITTED FOR ABDOMINAL PAIN. TODAY, SHE IS ALERT AND ORIENTED, LYING IN BED ON MORNING ROUNDS. SHE CONTINUES WITH COMPLAINTS OF SHORTNESS OF BREATH, COUGH, AND LOWER BACK PAIN. ON EXAMINATION, HEART IS REGULAR IN RATE AND RHYTHM. BILATERAL LUNGS ARE NOTED WITH WHEEZING AND RHONCHI THROUGHOUT. ABDOMEN IS ROUND, SOFT, AND NOTED WITH MILD, DIFFUSE TENDERNESS TO PALPATION. THERE ARE NORMAL BOWEL SOUNDS NOTED TO ALL QUADRANTS. SHE CONTINUES WITH TENDERNESS NOTED TO T12 AREA. THERE IS NORMAL RANGE OF MOTION NOTED TO ALL EXTREMITIES. HER VITALS THIS MORNING WERE 98.3-87-16-98%-123/86. LABS WERE OBTAINED THIS MORNING. ABNORMAL LAB VALUES INCLUDE THE FOLLOWING: WBC 10.4,RBC 3.25, HGB 9.0, HCT 26.8, SODIUM 134, POTASSIUM 3.0, CHLORIDE 97, CARBON DIOXIDE 32.3, BUN 4, GLUCOSE 132, MAGNESIUM 1.6, ALKALINE PHOSPHATASE 145, ALBUMIN 2.2, GLOBULIN 4.7. WE OBTAINED A CHEST XRAY THIS MORNING. IT REPORTED NO CHANGES IS LEFT SIDED PERIHILAR INTERSTITIAL LUNG CHANGES. SHE CONTINUES ON IV ANTIBIOTICS AND NEB TX FOR INFILTRATE. PHYSICAL THERAPY IS AWAITING THE ARRIVAL OF PATIENT S BACK [facility]. WE WILL CONTINUE WITH CURRENT PLAN OF CARE TODAY. WE WILL FOLLOW UP WITH AM LABS ND CHEST XRAY AND CONTINUE TO MONITOR PATIENT. - Past Medical Family Social History Past Med/Fam/Surg Hx: No changes since H&P Allergies: Allergies No Known Drug Allergies Allergy (Verified 07/13/17 20:08) - Review of Systems ROS: No change since H&P - Vital Signs and I&O's Vital Signs: Temperature 99.2 F Pulse Rate [Right Brachial] 87 Pulse Rate [Left Radial] 24 Pulse Rate 85 Respiratory Rate 24 Blood Pressure [Left Arm] 136/86 Blood Pressure [Right Arm] 122/80 Blood Pressure 140/82 O2 Sat by Pulse Oximetry 98 Intake and Output: Intake & Output 09/08/17 09/09/17 09/10/17 09/11/17 11:59 11:59 11:59 11:59 Intake Total 2551 3087 2461 2805 Output Total 2400 2900 Balance 2551 3087 61 -95 - Physical Exam Oriented: Normal Eyes: Normal. negative: Blurred Vision, Diplopia, Discharge, Pain, Redness, Photophobia, Other Ear: Normal. negative: Right, Left, Swelling, Ecchymosis, Hemotypanum, Abrasion , Laceration Nose: Normal. negative: Injected, Discharge, Blood, Other Throat: Normal. negative: Tonsillar Hypertrophy, Red, Exudate, Dry, Other Respiratory: Generalized, Wheezes, Rhonchi Cardiovascular: Normal. negative: S3, S4, Murmur : Normal. negative: Dysuria, Hematuria, Frequency, Discharge, Testicular Pain , Bleeding, , Other Auscultation: Bowel Sounds: Normal. negative: Bruit, Absent, Increased, Decreased, High Pitched, Other Tenderness: Normal Skin: Normal Musculoskeletal: Normal, Back:Thoracic, Back:Paraspinous Psychiatric: Normal Mood Description: Calm Affect: Normal Speech Pattern: Clear, Appropriate - Laboratory and Diagnostics Result Diagrams: 09/11/17 04:50 09/11/17 04:50 Labs: Laboratory WBC 12.4 X10^3/uL (3.6-10.0) H 09/11/17 04:50 RBC 3.19 X10^6/uL (3.5-5.4) L 09/11/17 04:50 Hgb 8.9 g/dL (12.0-16.0) L 09/11/17 04:50 Hct 26.6 % (36.0-47.0) L 09/11/17 04:50 MCV 83.5 fL (80.0-100.0) 09/11/17 04:50 MCH 27.9 pg (27.0-34.0) 09/11/17 04:50 MCHC 33.4 g/dL (33.0-35.0) 09/11/17 04:50 RDW 18.4 % (11.6-16.5) H 09/11/17 04:50 Plt Count 257 X10^3/uL (150.0-450.0) 09/11/17 04:50 MPV 7.9 fL (7.4-11.0) 09/11/17 04:50 Neut % 74.8 % (42.0-75.0) 09/11/17 04:50 Lymph % 13.9 % (21.0-51.0) L 09/11/17 04:50 [place] % 10.0 % (0.0-13.0) 09/11/17 04:50 Eos % 1.0 % (0.9-2.9) 09/11/17 04:50 Baso % 0.3 % (0.2-1.0) 09/11/17 04:50 Neut # 9.3 x10^3/uL (2.2-4.8) H 09/11/17 04:50 Lymph # 1.7 X10^3/uL (1.3-2.9) 09/11/17 04:50 [place] # 1.2 x10^3/uL (0.3-0.8) H 09/11/17 04:50 Eos # 0.1 x10^3/uL (0.0-0.2) 09/11/17 04:50 Baso # 0.0 X10^3/uL (0.0-0.1) 09/11/17 04:50 Absolute Nucleated RBC 0.0 /100WBC 09/11/17 04:50 ESR 62 MM/HOUR (0-20) H 09/09/17 04:45 INR Target Range - 09/08/17 04:15 INR 1.02 (0.8-1.3) 09/08/17 04:15 PTT 33.1 SECONDS (22.9-36.5) 09/08/17 04:15 PTT Comment - 09/08/17 04:15 Sodium 136 mmol/L (136-145) 09/11/17 04:50 Corrected Sodium 137 mmol/L (136-145) 09/11/17 04:50 Potassium 3.2 mmol/L (3.5-5.1) L 09/11/17 04:50 Chloride 96 mmol/L (98-107) L 09/11/17 04:50 Carbon Dioxide 32.6 mmol/L (21-32) H 09/11/17 04:50 BUN 3 mg/dL (7-18) L 09/11/17 04:50 Creatinine 0.65 mg/dL (0.55-1.02) 09/11/17 04:50 Est GFR (MDRD) Af Amer > 60 (>60) 09/11/17 04:50 Est GFR (MDRD) Non-Af > 60 (>60) 09/11/17 04:50 Glucose 121 mg/dL (65-99) H 09/11/17 04:50 POC Glucose (mg/dL) 145 mg/dL (65-99) H 09/11/17 11:13 Calcium 9.2 mg/dL (8.5-10.1) 09/11/17 04:50 Corrected Calcium 10.6 mg/dL (8.5-10.1) H 09/11/17 04:50 Magnesium 1.5 mg/dL (1.7-2.9) L 09/11/17 04:50 Total Bilirubin 0.30 mg/dL (0.2-1.0) 09/11/17 04:50 AST 38 Units/L (15-37) H 09/11/17 04:50 ALT 24 Units/L (12-78) 09/11/17 04:50 Alkaline Phosphatase 149 Units/L (46-116) H 09/11/17 04:50 Creatine Kinase 13 Units/L (26-192) L 09/07/17 22:00 CK-MB (CK-2) < 1.0 ng/mL (0-4.0) 09/07/17 22:00 CK/CKMB % Calc 7.7 % (<4) 09/07/17 22:00 Troponin I < 0.02 ng/mL (0-1.5) 09/07/17 22:00 Total Protein 7.1 g/dL (6.4-8.2) 09/11/17 04:50 Albumin 2.3 g/dL (3.4-5.0) L 09/11/17 04:50 Globulin 4.8 g/dL (2.5-4.5) H 09/11/17 04:50 Albumin/Globulin Ratio 0.5 Ratio (1.1-2.1) L 09/11/17 04:50 Amylase 46 Units/L (25-115) 09/07/17 09:11 Lipase 330 Units/L (73-393) 09/07/17 09:11 Specimen Type Clean catch urine 09/07/17 09:00 Urine Color Yellow (YELLOW) 09/07/17 09:00 Urine Appearance Clear (CLEAR) 09/07/17 09:00 Urine pH 6.5 (5.0 - 8.0) 09/07/17 09:00 Ur Specific [place] 1.010 (1.000-1.030) 09/07/17 09:00 Urine Protein Negative (NEGATIVE) 09/07/17 09:00 Urine Glucose (UA) Negative (NEGATIVE) 09/07/17 09:00 Urine Ketones Negative (NEGATIVE) 09/07/17 09:00 Urine Occult Blood 4+ (NEGATIVE) 09/07/17 09:00 Urine Nitrite Negative (NEGATIVE) 09/07/17 09:00 Urine Bilirubin Negative (NEGATIVE) 09/07/17 09:00 Urine Urobilinogen Normal (NORMAL) 09/07/17 09:00 Ur Leukocyte Esterase 1+ (NEGATIVE) 09/07/17 09:00 Urine RBC 10-15 /HPF (NEGATIVE) 09/07/17 09:00 Urine WBC 2-5 /HPF (NEGATIVE) 09/07/17 09:00 Ur Squamous Epith Cells Rare /HPF (NEGATIVE) 09/07/17 09:00 Urine Bacteria Negative /HPF (NEGATIVE) 09/07/17 09:00 Ur Culture Indicated? No/not indicated 09/07/17 09:00 - Plan (1) Bronchopneumonia Status: Acute Plan: PNEUMONIA PROTOCOL, FORTAZ 1GM IV FQ8H, LEVAQUIN 750MG IV DAILY, TUSSIONEX , TESSALON PERLES, RESPIRATORY TREATMENTS, CONTINUE TO MONITOR (2) Abdominal pain Status: Acute Qualifiers: Abdominal location: upper abdomen, unspecified Qualified Code(s): R10.10 - Upper abdominal pain, unspecified Plan: NORMAL SALINE AT 125ML/HR, CONTINUE TO MONITOR (3) Hematuria Status: Acute Qualifiers: Hematuria type: unspecified type Qualified Code(s): R31.9 - Hematuria, unspecified Plan: NORMAL SALINE AT 125ML/HR, CONTINUE TO MONITOR (4) T12 burst fracture Status: Acute Plan: ORDER BRACE, PAIN MEDICATIONS, CONTINUE TO MONITOR
[2017-09-11] MEDS: NORCO 5/325 MG TAB PO PRN ×2 (12:45→21:07)
[2017-09-11] MEDS: MUCOMYST 20% 200 MG/ML NEB SCH (20:53)
[2017-09-11] MEDS: AMBIEN PO PRN (21:11)
[2017-09-12] MEDS: DUONEB 0.5 MG/3 MG NEB SCH ×6 (01:02→20:19)
[2017-09-12] MEDS: ZOFRAN TAB 4 MG PO SCH ×3 (02:57→18:33)
[2017-09-12] MEDS: TUSSIONEX PENNKINETIC SUSP PO PRN (03:00)
[2017-09-12] MEDS: NORCO 5/325 MG TAB PO PRN ×3 (03:03→15:30)
[2017-09-12] MEDS: PHENERGAN INJ 25 MG IV PRN ×4 (04:28→22:50)
[2017-09-12] MEDS: MORPHINE SULFATE INJ 2 MG INJ IVP PRN ×4 (04:28→22:53)
[2017-09-12] MEDS: NS 1000 ML 1,000 ML IV SCH ×3 (05:35→16:42)
[2017-09-12] MEDS: FORTAZ or TAZICEF INJ 1 GM in NS 100 ML IV + SPIKE MINIBAG* 100 ML IV SCH ×3 (05:36→22:55)
[2017-09-12] MEDS: TESSALON PERLES PO SCH (05:39)
[2017-09-12] MEDS: ATIVAN TAB 0.5 MG PO SCH ×3 (05:47→21:59)
[2017-09-12 06:12] LABS: BASOPHILS # (AUTO) 0.1 X10^3/uL (0.0-0.1); BASOPHILS % (AUTO) 0.6 % (0.2-1.0); EOSINOPHILS # (AUTO) 0.2 x10^3/uL (0.0-0.2); EOSINOPHILS % (AUTO) 1.3 % (0.9-2.9); HEMATOCRIT 27.9 % (36.0-47.0); HEMOGLOBIN 9.2 g/dL (12.0-16.0); LYMPHOCYTES # (AUTO) 1.7 X10^3/uL (1.3-2.9); LYMPHOCYTES % (AUTO) 14.7 % (21.0-51.0); MEAN CORPUSCULAR HEMOGLOBIN 27.4 pg (27.0-34.0); MEAN CORPUSCULAR HGB CONC 33.1 g/dL (33.0-35.0); MEAN CORPUSCULAR VOLUME 82.9 fL (80.0-100.0); MEAN PLATELET VOLUME 7.7 fL (7.4-11.0); MONOCYTES # (AUTO) 1.1 x10^3/uL (0.3-0.8); MONOCYTES % (AUTO) 9.7 % (0.0-13.0); NEUTROPHILS # (AUTO) 8.5 x10^3/uL (2.2-4.8); NEUTROPHILS % (AUTO) 73.7 % (42.0-75.0); PLATELET COUNT 269 X10^3/uL (150.0-450.0); RED BLOOD COUNT 3.37 X10^6/uL (3.5-5.4); RED CELL DISTRIBUTION WIDTH 17.9 % (11.6-16.5); WHITE BLOOD COUNT 11.5 X10^3/uL (3.6-10.0)
--- NOTE | 2017-09-12 06:50 | RAD ---
Examination: Portable AP chest History: SOB Comparison 09/11/2017 Findings: Stable heart size. No change in slight diffuse interstitial infiltrate in the left lung. No developing pleural effusion, consolidation or pneumothorax. Impression: No change. Reported By:
[2017-09-12] MEDS ORDERED: ZOLOFT PO ONE (08:43)
[2017-09-12] MEDS: PEPCID 20 MG IV PREMIX* 20 MG/50 ML BAG IV SCH ×2 (08:52→21:56)
[2017-09-12] MEDS: LEVAQUIN PREMIX IV 750 MG 750 MG/150 ML BAG IV SCH (08:52)
[2017-09-12] MEDS: LOVENOX INJ 40 MG SYR SC SCH (08:53)
[2017-09-12] MEDS: PROTONIX INJ 40 MG VIAL IVP SCH ×2 (08:53→21:58)
[2017-09-12] MEDS: PREDNISONE TAB 10 MG PO SCH (08:54)
[2017-09-12] MEDS: COREG TAB 12.5 MG PO SCH ×2 (08:54→21:55)
[2017-09-12] MEDS: ACTOS PO SCH (08:54)
[2017-09-12] MEDS: VITAMIN C PO SCH (08:54)
[2017-09-12] MEDS: CARDIZEM CD 240 MG PO SCH (08:54)
[2017-09-12] MEDS: K-DUR TAB 20 MEQ PO SCH (08:54)
[2017-09-12] MEDS: MUCOMYST 20% 200 MG/ML NEB SCH ×2 (08:54→20:19)
[2017-09-12] MEDS: TAB-A-VITE PO SCH (08:54)
[2017-09-12] MEDS: MUCINEX DM PO SCH ×2 (08:54→21:56)
[2017-09-12] MEDS: MOBIC TAB 15 MG PO SCH (08:54)
[2017-09-12] MEDS: LASIX PO SCH (08:54)
[2017-09-12] MEDS: ZOLOFT PO SCH (08:55)
[2017-09-12] MEDS: ROBITUSSIN (PLAIN) PO PRN (08:59)
[2017-09-12] MEDS: GLUCOPHAGE XR PO SCH ×2 (09:00→21:55)
[2017-09-12] MEDS: LEVSIN/MAALOX/LIDOC VISC PO SCH ×4 (09:20→21:57)
[2017-09-12] MEDS: MAG-OX TAB PO PRN ×2 (12:00→15:30)
[2017-09-12] MEDS: POTASSIUM CHL 40 MEQ/NS 0.45% 500 ML IV PRN (16:45)
[2017-09-12] MEDS: AMBIEN PO PRN (23:00)
[2017-09-13] MEDS: NORCO 5/325 MG TAB PO PRN ×3 (00:07→16:31)
[2017-09-13] MEDS: DUONEB 0.5 MG/3 MG NEB SCH ×6 (00:20→21:05)
[2017-09-13] MEDS: ZOFRAN TAB 4 MG PO SCH ×3 (03:03→18:54)
[2017-09-13] MEDS: ATIVAN TAB 0.5 MG PO SCH ×3 (05:57→22:15)
[2017-09-13 06:10] LABS: BASOPHILS % (AUTO) 0.4 % (0.2-1.0); EOSINOPHILS # (AUTO) 0.2 x10^3/uL (0.0-0.2); EOSINOPHILS % (AUTO) 1.4 % (0.9-2.9); HEMATOCRIT 31.5 % (36.0-47.0); HEMOGLOBIN 10.4 g/dL (12.0-16.0); LYMPHOCYTES # (AUTO) 1.8 X10^3/uL (1.3-2.9); LYMPHOCYTES % (AUTO) 15.4 % (21.0-51.0); MEAN CORPUSCULAR HEMOGLOBIN 27.4 pg (27.0-34.0); MEAN CORPUSCULAR VOLUME 83.1 fL (80.0-100.0); MEAN PLATELET VOLUME 7.5 fL (7.4-11.0); MONOCYTES # (AUTO) 1.1 x10^3/uL (0.3-0.8); MONOCYTES % (AUTO) 9.8 % (0.0-13.0); NEUTROPHILS # (AUTO) 8.4 x10^3/uL (2.2-4.8); PLATELET COUNT 327 X10^3/uL (150.0-450.0); RED BLOOD COUNT 3.79 X10^6/uL (3.5-5.4); RED CELL DISTRIBUTION WIDTH 17.9 % (11.6-16.5); WHITE BLOOD COUNT 11.4 X10^3/uL (3.6-10.0)
[2017-09-13] MEDS: FORTAZ or TAZICEF INJ 1 GM in NS 100 ML IV + SPIKE MINIBAG* 100 ML IV SCH ×3 (06:10→22:14)
[2017-09-13] MEDS: MORPHINE SULFATE INJ 2 MG INJ IVP PRN ×3 (06:20→20:13)
[2017-09-13] MEDS: PHENERGAN INJ 25 MG IV PRN ×2 (06:20→16:33)
[2017-09-13 07:07] LABS: ALANINE AMINOTRANSFERASE 32 Units/L (12-78); ALBUMIN 2.7 g/dL (3.4-5.0); ALKALINE PHOSPHATASE 159 Units/L (46-116); ASPARTATE AMINO TRANSFERASE 42 Units/L (15-37); BLOOD UREA NITROGEN 3 mg/dL (7-18); CALCIUM 9.5 mg/dL (8.5-10.1); CARBON DIOXIDE 33.8 mmol/L (21-32); CHLORIDE 94 mmol/L (98-107); COR CA(FOR HYPOALB) 10.5 mg/dL (8.5-10.1); COR NA(FOR HYPERGLY) 136 mmol/L (136-145); CREATININE 0.72 mg/dL (0.55-1.02); MAGNESIUM 1.6 mg/dL (1.7-2.9); SODIUM 135 mmol/L (136-145); TOTAL PROTEIN 7.9 g/dL (6.4-8.2); eGFR BLACK RACES > 60 (>60); eGFR NON BLACK RACES > 60 (>60)
[2017-09-13] MEDS: MUCOMYST 20% 200 MG/ML NEB SCH ×2 (08:43→21:06)
[2017-09-13] MEDS ORDERED: ZOLOFT PO ONE (08:57)
[2017-09-13] MEDS: LEVAQUIN PREMIX IV 750 MG 750 MG/150 ML BAG IV SCH (09:04)
[2017-09-13] MEDS: PEPCID 20 MG IV PREMIX* 20 MG/50 ML BAG IV SCH ×2 (09:05→20:12)
[2017-09-13] MEDS: PROTONIX INJ 40 MG VIAL IVP SCH ×2 (09:05→20:12)
[2017-09-13] MEDS: LOVENOX INJ 40 MG SYR SC SCH (09:05)
[2017-09-13] MEDS: LEVSIN/MAALOX/LIDOC VISC PO SCH ×4 (09:05→22:12)
[2017-09-13] MEDS: COREG TAB 12.5 MG PO SCH ×2 (09:05→20:11)
[2017-09-13] MEDS: CARDIZEM CD 240 MG PO SCH (09:07)
[2017-09-13] MEDS: VITAMIN C PO SCH (09:08)
[2017-09-13] MEDS: LASIX PO SCH (09:08)
[2017-09-13] MEDS: ACTOS PO SCH (09:08)
[2017-09-13] MEDS: K-DUR TAB 20 MEQ PO SCH (09:08)
[2017-09-13] MEDS: MUCINEX DM PO SCH ×2 (09:08→20:12)
[2017-09-13] MEDS: TAB-A-VITE PO SCH (09:08)
[2017-09-13] MEDS: PREDNISONE TAB 10 MG PO SCH (09:08)
[2017-09-13] MEDS: GLUCOPHAGE XR PO SCH ×2 (09:08→20:12)
[2017-09-13] MEDS: MOBIC TAB 15 MG PO SCH (09:09)
[2017-09-13] MEDS: ZOLOFT PO SCH (09:09)
[2017-09-13] MEDS: TUSSIONEX PENNKINETIC SUSP PO PRN (09:23)
[2017-09-13] MEDS: MAG-OX TAB PO PRN (16:32)
[2017-09-13] MEDS: NS 1000 ML 1,000 ML IV SCH ×2 (18:54)
[2017-09-13] MEDS: AMBIEN PO PRN (22:15)
[2017-09-14] MEDS: NORCO 5/325 MG TAB PO PRN (00:21)
[2017-09-14] MEDS: TUSSIONEX PENNKINETIC SUSP PO PRN (00:22)
[2017-09-14] MEDS: DUONEB 0.5 MG/3 MG NEB SCH ×3 (00:32→08:50)
[2017-09-14] MEDS: MORPHINE SULFATE INJ 2 MG INJ IVP PRN ×2 (02:36→07:45)
[2017-09-14] MEDS: PHENERGAN INJ 25 MG IV PRN ×2 (02:37→10:38)
[2017-09-14] MEDS: ZOFRAN TAB 4 MG PO SCH (03:45)
[2017-09-14 06:03] LABS: BASOPHILS # (AUTO) 0.1 X10^3/uL (0.0-0.1); BASOPHILS % (AUTO) 0.5 % (0.2-1.0); EOSINOPHILS # (AUTO) 0.1 x10^3/uL (0.0-0.2); EOSINOPHILS % (AUTO) 1.2 % (0.9-2.9); HEMATOCRIT 31.8 % (36.0-47.0); HEMOGLOBIN 10.4 g/dL (12.0-16.0); LYMPHOCYTES # (AUTO) 1.7 X10^3/uL (1.3-2.9); MEAN CORPUSCULAR HEMOGLOBIN 27.3 pg (27.0-34.0); MEAN CORPUSCULAR HGB CONC 32.7 g/dL (33.0-35.0); MEAN CORPUSCULAR VOLUME 83.5 fL (80.0-100.0); MEAN PLATELET VOLUME 7.8 fL (7.4-11.0); MONOCYTES # (AUTO) 1.5 x10^3/uL (0.3-0.8); MONOCYTES % (AUTO) 12.4 % (0.0-13.0); NEUTROPHILS # (AUTO) 8.7 x10^3/uL (2.2-4.8); NEUTROPHILS % (AUTO) 71.9 % (42.0-75.0); PLATELET COUNT 273 X10^3/uL (150.0-450.0); RED CELL DISTRIBUTION WIDTH 17.6 % (11.6-16.5)
[2017-09-14] MEDS: NS 1000 ML 1,000 ML IV SCH (06:17)
[2017-09-14] MEDS: ATIVAN TAB 0.5 MG PO SCH (06:18)
[2017-09-14] MEDS: FORTAZ or TAZICEF INJ 1 GM in NS 100 ML IV + SPIKE MINIBAG* 100 ML IV SCH (06:18)
[2017-09-14 06:44] LABS: ALANINE AMINOTRANSFERASE 32 Units/L (12-78); ALBUMIN 2.7 g/dL (3.4-5.0); ALKALINE PHOSPHATASE 149 Units/L (46-116); ASPARTATE AMINO TRANSFERASE 40 Units/L (15-37); BLOOD UREA NITROGEN 4 mg/dL (7-18); CALCIUM 9.6 mg/dL (8.5-10.1); CARBON DIOXIDE 32.4 mmol/L (21-32); CHLORIDE 94 mmol/L (98-107); COR CA(FOR HYPOALB) 10.6 mg/dL (8.5-10.1); CREATININE 0.53 mg/dL (0.55-1.02); SODIUM 134 mmol/L (136-145); TOTAL PROTEIN 7.8 g/dL (6.4-8.2); eGFR BLACK RACES > 60 (>60); eGFR NON BLACK RACES > 60 (>60)
[2017-09-14] MEDS ORDERED: ZOLOFT PO ONE (08:19)
[2017-09-14] MEDS: PEPCID 20 MG IV PREMIX* 20 MG/50 ML BAG IV SCH (08:38)
[2017-09-14] MEDS: LEVAQUIN PREMIX IV 750 MG 750 MG/150 ML BAG IV SCH (08:38)
[2017-09-14] MEDS: ACTOS PO SCH (08:39)
[2017-09-14] MEDS: CARDIZEM CD 240 MG PO SCH (08:39)
[2017-09-14] MEDS: VITAMIN C PO SCH (08:39)
[2017-09-14] MEDS: PROTONIX INJ 40 MG VIAL IVP SCH (08:39)
[2017-09-14] MEDS: GLUCOPHAGE XR PO SCH (08:39)
[2017-09-14] MEDS: PREDNISONE TAB 10 MG PO SCH (08:39)
[2017-09-14] MEDS: MUCINEX DM PO SCH (08:39)
[2017-09-14] MEDS: TAB-A-VITE PO SCH (08:40)
[2017-09-14] MEDS: LEVSIN/MAALOX/LIDOC VISC PO SCH (08:40)
[2017-09-14] MEDS: LOVENOX INJ 40 MG SYR SC SCH (08:40)
[2017-09-14] MEDS: ZOLOFT PO SCH (08:40)
[2017-09-14] MEDS: K-DUR TAB 20 MEQ PO SCH (08:40)
[2017-09-14] MEDS: LASIX PO SCH (08:41)
[2017-09-14] MEDS: COREG TAB 12.5 MG PO SCH (08:41)
[2017-09-14] MEDS: MUCOMYST 20% 200 MG/ML NEB SCH (08:50)
[2017-09-14 09:13] VITALS: BP 121/74
[2017-09-14] MEDS: MOBIC TAB 15 MG PO SCH (10:00)
[2017-09-14] MEDS ORDERED: LEVAQUIN TAB 750 MG PO SCH (10:50)
[2017-09-14] MEDS ORDERED: LEVAQUIN TAB 750 MG ONE (10:54)
== END 2017-09-14 11:05 | DRG 194 ==
LOC: ER 08:42 → MED/SURG 10:48 → OBSVTOIN 09-08 09:00
PROVIDERS: ADMIT Internal Medicine; ATTEND Internal Medicine
DX: J18.0 Bronchopneumonia, unspecified organism (principal); R10.10 Upper abdominal pain, unspecified; R06.02 Shortness of breath; R07.82 Intercostal pain; R11.2 Nausea with vomiting, unspecified; R31.9 Hematuria, unspecified; I71.4 Abdominal aortic aneurysm, without rupture; M54.5 Low back pain; F41.8 Other specified anxiety disorders; S22.081A Stable burst fracture of T11-T12 vertebra, initial encounter for closed fracture; X58.XXXA Exposure to other specified factors, initial encounter; Y92.89 Other specified places as the place of occurrence of the external cause; R26.89 Other abnormalities of gait and mobility
CPT/HCPCS: 36415; 71045; 74022; 74176; 80053; 81001; 82150; 82550; 82553; 83690; 83735; 84132; 84484; 85025; 85610; 85652; 85730; 93005; 94640; 94660; 94760; 96365; 96367; 96374; 96375; 97535; 99284; A4222; A4618; A7030; C9113; S0028; S0181; G0378; J0713; J1650; J1956; J2175; J2270; J2405; J2550; J7506; J7608; J7620

== ENCOUNTER 2017-10-29 08:58 | Day surgery (SDC) | payer MEDICAID ==
[~2017-10-29 08:58] MED LIST: LR 1000 ML IV 1,000 ML IV ONE
[2017-10-29] MEDS ORDERED: DIPRIVAN VIAL 0 ML ONE (10:57)
[2017-10-29] MEDS ORDERED: DIPRIVAN VIAL 20 ML ONE (11:02)
[2017-10-29 14:43] VITALS: BP 120/80
== END 2017-10-29 11:35 | disposition home or self-care (01) ==
LOC: SURG1 08:58
PROVIDERS: ATTEND Internal Medicine Gastroenterology
PROC: 0DB88ZX Excision of Small Intestine, Via Natural or Artificial Opening Endoscopic, Diagnostic (ICD-10-PCS; principal; 2017-10-29 11:00)
PROC: 0DB68ZX Excision of Stomach, Via Natural or Artificial Opening Endoscopic, Diagnostic (ICD-10-PCS; principal; 2017-10-29 11:00)
PROC: 0D757ZZ Dilation of Esophagus, Via Natural or Artificial Opening (ICD-10-PCS; principal; 2017-10-29 11:00)
PROC: 0DJ08ZZ Inspection of Upper Intestinal Tract, Via Natural or Artificial Opening Endoscopic (ICD-10-PCS; principal; 2017-10-29 11:00)
DX: R13.19 Other dysphagia (principal); R10.13 Epigastric pain; B37.81 Candidal esophagitis; K20.8 Other esophagitis; K22.2 Esophageal obstruction; K22.4 Dyskinesia of esophagus; K29.60 Other gastritis without bleeding
CPT/HCPCS: A4217; J3490; J7120

== ENCOUNTER 2017-11-19 08:10 | Day surgery (SDC) | payer MEDICAID ==
[~2017-11-19 08:10] MED LIST changes: +D5 LR 1000 ML 1,000 ML IV ONE; -LR 1000 ML IV 1,000 ML IV ONE
[2017-11-19] MEDS ORDERED: DIPRIVAN VIAL 20 ML ONE ×2 (09:51→10:07)
[2017-11-19] MEDS ORDERED: DIPRIVAN VIAL 10 ML ONE (10:22)
[2017-11-19 11:16] VITALS: BP 118/69
== END 2017-11-19 10:55 | disposition home or self-care (01) ==
LOC: SURG1 08:10
PROVIDERS: ATTEND Internal Medicine Gastroenterology
PROC: 0DBL8ZX Excision of Transverse Colon, Via Natural or Artificial Opening Endoscopic, Diagnostic (ICD-10-PCS; principal; 2017-11-19 10:15)
PROC: 0DJD8ZZ Inspection of Lower Intestinal Tract, Via Natural or Artificial Opening Endoscopic (ICD-10-PCS; principal; 2017-11-19 10:15)
PROC: 0DBP8ZX Excision of Rectum, Via Natural or Artificial Opening Endoscopic, Diagnostic (ICD-10-PCS; principal; 2017-11-19 10:15)
DX: Z12.11 Encounter for screening for malignant neoplasm of colon (principal); K63.5 Polyp of colon; K64.0 First degree hemorrhoids; Z80.0 Family history of malignant neoplasm of digestive organs
CPT/HCPCS: A4217; J3490; J7120

== ENCOUNTER 2019-03-01 13:46 | Inpatient (IN) ==
[2019-03-01] MEDS ORDERED: TUSSIONEX PENNKINETIC SUSP PO PRN (15:54)
[2019-03-01 16:10] VITALS: BMI 37.2
[2019-03-01] MEDS: VSL#3 PO SCH (16:22)
[2019-03-01] MEDS: LEVAQUIN PREMIX IV 500 MG 500 MG/100 ML BAG IV SCH (16:22)
[2019-03-01] MEDS: NS 1000 ML 1,000 ML IV SCH (16:22)
[2019-03-01] MEDS: ROBITUSSIN DM PO SCH ×2 (16:26→21:41)
[2019-03-01] MEDS: DUONEB 0.5 MG/3 MG NEB SCH ×2 (16:40→20:39)
[2019-03-01] MEDS ORDERED: BENTYL CAP 10 MG PO PRN (16:47)
[2019-03-01] MEDS ORDERED: ROBITUSSIN CF SYRUP PO PRN (16:47)
[2019-03-01] MEDS ORDERED: SALINE 3% 15 ML NEB TX NEB ONE (16:58)
[2019-03-01] MEDS ORDERED: DUONEB 0.5 MG/3 MG IN SCH (17:00)
[2019-03-01] MEDS ORDERED: DUONEB 0.5 MG/3 MG NEB SCH (17:00)
[2019-03-01] MEDS: PULMICORT NEB TX 0.5 MG NEB SCH (20:39)
[2019-03-01] MEDS ORDERED: PULMICORT NEB TX 0.5 MG NEB SCH (21:00)
[2019-03-01] MEDS ORDERED: GLUCOPHAGE ONE (21:12)
[2019-03-01] MEDS: SNACK - Diabetic Appropriate PO SCH (21:37)
[2019-03-01] MEDS: NORCO 5/325 MG TAB PO SCH (21:38)
[2019-03-01] MEDS: VITAMIN C PO SCH (21:39)
[2019-03-01] MEDS: XANAX PO SCH (21:40)
[2019-03-01] MEDS: AMBIEN PO PRN (21:40)
[2019-03-01] MEDS: NEURONTIN CAP 100 MG PO SCH (21:40)
[2019-03-01] MEDS: COLACE CAP 100 MG PO SCH (21:40)
[2019-03-01] MEDS: K-DUR TAB 20 MEQ PO SCH (21:40)
[2019-03-01] MEDS: ZANTAC PO SCH (21:40)
[2019-03-01] MEDS: COREG TAB 12.5 MG PO SCH (21:41)
[2019-03-01] MEDS: GLUCOPHAGE PO SCH (21:41)
[2019-03-01] MEDS: LASIX IVP SCH (21:44)
[2019-03-01] MEDS: VOLTAREN 1 % GEL MULTI DOSE TUBE TOP SCH (21:53)
[2019-03-02] MEDS ORDERED: PROVENTIL NEB TX 0.083% 2.5MG/ 3ML IN SCH
[2019-03-02] MEDS: DUONEB 0.5 MG/3 MG NEB SCH ×6 (01:14→20:19)
[2019-03-02] MEDS: PATIENT'S HOME MEDICATION (Lubiprostone [Amitiza] 24 MCG) PO SCH ×3 (01:48→21:10)
[2019-03-02] MEDS: ADVIL TAB 200 MG PO PRN (01:49)
[2019-03-02 05:22] LABS: BASOPHILS % (AUTO) 0.4 % (0.2-1.0); EOSINOPHILS # (AUTO) 0.2 x10^3/uL (0.0-0.2); EOSINOPHILS % (AUTO) 2.2 % (0.9-2.9); HEMATOCRIT 36.2 % (36.0-47.0); HEMOGLOBIN 12.2 g/dL (12.0-16.0); LYMPHOCYTES # (AUTO) 1.9 X10^3/uL (1.3-2.9); LYMPHOCYTES % (AUTO) 18.4 % (21.0-51.0); MEAN CORPUSCULAR HEMOGLOBIN 31.3 pg (27.0-34.0); MEAN CORPUSCULAR HGB CONC 33.6 g/dL (33.0-35.0); MEAN PLATELET VOLUME 7.8 fL (7.4-11.0); MONOCYTES # (AUTO) 1.1 x10^3/uL (0.3-0.8); MONOCYTES % (AUTO) 10.7 % (0.0-13.0); NEUTROPHILS # (AUTO) 7.2 x10^3/uL (2.2-4.8); NEUTROPHILS % (AUTO) 68.3 % (42.0-75.0); PLATELET COUNT 265 X10^3/uL (150.0-450.0); RED BLOOD COUNT 3.89 X10^6/uL (3.5-5.4); RED CELL DISTRIBUTION WIDTH 13.5 % (11.6-16.5); WHITE BLOOD COUNT 10.5 X10^3/uL (3.6-10.0)
[2019-03-02] MEDS: XANAX PO SCH ×3 (05:26→21:12)
[2019-03-02] MEDS: NORCO 5/325 MG TAB PO SCH ×3 (05:26→21:12)
[2019-03-02 05:35] LABS: ALANINE AMINOTRANSFERASE 24 Units/L (12-78); ALKALINE PHOSPHATASE 97 Units/L (46-116); ASPARTATE AMINO TRANSFERASE 17 Units/L (15-37); BLOOD UREA NITROGEN 7 mg/dL (7-18); CALCIUM 8.6 mg/dL (8.5-10.1); CARBON DIOXIDE 37.3 mmol/L (21-32); CHLORIDE 96 mmol/L (98-107); COR CA(FOR HYPOALB) 9.4 mg/dL (8.5-10.1); COR NA(FOR HYPERGLY) 138 mmol/L (136-145); CREATININE 0.72 mg/dL (0.55-1.02); SODIUM 138 mmol/L (136-145); TOTAL PROTEIN 8.1 g/dL (6.4-8.2); eGFR NON BLACK RACES > 60 (>60)
[2019-03-02 05:38] LABS: ABG BASE EXCESS 15.2 mmol/L (-2.0-2.0)
[2019-03-02 05:39] LABS: ABG ALLEN TEST POS; ABG HCO3 38.4 mmol/L (22-26)
[2019-03-02] MEDS: NS 1000 ML 1,000 ML IV SCH ×2 (06:21→18:05)
--- NOTE | 2019-03-02 06:21 | RAD ---
HISTORY: Shortness of breath Study: Chest AP portable Comparison: 03/01/2019 Findings: The patient is rotated to the right. The heart remains enlarged. Mild congestive heart failure is present in the form of interstitial edema stable when compared with the prior examination. No acute alveolar infiltrates or pleural effusions are identified. The bony thorax is unremarkable. IMPRESSION: Continued moderate cardiomegaly with mild congestive heart failure in the form of interstitial edema Reported By:
[2019-03-02] MEDS: VOLTAREN 1 % GEL MULTI DOSE TUBE TOP SCH ×3 (06:25→21:13)
[2019-03-02] MEDS: PULMICORT NEB TX 0.5 MG NEB SCH ×2 (08:00→20:19)
[2019-03-02] MEDS ORDERED: K-DUR TAB 20 MEQ PO PRN (08:17)
[2019-03-02] MEDS ORDERED: POTASSIUM CHL 40 MEQ/NS 0.45% 500 ML IV PRN (08:17)
[2019-03-02] MEDS ORDERED: K-RIDER 10 MEQ/NS 100 ML 10 MEQ/100 ML BAG IV PRN (08:17)
[2019-03-02] MEDS ORDERED: POTASSIUM CHLORIDE LIQ 20 MEQ UDC PO PRN (08:17)
[2019-03-02] MEDS ORDERED: MICRO K EXTEN CAP 10 MEQ PO PRN (08:17)
[2019-03-02] MEDS ORDERED: KLOR-CON PO PRN (08:17)
[2019-03-02] MEDS ORDERED: POTASSIUM CHL 60 MEQ/NS 0.45% 500 ML IV PRN (08:17)
[2019-03-02] MEDS ORDERED: GLUCOPHAGE ONE ×2 (08:19→20:28)
[2019-03-02] MEDS ORDERED: ZOLOFT ONE (08:19)
[2019-03-02] MEDS: LEVAQUIN PREMIX IV 500 MG 500 MG/100 ML BAG IV SCH (08:54)
[2019-03-02] MEDS: PROTONIX TAB 40 MG PO SCH (08:55)
[2019-03-02] MEDS: CHRONULAC PO SCH (08:55)
[2019-03-02] MEDS: LASIX IVP SCH ×2 (08:55→21:11)
[2019-03-02] MEDS: FERROUS GLUCONATE PO SCH (08:55)
[2019-03-02] MEDS: VSL#3 PO SCH (08:55)
[2019-03-02] MEDS: COLACE CAP 100 MG PO SCH ×2 (08:55→21:12)
[2019-03-02] MEDS: ALDACTONE TAB 25 MG PO SCH (08:55)
[2019-03-02] MEDS: CARDIZEM CD 240 MG PO SCH (08:55)
[2019-03-02] MEDS: VITAMIN C PO SCH ×2 (08:56→21:12)
[2019-03-02] MEDS: ZINC SULFATE PO SCH (08:56)
[2019-03-02] MEDS: ZOLOFT PO SCH (08:56)
[2019-03-02] MEDS: NEURONTIN CAP 100 MG PO SCH ×2 (08:56→21:12)
[2019-03-02] MEDS: ROBITUSSIN DM PO SCH ×4 (08:56→21:11)
[2019-03-02] MEDS: K-DUR TAB 20 MEQ PO SCH ×2 (08:56→21:12)
[2019-03-02] MEDS: COREG TAB 12.5 MG PO SCH ×2 (08:57→21:12)
[2019-03-02] MEDS: GLUCOPHAGE PO SCH ×2 (08:57→21:11)
[2019-03-02] MEDS: MORPHINE SULFATE INJ 2 MG INJ IVP PRN ×3 (12:11→23:02)
[2019-03-02] MEDS ORDERED: PHARMACY CONSULT - DOSE _____ XX SCH (13:00)
[2019-03-02] MEDS: MAGNESIUM SULFATE 1 GRAM/100 mL PREMIX 1 GM/100 ML BAG IV PRN ×4 (14:07→21:07)
[2019-03-02] MEDS: LOVENOX INJ 40 MG SYR SC SCH (14:13)
[2019-03-02] MEDS: SNACK - Diabetic Appropriate PO SCH (20:15)
--- NOTE | 2019-03-02 20:38 | DR.H&P ---
H&P - History & Physical for Day of: H&P Date: 03/01/19 - Chief Complaint Chief Complaint: SOB - History of Present Illness History of Present Illness: IS A 53 YEAR OLD PATIENT OF OURS. SHE IS A RESIDENT OF [facility]. SHE IS A DIRECT ADMISSION TO THE HOSPITAL DUE TO COMPLAINTS OF SEVERE SHORTNESS OF BREATH. ON ARRIVAL TO THE HOSPITAL, VITALS WERE 97.8-96-24-90%-126/84. LABS WERE OBTAINED. ABNORMAL LAB VALUES INCLUDE THE FOLLOWING: WBC 12.0, CHLORIDE 96, CARBON DIOXIDE 36.1, GLUCOSE 164, TOTAL PROTEIN 9.0, ALBUMIN 3.3, GLOBULIN 5.7. AN ABG WAS OBTAINED AND REVEALED: PH 7.590, PC02 40.0, P02 73.0, HC03 38.4, 02 SATURATION 97.0, BASE EXCESS 15.2. BLOOD AND SPUTUM CULTURES WERE OBTAINED. A CHEST XRAY WAS OBTAINED AND REVEALED: CARDIOMEGALY WITH CHF AND MILD INTERSTITIAL EDEMA. THERE IS SOME IMPROVED AERATION IN THE INTERSTITAL INFILTRATE IN THE LUNG BASE. BLOOD AND SPUTUM CULTURES WERE OBTAINED. SHE WAS STARTED ON IV LEVAQUIN, RESPIRATORY TREATMENTS, LASIX 20MG IV BID, RESPIRATORY TREATMENTS. SHE WAS ADMITTED FOR PNEUMONIA AND CHF EXACERBATION. WE PLAN TO FOLLOW UP WITH AM LABS AND CHEST XRAY AND CONTINUE TO MONITOR. - Past Medical History Past Medical History: Anemia, Angina, Anxiety, Arthritis, Asthma, COPD, Diabetes, Sleep Apnea - Past Surgical History Surgical History: Appendectomy, Cholecystectomy - Family History Family Medical History: Diabetes Mellitus, Cancer, [place], Coronary Artery Disease, Heart Failure, Sudden Cardiac , Hypertension - Social History Does patient currently use any type of tobacco product: No Have you used tobacco products in the last 12 months: No Type of Tobacco Use: None Does any household member use tobacco: No Alcohol Use: None - Medications Home Medications: No Known Drug Allergies Allergy (Verified 02/02/18 11:23) CONTINUE taking the following medications albuterol sulfate [Proventil HFA] 2 inh INHALATION Q6H 03/01/19 [History] alprazolam [Xanax] 0.5 mg PO TID 03/01/19 [History] ascorbic acid (vitamin C) [Vitamin C] 500 mg PO BID 03/01/19 [History] budesonide-formoterol [Symbicort] 2 inh INHALATION BID 03/01/19 [History] diclofenac sodium [Voltaren] 1 applic TOPICAL TID 03/01/19 [History] docusate sodium 100 mg PO BID 03/01/19 [History] fentanyl [Duragesic] 50 mcg TOPICAL Q7D 03/01/19 [History] ferrous fumarate [Ferrocite] 1 tab PO DAILY 03/01/19 [History] furosemide [Lasix] 40 mg PO DAILY 03/01/19 [History] gabapentin [Neurontin] 100 mg PO BID 03/01/19 [History] ibuprofen [Motrin IB] 200 mg PO Q12H PRN 03/01/19 [History] ipratropium-albuterol 0.5 inh INHALATION BID 03/01/19 [History] lactulose 45 ml PO DAILY 03/01/19 [History] lubiprostone [Amitiza] 24 mcg PO BID 03/01/19 [History] metformin [Glucophage] 1,000 mg PO BID 03/01/19 [History] pantoprazole 40 mg PO DAILY 03/01/19 [History] zkhungmnmirzx-[id number]-fkibfqnfewy [Robitussin Cough and Cold CF] 10 ml PO Q6H PRN 03/01/19 [History] ranitidine HCl [Zantac] 300 mg PO HS 03/01/19 [History] spironolactone [Aldactone] 25 mg PO DAILY 03/01/19 [History] zinc 1 tab PO DAILY 03/01/19 [History] - Review of Systems Constitutional: Weakness Eyes: No Symptoms Reported ENT: No Symptoms Reported Respiratory: Cough, Shortness of Breath, Wheezing Cardiovascular: No Symptoms Reported Gastrointestinal: No Symptoms Reported Genitourinary: No Symptoms Reported Musculoskeletal: No Symptoms Reported Skin: No Symptoms Reported Neurological: Weakness - Physical Exam Vital Signs: Temperature 98.8 F Pulse Rate [Right Brachial] 82 Pulse Rate 80 Respiratory Rate 20 Blood Pressure [Left Arm] 126/60 Blood Pressure [Right Arm] 120/69 Blood Pressure 113/66 O2 Sat by Pulse Oximetry 91 Oriented: Normal Eyes: Normal Ear: Normal Nose: Normal Throat: Normal Respiratory: Wheezes Throughout Cardiovascular: Normal. negative: S3, S4, Murmur : Normal Auscultation: Bowel Sounds: Normal Palpation: Normal Tenderness: Normal Skin: Normal Musculoskeletal: Normal Psychiatric: Normal Mood Description: Calm Affect: Normal Speech Pattern: Clear - Assessment/Plan (1) Acute exacerbation of CHF (congestive heart failure) Qualifiers: Heart failure type: unspecified Qualified Code(s): I50.9 - Heart failure, unspecified Status: Acute Plan: LASIX 20MG IV BID, RESPIRATORY TREATMENTS, CONTINUE TO MONITOR (2) Bronchopneumonia Status: Acute Plan: IV LEVAQUIN, RESPIRATORY TX, SUPPLEMENTAL OXYGEN, CONTINUE TO MONITOR (3) COPD (chronic obstructive pulmonary disease) Qualifiers: COPD type: COPD with acute lower respiratory infection Qualified Code(s): J44.0 - Chronic obstructive pulmonary disease with acute lower respiratory infection Status: Chronic - Allergies Allergies/Adverse Reactions: Allergies Allergy/AdvReac Type Severity Reaction Status Date / Time No Known Drug Allergies Allergy Verified 02/02/18 11:23
[2019-03-02] MEDS ORDERED: LEVAQUIN PREMIX IV 500 MG 500 MG/100 ML BAG IV SCH (21:00)
[2019-03-02] MEDS: ZANTAC PO SCH (21:11)
[2019-03-02] MEDS: AMBIEN PO PRN (21:21)
[2019-03-03] MEDS: DUONEB 0.5 MG/3 MG NEB SCH ×6 (00:55→20:29)
[2019-03-03] MEDS: ADVIL TAB 200 MG PO PRN (01:00)
[2019-03-03] MEDS: MORPHINE SULFATE INJ 2 MG INJ IVP PRN ×5 (03:08→22:01)
[2019-03-03] MEDS: VOLTAREN 1 % GEL MULTI DOSE TUBE TOP SCH ×3 (05:31→21:01)
[2019-03-03] MEDS: XANAX PO SCH ×3 (05:32→21:01)
[2019-03-03] MEDS: NS 1000 ML 1,000 ML IV SCH ×3 (05:32→19:13)
[2019-03-03] MEDS: NORCO 5/325 MG TAB PO SCH ×3 (05:32→21:00)
--- NOTE | 2019-03-03 06:05 | RAD ---
Chest radiograph, single AP view History: Shortness of breath Comparison: 03/02/2019. Findings: The patient is rotated to the right. There is stable cardiomegaly with pulmonary vasculature congestion and diffuse interstitial opacities. No new consolidation. No sizable pleural effusion or pneumothorax. Conclusion: Stable examination with cardiomegaly and pulmonary vasculature congestion with pulmonary edema. Reported By:
[2019-03-03 06:26] LABS: BASOPHILS % (AUTO) 0.3 % (0.2-1.0); EOSINOPHILS # (AUTO) 0.2 x10^3/uL (0.0-0.2); EOSINOPHILS % (AUTO) 2.3 % (0.9-2.9); HEMATOCRIT 36.2 % (36.0-47.0); HEMOGLOBIN 12.2 g/dL (12.0-16.0); LYMPHOCYTES # (AUTO) 1.8 X10^3/uL (1.3-2.9); LYMPHOCYTES % (AUTO) 17.8 % (21.0-51.0); MEAN CORPUSCULAR HEMOGLOBIN 31.2 pg (27.0-34.0); MEAN CORPUSCULAR HGB CONC 33.7 g/dL (33.0-35.0); MEAN CORPUSCULAR VOLUME 92.5 fL (80.0-100.0); MEAN PLATELET VOLUME 7.6 fL (7.4-11.0); MONOCYTES # (AUTO) 1.1 x10^3/uL (0.3-0.8); MONOCYTES % (AUTO) 10.7 % (0.0-13.0); NEUTROPHILS % (AUTO) 68.9 % (42.0-75.0); PLATELET COUNT 298 X10^3/uL (150.0-450.0); RED BLOOD COUNT 3.92 X10^6/uL (3.5-5.4); RED CELL DISTRIBUTION WIDTH 13.7 % (11.6-16.5); WHITE BLOOD COUNT 10.1 X10^3/uL (3.6-10.0)
[2019-03-03 06:45] LABS: ALANINE AMINOTRANSFERASE 18 Units/L (12-78); ALBUMIN 2.9 g/dL (3.4-5.0); ALKALINE PHOSPHATASE 98 Units/L (46-116); ASPARTATE AMINO TRANSFERASE 20 Units/L (15-37); BLOOD UREA NITROGEN 6 mg/dL (7-18); CALCIUM 8.9 mg/dL (8.5-10.1); CARBON DIOXIDE 34.1 mmol/L (21-32); CHLORIDE 96 mmol/L (98-107); COR CA(FOR HYPOALB) 9.8 mg/dL (8.5-10.1); CREATININE 0.73 mg/dL (0.55-1.02); MAGNESIUM 2.1 mg/dL (1.7-2.9); SODIUM 136 mmol/L (136-145); TOTAL PROTEIN 8.1 g/dL (6.4-8.2); eGFR NON BLACK RACES > 60 (>60)
[2019-03-03] MEDS ORDERED: GLUCOPHAGE ONE ×2 (07:30→19:36)
[2019-03-03] MEDS ORDERED: ZOLOFT ONE (07:31)
[2019-03-03] MEDS: COLACE CAP 100 MG PO SCH ×2 (07:59→20:58)
[2019-03-03] MEDS: K-DUR TAB 20 MEQ PO SCH ×2 (07:59→20:59)
[2019-03-03] MEDS: LASIX IVP SCH ×2 (07:59→20:57)
[2019-03-03] MEDS: PROTONIX TAB 40 MG PO SCH (07:59)
[2019-03-03] MEDS: ALDACTONE TAB 25 MG PO SCH (07:59)
[2019-03-03] MEDS: ZOLOFT PO SCH (07:59)
[2019-03-03] MEDS: VITAMIN C PO SCH ×2 (07:59→20:58)
[2019-03-03] MEDS: CARDIZEM CD 240 MG PO SCH (07:59)
[2019-03-03] MEDS: COREG TAB 12.5 MG PO SCH ×2 (07:59→20:58)
[2019-03-03] MEDS: NEURONTIN CAP 100 MG PO SCH ×2 (07:59→20:59)
[2019-03-03] MEDS: FERROUS GLUCONATE PO SCH (08:00)
[2019-03-03] MEDS: PATIENT'S HOME MEDICATION (Lubiprostone [Amitiza] 24 MCG) PO SCH ×2 (08:00→20:56)
[2019-03-03] MEDS: VSL#3 PO SCH (08:00)
[2019-03-03] MEDS: GLUCOPHAGE PO SCH ×2 (08:00→20:57)
[2019-03-03] MEDS: ZINC SULFATE PO SCH (08:00)
[2019-03-03] MEDS: ROBITUSSIN DM PO SCH ×4 (08:00→20:57)
[2019-03-03] MEDS: LEVAQUIN PREMIX IV 500 MG 500 MG/100 ML BAG IV SCH (08:00)
[2019-03-03] MEDS: CHRONULAC PO SCH (08:01)
[2019-03-03] MEDS: LOVENOX INJ 40 MG SYR SC SCH (08:13)
[2019-03-03] MEDS: PULMICORT NEB TX 0.5 MG NEB SCH ×2 (09:06→20:29)
[2019-03-03] MEDS: ZOFRAN TAB 4 MG PO PRN (13:25)
[2019-03-03] MEDS: SNACK - Diabetic Appropriate PO SCH (20:55)
[2019-03-03] MEDS: ZANTAC PO SCH (20:58)
[2019-03-03] MEDS: AMBIEN PO PRN (21:01)
--- NOTE | 2019-03-03 21:01 | PCM.PROG ---
Progress Note - Progress Note for Day of Date of Exam: 03/02/19 - Subjective Subjective: WAS ADMITTED FOR TREATMENT OF PNEUMONIA AND CHF EXACERBATION. TODAY, SHE IS ALERT AND ORIENTED, LYING IN BED ON MORNING ROUNDS. SHE CONTINUES WITH COMPLAINTS OF COUGH AND SHORTNESS OF BREATH. ON EXAMINATION, HEART IS REGULAR IN RATE AND RHYTHM. BILATERAL LUNGS ARE NOTED WITH SCATTERED WHEEZING THROUGHOUT. ABDOMEN IS ROUND, SOFT, AND NON-TENDER WITH NORMAL BOWEL SOUNDS NOTED IN ALL QUADRANTS. NORMAL BOWEL SOUNDS ARE NOTED IN ALL QUADRANTS. HER VITALS THIS MORNING ARE: 98.3-99-24-91%-118/72. LABS WERE OBTAINED. ABNORMAL LAB VALUES INCLUDE THE FOLLOWING: WBC 10.5, CHLORIDE 96, CARBON DIOXIDE 37.3, GLUCOSE 117, MAGNESIUM 1.2, ALBUMIN 3.0, GLOBULIN 5.1. AN ABG WAS REPEATED THIS MORNING AND REVEALED: PH 7.590, PC02 40.0, P02 73.0, HC03 38.4, 02 SATURATION 97.0, BASE EXCESS 15.2. BLOOD AND SPUTUM CULTURES ARE PENDING. A CHEST XRAY WAS OBTAINED AND REVEALED: Continued moderate cardiomegaly with mild congestive heart failure in the form of interstitial edema. SHE IS CURRENTLY RECEIVING LEVAQUIN 500MG IV DAILY, RESPIRATORY TREATMENTS, SUPPLEMENTAL OXYGEN, AND LASIX 20MG IV BID. WE WILL CONTINUE WITH CURRENT PLAN OF CARE TODAY AND START HER ON THE BIPAP. OTHERWISE, WE WILL FOLLOW UP WITH AM LABS AND CHEST XRAY AND CONTINUE TO MONITOR. - Past Medical Family Social History Past Med/Fam/Surg Hx: No changes since H&P Allergies: Allergies No Known Drug Allergies Allergy (Verified 02/02/18 11:23) - Review of Systems ROS: No change since H&P - Vital Signs and I&O's Vital Signs: Temperature 98.4 F Pulse Rate [Right Brachial] 87 Pulse Rate 89 Respiratory Rate 16 Blood Pressure [Left Arm] 126/60 Blood Pressure [Right Arm] 104/76 Blood Pressure 113/66 O2 Sat by Pulse Oximetry 90 Intake and Output: Intake & Output 03/01/19 03/02/19 03/03/19 03/04/19 11:59 11:59 11:59 11:59 Intake Total 780 / 780 1712 / 1712 460 / 460 Balance 780 / 780 1712 / 1712 460 / 460 - Physical Exam Oriented: Normal Eyes: Normal Ear: Normal Nose: Normal Throat: Normal Respiratory: Generalized, Wheezes Cardiovascular: Normal. negative: S3, S4, Murmur : Normal Auscultation: Bowel Sounds: Normal Palpation: Normal Tenderness: Normal Skin: Normal Musculoskeletal: Normal Psychiatric: Normal Mood Description: Calm Affect: Normal Speech Pattern: Clear - Laboratory and Diagnostics Result Diagrams: 03/03/19 05:10 03/03/19 05:10 Labs: 03/01/19 16:13 Blood Blood Culture - Preliminary 03/01/19 16:11 Blood Blood Culture - Preliminary 03/01/19 23:15 Sputum - Expectorated Sputum Sputum Culture - Preliminary 03/01/19 23:15 Sputum - Expectorated Sputum - Final Laboratory WBC 10.1 X10^3/uL (3.6-10.0) H 03/03/19 05:10 RBC 3.92 X10^6/uL (3.5-5.4) 03/03/19 05:10 Hgb 12.2 g/dL (12.0-16.0) 03/03/19 05:10 Hct 36.2 % (36.0-47.0) 03/03/19 05:10 MCV 92.5 fL (80.0-100.0) 03/03/19 05:10 MCH 31.2 pg (27.0-34.0) 03/03/19 05:10 MCHC 33.7 g/dL (33.0-35.0) 03/03/19 05:10 RDW 13.7 % (11.6-16.5) 03/03/19 05:10 Plt Count 298 X10^3/uL (150.0-450.0) 03/03/19 05:10 MPV 7.6 fL (7.4-11.0) 03/03/19 05:10 Neut % (Auto) 68.9 % (42.0-75.0) 03/03/19 05:10 Lymph % (Auto) 17.8 % (21.0-51.0) L 03/03/19 05:10 [place] % (Auto) 10.7 % (0.0-13.0) 03/03/19 05:10 Eos % (Auto) 2.3 % (0.9-2.9) 03/03/19 05:10 Baso % (Auto) 0.3 % (0.2-1.0) 03/03/19 05:10 Neut # (Auto) 7.0 x10^3/uL (2.2-4.8) H 03/03/19 05:10 Lymph # (Auto) 1.8 X10^3/uL (1.3-2.9) 03/03/19 05:10 [place] # (Auto) 1.1 x10^3/uL (0.3-0.8) H 03/03/19 05:10 Eos # (Auto) 0.2 x10^3/uL (0.0-0.2) 03/03/19 05:10 Baso # (Auto) 0.0 X10^3/uL (0.0-0.1) 03/03/19 05:10 Absolute Nucleated RBC 0.0 /100WBC 03/03/19 05:10 Sample Site Rrad 03/02/19 05:32 ABG pH 7.590 (7.35-7.45) H* 03/02/19 05:32 ABG pCO2 40.0 mmHg (35.0-45.0) 03/02/19 05:32 ABG pO2 73.0 mmHg (80.0-100.0) L 03/02/19 05:32 ABG HCO3 38.4 mmol/L (22-26) H* 03/02/19 05:32 ABG O2 Saturation 97.0 % (90-100) 03/02/19 05:32 ABG Base Excess 15.2 mmol/L (-2.0-2.0) H 03/02/19 05:32 Josemanuel Test Pos 03/02/19 05:32 A-a Gradient 105.0 mmHg 03/02/19 05:32 FiO2 32.0 03/02/19 05:32 Blood Gas Comments Gerald abg well-mtf 03/02/19 05:32 Sodium 136 mmol/L (136-145) 03/03/19 05:10 Corrected Sodium TNP 03/03/19 05:10 Potassium 3.7 mmol/L (3.5-5.1) 03/03/19 05:10 Chloride 96 mmol/L (98-107) L 03/03/19 05:10 Carbon Dioxide 34.1 mmol/L (21-32) H 03/03/19 05:10 BUN 6 mg/dL (7-18) L 03/03/19 05:10 Creatinine 0.73 mg/dL (0.55-1.02) 03/03/19 05:10 Est GFR (MDRD) Af Amer > 60 (>60) 03/03/19 05:10 Est GFR (MDRD) Non-Af > 60 (>60) 03/03/19 05:10 Glucose 109 mg/dL (65-99) H 03/03/19 05:10 Calcium 8.9 mg/dL (8.5-10.1) 03/03/19 05:10 Corrected Calcium 9.8 mg/dL (8.5-10.1) 03/03/19 05:10 Magnesium 2.1 mg/dL (1.7-2.9) 03/03/19 05:10 Total Bilirubin 0.50 mg/dL (0.2-1.0) 03/03/19 05:10 AST 20 Units/L (15-37) 03/03/19 05:10 ALT 18 Units/L (12-78) 03/03/19 05:10 Alkaline Phosphatase 98 Units/L (46-116) 03/03/19 05:10 Total Protein 8.1 g/dL (6.4-8.2) 03/03/19 05:10 Albumin 2.9 g/dL (3.4-5.0) L 03/03/19 05:10 Globulin 5.2 g/dL (2.5-4.5) H 03/03/19 05:10 Albumin/Globulin Ratio 0.6 Ratio (1.1-2.1) L 03/03/19 05:10 - Plan (1) Acute exacerbation of CHF (congestive heart failure) Status: Acute Qualifiers: Heart failure type: unspecified Qualified Code(s): I50.9 - Heart failure, unspecified Plan: BIPAP, LASIX 20MG IV BID, RESPIRATORY TREATMENTS, CONTINUE TO MONITOR (2) Bronchopneumonia Status: Acute Plan: IV LEVAQUIN, RESPIRATORY TX, SUPPLEMENTAL OXYGEN, CONTINUE TO MONITOR (3) COPD (chronic obstructive pulmonary disease) Status: Chronic Qualifiers: COPD type: COPD with acute lower respiratory infection Qualified Code(s): J44.0 - Chronic obstructive pulmonary disease with acute lower respiratory infection
[2019-03-04] MEDS: ADVIL TAB 200 MG PO PRN (00:39)
[2019-03-04] MEDS: DUONEB 0.5 MG/3 MG NEB SCH ×6 (01:10→20:29)
[2019-03-04] MEDS: MORPHINE SULFATE INJ 2 MG INJ IVP PRN ×4 (02:52→23:36)
[2019-03-04 05:22] LABS: BASOPHILS % (AUTO) 0.4 % (0.2-1.0); EOSINOPHILS # (AUTO) 0.2 x10^3/uL (0.0-0.2); EOSINOPHILS % (AUTO) 2.8 % (0.9-2.9); HEMATOCRIT 34.8 % (36.0-47.0); HEMOGLOBIN 11.6 g/dL (12.0-16.0); LYMPHOCYTES # (AUTO) 1.9 X10^3/uL (1.3-2.9); LYMPHOCYTES % (AUTO) 23.1 % (21.0-51.0); MEAN CORPUSCULAR HEMOGLOBIN 31.2 pg (27.0-34.0); MEAN CORPUSCULAR HGB CONC 33.3 g/dL (33.0-35.0); MEAN CORPUSCULAR VOLUME 93.7 fL (80.0-100.0); MONOCYTES # (AUTO) 0.8 x10^3/uL (0.3-0.8); MONOCYTES % (AUTO) 9.7 % (0.0-13.0); NEUTROPHILS # (AUTO) 5.3 x10^3/uL (2.2-4.8); PLATELET COUNT 275 X10^3/uL (150.0-450.0); RED BLOOD COUNT 3.71 X10^6/uL (3.5-5.4); RED CELL DISTRIBUTION WIDTH 13.6 % (11.6-16.5); WHITE BLOOD COUNT 8.2 X10^3/uL (3.6-10.0)
[2019-03-04] MEDS: XANAX PO SCH ×3 (05:43→21:46)
[2019-03-04] MEDS: NORCO 5/325 MG TAB PO SCH ×3 (05:43→21:46)
[2019-03-04 05:44] LABS: ALANINE AMINOTRANSFERASE 22 Units/L (12-78); ALBUMIN 2.8 g/dL (3.4-5.0); ALKALINE PHOSPHATASE 91 Units/L (46-116); ASPARTATE AMINO TRANSFERASE 15 Units/L (15-37); BLOOD UREA NITROGEN 7 mg/dL (7-18); CALCIUM 8.8 mg/dL (8.5-10.1); CARBON DIOXIDE 34.9 mmol/L (21-32); CHLORIDE 97 mmol/L (98-107); COR CA(FOR HYPOALB) 9.8 mg/dL (8.5-10.1); COR NA(FOR HYPERGLY) 139 mmol/L (136-145); CREATININE 0.86 mg/dL (0.55-1.02); SODIUM 138 mmol/L (136-145); TOTAL PROTEIN 7.7 g/dL (6.4-8.2); eGFR NON BLACK RACES > 60 (>60)
[2019-03-04] MEDS: VOLTAREN 1 % GEL MULTI DOSE TUBE TOP SCH ×3 (05:44→21:50)
--- NOTE | 2019-03-04 06:05 | RAD ---
Chest radiograph, single view History: Shortness of breath Comparison: 03/03/2019. Findings: There is cardiomegaly with pulmonary vasculature congestion. There are bibasilar interstitial opacities, which appears stable from prior study. No sizable pleural effusion. No evidence of pneumothorax. Conclusion: Stable examination. Cardiomegaly with CHF with mild persistent interstitial edema. Reported By:
[2019-03-04] MEDS: MAGNESIUM SULFATE 1 GRAM/100 mL PREMIX 1 GM/100 ML BAG IV PRN ×2 (06:42→09:01)
[2019-03-04] MEDS ORDERED: GLUCOPHAGE ONE ×2 (08:27→20:25)
[2019-03-04] MEDS ORDERED: ZOLOFT ONE (08:28)
[2019-03-04] MEDS: PULMICORT NEB TX 0.5 MG NEB SCH ×2 (08:48→20:29)
[2019-03-04] MEDS: LEVAQUIN PREMIX IV 500 MG 500 MG/100 ML BAG IV SCH (09:01)
[2019-03-04] MEDS: LOVENOX INJ 40 MG SYR SC SCH (09:02)
[2019-03-04] MEDS: ROBITUSSIN DM PO SCH ×4 (09:02→21:45)
[2019-03-04] MEDS: CARDIZEM CD 240 MG PO SCH (09:03)
[2019-03-04] MEDS: VSL#3 PO SCH (09:03)
[2019-03-04] MEDS: GLUCOPHAGE PO SCH ×2 (09:03→21:36)
[2019-03-04] MEDS: PROTONIX TAB 40 MG PO SCH (09:03)
[2019-03-04] MEDS: ALDACTONE TAB 25 MG PO SCH (09:04)
[2019-03-04] MEDS: COLACE CAP 100 MG PO SCH ×2 (09:04→21:37)
[2019-03-04] MEDS: K-DUR TAB 20 MEQ PO SCH ×2 (09:04→21:38)
[2019-03-04] MEDS: ZINC SULFATE PO SCH (09:04)
[2019-03-04] MEDS: ZOLOFT PO SCH (09:04)
[2019-03-04] MEDS: NEURONTIN CAP 100 MG PO SCH ×2 (09:04→21:46)
[2019-03-04] MEDS: VITAMIN C PO SCH ×2 (09:04→21:47)
[2019-03-04] MEDS: FERROUS GLUCONATE PO SCH (09:04)
[2019-03-04] MEDS: PATIENT'S HOME MEDICATION (Lubiprostone [Amitiza] 24 MCG) PO SCH ×2 (09:05→21:55)
[2019-03-04] MEDS: COREG TAB 12.5 MG PO SCH ×2 (09:05→21:37)
[2019-03-04] MEDS: CHRONULAC PO SCH (09:06)
[2019-03-04] MEDS: LASIX IVP SCH ×2 (09:06→21:39)
[2019-03-04] MEDS: MAXIPIME VIAL 2 GRAMS 2 G in NS 100 ML IV + SPIKE MINIBAG* 100 ML IV SCH ×2 (10:30→21:55)
[2019-03-04] MEDS: MUCOMYST 20% 200 MG/ML NEB SCH ×3 (12:24→20:29)
[2019-03-04] MEDS: NS 1000 ML 1,000 ML IV SCH ×2 (19:05→23:45)
[2019-03-04] MEDS: SNACK - Diabetic Appropriate PO SCH (21:35)
[2019-03-04] MEDS: ZANTAC PO SCH (21:46)
[2019-03-04] MEDS: AMBIEN PO PRN (21:53)
--- NOTE | 2019-03-04 22:22 | PCM.PROG ---
Progress Note - Progress Note for Day of Date of Exam: 03/03/19 - Subjective Subjective: WAS ADMITTED FOR TREATMENT OF PNEUMONIA AND CHF EXACERBATION. TODAY, SHE IS ALERT AND ORIENTED, LYING IN BED ON MORNING ROUNDS. SHE CONTINUES WITH COMPLAINTS OF COUGH AND SHORTNESS OF BREATH. ON EXAMINATION, HEART IS REGULAR IN RATE AND RHYTHM. BILATERAL LUNGS ARE NOTED WITH SCATTERED WHEEZING THROUGHOUT. ABDOMEN IS ROUND, SOFT, AND NON-TENDER WITH NORMAL BOWEL SOUNDS NOTED IN ALL QUADRANTS. NORMAL BOWEL SOUNDS ARE NOTED IN ALL QUADRANTS. HER VITALS THIS MORNING ARE: 98.3-86-20-92%-120/74. LABS WERE OBTAINED. ABNORMAL LAB VALUES INCLUDE THE FOLLOWING: WBC 10.1, CHLORIDE 96, CARBON DIOXIDE 34.1, BUN 6, GLUCOSE 109, ALBUMIN 2.9, GLOBULIN 5.2. BLOOD AND SPUTUM CULTURES ARE PENDING. A CHEST XRAY WAS OBTAINED AND REVEALED: Stable examination with cardiomegaly and pulmonary vasculature congestion with pulmonary edema. SHE IS CURRENTLY RECEIVING LEVAQUIN 500MG IV DAILY, RESPIRATORY TREATMENTS, SUPPLEMENTAL OXYGEN, AND LASIX 20MG IV BID. WE WILL CONTINUE WITH CURRENT PLAN OF CARE TODAY AND MORPHINE 1-2MG IV Q4H PRN. OTHERWISE, WE WILL FOLLOW UP WITH AM LABS AND CHEST XRAY AND CONTINUE TO MONITOR. - Past Medical Family Social History Past Med/Fam/Surg Hx: No changes since H&P Allergies: Allergies No Known Drug Allergies Allergy (Verified 02/02/18 11:23) - Review of Systems ROS: No change since H&P - Vital Signs and I&O's Vital Signs: Temperature 99.0 F Pulse Rate [Right Brachial] 88 Pulse Rate 91 Respiratory Rate 20 Blood Pressure [Left Arm] 94/55 Blood Pressure [Right Arm] 123/66 Blood Pressure 113/66 O2 Sat by Pulse Oximetry 89 Intake and Output: Intake & Output 03/02/19 03/03/19 03/04/19 03/05/19 11:59 11:59 11:59 11:59 Intake Total 780 / 780 1712 / 1712 1240 / 1240 960 / 960 Balance 780 / 780 1712 / 1712 1240 / 1240 960 / 960 - Physical Exam Oriented: Normal Eyes: Normal Ear: Normal Nose: Normal Throat: Normal Respiratory: Generalized, Wheezes Cardiovascular: Normal. negative: S3, S4, Murmur : Normal Auscultation: Bowel Sounds: Normal Tenderness: Normal Skin: Normal Musculoskeletal: Normal Psychiatric: Normal Mood Description: Calm Affect: Normal Speech Pattern: Clear - Laboratory and Diagnostics Result Diagrams: 03/04/19 04:42 03/04/19 04:42 Labs: 03/01/19 23:15 Sputum - Expectorated Sputum Sputum Culture - Final Morganella Morganii 03/01/19 23:15 Sputum - Expectorated Sputum - Final 03/01/19 16:13 Blood Blood Culture - Preliminary 03/01/19 16:11 Blood Blood Culture - Preliminary Laboratory WBC 8.2 X10^3/uL (3.6-10.0) 03/04/19 04:42 RBC 3.71 X10^6/uL (3.5-5.4) 03/04/19 04:42 Hgb 11.6 g/dL (12.0-16.0) L 03/04/19 04:42 Hct 34.8 % (36.0-47.0) L 03/04/19 04:42 MCV 93.7 fL (80.0-100.0) 03/04/19 04:42 MCH 31.2 pg (27.0-34.0) 03/04/19 04:42 MCHC 33.3 g/dL (33.0-35.0) 03/04/19 04:42 RDW 13.6 % (11.6-16.5) 03/04/19 04:42 Plt Count 275 X10^3/uL (150.0-450.0) 03/04/19 04:42 MPV 8.0 fL (7.4-11.0) 03/04/19 04:42 Neut % (Auto) 64.0 % (42.0-75.0) 03/04/19 04:42 Lymph % (Auto) 23.1 % (21.0-51.0) 03/04/19 04:42 [place] % (Auto) 9.7 % (0.0-13.0) 03/04/19 04:42 Eos % (Auto) 2.8 % (0.9-2.9) 03/04/19 04:42 Baso % (Auto) 0.4 % (0.2-1.0) 03/04/19 04:42 Neut # (Auto) 5.3 x10^3/uL (2.2-4.8) H 03/04/19 04:42 Lymph # (Auto) 1.9 X10^3/uL (1.3-2.9) 03/04/19 04:42 [place] # (Auto) 0.8 x10^3/uL (0.3-0.8) 03/04/19 04:42 Eos # (Auto) 0.2 x10^3/uL (0.0-0.2) 03/04/19 04:42 Baso # (Auto) 0.0 X10^3/uL (0.0-0.1) 03/04/19 04:42 Absolute Nucleated RBC 0.0 /100WBC 03/04/19 04:42 Sample Site Rrad 03/02/19 05:32 ABG pH 7.590 (7.35-7.45) H* 03/02/19 05:32 ABG pCO2 40.0 mmHg (35.0-45.0) 03/02/19 05:32 ABG pO2 73.0 mmHg (80.0-100.0) L 03/02/19 05:32 ABG HCO3 38.4 mmol/L (22-26) H* 03/02/19 05:32 ABG O2 Saturation 97.0 % (90-100) 03/02/19 05:32 ABG Base Excess 15.2 mmol/L (-2.0-2.0) H 03/02/19 05:32 Josemanuel Test Pos 03/02/19 05:32 A-a Gradient 105.0 mmHg 03/02/19 05:32 FiO2 32.0 03/02/19 05:32 Blood Gas Comments Gerald abg well-mtf 03/02/19 05:32 Sodium 138 mmol/L (136-145) 03/04/19 04:42 Corrected Sodium 139 mmol/L (136-145) 03/04/19 04:42 Potassium 3.4 mmol/L (3.5-5.1) L 03/04/19 04:42 Chloride 97 mmol/L (98-107) L 03/04/19 04:42 Carbon Dioxide 34.9 mmol/L (21-32) H 03/04/19 04:42 BUN 7 mg/dL (7-18) 03/04/19 04:42 Creatinine 0.86 mg/dL (0.55-1.02) 03/04/19 04:42 Est GFR (MDRD) Af Amer > 60 (>60) 03/04/19 04:42 Est GFR (MDRD) Non-Af > 60 (>60) 03/04/19 04:42 Glucose 133 mg/dL (65-99) H 03/04/19 04:42 Calcium 8.8 mg/dL (8.5-10.1) 03/04/19 04:42 Corrected Calcium 9.8 mg/dL (8.5-10.1) 03/04/19 04:42 Magnesium 1.5 mg/dL (1.7-2.9) L 03/04/19 04:42 Total Bilirubin 0.40 mg/dL (0.2-1.0) 03/04/19 04:42 AST 15 Units/L (15-37) 03/04/19 04:42 ALT 22 Units/L (12-78) 03/04/19 04:42 Alkaline Phosphatase 91 Units/L (46-116) 03/04/19 04:42 B-Natriuretic Peptide 64.7 pg/mL (0-79) 03/04/19 04:42 Total Protein 7.7 g/dL (6.4-8.2) 03/04/19 04:42 Albumin 2.8 g/dL (3.4-5.0) L 03/04/19 04:42 Globulin 4.9 g/dL (2.5-4.5) H 03/04/19 04:42 Albumin/Globulin Ratio 0.6 Ratio (1.1-2.1) L 03/04/19 04:42 - Plan (1) Acute exacerbation of CHF (congestive heart failure) Status: Acute Qualifiers: Heart failure type: unspecified Qualified Code(s): I50.9 - Heart failure, unspecified Plan: BIPAP, LASIX 20MG IV BID, RESPIRATORY TREATMENTS, CONTINUE TO MONITOR (2) Bronchopneumonia Status: Acute Plan: IV LEVAQUIN, RESPIRATORY [place], SUPPLEMENTAL OXYGEN, CONTINUE TO MONITOR (3) COPD (chronic obstructive pulmonary disease) Status: Chronic Qualifiers: COPD type: COPD with acute lower respiratory infection Qualified Code(s): J44.0 - Chronic obstructive pulmonary disease with acute lower respiratory infection
[2019-03-05] MEDS: DUONEB 0.5 MG/3 MG NEB SCH ×6 (01:00→20:23)
[2019-03-05 05:11] LABS: BASOPHILS % (AUTO) 0.6 % (0.2-1.0); EOSINOPHILS # (AUTO) 0.2 x10^3/uL (0.0-0.2); HEMATOCRIT 35.3 % (36.0-47.0); LYMPHOCYTES # (AUTO) 1.6 X10^3/uL (1.3-2.9); LYMPHOCYTES % (AUTO) 19.2 % (21.0-51.0); MEAN CORPUSCULAR HEMOGLOBIN 31.2 pg (27.0-34.0); MEAN CORPUSCULAR HGB CONC 33.9 g/dL (33.0-35.0); MEAN CORPUSCULAR VOLUME 92.1 fL (80.0-100.0); MEAN PLATELET VOLUME 7.6 fL (7.4-11.0); MONOCYTES # (AUTO) 0.8 x10^3/uL (0.3-0.8); MONOCYTES % (AUTO) 9.7 % (0.0-13.0); NEUTROPHILS # (AUTO) 5.6 x10^3/uL (2.2-4.8); NEUTROPHILS % (AUTO) 67.5 % (42.0-75.0); PLATELET COUNT 288 X10^3/uL (150.0-450.0); RED BLOOD COUNT 3.83 X10^6/uL (3.5-5.4); RED CELL DISTRIBUTION WIDTH 13.4 % (11.6-16.5); WHITE BLOOD COUNT 8.2 X10^3/uL (3.6-10.0)
[2019-03-05 05:24] LABS: ALANINE AMINOTRANSFERASE 17 Units/L (12-78); ALBUMIN 2.8 g/dL (3.4-5.0); ALKALINE PHOSPHATASE 89 Units/L (46-116); ASPARTATE AMINO TRANSFERASE 15 Units/L (15-37); BLOOD UREA NITROGEN 6 mg/dL (7-18); CALCIUM 8.9 mg/dL (8.5-10.1); CARBON DIOXIDE 35.7 mmol/L (21-32); CHLORIDE 99 mmol/L (98-107); COR CA(FOR HYPOALB) 9.9 mg/dL (8.5-10.1); CREATININE 0.71 mg/dL (0.55-1.02); SODIUM 141 mmol/L (136-145); eGFR NON BLACK RACES > 60 (>60)
[2019-03-05] MEDS: XANAX PO SCH ×3 (05:25→20:47)
[2019-03-05] MEDS: MAXIPIME VIAL 2 GRAMS 2 G in NS 100 ML IV + SPIKE MINIBAG* 100 ML IV SCH ×3 (05:25→20:47)
[2019-03-05] MEDS: NORCO 5/325 MG TAB PO SCH ×3 (05:27→20:47)
[2019-03-05] MEDS: VOLTAREN 1 % GEL MULTI DOSE TUBE TOP SCH ×3 (05:30→22:00)
[2019-03-05] MEDS: MAGNESIUM SULFATE 1 GRAM/100 mL PREMIX 1 GM/100 ML BAG IV PRN ×2 (07:06→11:44)
--- NOTE | 2019-03-05 08:06 | RAD ---
HISTORY: Shortness of breath Study: Single-view chest Comparison: 03/04/2019 Findings: The trachea is midline. The cardiac silhouette is accentuated by portable technique. The lungs are clear without focal infiltrate or effusion. The bony thorax is unremarkable. IMPRESSION: 1. No acute cardiopulmonary disease. Reported By:
[2019-03-05] MEDS ORDERED: ZOLOFT ONE (08:22)
[2019-03-05] MEDS ORDERED: GLUCOPHAGE ONE ×2 (08:22→20:26)
[2019-03-05] MEDS: PULMICORT NEB TX 0.5 MG NEB SCH ×2 (09:39→20:22)
[2019-03-05] MEDS: MUCOMYST 20% 200 MG/ML NEB SCH ×4 (09:39→20:23)
[2019-03-05] MEDS: CARDIZEM CD 240 MG PO SCH (09:41)
[2019-03-05] MEDS: ROBITUSSIN DM PO SCH ×4 (09:41→20:47)
[2019-03-05] MEDS: CHRONULAC PO SCH ×2 (09:41→09:58)
[2019-03-05] MEDS: VSL#3 PO SCH (09:42)
[2019-03-05] MEDS: PROTONIX TAB 40 MG PO SCH (09:42)
[2019-03-05] MEDS: ALDACTONE TAB 25 MG PO SCH (09:42)
[2019-03-05] MEDS: ZOLOFT PO SCH (09:43)
[2019-03-05] MEDS: FERROUS GLUCONATE PO SCH (09:43)
[2019-03-05] MEDS: COLACE CAP 100 MG PO SCH ×2 (09:43→20:47)
[2019-03-05] MEDS: ZINC SULFATE PO SCH (09:43)
[2019-03-05] MEDS: GLUCOPHAGE PO SCH ×2 (09:43→20:47)
[2019-03-05] MEDS: VITAMIN C PO SCH ×2 (09:43→20:47)
[2019-03-05] MEDS: K-DUR TAB 20 MEQ PO SCH ×2 (09:43→20:47)
[2019-03-05] MEDS: COREG TAB 12.5 MG PO SCH ×2 (09:44→20:47)
[2019-03-05] MEDS: LASIX IVP SCH ×2 (09:44→20:47)
[2019-03-05] MEDS: NEURONTIN CAP 100 MG PO SCH ×2 (09:44→20:47)
[2019-03-05] MEDS: LOVENOX INJ 40 MG SYR SC SCH (09:44)
[2019-03-05] MEDS: PATIENT'S HOME MEDICATION (Lubiprostone [Amitiza] 24 MCG) PO SCH ×2 (09:50→20:47)
[2019-03-05] MEDS: MORPHINE SULFATE INJ 2 MG INJ IVP PRN ×3 (09:55→21:50)
[2019-03-05] MEDS: NS 1000 ML 1,000 ML IV SCH (11:46)
--- NOTE | 2019-03-05 17:07 | PCM.PROG ---
Progress Note - Progress Note for Day of Date of Exam: 03/04/19 - Subjective Subjective: WAS ADMITTED FOR TREATMENT OF PNEUMONIA AND CHF EXACERBATION. TODAY, SHE IS ALERT AND ORIENTED, LYING IN BED ON MORNING ROUNDS. SHE CONTINUES WITH COMPLAINTS OF COUGH AND SHORTNESS OF BREATH. ON EXAMINATION, HEART IS REGULAR IN RATE AND RHYTHM. BILATERAL LUNGS ARE NOTED WITH SCATTERED WHEEZING THROUGHOUT. ABDOMEN IS ROUND, SOFT, AND NON-TENDER WITH NORMAL BOWEL SOUNDS NOTED IN ALL QUADRANTS. NORMAL BOWEL SOUNDS ARE NOTED IN ALL QUADRANTS. HER VITALS THIS MORNING ARE: 98.4-92-22-91%-106/69. LABS WERE OBTAINED. ABNORMAL LAB VALUES INCLUDE THE FOLLOWING: HGB 11.6, HCT 34.8, POTASSIUM 3.4, CHLORIDE 97, CARBON DIOXIDE 34.9, GLUCOSE 133, MAGNESIUM 1.5, ALUBMIN 2.8, GLOBULIN 4.9. 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 IT IS RESISTANT TO THE LEVAQUIN THAT SHE IS CURRENTLY RECEIVING. A CHEST XRAY WAS OBTAINED AND REVEALED: Stable examination. Cardiomegaly with CHF with mild persistent interstitial edema. SHE IS CURRENTLY RECEIVING LEVAQUIN 500MG IV DAILY, RESPIRATORY TREATMENTS, SUPPLEMENTAL OXYGEN, AND LASIX 20MG IV BID. WE WILL DISCONTINUE THE LEVAQUIN AND START CEFEPIME 2G IV Q8H AND ADD MUCOMYST TO NEB TX. OTHERWISE, WE WILL FOLLOW UP WITH AM LABS AND CHEST XRAY AND CONTINUE TO MONITOR. - Past Medical Family Social History Past Med/Fam/Surg Hx: No changes since H&P Allergies: Allergies No Known Drug Allergies Allergy (Verified 02/02/18 11:23) - Review of Systems ROS: No change since H&P - Vital Signs and I&O's Vital Signs: Temperature 98.3 F Pulse Rate [Right Brachial] 92 Pulse Rate 91 Respiratory Rate 24 Blood Pressure [Left Arm] 94/55 Blood Pressure [Right Arm] 114/72 Blood Pressure 113/66 O2 Sat by Pulse Oximetry 94 Intake and Output: Intake & Output 03/03/19 03/04/19 03/05/19 03/06/19 11:59 11:59 11:59 11:59 Intake Total 1712 / 1712 1240 / 1240 1720 / 1720 720 / 720 Balance 1712 / 1712 1240 / 1240 1720 / 1720 720 / 720 - Physical Exam Oriented: Normal Eyes: Normal Ear: Normal Nose: Normal Throat: Normal Respiratory: Generalized, Wheezes Cardiovascular: Normal. negative: S3, S4, Murmur : Normal Auscultation: Bowel Sounds: Normal Palpation: Normal Tenderness: Normal Skin: Normal Musculoskeletal: Normal Psychiatric: Normal Mood Description: Calm Affect: Normal Speech Pattern: Clear - Laboratory and Diagnostics Result Diagrams: 03/05/19 04:31 03/05/19 04:31 Labs: 03/01/19 23:15 Sputum - Expectorated Sputum Sputum Culture - Final Morganella Morganii 03/01/19 23:15 Sputum - Expectorated Sputum - Final 03/01/19 16:13 Blood Blood Culture - Preliminary 03/01/19 16:11 Blood Blood Culture - Preliminary Laboratory WBC 8.2 X10^3/uL (3.6-10.0) 03/05/19 04:31 RBC 3.83 X10^6/uL (3.5-5.4) 03/05/19 04:31 Hgb 12.0 g/dL (12.0-16.0) 03/05/19 04:31 Hct 35.3 % (36.0-47.0) L 03/05/19 04:31 MCV 92.1 fL (80.0-100.0) 03/05/19 04:31 MCH 31.2 pg (27.0-34.0) 03/05/19 04:31 MCHC 33.9 g/dL (33.0-35.0) 03/05/19 04:31 RDW 13.4 % (11.6-16.5) 03/05/19 04:31 Plt Count 288 X10^3/uL (150.0-450.0) 03/05/19 04:31 MPV 7.6 fL (7.4-11.0) 03/05/19 04:31 Neut % (Auto) 67.5 % (42.0-75.0) 03/05/19 04:31 Lymph % (Auto) 19.2 % (21.0-51.0) L 03/05/19 04:31 [place] % (Auto) 9.7 % (0.0-13.0) 03/05/19 04:31 Eos % (Auto) 3.0 % (0.9-2.9) H 03/05/19 04:31 Baso % (Auto) 0.6 % (0.2-1.0) 03/05/19 04:31 Neut # (Auto) 5.6 x10^3/uL (2.2-4.8) H 03/05/19 04:31 Lymph # (Auto) 1.6 X10^3/uL (1.3-2.9) 03/05/19 04:31 [place] # (Auto) 0.8 x10^3/uL (0.3-0.8) 03/05/19 04:31 Eos # (Auto) 0.2 x10^3/uL (0.0-0.2) 03/05/19 04:31 Baso # (Auto) 0.0 X10^3/uL (0.0-0.1) 03/05/19 04:31 Absolute Nucleated RBC 0.0 /100WBC 03/05/19 04:31 Sample Site Rrad 03/02/19 05:32 ABG pH 7.590 (7.35-7.45) H* 03/02/19 05:32 ABG pCO2 40.0 mmHg (35.0-45.0) 03/02/19 05:32 ABG pO2 73.0 mmHg (80.0-100.0) L 03/02/19 05:32 ABG HCO3 38.4 mmol/L (22-26) H* 03/02/19 05:32 ABG O2 Saturation 97.0 % (90-100) 03/02/19 05:32 ABG Base Excess 15.2 mmol/L (-2.0-2.0) H 03/02/19 05:32 Josemanuel Test Pos 03/02/19 05:32 A-a Gradient 105.0 mmHg 03/02/19 05:32 FiO2 32.0 03/02/19 05:32 Blood Gas Comments Gerald abg well-mtf 03/02/19 05:32 Sodium 141 mmol/L (136-145) 03/05/19 04:31 Corrected Sodium TNP 03/05/19 04:31 Potassium 3.6 mmol/L (3.5-5.1) 03/05/19 04:31 Chloride 99 mmol/L (98-107) 03/05/19 04:31 Carbon Dioxide 35.7 mmol/L (21-32) H 03/05/19 04:31 BUN 6 mg/dL (7-18) L 03/05/19 04:31 Creatinine 0.71 mg/dL (0.55-1.02) 03/05/19 04:31 Est GFR (MDRD) Af Amer > 60 (>60) 03/05/19 04:31 Est GFR (MDRD) Non-Af > 60 (>60) 03/05/19 04:31 Glucose 103 mg/dL (65-99) H 03/05/19 04:31 Calcium 8.9 mg/dL (8.5-10.1) 03/05/19 04:31 Corrected Calcium 9.9 mg/dL (8.5-10.1) 03/05/19 04:31 Magnesium 1.6 mg/dL (1.7-2.9) L 03/05/19 05:00 Total Bilirubin 0.40 mg/dL (0.2-1.0) 03/05/19 04:31 AST 15 Units/L (15-37) 03/05/19 04:31 ALT 17 Units/L (12-78) 03/05/19 04:31 Alkaline Phosphatase 89 Units/L (46-116) 03/05/19 04:31 B-Natriuretic Peptide 64.7 pg/mL (0-79) 03/04/19 04:42 Total Protein 8.0 g/dL (6.4-8.2) 03/05/19 04:31 Albumin 2.8 g/dL (3.4-5.0) L 03/05/19 04:31 Globulin 5.2 g/dL (2.5-4.5) H 03/05/19 04:31 Albumin/Globulin Ratio 0.5 Ratio (1.1-2.1) L 03/05/19 04:31 - Plan (1) Acute exacerbation of CHF (congestive heart failure) Status: Acute Qualifiers: Heart failure type: unspecified Qualified Code(s): I50.9 - Heart failure, unspecified Plan: BIPAP, LASIX 20MG IV BID, RESPIRATORY TREATMENTS, CONTINUE TO MONITOR (2) Bronchopneumonia Status: Acute Plan: CEFEPINE 2G IV Q8H, RESPIRATORY TX, SUPPLEMENTAL OXYGEN, CONTINUE TO MONITOR (3) COPD (chronic obstructive pulmonary disease) Status: Chronic Qualifiers: COPD type: COPD with acute lower respiratory infection Qualified Code(s): J44.0 - Chronic obstructive pulmonary disease with acute lower respiratory infection
[2019-03-05] MEDS: AMBIEN PO PRN (20:47)
[2019-03-05] MEDS: ZANTAC PO SCH (20:47)
[2019-03-05] MEDS: SNACK - Diabetic Appropriate PO SCH (21:56)
[2019-03-06] MEDS: DUONEB 0.5 MG/3 MG NEB SCH ×6 (00:23→19:59)
[2019-03-06] MEDS: XANAX PO SCH ×3 (05:08→21:03)
[2019-03-06] MEDS: MAXIPIME VIAL 2 GRAMS 2 G in NS 100 ML IV + SPIKE MINIBAG* 100 ML IV SCH ×3 (05:08→21:02)
[2019-03-06] MEDS: NORCO 5/325 MG TAB PO SCH ×3 (05:08→21:03)
[2019-03-06] MEDS: NS 1000 ML 1,000 ML IV SCH ×2 (05:28→13:53)
[2019-03-06 05:29] LABS: BASOPHILS # (AUTO) 0.1 X10^3/uL (0.0-0.1); BASOPHILS % (AUTO) 0.8 % (0.2-1.0); EOSINOPHILS # (AUTO) 0.2 x10^3/uL (0.0-0.2); HEMATOCRIT 36.9 % (36.0-47.0); HEMOGLOBIN 12.2 g/dL (12.0-16.0); LYMPHOCYTES # (AUTO) 1.6 X10^3/uL (1.3-2.9); LYMPHOCYTES % (AUTO) 19.4 % (21.0-51.0); MEAN CORPUSCULAR HGB CONC 33.1 g/dL (33.0-35.0); MEAN CORPUSCULAR VOLUME 93.6 fL (80.0-100.0); MEAN PLATELET VOLUME 7.9 fL (7.4-11.0); MONOCYTES # (AUTO) 0.8 x10^3/uL (0.3-0.8); NEUTROPHILS # (AUTO) 5.6 x10^3/uL (2.2-4.8); NEUTROPHILS % (AUTO) 66.8 % (42.0-75.0); PLATELET COUNT 295 X10^3/uL (150.0-450.0); RED BLOOD COUNT 3.94 X10^6/uL (3.5-5.4); RED CELL DISTRIBUTION WIDTH 13.5 % (11.6-16.5); WHITE BLOOD COUNT 8.4 X10^3/uL (3.6-10.0)
[2019-03-06] MEDS: VOLTAREN 1 % GEL MULTI DOSE TUBE TOP SCH ×3 (05:29→21:04)
[2019-03-06 05:45] LABS: ALANINE AMINOTRANSFERASE 15 Units/L (12-78); ALBUMIN 2.9 g/dL (3.4-5.0); ALKALINE PHOSPHATASE 92 Units/L (46-116); ASPARTATE AMINO TRANSFERASE 15 Units/L (15-37); BLOOD UREA NITROGEN 6 mg/dL (7-18); CALCIUM 8.9 mg/dL (8.5-10.1); CARBON DIOXIDE 34.8 mmol/L (21-32); CHLORIDE 99 mmol/L (98-107); COR CA(FOR HYPOALB) 9.8 mg/dL (8.5-10.1); CREATININE 0.73 mg/dL (0.55-1.02); SODIUM 140 mmol/L (136-145); TOTAL PROTEIN 7.9 g/dL (6.4-8.2); eGFR NON BLACK RACES > 60 (>60)
--- NOTE | 2019-03-06 06:20 | RAD ---
Examination: Portable AP chest History: SOB Comparison 03/05/2019 Findings: Continued cardiomegaly, accentuated by patient rotation and nonstandard projection. Diffuse bilateral interstitial prominence is again noted, consistent with chronic disease and or a more acute congestive process. There is no evidence for developing consolidation, pleural fluid or pneumothorax. Impression: Little significant radiographic change since prior studies. Reported By:
[2019-03-06] MEDS: PULMICORT NEB TX 0.5 MG NEB SCH ×2 (08:09→19:59)
[2019-03-06] MEDS: MUCOMYST 20% 200 MG/ML NEB SCH ×4 (08:10→19:59)
[2019-03-06] MEDS ORDERED: GLUCOPHAGE ONE ×2 (08:15→20:24)
[2019-03-06] MEDS ORDERED: ZOLOFT ONE (08:16)
[2019-03-06] MEDS: FERROUS GLUCONATE PO SCH (09:08)
[2019-03-06] MEDS: PROTONIX TAB 40 MG PO SCH (09:08)
[2019-03-06] MEDS: COLACE CAP 100 MG PO SCH ×2 (09:08→20:33)
[2019-03-06] MEDS: VSL#3 PO SCH (09:08)
[2019-03-06] MEDS: ZOLOFT PO SCH (09:09)
[2019-03-06] MEDS: VITAMIN C PO SCH ×2 (09:09→20:35)
[2019-03-06] MEDS: COREG TAB 12.5 MG PO SCH ×2 (09:09→20:33)
[2019-03-06] MEDS: CARDIZEM CD 240 MG PO SCH (09:09)
[2019-03-06] MEDS: ALDACTONE TAB 25 MG PO SCH (09:09)
[2019-03-06] MEDS: NEURONTIN CAP 100 MG PO SCH ×2 (09:09→20:33)
[2019-03-06] MEDS: ZINC SULFATE PO SCH (09:09)
[2019-03-06] MEDS: K-DUR TAB 20 MEQ PO SCH ×2 (09:09→20:35)
[2019-03-06] MEDS: ROBITUSSIN DM PO SCH ×4 (09:10→20:32)
[2019-03-06] MEDS: LASIX IVP SCH ×2 (09:10→20:32)
[2019-03-06] MEDS: LOVENOX INJ 40 MG SYR SC SCH (09:11)
[2019-03-06] MEDS: GLUCOPHAGE PO SCH ×2 (09:12→20:34)
[2019-03-06] MEDS: PATIENT'S HOME MEDICATION (Lubiprostone [Amitiza] 24 MCG) PO SCH ×2 (09:19→21:05)
[2019-03-06] MEDS: MORPHINE SULFATE INJ 2 MG INJ IVP PRN ×3 (09:30→22:11)
[2019-03-06] MEDS: CHRONULAC PO SCH (09:33)
[2019-03-06] MEDS: ZOFRAN TAB 4 MG PO PRN (12:30)
--- NOTE | 2019-03-06 20:27 | PCM.PROG ---
Progress Note - Progress Note for Day of Date of Exam: 03/05/19 - Subjective Subjective: WAS ADMITTED FOR TREATMENT OF PNEUMONIA AND CHF EXACERBATION. TODAY, SHE IS ALERT AND ORIENTED, LYING IN BED ON MORNING ROUNDS. SHE CONTINUES WITH COMPLAINTS OF COUGH AND SHORTNESS OF BREATH, BUT REPORTS SLIGHT IMPROVEMENT SINCE YESTERDAY. ON EXAMINATION, HEART IS REGULAR IN RATE AND RHYTHM. BILATERAL LUNGS ARE NOTED WITH SCATTERED WHEEZING THROUGHOUT. ABDOMEN IS ROUND, SOFT, AND NON-TENDER WITH NORMAL BOWEL SOUNDS NOTED IN ALL QUADRANTS. NORMAL BOWEL SOUNDS ARE NOTED IN ALL QUADRANTS. HER VITALS THIS MORNING ARE: 98.3-90-20-91%-119/66. LABS WERE OBTAINED. ABNORMAL LAB VALUES INCLUDE THE FOLLOWING: HCT 35.3, CARBON DIOXIDE 35.7, BUN 6, GLUCOSE 103, MAGNESIUM 1.6, ALUBMIN 2.8, GLOBULIN 5.2. 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 A CHEST XRAY WAS OBTAINED AND REVEALED: No acute cardiopulmonary disease. SHE IS CURRENTLY RECEIVING CEFEPIME 2G IV Q8H, RESPIRATORY TREATMENTS, SUPPLEMENTAL OXYGEN, MUCOMYST IN [place], AND LASIX 20MG IV BID. WE WILL DISCONTINUE THE LEVAQUIN AND START CEFEPIME 2G IV Q8H AND ADD MUCOMYST TO [place]. OTHERWISE, WE WILL FOLLOW UP WITH AM LABS AND CHEST XRAY AND CONTINUE TO MONITOR. - Past Medical Family Social History Past Med/Fam/Surg Hx: No changes since H&P Allergies: Allergies No Known Drug Allergies Allergy (Verified 02/02/18 11:23) - Review of Systems ROS: No change since H&P - Vital Signs and I&O's Vital Signs: Temperature 98.4 F Pulse Rate [Right Brachial] 80 Pulse Rate 81 Respiratory Rate 22 Blood Pressure [Left Arm] 94/55 Blood Pressure [Right Arm] 117/65 Blood Pressure 113/66 O2 Sat by Pulse Oximetry 94 Intake and Output: Intake & Output 03/04/19 03/05/19 03/06/19 03/07/19 11:59 11:59 11:59 11:59 Intake Total 1240 / 1240 1720 / 1720 1959 / 1959 1040 / 1040 Balance 1240 / 1240 1720 / 1720 1959 1040 / 1040 - Physical Exam Oriented: Normal Eyes: Normal Ear: Normal Nose: Normal Throat: Normal Respiratory: Generalized, Wheezes Cardiovascular: Normal. negative: S3, S4, Murmur : Normal Auscultation: Bowel Sounds: Normal Palpation: Normal Tenderness: Normal Skin: Normal Musculoskeletal: Normal Psychiatric: Normal Mood Description: Calm Affect: Normal Speech Pattern: Clear - Laboratory and Diagnostics Result Diagrams: 03/06/19 04:52 03/06/19 04:52 Labs: 03/01/19 23:15 Sputum - Expectorated Sputum Sputum Culture - Final Morganella Morganii 03/01/19 23:15 Sputum - Expectorated Sputum - Final 03/01/19 16:13 Blood Blood Culture - Preliminary 03/01/19 16:11 Blood Blood Culture - Preliminary Laboratory WBC 8.4 X10^3/uL (3.6-10.0) 03/06/19 04:52 RBC 3.94 X10^6/uL (3.5-5.4) 03/06/19 04:52 Hgb 12.2 g/dL (12.0-16.0) 03/06/19 04:52 Hct 36.9 % (36.0-47.0) 03/06/19 04:52 MCV 93.6 fL (80.0-100.0) 03/06/19 04:52 MCH 31.0 pg (27.0-34.0) 03/06/19 04:52 MCHC 33.1 g/dL (33.0-35.0) 03/06/19 04:52 RDW 13.5 % (11.6-16.5) 03/06/19 04:52 Plt Count 295 X10^3/uL (150.0-450.0) 03/06/19 04:52 MPV 7.9 fL (7.4-11.0) 03/06/19 04:52 Neut % (Auto) 66.8 % (42.0-75.0) 03/06/19 04:52 Lymph % (Auto) 19.4 % (21.0-51.0) L 03/06/19 04:52 [place] % (Auto) 10.0 % (0.0-13.0) 03/06/19 04:52 Eos % (Auto) 3.0 % (0.9-2.9) H 03/06/19 04:52 Baso % (Auto) 0.8 % (0.2-1.0) 03/06/19 04:52 Neut # (Auto) 5.6 x10^3/uL (2.2-4.8) H 03/06/19 04:52 Lymph # (Auto) 1.6 X10^3/uL (1.3-2.9) 03/06/19 04:52 [place] # (Auto) 0.8 x10^3/uL (0.3-0.8) 03/06/19 04:52 Eos # (Auto) 0.2 x10^3/uL (0.0-0.2) 03/06/19 04:52 Baso # (Auto) 0.1 X10^3/uL (0.0-0.1) 03/06/19 04:52 Absolute Nucleated RBC 0.0 /100WBC 03/06/19 04:52 Sample Site Rrad 03/02/19 05:32 ABG pH 7.590 (7.35-7.45) H* 03/02/19 05:32 ABG pCO2 40.0 mmHg (35.0-45.0) 03/02/19 05:32 ABG pO2 73.0 mmHg (80.0-100.0) L 03/02/19 05:32 ABG HCO3 38.4 mmol/L (22-26) H* 03/02/19 05:32 ABG O2 Saturation 97.0 % (90-100) 03/02/19 05:32 ABG Base Excess 15.2 mmol/L (-2.0-2.0) H 03/02/19 05:32 Josemanuel Test Pos 03/02/19 05:32 A-a Gradient 105.0 mmHg 03/02/19 05:32 FiO2 32.0 03/02/19 05:32 Blood Gas Comments Gerald abg well-mtf 03/02/19 05:32 Sodium 140 mmol/L (136-145) 03/06/19 04:52 Corrected Sodium TNP 03/06/19 04:52 Potassium 3.8 mmol/L (3.5-5.1) 03/06/19 04:52 Chloride 99 mmol/L (98-107) 03/06/19 04:52 Carbon Dioxide 34.8 mmol/L (21-32) H 03/06/19 04:52 BUN 6 mg/dL (7-18) L 03/06/19 04:52 Creatinine 0.73 mg/dL (0.55-1.02) 03/06/19 04:52 Est GFR (MDRD) Af Amer > 60 (>60) 03/06/19 04:52 Est GFR (MDRD) Non-Af > 60 (>60) 03/06/19 04:52 Glucose 94 mg/dL (65-99) 03/06/19 04:52 Calcium 8.9 mg/dL (8.5-10.1) 03/06/19 04:52 Corrected Calcium 9.8 mg/dL (8.5-10.1) 03/06/19 04:52 Magnesium 1.6 mg/dL (1.7-2.9) L 03/05/19 05:00 Total Bilirubin 0.40 mg/dL (0.2-1.0) 03/06/19 04:52 AST 15 Units/L (15-37) 03/06/19 04:52 ALT 15 Units/L (12-78) 03/06/19 04:52 Alkaline Phosphatase 92 Units/L (46-116) 03/06/19 04:52 B-Natriuretic Peptide 64.7 pg/mL (0-79) 03/04/19 04:42 Total Protein 7.9 g/dL (6.4-8.2) 03/06/19 04:52 Albumin 2.9 g/dL (3.4-5.0) L 03/06/19 04:52 Globulin 5.0 g/dL (2.5-4.5) H 03/06/19 04:52 Albumin/Globulin Ratio 0.6 Ratio (1.1-2.1) L 03/06/19 04:52 - Plan (1) Acute exacerbation of CHF (congestive heart failure) Status: Acute Qualifiers: Heart failure type: unspecified Qualified Code(s): I50.9 - Heart failure, unspecified Plan: BIPAP, LASIX 20MG IV BID, RESPIRATORY TREATMENTS, CONTINUE TO MONITOR (2) Bronchopneumonia Status: Acute Plan: CEFEPINE 2G IV Q8H, RESPIRATORY [place], SUPPLEMENTAL OXYGEN, CONTINUE TO MONITOR (3) COPD (chronic obstructive pulmonary disease) Status: Chronic Qualifiers: COPD type: COPD with acute lower respiratory infection Qualified Code(s): J44.0 - Chronic obstructive pulmonary disease with acute lower respiratory infection
[2019-03-06] MEDS: AMBIEN PO PRN (20:32)
[2019-03-06] MEDS: ZANTAC PO SCH (20:32)
[2019-03-06] MEDS: SNACK - Diabetic Appropriate PO SCH (20:41)
--- NOTE | 2019-03-06 22:32 | PCM.PROG ---
Progress Note - Progress Note for Day of Date of Exam: 03/06/19 - Subjective Subjective: WAS ADMITTED FOR TREATMENT OF PNEUMONIA AND CHF EXACERBATION. TODAY, SHE IS ALERT AND ORIENTED, LYING IN BED ON MORNING ROUNDS. SHE CONTINUES WITH COMPLAINTS OF COUGH AND SHORTNESS OF BREATH, BUT REPORTS SLIGHT IMPROVEMENT SINCE YESTERDAY. ON EXAMINATION, HEART IS REGULAR IN RATE AND RHYTHM. BILATERAL LUNGS ARE NOTED WITH SCATTERED WHEEZING THROUGHOUT. ABDOMEN IS ROUND, SOFT, AND NON-TENDER WITH NORMAL BOWEL SOUNDS NOTED IN ALL QUADRANTS. NORMAL BOWEL SOUNDS ARE NOTED IN ALL QUADRANTS. HER VITALS THIS MORNING ARE: 98.4-87-24-92%NC-115/56. LABS WERE OBTAINED. ABNORMAL LAB VALUES INCLUDE THE FOLLOWING: CARBON DIOXIDE 34.8, BUN 6, ALBUMIN 2.9, GLOBULIN 5.0. 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 A CHEST XRAY WAS OBTAINED AND REVEALED: Little significant radiographic change since prior studies. SHE IS CURRENTLY RECEIVING CEFEPIME 2G IV Q8H, RESPIRATORY TREATMENTS, SUPPLEMENTAL OXYGEN, MUCOMYST IN [facility], AND LASIX 20MG IV BID, AND IS UTILIZING THE BIPAP. WE WILL CONTINUE WITH CURRENT PLAN OF CARE TODAY. IF SHE REMAINS STABLE, WE WILL PLAN FOR DISCHARGE TOMORROW. OTHERWISE, WE WILL FOLLOW UP WITH AM LABS AND CHEST XRAY AND CONTINUE TO MONITOR. - Past Medical Family Social History Past Med/Fam/Surg Hx: No changes since H&P Allergies: Allergies No Known Drug Allergies Allergy (Verified 02/02/18 11:23) - Review of Systems ROS: No change since H&P - Vital Signs and I&O's Vital Signs: Temperature 98.2 F Pulse Rate [Right Brachial] 86 Pulse Rate 81 Respiratory Rate 20 Blood Pressure [Left Arm] 94/55 Blood Pressure [Right Arm] 121/63 Blood Pressure 113/66 O2 Sat by Pulse Oximetry 94 Intake and Output: Intake & Output 03/04/19 03/05/19 03/06/19 03/07/19 11:59 11:59 11:59 11:59 Intake Total 1240 / 1240 1720 / 1720 1959 1040 / 1040 Balance 1240 / 1240 1720 / 1720 1959 1040 / 1040 - Physical Exam Oriented: Normal Eyes: Normal Ear: Normal Nose: Normal Throat: Normal Respiratory: Generalized, Wheezes Cardiovascular: Normal. negative: S3, S4, Murmur : Normal Auscultation: Bowel Sounds: Normal Tenderness: Normal Skin: Normal Musculoskeletal: Normal Psychiatric: Normal Mood Description: Calm Affect: Normal Speech Pattern: Clear - Laboratory and Diagnostics Result Diagrams: 03/06/19 04:52 03/06/19 04:52 Labs: 03/01/19 23:15 Sputum - Expectorated Sputum Sputum Culture - Final Morganella Morganii 03/01/19 23:15 Sputum - Expectorated Sputum - Final 03/01/19 16:13 Blood Blood Culture - Preliminary 03/01/19 16:11 Blood Blood Culture - Preliminary Laboratory WBC 8.4 X10^3/uL (3.6-10.0) 03/06/19 04:52 RBC 3.94 X10^6/uL (3.5-5.4) 03/06/19 04:52 Hgb 12.2 g/dL (12.0-16.0) 03/06/19 04:52 Hct 36.9 % (36.0-47.0) 03/06/19 04:52 MCV 93.6 fL (80.0-100.0) 03/06/19 04:52 MCH 31.0 pg (27.0-34.0) 03/06/19 04:52 MCHC 33.1 g/dL (33.0-35.0) 03/06/19 04:52 RDW 13.5 % (11.6-16.5) 03/06/19 04:52 Plt Count 295 X10^3/uL (150.0-450.0) 03/06/19 04:52 MPV 7.9 fL (7.4-11.0) 03/06/19 04:52 Neut % (Auto) 66.8 % (42.0-75.0) 03/06/19 04:52 Lymph % (Auto) 19.4 % (21.0-51.0) L 03/06/19 04:52 [place] % (Auto) 10.0 % (0.0-13.0) 03/06/19 04:52 Eos % (Auto) 3.0 % (0.9-2.9) H 03/06/19 04:52 Baso % (Auto) 0.8 % (0.2-1.0) 03/06/19 04:52 Neut # (Auto) 5.6 x10^3/uL (2.2-4.8) H 03/06/19 04:52 Lymph # (Auto) 1.6 X10^3/uL (1.3-2.9) 03/06/19 04:52 [place] # (Auto) 0.8 x10^3/uL (0.3-0.8) 03/06/19 04:52 Eos # (Auto) 0.2 x10^3/uL (0.0-0.2) 03/06/19 04:52 Baso # (Auto) 0.1 X10^3/uL (0.0-0.1) 03/06/19 04:52 Absolute Nucleated RBC 0.0 /100WBC 03/06/19 04:52 Sample Site Rrad 03/02/19 05:32 ABG pH 7.590 (7.35-7.45) H* 03/02/19 05:32 ABG pCO2 40.0 mmHg (35.0-45.0) 03/02/19 05:32 ABG pO2 73.0 mmHg (80.0-100.0) L 03/02/19 05:32 ABG HCO3 38.4 mmol/L (22-26) H* 03/02/19 05:32 ABG O2 Saturation 97.0 % (90-100) 03/02/19 05:32 ABG Base Excess 15.2 mmol/L (-2.0-2.0) H 03/02/19 05:32 Josemanuel Test Pos 03/02/19 05:32 A-a Gradient 105.0 mmHg 03/02/19 05:32 FiO2 32.0 03/02/19 05:32 Blood Gas Comments Gerald abg well-mtf 03/02/19 05:32 Sodium 140 mmol/L (136-145) 03/06/19 04:52 Corrected Sodium TNP 03/06/19 04:52 Potassium 3.8 mmol/L (3.5-5.1) 03/06/19 04:52 Chloride 99 mmol/L (98-107) 03/06/19 04:52 Carbon Dioxide 34.8 mmol/L (21-32) H 03/06/19 04:52 BUN 6 mg/dL (7-18) L 03/06/19 04:52 Creatinine 0.73 mg/dL (0.55-1.02) 03/06/19 04:52 Est GFR (MDRD) Af Amer > 60 (>60) 03/06/19 04:52 Est GFR (MDRD) Non-Af > 60 (>60) 03/06/19 04:52 Glucose 94 mg/dL (65-99) 03/06/19 04:52 Calcium 8.9 mg/dL (8.5-10.1) 03/06/19 04:52 Corrected Calcium 9.8 mg/dL (8.5-10.1) 03/06/19 04:52 Magnesium 1.6 mg/dL (1.7-2.9) L 03/05/19 05:00 Total Bilirubin 0.40 mg/dL (0.2-1.0) 03/06/19 04:52 AST 15 Units/L (15-37) 03/06/19 04:52 ALT 15 Units/L (12-78) 03/06/19 04:52 Alkaline Phosphatase 92 Units/L (46-116) 03/06/19 04:52 B-Natriuretic Peptide 64.7 pg/mL (0-79) 03/04/19 04:42 Total Protein 7.9 g/dL (6.4-8.2) 03/06/19 04:52 Albumin 2.9 g/dL (3.4-5.0) L 03/06/19 04:52 Globulin 5.0 g/dL (2.5-4.5) H 03/06/19 04:52 Albumin/Globulin Ratio 0.6 Ratio (1.1-2.1) L 03/06/19 04:52 - Plan (1) Acute exacerbation of CHF (congestive heart failure) Status: Acute Qualifiers: Heart failure type: unspecified Qualified Code(s): I50.9 - Heart failure, unspecified Plan: BIPAP, LASIX 20MG IV BID, RESPIRATORY TREATMENTS, CONTINUE TO MONITOR (2) Bronchopneumonia Status: Acute Plan: CEFEPINE 2G IV Q8H, RESPIRATORY [place], SUPPLEMENTAL OXYGEN, CONTINUE TO MONITOR (3) COPD (chronic obstructive pulmonary disease) Status: Chronic Qualifiers: COPD type: COPD with acute lower respiratory infection Qualified Code(s): J44.0 - Chronic obstructive pulmonary disease with acute lower respiratory infection
[2019-03-07] MEDS: DUONEB 0.5 MG/3 MG NEB SCH ×6 (00:40→20:28)
[2019-03-07] MEDS: MORPHINE SULFATE INJ 2 MG INJ IVP PRN ×3 (02:35→23:53)
[2019-03-07] MEDS: MAXIPIME VIAL 2 GRAMS 2 G in NS 100 ML IV + SPIKE MINIBAG* 100 ML IV SCH ×3 (05:04→22:01)
[2019-03-07] MEDS: NS 1000 ML 1,000 ML IV SCH ×2 (05:04→22:12)
[2019-03-07] MEDS: VOLTAREN 1 % GEL MULTI DOSE TUBE TOP SCH ×3 (05:05→22:08)
[2019-03-07] MEDS: XANAX PO SCH ×3 (05:05→21:56)
[2019-03-07 05:08] LABS: ABG BASE EXCESS 12.7 mmol/L (-2.0-2.0)
--- NOTE | 2019-03-07 05:19 | RAD ---
Chest, 1 view Indication: Shortness of breath Comparison: 03/06/2019 Findings: Cardiac silhouette enlargement is unchanged. There is decreased depth of inspiration compared with the prior, with associated linear basilar atelectasis. Diffuse interstitial prominence is similar to prior. No dense infiltrates or pleural effusion. Impression: Low lung volumes with bibasilar atelectasis. Otherwise, no significant change from prior. Reported By:
[2019-03-07] MEDS: NORCO 5/325 MG TAB PO SCH ×3 (05:20→21:56)
[2019-03-07 05:26] LABS: BASOPHILS # (AUTO) 0.1 X10^3/uL (0.0-0.1); BASOPHILS % (AUTO) 0.7 % (0.2-1.0); EOSINOPHILS # (AUTO) 0.3 x10^3/uL (0.0-0.2); EOSINOPHILS % (AUTO) 3.7 % (0.9-2.9); HEMATOCRIT 34.9 % (36.0-47.0); HEMOGLOBIN 11.6 g/dL (12.0-16.0); LYMPHOCYTES # (AUTO) 1.8 X10^3/uL (1.3-2.9); LYMPHOCYTES % (AUTO) 20.7 % (21.0-51.0); MEAN CORPUSCULAR HEMOGLOBIN 31.1 pg (27.0-34.0); MEAN CORPUSCULAR HGB CONC 33.2 g/dL (33.0-35.0); MEAN CORPUSCULAR VOLUME 93.7 fL (80.0-100.0); MONOCYTES % (AUTO) 12.2 % (0.0-13.0); NEUTROPHILS # (AUTO) 5.4 x10^3/uL (2.2-4.8); NEUTROPHILS % (AUTO) 62.7 % (42.0-75.0); PLATELET COUNT 272 X10^3/uL (150.0-450.0); RED BLOOD COUNT 3.73 X10^6/uL (3.5-5.4); RED CELL DISTRIBUTION WIDTH 13.6 % (11.6-16.5); WHITE BLOOD COUNT 8.5 X10^3/uL (3.6-10.0)
[2019-03-07 05:42] LABS: ALANINE AMINOTRANSFERASE 13 Units/L (12-78); ALBUMIN 2.7 g/dL (3.4-5.0); ALKALINE PHOSPHATASE 86 Units/L (46-116); ASPARTATE AMINO TRANSFERASE 14 Units/L (15-37); BLOOD UREA NITROGEN 9 mg/dL (7-18); CALCIUM 8.9 mg/dL (8.5-10.1); CARBON DIOXIDE 33.9 mmol/L (21-32); CHLORIDE 99 mmol/L (98-107); COR CA(FOR HYPOALB) 9.9 mg/dL (8.5-10.1); CREATININE 0.72 mg/dL (0.55-1.02); SODIUM 140 mmol/L (136-145); TOTAL PROTEIN 7.5 g/dL (6.4-8.2); eGFR NON BLACK RACES > 60 (>60)
[2019-03-07 05:43] LABS: ABG HCO3 39.9 mmol/L (22-26)
[2019-03-07 05:45] LABS: ABG ALLEN TEST POS
[2019-03-07] MEDS: MAGNESIUM SULFATE 1 GRAM/100 mL PREMIX 1 GM/100 ML BAG IV PRN ×4 (06:09→12:44)
[2019-03-07] MEDS: MUCOMYST 20% 200 MG/ML NEB SCH (08:20)
[2019-03-07] MEDS: PULMICORT NEB TX 0.5 MG NEB SCH ×2 (08:20→20:28)
[2019-03-07] MEDS ORDERED: GLUCOPHAGE ONE ×2 (08:53→21:15)
[2019-03-07] MEDS ORDERED: ZOLOFT ONE (08:53)
[2019-03-07] MEDS: ROBITUSSIN DM PO SCH ×4 (09:19→22:02)
[2019-03-07] MEDS: ZINC SULFATE PO SCH (09:19)
[2019-03-07] MEDS: VSL#3 PO SCH (09:19)
[2019-03-07] MEDS: K-DUR TAB 20 MEQ PO SCH ×2 (09:19→21:58)
[2019-03-07] MEDS: LASIX IVP SCH ×2 (09:19→22:03)
[2019-03-07] MEDS: NEURONTIN CAP 100 MG PO SCH ×2 (09:20→21:59)
[2019-03-07] MEDS: VITAMIN C PO SCH ×2 (09:20→21:59)
[2019-03-07] MEDS: COREG TAB 12.5 MG PO SCH ×2 (09:20→21:59)
[2019-03-07] MEDS: ALDACTONE TAB 25 MG PO SCH (09:20)
[2019-03-07] MEDS: CARDIZEM CD 240 MG PO SCH (09:20)
[2019-03-07] MEDS: PROTONIX TAB 40 MG PO SCH (09:20)
[2019-03-07] MEDS: CHRONULAC PO SCH (09:21)
[2019-03-07] MEDS: GLUCOPHAGE PO SCH ×2 (09:22→22:00)
[2019-03-07] MEDS: ZOLOFT PO SCH (09:22)
[2019-03-07] MEDS: FERROUS GLUCONATE PO SCH (09:23)
[2019-03-07] MEDS: COLACE CAP 100 MG PO SCH ×2 (09:23→21:58)
[2019-03-07] MEDS: LOVENOX INJ 40 MG SYR SC SCH (09:23)
[2019-03-07] MEDS: PATIENT'S HOME MEDICATION (Lubiprostone [Amitiza] 24 MCG) PO SCH ×2 (09:30→22:08)
--- NOTE | 2019-03-07 21:03 | PCM.PROG ---
Progress Note - Progress Note for Day of Date of Exam: 03/07/19 - Subjective Subjective: WAS ADMITTED FOR TREATMENT OF PNEUMONIA AND CHF EXACERBATION. TODAY, SHE IS ALERT AND ORIENTED, LYING IN BED ON MORNING ROUNDS. SHE CONTINUES WITH COMPLAINTS OF PERSISTENT COUGH AND SHORTNESS OF BREATH. ON EXAMINATION, HEART IS REGULAR IN RATE AND RHYTHM. BILATERAL LUNGS ARE NOTED WITH SCATTERED WHEEZING THROUGHOUT. ABDOMEN IS ROUND, SOFT, AND NON-TENDER WITH NORMAL BOWEL SOUNDS NOTED IN ALL QUADRANTS. NORMAL BOWEL SOUNDS ARE NOTED IN ALL QUADRANTS. HER VITALS THIS MORNING ARE: 98.8-87-22-96%-133/67. LABS WERE OBTAINED. ABNORMAL LAB VALUES INCLUDE THE FOLLOWING: CARBON DIOXIDE 34.8, BUN 6, ALBUMIN 2.9, GLOBULIN 5.0. 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 A CHEST XRAY WAS OBTAINED AND REVEALED: Low lung volumes with bibasilar atelectasis. Otherwise, no significant change from prior. SHE IS CURRENTLY RECEIVING CEFEPIME 2G IV Q8H, RESPIRATORY TREATMENTS, SUPPLEMENTAL OXYGEN, MUCOMYST IN [facility], AND LASIX 20MG IV BID, AND IS UTILIZING THE BIPAP. WE WILL CONTINUE WITH CURRENT PLAN OF CARE TODAY. OTHERWISE, WE WILL FOLLOW UP WITH AM LABS AND CHEST XRAY AND CONTINUE TO MONITOR. - Past Medical Family Social History Past Med/Fam/Surg Hx: No changes since H&P Allergies: Allergies No Known Drug Allergies Allergy (Verified 02/02/18 11:23) - Review of Systems ROS: No change since H&P - Vital Signs and I&O's Vital Signs: Temperature 98.4 F Pulse Rate [Right Brachial] 78 Pulse Rate 83 Respiratory Rate 20 Blood Pressure [Left Arm] 94/55 Blood Pressure [Right Arm] 113/76 Blood Pressure 113/66 O2 Sat by Pulse Oximetry 93 Intake and Output: Intake & Output 03/05/19 03/06/19 03/07/19 03/08/19 11:59 11:59 11:59 11:59 Intake Total 1720 / 1720 1959 / 1959 2460 / 2460 490 / 490 Balance 1720 / 1720 1959 2460 / 2460 490 / 490 - Physical Exam Oriented: Normal Eyes: Normal Ear: Normal Nose: Normal Throat: Normal Respiratory: Generalized, Wheezes Cardiovascular: Normal. negative: S3, S4, Murmur : Normal Auscultation: Bowel Sounds: Normal Palpation: Normal Tenderness: Normal Skin: Normal Musculoskeletal: Normal Psychiatric: Normal Mood Description: Calm Affect: Normal Speech Pattern: Clear - Laboratory and Diagnostics Result Diagrams: 03/07/19 04:42 03/07/19 04:42 Labs: 03/01/19 16:13 Blood Blood Culture - Final 03/01/19 16:11 Blood Blood Culture - Final 03/01/19 23:15 Sputum - Expectorated Sputum Sputum Culture - Final Morganella Morganii 03/01/19 23:15 Sputum - Expectorated Sputum - Final Laboratory WBC 8.5 X10^3/uL (3.6-10.0) 03/07/19 04:42 RBC 3.73 X10^6/uL (3.5-5.4) 03/07/19 04:42 Hgb 11.6 g/dL (12.0-16.0) L 03/07/19 04:42 Hct 34.9 % (36.0-47.0) L 03/07/19 04:42 MCV 93.7 fL (80.0-100.0) 03/07/19 04:42 MCH 31.1 pg (27.0-34.0) 03/07/19 04:42 MCHC 33.2 g/dL (33.0-35.0) 03/07/19 04:42 RDW 13.6 % (11.6-16.5) 03/07/19 04:42 Plt Count 272 X10^3/uL (150.0-450.0) 03/07/19 04:42 MPV 8.0 fL (7.4-11.0) 03/07/19 04:42 Neut % (Auto) 62.7 % (42.0-75.0) 03/07/19 04:42 Lymph % (Auto) 20.7 % (21.0-51.0) L 03/07/19 04:42 [place] % (Auto) 12.2 % (0.0-13.0) 03/07/19 04:42 Eos % (Auto) 3.7 % (0.9-2.9) H 03/07/19 04:42 Baso % (Auto) 0.7 % (0.2-1.0) 03/07/19 04:42 Neut # (Auto) 5.4 x10^3/uL (2.2-4.8) H 03/07/19 04:42 Lymph # (Auto) 1.8 X10^3/uL (1.3-2.9) 03/07/19 04:42 [place] # (Auto) 1.0 x10^3/uL (0.3-0.8) H 03/07/19 04:42 Eos # (Auto) 0.3 x10^3/uL (0.0-0.2) H 03/07/19 04:42 Baso # (Auto) 0.1 X10^3/uL (0.0-0.1) 03/07/19 04:42 Absolute Nucleated RBC 0.2 /100WBC 03/07/19 04:42 Sample Site Rad 03/07/19 05:03 ABG pH 7.410 (7.35-7.45) 03/07/19 05:03 ABG pCO2 63.0 mmHg (35.0-45.0) H* 03/07/19 05:03 ABG pO2 58.0 mmHg (80.0-100.0) L 03/07/19 05:03 ABG HCO3 39.9 mmol/L (22-26) H* 03/07/19 05:03 ABG O2 Saturation 90.0 % (90-100) 03/07/19 05:03 ABG Base Excess 12.7 mmol/L (-2.0-2.0) H 03/07/19 05:03 Josemanuel Test Pos 03/07/19 05:03 A-a Gradient 91.0 mmHg 03/07/19 05:03 FiO2 32.0 03/07/19 05:03 Blood Gas Comments Gerald abg well-mtf 03/07/19 05:03 Sodium 140 mmol/L (136-145) 03/07/19 04:42 Corrected Sodium TNP 03/07/19 04:42 Potassium 3.7 mmol/L (3.5-5.1) 03/07/19 04:42 Chloride 99 mmol/L (98-107) 03/07/19 04:42 Carbon Dioxide 33.9 mmol/L (21-32) H 03/07/19 04:42 BUN 9 mg/dL (7-18) 03/07/19 04:42 Creatinine 0.72 mg/dL (0.55-1.02) 03/07/19 04:42 Est GFR (MDRD) Af Amer > 60 (>60) 03/07/19 04:42 Est GFR (MDRD) Non-Af > 60 (>60) 03/07/19 04:42 Glucose 91 mg/dL (65-99) 03/07/19 04:42 Calcium 8.9 mg/dL (8.5-10.1) 03/07/19 04:42 Corrected Calcium 9.9 mg/dL (8.5-10.1) 03/07/19 04:42 Magnesium 1.4 mg/dL (1.7-2.9) L 03/07/19 04:42 Total Bilirubin 0.40 mg/dL (0.2-1.0) 03/07/19 04:42 AST 14 Units/L (15-37) L 03/07/19 04:42 ALT 13 Units/L (12-78) 03/07/19 04:42 Alkaline Phosphatase 86 Units/L (46-116) 03/07/19 04:42 B-Natriuretic Peptide 64.7 pg/mL (0-79) 03/04/19 04:42 Total Protein 7.5 g/dL (6.4-8.2) 03/07/19 04:42 Albumin 2.7 g/dL (3.4-5.0) L 03/07/19 04:42 Globulin 4.8 g/dL (2.5-4.5) H 03/07/19 04:42 Albumin/Globulin Ratio 0.6 Ratio (1.1-2.1) L 03/07/19 04:42 - Plan (1) Acute exacerbation of CHF (congestive heart failure) Status: Acute Qualifiers: Heart failure type: unspecified Qualified Code(s): I50.9 - Heart failure, unspecified Plan: BIPAP, LASIX 20MG IV BID, RESPIRATORY TREATMENTS, CONTINUE TO MONITOR (2) Bronchopneumonia Status: Acute Plan: CEFEPINE 2G IV Q8H, RESPIRATORY [place], SUPPLEMENTAL OXYGEN, CONTINUE TO MONITOR (3) COPD (chronic obstructive pulmonary disease) Status: Chronic Qualifiers: COPD type: COPD with acute lower respiratory infection Qualified Code(s): J44.0 - Chronic obstructive pulmonary disease with acute lower respiratory infection
[2019-03-07] MEDS: ZANTAC PO SCH (21:55)
[2019-03-07] MEDS: AMBIEN PO PRN (21:58)
[2019-03-07] MEDS: SNACK - Diabetic Appropriate PO SCH (22:08)
[2019-03-08] MEDS: DUONEB 0.5 MG/3 MG NEB SCH ×6 (00:15→20:49)
[2019-03-08] MEDS: NS 1000 ML 1,000 ML IV SCH ×3 (03:57→22:03)
[2019-03-08] MEDS: MAXIPIME VIAL 2 GRAMS 2 G in NS 100 ML IV + SPIKE MINIBAG* 100 ML IV SCH ×3 (05:04→21:11)
[2019-03-08] MEDS: NORCO 5/325 MG TAB PO SCH ×3 (05:04→21:06)
[2019-03-08] MEDS: XANAX PO SCH (05:05)
[2019-03-08] MEDS: VOLTAREN 1 % GEL MULTI DOSE TUBE TOP SCH ×3 (05:05→21:12)
[2019-03-08 05:07] LABS: ABG BASE EXCESS 15.3 mmol/L (-2.0-2.0)
[2019-03-08 05:08] LABS: ABG ALLEN TEST POS; ABG HCO3 43.1 mmol/L (22-26)
[2019-03-08 05:42] LABS: ALANINE AMINOTRANSFERASE 12 Units/L (12-78); ALBUMIN 2.8 g/dL (3.4-5.0); ALKALINE PHOSPHATASE 92 Units/L (46-116); ASPARTATE AMINO TRANSFERASE 13 Units/L (15-37); BLOOD UREA NITROGEN 8 mg/dL (7-18); CARBON DIOXIDE 35.3 mmol/L (21-32); CHLORIDE 98 mmol/L (98-107); SODIUM 138 mmol/L (136-145); TOTAL PROTEIN 7.7 g/dL (6.4-8.2); eGFR NON BLACK RACES > 60 (>60)
--- NOTE | 2019-03-08 06:06 | RAD ---
HISTORY: Shortness of breath Study: Chest AP portable Comparison: 03/07/2019 Findings: Patient is rotated to the right. The heart is enlarged. No congestive heart failure is noted. The lungs are somewhat better inflated than on the prior examination. There is still a focus of subsegmental atelectasis in the right mid lung and some in the left lung base. No acute alveolar infiltrates or pleural effusions are identified. The bony thorax is unremarkable. IMPRESSION: Continued cardiomegaly without congestive heart failure Improving aeration in both lungs when compared with the prior examination Reported By:
[2019-03-08 06:08] LABS: BASOPHILS % (AUTO) 0.5 % (0.2-1.0); EOSINOPHILS # (AUTO) 0.3 x10^3/uL (0.0-0.2); EOSINOPHILS % (AUTO) 3.7 % (0.9-2.9); HEMATOCRIT 34.5 % (36.0-47.0); HEMOGLOBIN 11.5 g/dL (12.0-16.0); LYMPHOCYTES # (AUTO) 1.5 X10^3/uL (1.3-2.9); LYMPHOCYTES % (AUTO) 18.5 % (21.0-51.0); MEAN CORPUSCULAR HEMOGLOBIN 30.9 pg (27.0-34.0); MEAN CORPUSCULAR HGB CONC 33.5 g/dL (33.0-35.0); MEAN CORPUSCULAR VOLUME 92.2 fL (80.0-100.0); MEAN PLATELET VOLUME 7.5 fL (7.4-11.0); MONOCYTES # (AUTO) 0.8 x10^3/uL (0.3-0.8); MONOCYTES % (AUTO) 10.7 % (0.0-13.0); NEUTROPHILS # (AUTO) 5.3 x10^3/uL (2.2-4.8); NEUTROPHILS % (AUTO) 66.6 % (42.0-75.0); PLATELET COUNT 262 X10^3/uL (150.0-450.0); RED BLOOD COUNT 3.74 X10^6/uL (3.5-5.4); RED CELL DISTRIBUTION WIDTH 13.9 % (11.6-16.5); WHITE BLOOD COUNT 7.9 X10^3/uL (3.6-10.0)
[2019-03-08] MEDS ORDERED: GLUCOPHAGE ONE ×2 (08:05→20:41)
[2019-03-08] MEDS ORDERED: ZOLOFT ONE (08:05)
[2019-03-08] MEDS: MAGNESIUM SULFATE 1 GRAM/100 mL PREMIX 1 GM/100 ML BAG IV PRN ×2 (08:21→09:34)
[2019-03-08] MEDS: PROTONIX TAB 40 MG PO SCH (08:22)
[2019-03-08] MEDS: ROBITUSSIN DM PO SCH ×4 (08:23→21:10)
[2019-03-08] MEDS: COLACE CAP 100 MG PO SCH ×2 (08:23→21:08)
[2019-03-08] MEDS: NEURONTIN CAP 100 MG PO SCH ×2 (08:24→21:09)
[2019-03-08] MEDS: CHRONULAC PO SCH ×2 (08:24→08:36)
[2019-03-08] MEDS: K-DUR TAB 20 MEQ PO SCH ×2 (08:24→21:10)
[2019-03-08] MEDS: ALDACTONE TAB 25 MG PO SCH (08:24)
[2019-03-08] MEDS: VITAMIN C PO SCH ×2 (08:24→21:37)
[2019-03-08] MEDS: CARDIZEM CD 240 MG PO SCH (08:24)
[2019-03-08] MEDS: ZOLOFT PO SCH (08:25)
[2019-03-08] MEDS: VSL#3 PO SCH (08:25)
[2019-03-08] MEDS: FERROUS GLUCONATE PO SCH (08:25)
[2019-03-08] MEDS: COREG TAB 12.5 MG PO SCH ×2 (08:25→21:08)
[2019-03-08] MEDS: ZINC SULFATE PO SCH (08:25)
[2019-03-08] MEDS: LASIX IVP SCH ×2 (08:26→21:13)
[2019-03-08] MEDS: LOVENOX INJ 40 MG SYR SC SCH (08:27)
[2019-03-08] MEDS: GLUCOPHAGE PO SCH ×2 (08:27→21:11)
[2019-03-08] MEDS: PULMICORT NEB TX 0.5 MG NEB SCH ×2 (09:01→20:49)
[2019-03-08] MEDS: PATIENT'S HOME MEDICATION (Lubiprostone [Amitiza] 24 MCG) PO SCH ×2 (09:34→21:46)
[2019-03-08] MEDS ORDERED: KLONOPIN TAB 0.5 MG PO ONE (10:15)
[2019-03-08] MEDS: ADVIL TAB 200 MG PO PRN (12:11)
[2019-03-08] MEDS: ZOFRAN TAB 4 MG PO PRN (12:12)
[2019-03-08] MEDS: MORPHINE SULFATE INJ 2 MG INJ IVP PRN ×2 (17:36→22:38)
[2019-03-08] MEDS ORDERED: KLONOPIN TAB 0.5 MG PO SCH (21:00)
[2019-03-08] MEDS: ZANTAC PO SCH (21:09)
[2019-03-08] MEDS: AMBIEN PO PRN (21:14)
[2019-03-08] MEDS: SNACK - Diabetic Appropriate PO SCH (21:37)
[2019-03-09] MEDS: DUONEB 0.5 MG/3 MG NEB SCH ×4 (00:45→12:05)
[2019-03-09] MEDS: MORPHINE SULFATE INJ 2 MG INJ IVP PRN ×2 (03:52→10:44)
[2019-03-09] MEDS: MAXIPIME VIAL 2 GRAMS 2 G in NS 100 ML IV + SPIKE MINIBAG* 100 ML IV SCH ×2 (05:33→13:01)
[2019-03-09] MEDS: NORCO 5/325 MG TAB PO SCH ×2 (05:34→13:01)
[2019-03-09] MEDS: VOLTAREN 1 % GEL MULTI DOSE TUBE TOP SCH ×2 (05:34→13:00)
[2019-03-09 05:48] LABS: BASOPHILS % (AUTO) 0.7 % (0.2-1.0); EOSINOPHILS # (AUTO) 0.3 x10^3/uL (0.0-0.2); EOSINOPHILS % (AUTO) 4.5 % (0.9-2.9); HEMATOCRIT 34.4 % (36.0-47.0); HEMOGLOBIN 11.3 g/dL (12.0-16.0); LYMPHOCYTES # (AUTO) 1.6 X10^3/uL (1.3-2.9); LYMPHOCYTES % (AUTO) 23.9 % (21.0-51.0); MEAN CORPUSCULAR HEMOGLOBIN 30.8 pg (27.0-34.0); MEAN CORPUSCULAR VOLUME 93.4 fL (80.0-100.0); MEAN PLATELET VOLUME 7.9 fL (7.4-11.0); MONOCYTES # (AUTO) 0.7 x10^3/uL (0.3-0.8); MONOCYTES % (AUTO) 11.5 % (0.0-13.0); NEUTROPHILS # (AUTO) 3.9 x10^3/uL (2.2-4.8); NEUTROPHILS % (AUTO) 59.4 % (42.0-75.0); PLATELET COUNT 252 X10^3/uL (150.0-450.0); RED BLOOD COUNT 3.68 X10^6/uL (3.5-5.4); RED CELL DISTRIBUTION WIDTH 13.5 % (11.6-16.5); WHITE BLOOD COUNT 6.5 X10^3/uL (3.6-10.0)
[2019-03-09 06:06] LABS: ALANINE AMINOTRANSFERASE 10 Units/L (12-78); ALBUMIN 2.7 g/dL (3.4-5.0); ALKALINE PHOSPHATASE 87 Units/L (46-116); ASPARTATE AMINO TRANSFERASE 13 Units/L (15-37); BLOOD UREA NITROGEN 9 mg/dL (7-18); CALCIUM 8.9 mg/dL (8.5-10.1); CHLORIDE 98 mmol/L (98-107); COR CA(FOR HYPOALB) 9.9 mg/dL (8.5-10.1); CREATININE 0.68 mg/dL (0.55-1.02); SODIUM 139 mmol/L (136-145); TOTAL PROTEIN 7.8 g/dL (6.4-8.2); eGFR NON BLACK RACES > 60 (>60)
--- NOTE | 2019-03-09 06:39 | RAD ---
HISTORY: Shortness of breath Study: Chest AP portable Comparison: 03/08/2019 Findings: The heart remains enlarged. No definite congestive heart failure is noted. The lungs are free of acute alveolar infiltrates. No pleural effusions are identified. The bony thorax is unremarkable. IMPRESSION: Continued cardiomegaly without congestive heart failure Lungs clear Reported By:
[2019-03-09] MEDS ORDERED: GLUCOPHAGE ONE (08:44)
[2019-03-09] MEDS ORDERED: ZOLOFT ONE (08:44)
[2019-03-09] MEDS: PULMICORT NEB TX 0.5 MG NEB SCH (08:55)
[2019-03-09] MEDS: CARDIZEM CD 240 MG PO SCH (10:29)
[2019-03-09] MEDS: VSL#3 PO SCH (10:29)
[2019-03-09] MEDS: ROBITUSSIN DM PO SCH ×2 (10:30→13:01)
[2019-03-09] MEDS: K-DUR TAB 20 MEQ PO SCH (10:30)
[2019-03-09] MEDS: NEURONTIN CAP 100 MG PO SCH (10:30)
[2019-03-09] MEDS: COREG TAB 12.5 MG PO SCH (10:31)
[2019-03-09] MEDS: ALDACTONE TAB 25 MG PO SCH (10:31)
[2019-03-09] MEDS: VITAMIN C PO SCH (10:31)
[2019-03-09] MEDS: PROTONIX TAB 40 MG PO SCH (10:31)
[2019-03-09] MEDS: ZINC SULFATE PO SCH (10:31)
[2019-03-09] MEDS: COLACE CAP 100 MG PO SCH (10:31)
[2019-03-09] MEDS: FERROUS GLUCONATE PO SCH (10:31)
[2019-03-09] MEDS: ZOLOFT PO SCH (10:31)
[2019-03-09] MEDS: GLUCOPHAGE PO SCH (10:32)
[2019-03-09] MEDS: LASIX IVP SCH (10:32)
[2019-03-09] MEDS: CHRONULAC PO SCH (10:33)
[2019-03-09] MEDS: LOVENOX INJ 40 MG SYR SC SCH (10:33)
[2019-03-09] MEDS: PATIENT'S HOME MEDICATION (Lubiprostone [Amitiza] 24 MCG) PO SCH (10:46)
[2019-03-09 14:09] VITALS: BP 105/57
--- NOTE | 2019-03-09 21:28 | PCM.PROG ---
Progress Note - Progress Note for Day of Date of Exam: 03/08/19 - Subjective Subjective: WAS ADMITTED FOR TREATMENT OF PNEUMONIA AND CHF EXACERBATION. TODAY, SHE IS ALERT AND ORIENTED, LYING IN BED ON MORNING ROUNDS. SHE CONTINUES WITH COMPLAINTS OF PERSISTENT COUGH AND SHORTNESS OF BREATH. STAFF REPORTS THAT SHE HAS BEEN REFUSING THE BIPAP. ON EXAMINATION, HEART IS REGULAR IN RATE AND RHYTHM. BILATERAL LUNGS ARE NOTED WITH SCATTERED WHEEZING THROUGHOUT. ABDOMEN IS ROUND, SOFT, AND NON-TENDER WITH NORMAL BOWEL SOUNDS NOTED IN ALL QUADRANTS. NORMAL BOWEL SOUNDS ARE NOTED IN ALL QUADRANTS. HER VITALS THIS MORNING ARE: 98.1-97-22-86%NC-115/60. LABS WERE OBTAINED. ABNORMAL LAB VALUES INCLUDE THE FOLLOWING: HGB 11.5, HCT 34.5, CARBON DIOXIDE 35.3, GLUCOSE 100, AST 13, ALBUMIN 2.8. 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 A CHEST XRAY WAS OBTAINED AND REVEALED: Continued cardiomegaly without congestive heart failure. Improving aeration in both lungs when compared with the prior examination. SHE IS CURRENTLY RECEIVING CEFEPIME 2G IV Q8H, RESPIRATORY TREATMENTS, SUPPLEMENTAL OXYGEN, MUCOMYST IN [facility], AND LASIX 20MG IV BID, AND IS UTILIZING THE BIPAP. WE WILL CONTINUE WITH CURRENT PLAN OF CARE TODAY, BUT CHANGE XANAX TO KLONOPIN 0.5MG PO BID. OTHERWISE, WE WILL FOLLOW UP WITH AM LABS AND CHEST XRAY AND CONTINUE TO MONITOR. - Past Medical Family Social History Past Med/Fam/Surg Hx: No changes since H&P Allergies: Allergies No Known Drug Allergies Allergy (Verified 02/02/18 11:23) - Review of Systems ROS: No change since H&P - Vital Signs and I&O's Vital Signs: Temperature 97.8 F Pulse Rate [Right Brachial] 86 Pulse Rate 96 Respiratory Rate 20 Blood Pressure [Left Arm] 117/62 Blood Pressure [Right Arm] 105/57 Blood Pressure 113/66 O2 Sat by Pulse Oximetry 92 Intake and Output: Intake & Output 03/07/19 03/08/19 03/09/19 03/10/19 11:59 11:59 11:59 11:59 Intake Total 2460 / 2460 950 / 950 1360 / 1360 Balance 2460 / 2460 950 / 950 1360 / 1360 - Physical Exam Oriented: Normal Eyes: Normal Ear: Normal Nose: Normal Throat: Normal Respiratory: Generalized, Wheezes Cardiovascular: Normal. negative: S3, S4, Murmur : Normal Auscultation: Bowel Sounds: Normal Tenderness: Normal Skin: Normal Musculoskeletal: Normal Psychiatric: Normal Mood Description: Calm Affect: Normal Speech Pattern: Clear - Laboratory and Diagnostics Result Diagrams: 03/09/19 05:01 03/09/19 05:01 Labs: 03/01/19 16:13 Blood Blood Culture - Final 03/01/19 16:11 Blood Blood Culture - Final 03/01/19 23:15 Sputum - Expectorated Sputum Sputum Culture - Final Morganella Morganii 03/01/19 23:15 Sputum - Expectorated Sputum - Final Laboratory WBC 6.5 X10^3/uL (3.6-10.0) 03/09/19 05:01 RBC 3.68 X10^6/uL (3.5-5.4) 03/09/19 05:01 Hgb 11.3 g/dL (12.0-16.0) L 03/09/19 05:01 Hct 34.4 % (36.0-47.0) L 03/09/19 05:01 MCV 93.4 fL (80.0-100.0) 03/09/19 05:01 MCH 30.8 pg (27.0-34.0) 03/09/19 05:01 MCHC 33.0 g/dL (33.0-35.0) 03/09/19 05:01 RDW 13.5 % (11.6-16.5) 03/09/19 05:01 Plt Count 252 X10^3/uL (150.0-450.0) 03/09/19 05:01 MPV 7.9 fL (7.4-11.0) 03/09/19 05:01 Neut % (Auto) 59.4 % (42.0-75.0) 03/09/19 05:01 Lymph % (Auto) 23.9 % (21.0-51.0) 03/09/19 05:01 [place] % (Auto) 11.5 % (0.0-13.0) 03/09/19 05:01 Eos % (Auto) 4.5 % (0.9-2.9) H 03/09/19 05:01 Baso % (Auto) 0.7 % (0.2-1.0) 03/09/19 05:01 Neut # (Auto) 3.9 x10^3/uL (2.2-4.8) 03/09/19 05:01 Lymph # (Auto) 1.6 X10^3/uL (1.3-2.9) 03/09/19 05:01 [place] # (Auto) 0.7 x10^3/uL (0.3-0.8) 03/09/19 05:01 Eos # (Auto) 0.3 x10^3/uL (0.0-0.2) H 03/09/19 05:01 Baso # (Auto) 0.0 X10^3/uL (0.0-0.1) 03/09/19 05:01 Absolute Nucleated RBC 0.1 /100WBC 03/09/19 05:01 Sample Site Lr 03/08/19 04:52 ABG pH 7.410 (7.35-7.45) 03/08/19 04:52 ABG pCO2 68.0 mmHg (35.0-45.0) H* 03/08/19 04:52 ABG pO2 58.0 mmHg (80.0-100.0) L 03/08/19 04:52 ABG HCO3 43.1 mmol/L (22-26) H* 03/08/19 04:52 ABG O2 Saturation 90.0 % (90-100) 03/08/19 04:52 ABG Base Excess 15.3 mmol/L (-2.0-2.0) H 03/08/19 04:52 Josemanuel Test Pos 03/08/19 04:52 A-a Gradient 85.0 mmHg 03/08/19 04:52 FiO2 32.0 03/08/19 04:52 Blood Gas Comments Gerald well ae 03/08/19 04:52 Sodium 139 mmol/L (136-145) 03/09/19 05:01 Corrected Sodium TNP 03/09/19 05:01 Potassium 3.7 mmol/L (3.5-5.1) 03/09/19 05:01 Chloride 98 mmol/L (98-107) 03/09/19 05:01 Carbon Dioxide 35.0 mmol/L (21-32) H 03/09/19 05:01 BUN 9 mg/dL (7-18) 03/09/19 05:01 Creatinine 0.68 mg/dL (0.55-1.02) 03/09/19 05:01 Est GFR (MDRD) Af Amer > 60 (>60) 03/09/19 05:01 Est GFR (MDRD) Non-Af > 60 (>60) 03/09/19 05:01 Glucose 86 mg/dL (65-99) 03/09/19 05:01 POC Glucose (mg/dL) 110 mg/dL (65-99) H 03/09/19 12:30 Calcium 8.9 mg/dL (8.5-10.1) 03/09/19 05:01 Corrected Calcium 9.9 mg/dL (8.5-10.1) 03/09/19 05:01 Magnesium 1.8 mg/dL (1.7-2.9) 03/08/19 05:07 Total Bilirubin 0.30 mg/dL (0.2-1.0) 03/09/19 05:01 AST 13 Units/L (15-37) L 03/09/19 05:01 ALT 10 Units/L (12-78) L 03/09/19 05:01 Alkaline Phosphatase 87 Units/L (46-116) 03/09/19 05:01 B-Natriuretic Peptide 64.7 pg/mL (0-79) 03/04/19 04:42 Total Protein 7.8 g/dL (6.4-8.2) 03/09/19 05:01 Albumin 2.7 g/dL (3.4-5.0) L 03/09/19 05:01 Globulin 5.1 g/dL (2.5-4.5) H 03/09/19 05:01 Albumin/Globulin Ratio 0.5 Ratio (1.1-2.1) L 03/09/19 05:01 - Plan (1) Acute exacerbation of CHF (congestive heart failure) Status: Acute Qualifiers: Heart failure type: unspecified Qualified Code(s): I50.9 - Heart failure, unspecified Plan: BIPAP, LASIX 20MG IV BID, RESPIRATORY TREATMENTS, CONTINUE TO MONITOR (2) Bronchopneumonia Status: Acute Plan: CEFEPINE 2G IV Q8H, RESPIRATORY TX, SUPPLEMENTAL OXYGEN, CONTINUE TO MONITOR (3) COPD (chronic obstructive pulmonary disease) Status: Chronic Qualifiers: COPD type: COPD with acute lower respiratory infection Qualified Code(s): J44.0 - Chronic obstructive pulmonary disease with acute lower respiratory infection
== END 2019-03-09 14:20 | DRG 178 ==
LOC: MED/SURG
PROVIDERS: ADMIT Internal Medicine; ATTEND Internal Medicine
DX: J44.0 Chronic obstructive pulmonary disease with (acute) lower respiratory infection; I50.9 Heart failure, unspecified; E11.65 Type 2 diabetes mellitus with hyperglycemia; B96.4 Proteus (mirabilis) (morganii) as the cause of diseases classified elsewhere; J15.6 Pneumonia due to other Gram-negative bacteria; R06.02 Shortness of breath; J44.1 Chronic obstructive pulmonary disease with (acute) exacerbation; I51.7 Cardiomegaly
CPT/HCPCS: 36415; 36600; 71010; 71020; 71045; 71046; 80053; 82803; 83735; 83880; 85025; 87040; 87070; 87077; 87186; 87205; 94640; 94660; 94760; 96365; 96374; 96375; A4216; A4222; A4618; A7030; G0378; J0692; J1335; J1650; J1940; J1956; J2270; J3475; J7030; J7050; J7608; J7620; J7626; S0119; S0181

== ENCOUNTER 2021-01-15 14:42 | Inpatient (IN) ==
--- NOTE | 2021-01-15 15:02 | DR.CP ---
HPI Time Seen Time Seen by Provider: 01/15/21 15:02 PCP Primary Care Physician: Chaim Complaint Chief Complaint:: Pt c/o abd pain x 1 week. She was seen by GI for this today. She states she has had chest pain x 3 days that worsened today. She also states she has had a fast heart rate for 4 days. COVID-19 Coronavirus risk:travel/contact w/high risk person: No Has patient experienced Coronavirus symptoms: No Source History Provided: Patient Mode of Arrival Mode of Arrival: Wheelchair Timing Onset of Chief Complaint: 01/12/21 PMH PMH Past Medical History: Yes Past Medical History: Anemia, Angina, Anxiety, Arthritis, Asthma, COPD, Diabetes and Sleep Apnea Past Surgical History: Yes Surgical History: Appendectomy and Cholecystectomy Family History History of Family Medical Conditions: Yes Family Medical History: Diabetes Mellitus, Cancer, ID, Coronary Artery Disease, Heart Failure, Sudden Cardiac and Hypertension Social History Does patient currently use any type of tobacco product: No Have you used tobacco products in the last 12 months: No Type of Tobacco Use: None Does any household member use tobacco: No Alcohol Use: None Do you use any recreational Drugs:: No Travel Risk Coronavirus risk:travel/contact w/high risk person: No Has patient experienced Coronavirus symptoms: No Infectious screening In the last 2 months have you had wt loss of >10#?: NO Have you had fever, night sweats or hemotysis?: No Have you traveled outside the country in the last 6 months?: No Isolation: Standard PE Vitals Vitals: Temperature 98.9 F Pulse Rate 137 Respiratory Rate 24 Blood Pressure [Left Arm] 122/72 Blood Pressure 113/67 O2 Sat by Pulse Oximetry 98 ROR Labs Reviewed Result Diagrams: 01/15/21 15:20 01/15/21 15:20 Laboratory: WBC 9.5 X10^3/uL (3.6-10.0) 01/15/21 15:20 RBC 4.04 X10^6/uL (3.5-5.4) 01/15/21 15:20 Hgb 12.2 g/dL (12.0-16.0) 01/15/21 15:20 Hct 37.1 % (36.0-47.0) 01/15/21 15:20 MCV 91.8 fL (80.0-100.0) 01/15/21 15:20 MCH 30.2 pg (27.0-34.0) 01/15/21 15:20 MCHC 32.9 g/dL (33.0-35.0) L 01/15/21 15:20 RDW 15.5 % (11.6-16.5) 01/15/21 15:20 Plt Count 222 X10^3/uL (150.0-450.0) 01/15/21 15:20 MPV 8.4 fL (7.4-11.0) 01/15/21 15:20 Neut % (Auto) 85.3 % (42.0-75.0) H 01/15/21 15:20 Lymph % (Auto) 8.1 % (21.0-51.0) L 01/15/21 15:20 [place] % (Auto) 5.5 % (0.0-13.0) 01/15/21 15:20 Eos % (Auto) 0.3 % (0.9-2.9) L 01/15/21 15:20 Baso % (Auto) 0.8 % (0.2-1.0) 01/15/21 15:20 Neut # (Auto) 8.1 x10^3/uL (2.2-4.8) H 01/15/21 15:20 Lymph # (Auto) 0.8 X10^3/uL (1.3-2.9) L 01/15/21 15:20 [place] # (Auto) 0.5 x10^3/uL (0.3-0.8) 01/15/21 15:20 Eos # (Auto) 0.0 x10^3/uL (0.0-0.2) 01/15/21 15:20 Baso # (Auto) 0.1 X10^3/uL (0.0-0.1) 01/15/21 15:20 Absolute Nucleated RBC 0.0 /100WBC 01/15/21 15:20 Sodium 138 mmol/L (136-145) 01/15/21 15:20 Corrected Sodium 142 mmol/L (136-145) 01/15/21 15:20 Potassium 4.3 mmol/L (3.5-5.1) 01/15/21 15:20 Chloride 98 mmol/L (98-107) 01/15/21 15:20 Carbon Dioxide 34.4 mmol/L (21-32) H 01/15/21 15:20 BUN 3 mg/dL (7-18) L 01/15/21 15:20 Creatinine 0.99 mg/dL (0.55-1.02) 01/15/21 15:20 Est GFR (MDRD) Af Amer > 60 (>60) 01/15/21 15:20 Est GFR (MDRD) Non-Af > 60 (>60) 01/15/21 15:20 Glucose 282 mg/dL (65-99) H 01/15/21 15:20 Calcium 8.5 mg/dL (8.5-10.1) 01/15/21 15:20 Corrected Calcium 9.5 mg/dL (8.5-10.1) 01/15/21 15:20 Total Bilirubin 2.80 mg/dL (0.2-1.0) H 01/15/21 15:20 AST 100 Units/L (15-37) H 01/15/21 15:20 ALT 138 Units/L (12-78) H 01/15/21 15:20 Alkaline Phosphatase 303 Units/L (46-116) H 01/15/21 15:20 Creatine Kinase 15 Units/L (26-192) L 01/15/21 15:20 CK-MB (CK-2) < 1.0 ng/mL (0-4.0) 01/15/21 15:20 CK/CKMB % Calc 6.7 % (<4) 01/15/21 15:20 Troponin I < 0.02 ng/mL (0-1.5) 01/15/21 15:20 B-Natriuretic Peptide 308 pg/mL (0-79) H 01/15/21 15:20 Total Protein 6.8 g/dL (6.4-8.2) 01/15/21 15:20 Albumin 2.7 g/dL (3.4-5.0) L 01/15/21 15:20 Globulin 4.1 g/dL (2.5-4.5) 01/15/21 15:20 Albumin/Globulin Ratio 0.7 Ratio (1.1-2.1) L 01/15/21 15:20 Amylase 11 Units/L (25-115) L 01/15/21 15:20 Lipase 149 Units/L (73-393) 01/15/21 15:20 Opioid Opioid Risk Tool Age (Mando box if 16-45): No History of Preadolescent Sexual Abuse: No Total: 0 Total Score Risk Category: Low Risk Copyright: Mcguire predicting aberrant behaviors Diagnosis Discharge Problem: Chest pain, Tachycardia, Abdominal pain, Pancreatic mass, CHF (congestive heart failure) Instructions Forms: Precautions for COVID19 Patient Portal Social Distancing
[2021-01-15] MEDS ORDERED: DEMEROL INJ IVP ONE (15:18)
[2021-01-15] MEDS ORDERED: ZOFRAN INJ 4 MG VIAL IVP ONE (15:18)
[2021-01-15] MEDS ORDERED: DEMEROL INJ ONE (15:25)
[2021-01-15] MEDS ORDERED: ZOFRAN INJ 4 MG VIAL ONE (15:25)
[2021-01-15 15:38] LABS: BASOPHILS # (AUTO) 0.1 X10^3/uL (0.0-0.1); BASOPHILS % (AUTO) 0.8 % (0.2-1.0); EOSINOPHILS % (AUTO) 0.3 % (0.9-2.9); HEMATOCRIT 37.1 % (36.0-47.0); HEMOGLOBIN 12.2 g/dL (12.0-16.0); LYMPHOCYTES # (AUTO) 0.8 X10^3/uL (1.3-2.9); LYMPHOCYTES % (AUTO) 8.1 % (21.0-51.0); MEAN CORPUSCULAR HEMOGLOBIN 30.2 pg (27.0-34.0); MEAN CORPUSCULAR HGB CONC 32.9 g/dL (33.0-35.0); MEAN CORPUSCULAR VOLUME 91.8 fL (80.0-100.0); MEAN PLATELET VOLUME 8.4 fL (7.4-11.0); MONOCYTES # (AUTO) 0.5 x10^3/uL (0.3-0.8); MONOCYTES % (AUTO) 5.5 % (0.0-13.0); NEUTROPHILS # (AUTO) 8.1 x10^3/uL (2.2-4.8); NEUTROPHILS % (AUTO) 85.3 % (42.0-75.0); PLATELET COUNT 222 X10^3/uL (150.0-450.0); RED BLOOD COUNT 4.04 X10^6/uL (3.5-5.4); RED CELL DISTRIBUTION WIDTH 15.5 % (11.6-16.5); WHITE BLOOD COUNT 9.5 X10^3/uL (3.6-10.0)
[2021-01-15 15:59] LABS: ALANINE AMINOTRANSFERASE 138 Units/L (12-78); ALBUMIN 2.7 g/dL (3.4-5.0); ALKALINE PHOSPHATASE 303 Units/L (46-116); AMYLASE 11 Units/L (25-115); ASPARTATE AMINO TRANSFERASE 100 Units/L (15-37); BLOOD UREA NITROGEN 3 mg/dL (7-18); CALCIUM 8.5 mg/dL (8.5-10.1); CARBON DIOXIDE 34.4 mmol/L (21-32); CHLORIDE 98 mmol/L (98-107); CKMB % 6.7 % (<4); COR CA(FOR HYPOALB) 9.5 mg/dL (8.5-10.1); COR NA(FOR HYPERGLY) 142 mmol/L (136-145); CREATINE KINASE 15 Units/L (26-192); CREATINE KINASE MB < 1.0 ng/mL (0-4.0); CREATININE 0.99 mg/dL (0.55-1.02); LIPASE 149 Units/L (73-393); SODIUM 138 mmol/L (136-145); TOTAL PROTEIN 6.8 g/dL (6.4-8.2); TROPONIN I < 0.02 ng/mL (0-1.5); eGFR NON BLACK RACES > 60 (>60)
--- NOTE | 2021-01-15 16:00 | CT ---
EXAM: CT ABDOMEN AND PELVIS WITHOUT INTRAVENOUS CONTRASTHISTORY: Epigastric abdominal pain.TECHNIQUE: Spiral axial CT images are obtained through the abdomen and pelvis without the administration of intravenous contrast. Additional coronal and sagittal reformatted images are reconstructed.DOSIMETRY: Total DLP 1325.8 mGycm; CTDI 26.9 mGyCOMPARISON: CT abdomen and pelvis dated September 16, 2017.FINDINGS:GASTROINTESTINAL TRACT: There is no evidence for bowel herniation, bowel obstruction, appendicitis, colitis or diverticulitis.GENITOURINARY SYSTEM: There are multiple tiny bilateral nonobstructing renal calculi. The kidneys are unremarkable. There is no ureteral calculus or stigmata of obstructive uropathy. Dilated urinary bladder (11.2 cm CC by 8.3 cm AP by 9.6 cm transverse); rule out urinary retention.CT ABDOMEN: There is interval development of a large (approximately 7.1 cm transverse by 5.4 cm AP by 6.5 cm CC) masslike soft tissue lesion within the head of the pancreas, presumed to represent pancreatic Cancer; DDx includes acute pancreatitis mimicking neoplasm. Correlation with postcontrast CT and/or MRI may be beneficial for further characterization. No pancreatic pseudocyst is seen.Status post cholecystectomy. There is severe intrahepatic and extrahepatic biliary ductal dilatation (CBD measures up to 4.8 cm (previously 1.8 cm) in keeping with biliary obstruction at the level of the pancreatic head mass lesion.There is severe aortic iliac atherosclerosis with a stable infrarenal AAA (measuring up to 3.8 cm diameter); no evidence for aortic rupture. The liver, spleen, adrenal glands, and inferior vena cava are within normal limits for a noncontrast CT scan. There is no intra-abdominal or retroperitoneal lymphadenopathy, free fluid, or free air seen. There is interval development of a large (approximately 10.3 cm transverse by 4.8 cm AP by 8.5 cm CC, right anterior upper abdominal wall incisional hernia containing uncomplicated omental fat.CT PELVIS: Status post hysterectomy. There is a chronic stable severe anterior wedge compression fracture at the T12 vertebral body, with resultant thoracolumbar kyphosis. There is stable appearance of severe DDD at L4/5 with prominent posterior disc bulge/marginal osteophyte complex and potential for neural impingement. The visualized bony structures are within normal limits. No pelvic sidewall or inguinal lymphadenopathy is seen. No inguinal herniation is noted. No free fluid or free air is seen.LUNG BASES: The lung bases are clear.IMPRESSION:1. Interval development of a large (approximately 7.1 cm transverse by 5.4 cm AP by 6.5 cm CC) masslike soft tissue lesion within the head of the pancreas, presumed to represent pancreatic Cancer; DDx includes acute pancreatitis mimicking neoplasm. Correlation with postcontrast CT and/or MRI may be beneficial for further characterization. No pancreatic pseudocyst is seen.2. Severe intrahepatic and extrahepatic biliary ductal dilatation (CBD measures up to 4.8 cm (previously 1.8 cm) in keeping with biliary obstruction at the level of the pancreatic head mass lesion.3. Severe aortic iliac atherosclerosis with a stable infrarenal AAA (measuring up to 3.8 cm diameter); no evidence for aortic rupture.4. Interval development of a large (approximately 10.3 cm transverse by 4.8 cm AP by 8.5 cm CC, right anterior upper abdominal wall incisional hernia containing uncomplicated omental fat.5. Multiple bilateral nonobstructing renal calculi; no ureteral stone or obstructive uropathy seen bilaterally.6. Dilated urinary bladder (11.2 cm CC by 8.3 cm AP by 9.6 cm transverse); rule out urinary retention.7. No evidence for acute appendicitis, bowel herniation/obstruction, colitis or diverticulitis seen.8. No free fluid, free air or lymphadenopathy seen.Electronically signed by: Sara Traore (Jan 15, 2021 15:58:39)
--- NOTE | 2021-01-15 16:15 | RAD ---
CHEST, 1 VIEWHISTORY:CHEST PAIN/SOBStudy: Single view of the chest.Comparison:NoneFindings:Cardiomegaly and pulmonary vascular congestion. No focal consolidations, pleural effusions or pneumothorax. Osseous structures demonstrate no acute abnormality.IMPRESSION:1. Cardiomegaly and pulmonary vascular congestion.Electronically signed by: SAEID CURTIS (Jan 15, 2021 16:14:11)
[2021-01-15] MEDS ORDERED: COREG TAB 12.5 MG PO ONE (18:07)
[2021-01-15] MEDS ORDERED: VENTOLIN or PROAIR HFA IN SCH (18:53)
[2021-01-15] MEDS ORDERED: PULMICORT NEB TX 0.5 MG NEB ONE (19:31)
[2021-01-15] MEDS: PULMICORT NEB TX 0.5 MG NEB SCH (20:05)
[2021-01-15] MEDS ORDERED: GLUCOPHAGE ONE (20:06)
[2021-01-15] MEDS ORDERED: BENTYL CAP 10 MG PO ONE (20:24)
[2021-01-15] MEDS: VITAMIN C PO SCH (20:40)
[2021-01-15] MEDS: PROTONIX TAB 40 MG PO SCH (20:40)
[2021-01-15] MEDS: COLACE CAP 100 MG PO SCH (20:40)
[2021-01-15] MEDS ORDERED: DUONEB 0.5 MG/3 MG (3 mL) NEB SCH ×2 (21:00→22:00)
[2021-01-15] MEDS: BENTYL CAP 10 MG PO SCH (21:47)
[2021-01-15] MEDS: COREG TAB 12.5 MG PO SCH (21:48)
[2021-01-15] MEDS: GLUCOPHAGE PO SCH (21:48)
[2021-01-15] MEDS: LUBIPROSTONE 24 MCG PO SCH (21:51)
[2021-01-15] MEDS: K-DUR TAB 20 MEQ PO SCH (21:52)
[2021-01-15] MEDS: NORCO 5/325 MG TAB PO SCH (21:52)
[2021-01-15] MEDS: XANAX PO SCH (21:59)
[2021-01-15] MEDS: AMBIEN PO PRN (22:00)
[2021-01-15] MEDS ORDERED: PHARMACY CONSULT LTC MEDICATIONS XX SCH (22:00)
[2021-01-15] MEDS ORDERED: Atrovent NEB TX 0.02% ONE (22:55)
[2021-01-15] MEDS ORDERED: XOPENEX 1.25 MG/3 ML NEBULE NEB ONE (22:55)
[2021-01-15 23:48] LABS: CKMB % 3.3 % (<4); CREATINE KINASE 30 Units/L (26-192); CREATINE KINASE MB < 1.0 ng/mL (0-4.0); TROPONIN I < 0.02 ng/mL (0-1.5)
[2021-01-16] MEDS: Atrovent NEB TX 0.02% NEB SCH ×4 (00:01→16:00)
[2021-01-16] MEDS: XOPENEX 1.25 MG/3 ML NEBULE NEB SCH ×4 (00:01→16:00)
[2021-01-16 05:10] LABS: BILIRUBIN,URINE 2+ (NEGATIVE); BLOOD/HEMOGLOBIN,URINE 2+ (NEGATIVE); GLUCOSE, URINE NEGATIVE (NEGATIVE); KETONES,URINE 1+ (NEGATIVE); LEUKOCYTE ESTERASE ,URINE 1+ (NEGATIVE); NITRITES,URINE NEGATIVE (NEGATIVE); PROTEIN,URINE 2+ (NEGATIVE); UROBILINOGEN,URINE 2+ (NORMAL)
[2021-01-16 05:17] LABS: APPEARANCE,URINE CLEAR (CLEAR); COLOR,URINE AMBER (YELLOW)
[2021-01-16 05:22] LABS: BACTERIA,URINE 1+ /HPF (NEGATIVE); RBC,URINE 0-2 /HPF (0-3); SQUAMOUS EPITHELIAL CELL,UR FEW /HPF (NEGATIVE)
[2021-01-16] MEDS: BENTYL CAP 10 MG PO SCH ×3 (05:40→21:46)
[2021-01-16] MEDS: K-DUR TAB 20 MEQ PO SCH ×3 (05:41→21:00)
[2021-01-16] MEDS: NORCO 5/325 MG TAB PO SCH ×4 (05:41→21:00)
[2021-01-16] MEDS: XANAX PO SCH ×3 (05:44→21:48)
[2021-01-16 06:26] LABS: BASOPHILS # (AUTO) 0.1 X10^3/uL (0.0-0.1); BASOPHILS % (AUTO) 0.6 % (0.2-1.0); EOSINOPHILS # (AUTO) 0.1 x10^3/uL (0.0-0.2); EOSINOPHILS % (AUTO) 1.5 % (0.9-2.9); HEMATOCRIT 37.3 % (36.0-47.0); HEMOGLOBIN 12.2 g/dL (12.0-16.0); LYMPHOCYTES # (AUTO) 0.9 X10^3/uL (1.3-2.9); LYMPHOCYTES % (AUTO) 10.1 % (21.0-51.0); MEAN CORPUSCULAR HEMOGLOBIN 29.9 pg (27.0-34.0); MEAN CORPUSCULAR HGB CONC 32.6 g/dL (33.0-35.0); MEAN CORPUSCULAR VOLUME 91.8 fL (80.0-100.0); MEAN PLATELET VOLUME 8.8 fL (7.4-11.0); MONOCYTES # (AUTO) 0.9 x10^3/uL (0.3-0.8); MONOCYTES % (AUTO) 9.8 % (0.0-13.0); NEUTROPHILS # (AUTO) 7.1 x10^3/uL (2.2-4.8); PLATELET COUNT 224 X10^3/uL (150.0-450.0); RED BLOOD COUNT 4.07 X10^6/uL (3.5-5.4); RED CELL DISTRIBUTION WIDTH 15.7 % (11.6-16.5); WHITE BLOOD COUNT 9.1 X10^3/uL (3.6-10.0)
[2021-01-16 07:04] LABS: ALANINE AMINOTRANSFERASE 155 Units/L (12-78); ALBUMIN 2.8 g/dL (3.4-5.0); ALKALINE PHOSPHATASE 328 Units/L (46-116); ASPARTATE AMINO TRANSFERASE 158 Units/L (15-37); BLOOD UREA NITROGEN 6 mg/dL (7-18); CALCIUM 9.2 mg/dL (8.5-10.1); CARBON DIOXIDE 33.8 mmol/L (21-32); CHLORIDE 100 mmol/L (98-107); CKMB % 2.9 % (<4); COR CA(FOR HYPOALB) 10.2 mg/dL (8.5-10.1); COR NA(FOR HYPERGLY) 141 mmol/L (136-145); CREATINE KINASE 34 Units/L (26-192); CREATINE KINASE MB < 1.0 ng/mL (0-4.0); CREATININE 0.79 mg/dL (0.55-1.02); MAGNESIUM 2.1 mg/dL (1.7-2.9); SODIUM 139 mmol/L (136-145); TROPONIN I < 0.02 ng/mL (0-1.5); eGFR NON BLACK RACES > 60 (>60)
[2021-01-16] MEDS: ZOFRAN INJ 4 MG VIAL IVP PRN (07:25)
[2021-01-16] MEDS: GLUCOPHAGE PO SCH ×2 (07:38→17:09)
[2021-01-16] MEDS: PULMICORT NEB TX 0.5 MG NEB SCH ×2 (08:29→21:00)
[2021-01-16] MEDS ORDERED: [UNRECOGNIZED DRUG - OTHER] IN SCH (09:00)
[2021-01-16] MEDS ORDERED: DILAUDID INJ ONE (10:07)
[2021-01-16] MEDS: DILAUDID INJ IVP PRN ×3 (10:20→23:25)
[2021-01-16] MEDS: ACTOS PO SCH (10:50)
[2021-01-16] MEDS: ALDACTONE TAB 25 MG PO SCH (10:50)
[2021-01-16] MEDS: COREG TAB 12.5 MG PO SCH ×2 (10:51→20:27)
[2021-01-16] MEDS: CARDIZEM CD 240 MG 24-HR PO SCH (10:51)
[2021-01-16] MEDS: FERROUS GLUCONATE PO SCH (10:51)
[2021-01-16] MEDS: NEURONTIN CAP 100 MG PO SCH (10:52)
[2021-01-16] MEDS: PREDNISONE TAB 10 MG PO SCH (10:52)
[2021-01-16] MEDS: LASIX PO SCH (10:52)
[2021-01-16] MEDS: LUBIPROSTONE 24 MCG PO SCH ×2 (10:52→21:47)
[2021-01-16] MEDS: ZOLOFT PO SCH (10:56)
[2021-01-16] MEDS: VITAMIN C PO SCH ×2 (10:56→20:28)
[2021-01-16] MEDS: PROTONIX TAB 40 MG PO SCH ×2 (10:56→20:28)
[2021-01-16] MEDS: ZINC SULFATE PO SCH (10:57)
[2021-01-16] MEDS: NS 1000 ML 1,000 ML IV SCH (12:00)
--- NOTE | 2021-01-16 12:31 | MRI ---
HISTORYPancreatic mass on CT, epigastric abdomen painSTUDYMRI ABDOMEN W/WO IV CONTRASTCOMPARISONCT 01/15/2021TECHNIQUEMRI of the abdomenwithout and with IV contrast is performed using standard sequences in multiple planes. 20 cc MultiHance IV contrast.FINDINGSIntra and extrahepatic biliary ductal dilation. Common bile duct is dilated to 4.1 cm in diameter. This is probably from the pancreatic head mass. Mass in the head of the pancreas measures 6.9 x 7.1 x 5.5 cm. It has slight increased T2 signal compared to normal pancreatic tissue. There are peripheral areas of cyst formation or necrosis. There is poor enhancement of the mass centrally. There is very minimal adjacent hazy edema in the fat. There is dilation of the pancreatic duct from the mass, also. Body and tail of the pancreas appears mildly atrophic.No hepatic or splenic mass is identified. No lymphadenopathy is seen. No adrenal nodules are seen. No renal lesion is seen. There is mild dilation of the distal abdominal aorta to 3.5 cm in diameter. No ascites. There is an anterior abdominal wall hernia in the right mid abdomen. It contains fat. No evidence of bowel obstruction.IMPRESSION6.9 x 7.1 x 5.5 cm mass in the region of the head of the pancreas is concerning for pancreatic malignancy. This causes prominent biliary ductal dilation and moderate pancreatic ductal dilation. There is mass effect on the duodenum without evidence of obstruction.3.5 cm distal abdominal aortic aneurysm.Electronically signed by: Suraj Monge (Jan 16, 2021 12:28:34)
[2021-01-16] MEDS: PEPCID 20 MG IV PREMIX* 20 MG/50 ML BAG IV SCH ×3 (13:38→20:26)
[2021-01-16] MEDS: LEVSIN/MAALOX/LIDOC VISC PO SCH ×4 (13:38→20:27)
[2021-01-16 16:37] VITALS: BMI 40.8
[2021-01-16] MEDS ORDERED: GLUCOPHAGE ONE (16:57)
--- NOTE | 2021-01-16 18:13 | DR.CONSULT ---
Consult - Consultation for Day of: Date: 01/16/21 - Chief Complaint Chief Complaint: Pancreatic mass - History of Present Illness History of Present Illness: Patient referred for pancreatic mass. Patient with complaints of dysphagia, dyspepsia, nausea, upper abdominal pain and constipation. last EGD was 11/25/18 which showed distal esophagitis, esophageal spasm and mild stricture. Patient was seen in the office yesterday with the same complaints and was scheduled for an EGD as an outpatient. Hgb 12.2, hct 37.3, Plt 224, BUN 6, Creatinine 0.79, T. Bili 3.7, AST 158, ALT 155, aLP 328, Amylase 11, Lipase 149. Abdomen and pelvis CT showed Interval development of a large (approximately 7.1 cm transverse by 5.4 cm AP by 6.5 cm CC) masslike soft tissue lesion within the head of the pancreas, presumed to represent pancreatic Cancer; DDx includes acute pancreatitis mimicking neoplasm. Correlation with postcontrast CT and/or MRI may be beneficial for further characterization. No pancreatic pseudocyst is seen. Severe intrahepatic and extrahepatic biliary ductal dilatation (CBD measures up to 4.8 cm (previously 1.8 cm) in keeping with biliary obstruction at the level of the pancreatic head mass lesion. Severe aortic iliac atherosclerosis with a stable infrarenal AAA (measuring up to 3.8 cm diameter); no evidence for aortic rupture. Interval development of a. large (approximately 10.3 cm transverse by 4.8 cm AP by 8.5 cm CC, right. anterior upper abdominal wall incisional hernia containing uncomplicated omental fat. Abdominal MRI 6.9 x 7.1 x 5.5. cm mass in the region of the head of the pancreas is concerning for pancreatic malignancy. This causes prominent biliary ductal dilation and moderate pancreatic ductal dilation. There is mass effect on the duodenum without evidence of obstruction. 3.5 cm distal abdominal aortic a neurysm. - Past Medical History Past Medical History: Angina, Diabetes, Anxiety, Anemia, COPD, Asthma, Arthritis, Sleep Apnea - Past Surgical History Surgical History: Appendectomy, Cholecystectomy, Ortho Surgery - Family History Family Medical History: Diabetes Mellitus, Cancer, [place], Coronary Artery Disease, Sudden Cardiac , Hypertension - Social History Does patient currently use any type of tobacco product: No Have you used tobacco products in the last 12 months: No Type of Tobacco Use: None Does any household member use tobacco: No Alcohol Use: None Drug Use: Prescription Drugs - Medications Home Medications: No Known Drug Allergies Allergy (Verified 08/19/19 14:23) CONTINUE taking the following medications alprazolam [Xanax] 0.5 mg PO TID 01/15/21 [History] ipratropium-albuterol 1 neb NEB QID 01/15/21 [History] - Review of Systems Gastrointestinal: See HPI, Nausea, Vomiting, Abdominal Pain (RUQ, epigastric, LUQ), Constipation. denies: Diarrhea, Melena, Hematochezia - Physical Exam Vital Signs: Temperature 98.0 F Pulse Rate [Left Radial] 91 Pulse Rate 90 Respiratory Rate 18 Blood Pressure [Right Arm] 118/58 Blood Pressure [Left Arm] 105/55 Blood Pressure 105/55 O2 Sat by Pulse Oximetry 97 Oriented: Normal Eyes: Normal Ear: Normal Nose: Normal Throat: Normal Respiratory: Clear Throughout Cardiovascular: Normal Palpation: Normal, Other (no distention). negative: Spleen Enlarged, Liver Enlarged, Mass Pulsatile Tenderness: RUQ, LUQ, Epigastric Skin: Normal Musculoskeletal: Normal Psychiatric: Normal Mood Description: Calm, Appropriate Affect: Normal Speech Pattern: Clear, Appropriate - Plan Plan: Assessment. 1. Pancreatic mass with intra and extra hepatic ductal dilatation. 2. Nausea, vomiting, abdominal pain. Plan. 1. Will need transfer to tertiary care facility for EUS. 2. Zofran PRN, Protonix IV, Reglan IV. Plan reviewed with Dr. Becker - Allergies Allergies/Adverse Reactions: Allergies Allergy/AdvReac Type Severity Reaction Status Date / Time No Known Drug Allergies Allergy Verified 08/19/19 14:23
[2021-01-16 19:09] LABS: BILIRUBIN,DIRECT 3.8 mg/dL (0-0.2)
[2021-01-16] MEDS: REGLAN INJ 10 MG VIAL IVP SCH (20:26)
[2021-01-16] MEDS: COLACE CAP 100 MG PO SCH (20:27)
[2021-01-16] MEDS: AMBIEN PO PRN (20:33)
--- NOTE | 2021-01-17 00:05 | DR.H&P ---
H&P - History & Physical for Day of: H&P Date: 01/15/21 - Chief Complaint Chief Complaint: ABDOMINAL PAIN, CHEST PAIN, DYSPHAGIA, CONSTIPATION - History of Present Illness History of Present Illness: IS A 55 YEAR OLD PATIENT OF OURS. SHE IS A RESIDENT OF [facility]. SHE PRESENTED TO THE ER WITH COMPLAINTS OF ABDOMINAL PAIN X 1 WEEK. SHE ALSO REPORTS CHEST PAIN THAT STARTED APPROXIMATELY 3 DAYS AGO. SYMPTOMS HAVE PROGRESSIVELY GOTTEN WORSE. ABDOMINAL PAIN IS DESCRIBED DULL, CONSTANT, AND WAS RATED A 7/10 ON ARRIVAL. ADDITIONAL SYMPTOMS INCLUDE DYSPHAGIA, NAUSEA, AND CONSTIPATION. SHE WAS SEEN BY GASTROENTEROLOGY ON 01/15. HER PMH INCLUDES: ANEMIA, ANGINA, ANXIETY, ARTHRITIS, ASTHMA, COPD, DIABETES, SLEEP APNEA, APPENDECTOMY, AND CHOLECYSTECTOMY. ON ARRIVAL TO THE ER, VITALS WERE 98.9-139-22-98%-118/56. LABS WERE OBTAINED. ABNORMAL LAB VALUES INCLUDE THE FOLLOWING: CARBON DIOXIDE 34.4, BUN 3, GLUCOSE 282, TOTAL BILI 2.80, AST 100, ALT 138, ALK PHOS 303, CREATINE KINASE 15, BNP 308, ALBUMIN 2.7, AMYLASE 11. URINALYSIS REVEALED: WBC 0-2, RBC 0-2, BACTERIA 1+, OCCULT BLOOD 2+, LEUKOCYTES 1+, PROTEIN 2+. AN ABDOMEN/PELVIS CT WITHOUT CONTRAST WAS OBTAINED AND REVEALED: Interval development of a large (approxi mately 7.1 cm transverse by 5.4 cm AP by 6.5 cm CC) masslike soft tissue lesion within the head of the pancreas, presumed to represent pancreatic Cancer; DDx includes acute pancreatitis mimicking neoplasm. Correlation with postcontrast CT and/or MRI may be beneficial for further characterization. No pancreatic pseudocyst is seen. 2. Severe intrahepatic and extrahepatic biliary ductal dilatation (CBD measures up to 4.8 cm (previously 1.8 cm) in keeping with biliary obstruction at the level of the pancreatic head mass lesion. 3. Severe aortic iliac atherosclerosis with a stable infrarenal AAA (measuring up to 3.8 cm diameter); no evidence for aortic rupture. 4. Interval development of a large (approximately 10.3 cm transverse by 4.8 cm AP by 8.5 cm CC, right anterior upper abdominal wall incisional hernia containing uncomplicated omental fat. 5. Multiple bilateral nonobstructing renal calculi; no ureteral stone or obstructive uropathy seen bilaterally. 6. Dilated urinary bladder (11.2 cm CC by 8.3 cm AP by 9.6 cm transverse); rule out urinary retention. 7. No evidence for acute appendicitis, bowel herniation/obstruction, colitis or diverticulitis seen. 8. No free fluid, free air or lymphadenopathy seen. A CHEST XRAY WAS OBTAINED AND REVEALED: Cardiomegaly and pulmonary vascular congestion. EKG REVEALED: SINUS TACHYCARDIA WITH HR 139. IN THE ER, SHE WAS GIVEN DEMEROL 25MG IV X 1 DOSE, ZOFRAN 4MG IV X 1 DOSE, COREG 12.5MG PO X 1 DOSE, A PULMICORT NEB. SHE WAS ADMITTED TO THE HOSPITAL FOR FURTHER EVALUATION AND TREATMENT OF PANCREATIC MASS, ABDOMINAL PAIN, AND CHEST PAIN. SHE WAS STARTED ON NORMAL SALINE AT 75 ML/HR, PEPCID 20MG IV Q12H, PZOFRAN 4MG IV Q6H PRN, GI COCKTAIL 15ML PO QID, PROTONIX 40MG PO BID, NORCO 5/325MG PO TID PRN, DILAUDID 1-2MG IV Q4H PRN, ATROVENT NEBS, PULMICORT NEBS, AND HER HOME MEDICATIONS WERE RESUMED. TODAY, WE WILL OBTAIN A MRI WITH CONTRAST OF THE ABDOMEN, OBTAIN A CA 19-9, AND CONSULT WITH , BANKING OFFICER. OTHERWISE, WE WILL FOLLOW UP WITH AM LABS AND CONTINUE TO MONITOR. TIME SPENT ON CLINICAL ASSESSMENT, REVIEWING LABS AND IMAGING, DECISION MAKING, AND DOCUMENTATION WAS GREATER THAN 75 MINUTES. - Past Medical History Past Medical History: Angina, Diabetes, Anxiety, Anemia, COPD, Asthma, Arthritis, Sleep Apnea - Past Surgical History Surgical History: Appendectomy, Cholecystectomy, Ortho Surgery - Family History Family Medical History: Diabetes Mellitus, Cancer, MD, Coronary Artery Disease, Sudden Cardiac , Hypertension - Social History Does patient currently use any type of tobacco product: No Have you used tobacco products in the last 12 months: No Type of Tobacco Use: None Does any household member use tobacco: No Alcohol Use: None Drug Use: Prescription Drugs - Medications Home Medications: No Known Drug Allergies Allergy (Verified 08/19/19 14:23) CONTINUE taking the following medications alprazolam [Xanax] 0.5 mg PO TID 01/15/21 [History] ipratropium-albuterol 1 neb NEB QID 01/15/21 [History] - Review of Systems Constitutional: Weakness Eyes: No Symptoms Reported ENT: No Symptoms Reported Respiratory: Shortness of Breath Cardiovascular: Chest Pain Gastrointestinal: See HPI, Nausea, Abdominal Pain, Constipation Genitourinary: No Symptoms Reported Musculoskeletal: No Symptoms Reported Skin: No Symptoms Reported Neurological: Weakness - Physical Exam Vital Signs: Temperature 98.5 F Pulse Rate [Left Radial] 95 Pulse Rate 76 Respiratory Rate 20 Blood Pressure [Right Arm] 110/55 Blood Pressure [Left Arm] 105/55 Blood Pressure 105/55 O2 Sat by Pulse Oximetry 98 Oriented: Normal Eyes: Normal Ear: Normal Nose: Normal Throat: Normal Respiratory: Diminished Throughout Cardiovascular: Normal : Normal Auscultation: Bowel Sounds: Decreased Palpation: Normal Tenderness: Diffuse, Moderate. negative: Rebound, Guarding, Rigidity Skin: Normal Musculoskeletal: Normal Psychiatric: Normal Mood Description: Calm Affect: Normal Speech Pattern: Clear - Assessment/Plan (1) Pancreatic mass Status: Acute Plan: ADMIT, GI CONSULT, ABDOMEN MRI WITH CONTRAST, NORMAL SALINE AT 75 ML/HR, PEPCID 20MG IV Q12H, ZOFRAN 4MG IV Q6H PRN, GI COCKTAIL 15ML PO QID, PROTONIX 40MG PO BID, NORCO 5/325MG PO TID PRN, DILAUDID 1-2MG IV Q4H PRN, ATROVENT NEBS, PULMICORT NEBS, AND HER HOME MEDICATIONS WERE RESUMED. (2) Abdominal pain Qualifiers: Abdominal location: generalized Qualified Code(s): R10.84 - Generalized abdominal pain Status: Acute (3) Chest pain Qualifiers: Chest pain type: unspecified Qualified Code(s): R07.9 - Chest pain, unspecified Status: Acute (4) Tachycardia Status: Acute - Allergies Allergies/Adverse Reactions: Allergies Allergy/AdvReac Type Severity Reaction Status Date / Time No Known Drug Allergies Allergy Verified 08/19/19 14:23
[2021-01-17] MEDS: Atrovent NEB TX 0.02% NEB SCH ×3 (00:10→15:37)
[2021-01-17] MEDS: XOPENEX 1.25 MG/3 ML NEBULE NEB SCH ×3 (00:10→15:37)
[2021-01-17] MEDS: NS 1000 ML 1,000 ML IV SCH (01:51)
[2021-01-17] MEDS: REGLAN INJ 10 MG VIAL IVP SCH ×2 (01:52→06:06)
[2021-01-17] MEDS: ZOFRAN INJ 4 MG VIAL IVP PRN (02:48)
[2021-01-17] MEDS: DILAUDID INJ IVP PRN ×4 (04:20→12:55)
[2021-01-17] MEDS ORDERED: GLUCOPHAGE ONE (05:02)
[2021-01-17] MEDS: BENTYL CAP 10 MG PO SCH (05:14)
[2021-01-17] MEDS: XANAX PO SCH ×2 (05:14→12:55)
[2021-01-17] MEDS: K-DUR TAB 20 MEQ PO SCH (05:15)
[2021-01-17] MEDS: NORCO 5/325 MG TAB PO SCH (05:15)
[2021-01-17] MEDS: GLUCOPHAGE PO SCH (06:06)
[2021-01-17 06:15] LABS: BASOPHILS # (AUTO) 0.1 X10^3/uL (0.0-0.1); BASOPHILS % (AUTO) 0.7 % (0.2-1.0); EOSINOPHILS # (AUTO) 0.2 x10^3/uL (0.0-0.2); EOSINOPHILS % (AUTO) 2.2 % (0.9-2.9); HEMATOCRIT 35.5 % (36.0-47.0); HEMOGLOBIN 11.5 g/dL (12.0-16.0); LYMPHOCYTES % (AUTO) 11.4 % (21.0-51.0); MEAN CORPUSCULAR HEMOGLOBIN 29.9 pg (27.0-34.0); MEAN CORPUSCULAR HGB CONC 32.6 g/dL (33.0-35.0); MEAN CORPUSCULAR VOLUME 91.9 fL (80.0-100.0); MEAN PLATELET VOLUME 9.8 fL (7.4-11.0); MONOCYTES # (AUTO) 0.8 x10^3/uL (0.3-0.8); NEUTROPHILS # (AUTO) 6.4 x10^3/uL (2.2-4.8); NEUTROPHILS % (AUTO) 75.7 % (42.0-75.0); PLATELET COUNT 211 X10^3/uL (150.0-450.0); RED BLOOD COUNT 3.86 X10^6/uL (3.5-5.4); RED CELL DISTRIBUTION WIDTH 15.8 % (11.6-16.5); WHITE BLOOD COUNT 8.4 X10^3/uL (3.6-10.0)
[2021-01-17 07:06] LABS: ALANINE AMINOTRANSFERASE 142 Units/L (12-78); ALBUMIN 2.6 g/dL (3.4-5.0); ALKALINE PHOSPHATASE 350 Units/L (46-116); ASPARTATE AMINO TRANSFERASE 125 Units/L (15-37); BLOOD UREA NITROGEN 6 mg/dL (7-18); CALCIUM 9.1 mg/dL (8.5-10.1); CARBON DIOXIDE 32.1 mmol/L (21-32); CHLORIDE 101 mmol/L (98-107); COR CA(FOR HYPOALB) 10.2 mg/dL (8.5-10.1); COR NA(FOR HYPERGLY) 139 mmol/L (136-145); CREATININE 0.74 mg/dL (0.55-1.02); SODIUM 138 mmol/L (136-145); TOTAL PROTEIN 6.7 g/dL (6.4-8.2); eGFR NON BLACK RACES > 60 (>60)
[2021-01-17] MEDS ORDERED: ZOLOFT ONE (08:04)
[2021-01-17] MEDS: ACTOS PO SCH (08:11)
[2021-01-17] MEDS: FERROUS GLUCONATE PO SCH (08:11)
[2021-01-17] MEDS: CARDIZEM CD 240 MG 24-HR PO SCH (08:11)
[2021-01-17] MEDS: ZINC SULFATE PO SCH (08:12)
[2021-01-17] MEDS: NEURONTIN CAP 100 MG PO SCH (08:12)
[2021-01-17] MEDS: ZOLOFT PO SCH (08:13)
[2021-01-17] MEDS: LASIX PO SCH (08:15)
[2021-01-17] MEDS: PREDNISONE TAB 10 MG PO SCH (08:16)
[2021-01-17] MEDS: COREG TAB 12.5 MG PO SCH (08:16)
[2021-01-17] MEDS: PROTONIX TAB 40 MG PO SCH (08:17)
[2021-01-17] MEDS: LEVSIN/MAALOX/LIDOC VISC PO SCH (08:18)
[2021-01-17] MEDS: VITAMIN C PO SCH (08:19)
[2021-01-17] MEDS: PEPCID 20 MG IV PREMIX* 20 MG/50 ML BAG IV SCH (08:19)
[2021-01-17] MEDS: ALDACTONE TAB 25 MG PO SCH (08:21)
[2021-01-17] MEDS: PULMICORT NEB TX 0.5 MG NEB SCH (09:19)
[2021-01-17 12:04] VITALS: BP 114/59
== END 2021-01-17 13:00 | disposition short-term general hospital (02) | DRG 440 ==
LOC: MED/SURG 14:42 → ER 14:42 → MED/SURG 18:07
PROVIDERS: ADMIT Internal Medicine; ATTEND Internal Medicine
DX: R10.84 Generalized abdominal pain; R97.0 Elevated carcinoembryonic antigen [CEA]; R13.11 Dysphagia, oral phase; K59.09 Other constipation; R00.0 Tachycardia, unspecified; R07.89 Other chest pain; K86.89 Other specified diseases of pancreas